=== PATIENT | male | born 1980 | race Caucasian/White ===

== ENCOUNTER → 2018-09-28 17:48 | Outpatient (CLI) | payer MEDICAID, SELFPAY ==
[2018-09-28 18:33] LABS: Basophils % 0.4 % (0.1-2.0); Eosinophils # 0.4 K/mm3 (0.0-0.4); Eosinophils % 4.9 % (0.1-12.0); Hematocrit 48.5 % (42.0-52.0); Hemoglobin 16.6 g/dL (14.1-18.0); Lymphocytes % 34.6 % (10-50); Mean Corpuscular HGB Conc 34.2 g/dL (31.8-35.4); Mean Corpuscular Hemoglobin 29.9 pg (27.0-31.2); Mean Corpuscular Volume 87.3 fl (80-94); Mean Platelet Volume 7.9 fl (7.4-10.4); Monocytes # 0.6 K/mm3 (0.1-1.0); Monocytes % 6.5 % (1.7-9.3); Neutrophils # 4.6 K/mm3 (1.8-7.8); Neutrophils % 53.7 % (37.0-80.0); Platelet Count 321 K/mm3 (142-424); Red Blood Count 5.56 M/mm3 (4.60-6.20); Red Cell Distribution Width 13.7 % (11.5-17.5); White Blood Count 8.6 K/mm3 (4.8-10.8)
[2018-09-28 19:08] LABS: Alanine Aminotransferase 56 U/L (12-78); Albumin Level 3.6 gm/dL (3.4-5.0); Albumin/Globulin Ratio 0.8 (1.1-1.8); Alkaline Phosphatase 61 U/L (46-116); Anion Gap 15.3 mEq/L (5-15); Aspartate Amino Transferase 27 U/L (15-37); Blood Urea Nitrogen 15 mg/dL (7-18); Calcium 9.1 mg/dL (8.5-10.1); Carbon Dioxide 27 mmol/L (21.0-32.0); Chloride 105 mmol/L (98-107); Chol/HDL Ratio 7.1 (1-3.5); Cholesterol 240 mg/dL (140-200); Creatinine,Serum 1.03 mg/dL (0.70-1.30); Estimated Glomerular Filt Rate 81 ml/min (>60); GFR (African American) 98 ML/MIN (>60); Globulin 4.8 gm/dl (1.3-3.2); Glucose 94 mg/dL (74-106); HDL Cholesterol 34 mg/dL (27-67); LDL Cholesterol 169 mg/dL (0-130); Potassium 4.3 mmoL/L (3.5-5.1); Sodium 143 mmol/L (136-145); T4 (Thyroxine) 7.1 ug/dl (4.7-13.3); Thyroid Stimulating Hormone 1.61 uIU/ml (0.358-3.740); Total Protein,Serum 8.4 gm/dL (6.4-8.2); Triglycerides 183 mg/dL (30-200); Uric Acid 8.8 mg/dL (2.6-7.2); VLDL Cholesterol 37 mg/dL (0-40)
[2018-09-30 18:09] LABS: Vitamin B12 498 pg/mL (232-1245); Vitamin D 25 Hydroxy 13.3 ng/mL (30.0-100.0)
[2018-09-30 18:09] LABS: Folate 3.4 ng/mL (>3.0)
== END ==
PROVIDERS: Visit Provider Physician Assistant
DX: M54.10 Radiculopathy, site unspecified (principal)
CPT/HCPCS: 80053; 80061; 82607; 82652; 82746; 84436; 84443; 84550; 85025

== ENCOUNTER → 2018-12-21 09:10 | Outpatient (CLI) | payer MEDICAID, SELFPAY ==
[2018-12-21 09:34] LABS: Basophils % 0.6 % (0.1-2.0); Eosinophils # 0.4 K/mm3 (0.0-0.4); Eosinophils % 5.2 % (0.1-12.0); Hematocrit 50.5 % (42.0-52.0); Hemoglobin 16.7 g/dL (14.1-18.0); Lymphocytes # 2.8 K/mm3 (0.7-4.5); Lymphocytes % 40.4 % (10-50); Mean Corpuscular HGB Conc 33.1 g/dL (31.8-35.4); Mean Corpuscular Hemoglobin 29.5 pg (27.0-31.2); Mean Corpuscular Volume 89.1 fl (80-94); Mean Platelet Volume 7.1 fl (7.4-10.4); Monocytes # 0.4 K/mm3 (0.1-1.0); Monocytes % 6.3 % (1.7-9.3); Neutrophils # 3.3 K/mm3 (1.8-7.8); Neutrophils % 47.6 % (37.0-80.0); Platelet Count 289 K/mm3 (142-424); Red Blood Count 5.67 M/mm3 (4.60-6.20); White Blood Count 6.8 K/mm3 (4.8-10.8)
[2018-12-21 11:01] LABS: Alanine Aminotransferase 66 U/L (12-78); Albumin Level 3.2 gm/dL (3.4-5.0); Albumin/Globulin Ratio 0.7 (1.1-1.8); Alkaline Phosphatase 58 U/L (46-116); Anion Gap 10.7 mEq/L (5-15); Aspartate Amino Transferase 29 U/L (15-37); Blood Urea Nitrogen 11 mg/dL (7-18); Calcium 8.7 mg/dL (8.5-10.1); Carbon Dioxide 31 mmol/L (21.0-32.0); Chloride 105 mmol/L (98-107); Chol/HDL Ratio 6.5 (1-3.5); Cholesterol 226 mg/dL (140-200); Creatinine,Serum 0.92 mg/dL (0.70-1.30); Estimated Glomerular Filt Rate 92 ml/min (>60); GFR (African American) 111 ML/MIN (>60); Globulin 4.4 gm/dl (1.3-3.2); Glucose 88 mg/dL (74-106); HDL Cholesterol 35 mg/dL (27-67); LDL Cholesterol 163 mg/dL (0-130); Potassium 4.7 mmoL/L (3.5-5.1); Sodium 142 mmol/L (136-145); Thyroid Stimulating Hormone 2.72 uIU/ml (0.358-3.740); Total Protein,Serum 7.6 gm/dL (6.4-8.2); Triglycerides 142 mg/dL (30-200); VLDL Cholesterol 28 mg/dL (0-40)
[2018-12-21 12:19] LABS: Hemoglobin A1C 5.7 % (0.0-7.0)
== END ==
PROVIDERS: Visit Provider Psychiatry & Neurology Psychiatry
DX: F33.9 Major depressive disorder, recurrent, unspecified (principal)
CPT/HCPCS: 36415; 80053; 80061; 83036; 84443; 85025

== ENCOUNTER → 2019-04-11 13:21 | Outpatient (CLI) | payer OTHER, SELFPAY ==
[2019-04-11 13:59] LABS: Eosinophils % 5.8 % (0.1-12.0); Hematocrit 52.6 % (42.0-52.0); Hemoglobin 16.5 g/dL (14.1-18.0); Lymphocytes % 38.9 % (10-50); Mean Corpuscular HGB Conc 31.4 g/dL (31.8-35.4); Mean Corpuscular Hemoglobin 28.8 pg (27.0-31.2); Mean Corpuscular Volume 91.8 fl (80-94); Monocytes % 7.2 % (1.7-9.3); Neutrophils % 47.3 % (37.0-80.0); Platelet Count 288 K/mm3 (142-424); Red Blood Count 5.73 M/mm3 (4.60-6.20); Red Cell Distribution Width 14.6 % (11.5-17.5); White Blood Count 6.1 K/mm3 (4.8-10.8)
[2019-04-11 14:00] LABS: Basophils # 0.1 K/mm3 (0-0.2); Basophils % 0.8 % (0.1-2.0); Eosinophils # 0.4 K/mm3 (0.0-0.4); Lymphocytes # 2.4 K/mm3 (0.7-4.5); Monocytes # 0.4 K/mm3 (0.1-1.0); Neutrophils # 2.9 K/mm3 (1.8-7.8)
[2019-04-11 17:51] LABS: Alanine Aminotransferase 63 U/L (12-78); Albumin Level 3.5 gm/dL (3.4-5.0); Albumin/Globulin Ratio 0.8 (1.1-1.8); Alkaline Phosphatase 54 U/L (46-116); Anion Gap 17.5 mEq/L (5-15); Aspartate Amino Transferase 34 U/L (15-37); Bilirubin,Total 1.1 mg/dL (0.2-1.0); Blood Urea Nitrogen 10 mg/dL (7-18); Calcium 8.7 mg/dL (8.5-10.1); Carbon Dioxide 25 mmol/L (21.0-32.0); Chloride 104 mmol/L (98-107); Chol/HDL Ratio 6.6 (1-3.5); Cholesterol 250 mg/dL (140-200); Creatinine,Serum 0.98 mg/dL (0.70-1.30); Estimated Glomerular Filt Rate 86 ml/min (>60); GFR (African American) 104 ML/MIN (>60); Globulin 4.3 gm/dl (1.3-3.2); Glucose 95 mg/dL (74-106); HDL Cholesterol 38 mg/dL (27-67); LDL Cholesterol 178 mg/dL (0-130); Potassium 4.5 mmoL/L (3.5-5.1); Sodium 142 mmol/L (136-145); T4 (Thyroxine) 7.8 ug/dl (4.7-13.3); Thyroid Stimulating Hormone 1.81 uIU/ml (0.358-3.740); Total Protein,Serum 7.8 gm/dL (6.4-8.2); Triglycerides 172 mg/dL (30-200); VLDL Cholesterol 34 mg/dL (0-40)
[2019-04-12 21:12] LABS: Testosterone,Total 268 ng/dL (264-916); Vitamin D 25 Hydroxy 21.4 ng/mL (30.0-100.0)
== END ==
PROVIDERS: Visit Provider Physician Assistant
DX: F32.9 Major depressive disorder, single episode, unspecified (principal); E55.9 Vitamin D deficiency, unspecified
CPT/HCPCS: 80053; 80061; 82652; 84403; 84436; 84443; 85025

== ENCOUNTER → 2019-06-18 08:13 | Outpatient (CLI) | payer OTHER, SELFPAY ==
[2019-06-19 14:01] LABS: Estradiol 30.7 pg/mL (7.6-42.6)
[2019-06-21 15:51] LABS: Testosterone,Free 3.5 pg/mL (8.7-25.1)
[2019-06-27 13:18] LABS: Testosterone, Total, LC/MS 235.6
== END ==
PROVIDERS: Visit Provider Urology
DX: R79.89 Other specified abnormal findings of blood chemistry (principal)
CPT/HCPCS: 36415; 82670; 84402; 84403

== ENCOUNTER → 2019-06-26 20:18 | Outpatient (CLI) | payer OTHER, SELFPAY | PROVIDERS: PCP Physician Assistant; Visit Provider Physician Assistant | DX: G47.33 Obstructive sleep apnea (adult) (pediatric) (principal); R40.0 Somnolence; R06.83 Snoring | CPT/HCPCS: 95811 ==

== ENCOUNTER → 2019-07-25 20:16 | Outpatient (CLI) | payer OTHER, SELFPAY | PROVIDERS: PCP Physician Assistant; Visit Provider Nurse Practitioner Family | DX: G47.33 Obstructive sleep apnea (adult) (pediatric) (principal); G47.30 Sleep apnea, unspecified; R40.0 Somnolence; R06.83 Snoring; R51 Headache | CPT/HCPCS: 95811 ==

== ENCOUNTER 2020-01-08 13:00 | Outpatient (RCR) | payer OTHER, SELFPAY ==
--- NOTE | 2019-11-27 15:56 | HMH.PTOPEV ---
PT Outpatient Evaluation Rehab PT Outpatient Evaluation Start: 11/27/19 14:54 Freq: Status: Active Protocol: Document 11/27/19 15:24 JANESMORIS (Rec: 11/27/19 15:56 RODOLFO [id number]) Electronically Signed By Maxx Zhang, PT 11/27/19 15:24 Outpatient Therapy Subjective History Subjective History Patient is a 39 year old male presenting to outpatient PT with reports of chronich lumbar spine pain with BLE radicular symptoms. Pt reports he has had 2 lumbar spine surgeries initially in 2004 for spondylolisthesis. Pt reports L4/5/S1 fusion with mulitple cages. He was referred to PT for aquatic therapy secondary to decreased tolerance with standing acitvities. He has previously had a spinal stimulator placed approx around T8 per patient report. Comorbidities include morbid obesity, HL, asthma, L knee meniscectomy. Chief Complaint Pain,Stiff,Paresthesia, Weakness Symptom Type Ache,Throb,Sharp,Dull,Burning, Numbness,Tingling,Shooting Symptoms Relieved By Nothing Symptoms Aggravated By Supine,Sitting,Standing, Bending/Stooping,Physical Activity,Twisting,Walking, Lifting Prior Functional Limitations Reaching,Lifting,Housework, Dressing,Sleeping,Standing, Sitting,Squatting,Recreation Activity,Walking,Stairs, Balance,Bending/Stooping Current Functional Limitations Reaching,Lifting,Housework, Dressing,Driving,Standing, Sitting,Squatting,Recreation Activity,Walking,Stairs, Balance,Bending/Stooping Symptom Description Constant but Variable Level of pain today (0-10) 7 Pain scale - at its best (0-10) 5 Pain scale - at its worst (0-10) 9 Lumbopelvic Eval Posture Thoracic Spine Posture Standing Position Increased Kyphosis Lumbar Spine Posture Standing Position Increased Lordosis Assistive device Assistive Devices None / NA Palapation tenderness bilateral thoracic spinal tenderness Yes: 3/4 for all T7-S1 lumbar spinal tenderness
== END 2020-01-08 13:57 | disposition home or self-care (01) ==
LOC: PT 13:00
PROVIDERS: PCP Physician Assistant; Visit Provider Physician Assistant
DX: M54.16 Radiculopathy, lumbar region; M54.5 Low back pain
CPT/HCPCS: 97113; 97163; 97164

== ENCOUNTER → 2020-01-10 10:07 | Outpatient (CLI) | payer OTHER, SELFPAY ==
[2020-01-10 10:25] LABS: Basophils # 0.1 K/mm3 (0-0.2); Basophils % 0.8 % (0.1-2.0); Eosinophils # 0.4 K/mm3 (0.0-0.4); Eosinophils % 4.9 % (0.1-12.0); Lymphocytes % 40.9 % (10-50); Mean Corpuscular Volume 91.1 fl (80-94); Mean Platelet Volume 7.5 fl (7.4-10.4); Monocytes # 0.5 K/mm3 (0.1-1.0); Monocytes % 7.3 % (1.7-9.3); Neutrophils # 3.3 K/mm3 (1.8-7.8); Neutrophils % 46.1 % (37.0-80.0); Platelet Count 256 K/mm3 (142-424); Red Blood Count 6.26 M/mm3 (4.60-6.20); Red Cell Distribution Width 15.1 % (11.5-17.5); White Blood Count 7.2 K/mm3 (4.8-10.8)
[2020-01-10 10:30] LABS: Hemoglobin 18.8 g/dL (14.1-18.0)
[2020-01-10 11:49] LABS: Alanine Aminotransferase 47 U/L (12-78); Albumin Level 4.2 g/dl (3.5-5.0); Alkaline Phosphatase 61 U/L (38-126); Aspartate Amino Transferase 37 U/L (17-59); Bilirubin,Direct 0.2 mg/dl (0.0-0.4); Bilirubin,Indirect 1.5 mg/dL (0.0-0.9); Bilirubin,Total 1.7 mg/dl (0.2-1.3); Bilirubin,Unconjugated 1.5 mg/dL (0.0-1.1); Total Protein,Serum 7.7 g/dl (6.3-8.2)
[2020-01-14 13:41] LABS: Testosterone, Total, LC/MS 926.2 ng/dL (264.0-916.0); Testosterone,Free 20.4 pg/mL (8.7-25.1)
== END ==
PROVIDERS: Visit Provider Urology
DX: E29.1 Testicular hypofunction (principal)
CPT/HCPCS: 36415; 80076; 82670; 84402; 84403; 85025

== ENCOUNTER → 2020-01-30 15:55 | Outpatient (CLI) | payer OTHER, SELFPAY ==
[2020-01-30 17:20] LABS: Thyroid Stimulating Hormone 2.01 uIU/mL (0.465-4.68)
== END ==
PROVIDERS: Visit Provider Physician Assistant
DX: E05.90 Thyrotoxicosis, unspecified without thyrotoxic crisis or storm (principal)
CPT/HCPCS: 84443

== ENCOUNTER → 2020-02-08 12:41 | Outpatient (CLI) | payer OTHER, SELFPAY ==
--- NOTE | 2020-02-08 12:42 | CA_ITS ---
APPROVED REPORT EXAM: Comprehensive 2D, Doppler, and color-flow Echocardiogram Sports Administrator: Meagan Lizama RT(R) Ht: 6 ft 4 in Wt: 474lbs BSA: 3.20 BP: 155/101 mmHg Indications: Edema, Family history of HD, depression, hx [place] 2D Dimensions LVOT 2.27 cm (M/F) 1.5-2.5 M-Mode Dimensions RVDd 2.16 cm (0.9-2.6) LVDd 6.85 cm (3.5-5.7) LVDs 5.73 cm (3.5-5.7) IVSd 1.22 cm (0.6-1.1) PWd 0.94 cm (0.6-1.1) EF (Teich) 33.40% FS 16.40% EDV (Teich) 243.20 mL ESV (Teich) 162.00 mL LV Diastology E/A Ratio 1.76 Mitral Valve MV A Velocity 62.00 (40-130 cm/s) Left Ventricle Technically very difficult study, endocardial surfaces are very poorly visualized, a repeat study with Definity contrast is recommended. Left atrium is mildly enlarged, left ventricle is normal size, probably preserved left ventricular systolic function, the study is suboptimal for the analysis of segmental wall motion. Diastolic parameters are inconclusive. Right Ventricle Right atrium and right ventricle appears to be relatively normal size and function. Aortic Valve Aortic valve is not well visualized, Doppler is not indicated above aortic stenosis. Mitral Valve Mitral valve is grossly normal, there is mild mitral regurgitation. Tricuspid Valve Tricuspid valve grossly normal, there is mild tricuspid regurgitation, tricuspid regurgitation jet velocity is inadequate for calculation of the right ventricular systolic pressure. Pulmonic Valve Pulmonic valve is poorly visualized. Great Vessels Aortic root is normal size. Pericardium No significant pericardial effusion noted. Conclusion 1. Technically very difficult study as described above, repeat study with Definity contrast is recommended. 2. Probably preserved left ventricular systolic function. 3. No significant pericardial effusion noted. Electronically signed by : Chuck Barrow, 02/08/2020 13:48:28
== END ==
PROVIDERS: PCP Physician Assistant; Visit Provider Physician Assistant
DX: R60.9 Edema, unspecified (principal)
CPT/HCPCS: 93306

== ENCOUNTER → 2020-02-21 10:01 | Outpatient (CLI) | payer OTHER, SELFPAY ==
--- NOTE | 2020-02-21 10:03 | CA_ITS ---
APPROVED REPORT EXAM: Limited 2D Echocardiogram with contrast Subscription Agent: Perla Anthony RDCS Ht: 6 ft 4 in Wt: 478lbs BSA: 3.21 BP: 110/76 mmHg Indications: FOLLOW UP ECHO WITH DEFINITY Conclusion 1. Limited echocardiogram with Definity contrast performed to evaluate left ventricular systolic function. 2. Despite the use of Definity contrast endocardial borders are poorly visualized, there is likely preserved left ventricular systolic function with no regional wall motion abnormality. Electronically signed by : Chuck Barrow, 02/21/2020 15:17:47
== END ==
PROVIDERS: PCP Physician Assistant; Visit Provider Physician Assistant
DX: R93.1 Abnormal findings on diagnostic imaging of heart and coronary circulation (principal)
CPT/HCPCS: 93308; Q9957

== ENCOUNTER 2020-07-11 13:30 | Outpatient (CLI) | payer OTHER, SELFPAY ==
[2020-07-11 14:22] LABS: Basophils # 0.1 K/mm3 (0-0.2); Basophils % 0.9 % (0.1-2.0); Eosinophils # 0.6 K/mm3 (0.0-0.4); Eosinophils % 5.4 % (0.1-12.0); Hematocrit 56.2 % (42.0-52.0); Lymphocytes # 3.7 K/mm3 (0.7-4.5); Lymphocytes % 36.3 % (10-50); Mean Corpuscular HGB Conc 32.9 g/dL (31.8-35.4); Mean Corpuscular Hemoglobin 29.7 pg (27.0-31.2); Mean Corpuscular Volume 90.3 fl (80-94); Mean Platelet Volume 7.4 fl (7.4-10.4); Monocytes # 0.7 K/mm3 (0.1-1.0); Monocytes % 6.7 % (1.7-9.3); Neutrophils # 5.2 K/mm3 (1.8-7.8); Neutrophils % 50.7 % (37.0-80.0); Platelet Count 230 K/mm3 (142-424); Red Blood Count 6.22 M/mm3 (4.60-6.20); Red Cell Distribution Width 14.3 % (11.5-17.5); White Blood Count 10.3 K/mm3 (4.8-10.8)
[2020-07-11 14:35] LABS: Hemoglobin 18.5 g/dL (14.1-18.0)
[2020-07-11 15:15] VITALS: BP 156/96; PULSE 81; RESP 18
--- NOTE | 2020-07-11 15:15 | PC.NURSE ---
1515-pt here for therapeutic phlebotomy for hgb > 16.6 and draw off 250ml per ; pt states he feels fine and is ready to go
[2020-07-11 15:39] LABS: Alanine Aminotransferase 45 U/L (12-78); Albumin Level 4.5 g/dl (3.5-5.0); Alkaline Phosphatase 60 U/L (38-126); Aspartate Amino Transferase 38 U/L (17-59); Bilirubin,Direct 0.1 mg/dl (0.0-0.4); Bilirubin,Indirect 1.3 mg/dL (0.0-0.9); Bilirubin,Total 1.4 mg/dl (0.2-1.3); Bilirubin,Unconjugated 1.4 mg/dL (0.0-1.1); Total Protein,Serum 8.4 g/dl (6.3-8.2)
[2020-07-11 16:11] LABS: Prostate Specific Ag, Diagnost 0.223 ng/ml (0.0-4.0)
[2020-07-18 23:22] LABS: Testosterone, Total, LC/MS 1067.1 ng/dL (264.0-916.0); Testosterone,Free 24.7 pg/mL (8.7-25.1)
== END 2020-07-11 15:15 | disposition home or self-care (01) ==
PROVIDERS: PCP Physician Assistant; Visit Provider Urology
DX: E29.1 Testicular hypofunction (principal); D75.1 Secondary polycythemia
CPT/HCPCS: 36415; 80076; 82670; 84153; 84402; 84403; 85025; 99195

== ENCOUNTER 2020-12-10 09:28 | Outpatient (CLI) | payer OTHER, SELFPAY ==
[2020-12-10 09:29] VITALS: BMI 56.6
[2020-12-10 09:43] LABS: Hematocrit 52.5 % (42.0-52.0)
== END 2020-12-10 10:55 | disposition home or self-care (01) ==
LOC: INF 09:28
PROVIDERS: Visit Provider Urology
DX: D58.2 Other hemoglobinopathies (principal)
CPT/HCPCS: 36415; 85014; 85018; 99195

== ENCOUNTER → 2021-01-08 13:55 | Outpatient (CLI) | payer OTHER, SELFPAY ==
[2021-01-08 14:41] LABS: Basophils # 0.1 K/mm3 (0-0.2); Basophils % 1.3 % (0.1-2.0); Eosinophils # 0.5 K/mm3 (0.0-0.4); Hematocrit 45.7 % (42.0-52.0); Lymphocytes # 2.8 K/mm3 (0.7-4.5); Lymphocytes % 36.8 % (10-50); Mean Corpuscular Hemoglobin 37.2 pg (27.0-31.2); Mean Platelet Volume 8.6 fl (7.4-10.4); Monocytes # 0.5 K/mm3 (0.1-1.0); Monocytes % 7.2 % (1.7-9.3); Neutrophils # 3.6 K/mm3 (1.8-7.8); Neutrophils % 47.8 % (37.0-80.0); Platelet Count 236 K/mm3 (142-424); Red Blood Count 4.91 M/mm3 (4.60-6.20); Red Cell Distribution Width 14.8 % (11.5-17.5); White Blood Count 7.6 K/mm3 (4.8-10.8)
[2021-01-08 14:58] LABS: Alanine Aminotransferase 75 U/L (12-78); Albumin Level 4.1 g/dl (3.5-5.0); Alkaline Phosphatase 48 U/L (38-126); Aspartate Amino Transferase 50 U/L (17-59); Bilirubin,Direct 0.4 mg/dl (0.0-0.4); Bilirubin,Indirect 0.9 mg/dL (0.0-0.9); Bilirubin,Total 1.3 mg/dl (0.2-1.3); Bilirubin,Unconjugated 0.9 mg/dL (0.0-1.1); Total Protein,Serum 7.8 g/dl (6.3-8.2)
[2021-01-08 15:30] LABS: Prostate Specific Ag Screen 0.3 ng/ml (0.0-4.0)
[2021-01-08 19:23] LABS: Hemoglobin 18.3 g/dL (14.1-18.0)
[2021-01-10 10:58] LABS: Estradiol 30.5 pg/mL (7.6-42.6)
[2021-01-14 13:26] LABS: Testosterone, Total, LC/MS 1136.4 ng/dL (264.0-916.0); Testosterone,Free 23.7 pg/mL (6.8-21.5)
== END ==
PROVIDERS: Visit Provider Urology
DX: D75.1 Secondary polycythemia (principal); E29.1 Testicular hypofunction; Z12.5 Encounter for screening for malignant neoplasm of prostate
CPT/HCPCS: 36415; 80076; 82670; 84402; 84403; 85025; G0103

== ENCOUNTER 2021-05-06 09:57 | Outpatient (CLI) | payer OTHER, SELFPAY ==
[2021-05-06 10:37] VITALS: BMI 54.8
[2021-05-06 10:48] LABS: Hematocrit 54.3 % (42.0-52.0)
[2021-05-06 10:58] LABS: Hemoglobin 18.7 g/dL (14.1-18.0)
--- NOTE | 2021-05-06 12:11 | PC.NURSE ---
1015 - BLOOD DRAWN FROM RIGHT HAND TO CHECK HGB/HCT PRIOR TO THERAPEUTIC PHLEBOTOMY.
== END 2021-05-06 11:55 | disposition home or self-care (01) ==
LOC: INF 09:58
PROVIDERS: PCP Physician Assistant; Visit Provider Urology
DX: D75.1 Secondary polycythemia (principal)
CPT/HCPCS: 85014; 85018; 99195

== ENCOUNTER 2021-07-13 13:58 | Outpatient (CLI) | payer OTHER, SELFPAY ==
[2021-07-13 14:04] VITALS: BMI 53.8
[2021-07-13 14:29] LABS: Hematocrit 53.7 % (42.0-52.0); Hemoglobin 17.9 g/dL (14.1-18.0)
[2021-07-13 14:55] VITALS: BP 130/77; PULSE 80; RESP 16; TEMP 36.4; O2SAT 95
[2021-07-13 15:18] VITALS: BP 120/72; PULSE 77; RESP 16; TEMP 36.4; O2SAT 95
== END 2021-07-13 15:22 | disposition home or self-care (01) ==
LOC: INF 13:59
PROVIDERS: PCP Physician Assistant; Visit Provider Urology
DX: D75.1 Secondary polycythemia (principal)
CPT/HCPCS: 36415; 85014; 85018; 99195

== ENCOUNTER 2021-10-08 14:42 | Outpatient (CLI) | payer OTHER, SELFPAY ==
[2021-10-08 14:47] VITALS: BMI 53.8
[2021-10-08 15:09] LABS: Hematocrit 53.9 % (42.0-52.0)
[2021-10-08 15:15] LABS: Hemoglobin 18.4 g/dL (14.1-18.0)
== END 2021-10-08 16:15 | disposition home or self-care (01) ==
LOC: INF 14:43
PROVIDERS: PCP Physician Assistant; Visit Provider Urology
DX: R79.1 Abnormal coagulation profile (principal)
CPT/HCPCS: 85014; 85018; 99195

== ENCOUNTER 2021-11-04 13:52 | Outpatient (CLI) | payer OTHER, SELFPAY ==
[2021-11-04 13:55] VITALS: BMI 53.8
--- NOTE | 2021-11-04 14:28 | PC.NURSE ---
lab staff at pt chairside to obtain labs for h/h.
[2021-11-04 14:36] LABS: Hematocrit 55.4 % (42.0-52.0)
[2021-11-04 15:00] VITALS: BP 108/60; PULSE 68; RESP 18; TEMP 36.7; O2SAT 99
[2021-11-04 15:15] VITALS: BP 112/68; PULSE 77; RESP 18; O2SAT 97
== END 2021-11-04 15:15 | disposition home or self-care (01) ==
LOC: INF 13:54
PROVIDERS: PCP Physician Assistant; Visit Provider Urology
DX: D75.1 Secondary polycythemia (principal)
CPT/HCPCS: 36415; 85014; 85018; 99195

== ENCOUNTER 2022-01-11 13:46 | Outpatient (CLI) | payer OTHER, SELFPAY ==
[2022-01-11 13:58] VITALS: BMI 51.1
[2022-01-11 14:35] LABS: Basophils # 0.1 K/mm3 (0-0.2); Basophils % 0.9 % (0.1-2.0); Eosinophils # 0.5 K/mm3 (0.0-0.4); Eosinophils % 7.1 % (0.1-12.0); Lymphocytes # 2.1 K/mm3 (0.7-4.5); Lymphocytes % 30.9 % (10-50); Mean Corpuscular HGB Conc 31.6 g/dL (31.8-35.4); Mean Corpuscular Hemoglobin 30.4 pg (27.0-31.2); Mean Corpuscular Volume 96.1 fl (80-94); Mean Platelet Volume 8.4 fl (7.4-10.4); Monocytes # 0.6 K/mm3 (0.1-1.0); Monocytes % 8.3 % (1.7-9.3); Neutrophils # 3.5 K/mm3 (1.8-7.8); Neutrophils % 52.9 % (37.0-80.0); Platelet Count 233 K/mm3 (142-424); Red Blood Count 5.92 M/mm3 (4.60-6.20); Red Cell Distribution Width 14.1 % (11.5-17.5); White Blood Count 6.7 K/mm3 (4.8-10.8)
[2022-01-11 14:50] VITALS: BP 130/68; PULSE 79; RESP 16; TEMP 36.3; O2SAT 97
[2022-01-11 14:52] LABS: Alanine Aminotransferase 64 U/L (12-78); Albumin Level 4.3 g/dl (3.5-5.0); Alkaline Phosphatase 51 U/L (38-126); Aspartate Amino Transferase 45 U/L (17-59); Bilirubin,Direct 0.4 mg/dl (0.0-0.4); Bilirubin,Indirect 1.5 mg/dL (0.0-0.9); Bilirubin,Total 1.9 mg/dl (0.2-1.3); Bilirubin,Unconjugated 1.5 mg/dL (0.0-1.1); Total Protein,Serum 7.9 g/dl (6.3-8.2)
[2022-01-11 15:46] VITALS: BP 120/72; PULSE 80; RESP 18; TEMP 36.3; O2SAT 97
[2022-01-17 20:02] LABS: Testosterone, Total, LC/MS 1339.5 ng/dL (264.0-916.0); Testosterone,Free 27.4 pg/mL (6.8-21.5)
== END 2022-01-11 15:45 | disposition home or self-care (01) ==
LOC: INF 13:46
PROVIDERS: PCP Physician Assistant; Visit Provider Urology
DX: E29.1 Testicular hypofunction (principal); R79.89 Other specified abnormal findings of blood chemistry
CPT/HCPCS: 36415; 80076; 84402; 84403; 85025; 99195

== ENCOUNTER 2022-04-07 13:02 | Outpatient (CLI) | payer OTHER, SELFPAY ==
[2022-04-07 13:07] VITALS: BMI 51.1
[2022-04-07 13:44] LABS: Hematocrit 51.5 % (42.0-52.0); Hemoglobin 17.2 g/dL (14.1-18.0)
[2022-04-07 14:05] VITALS: BP 112/62; PULSE 83; RESP 18; TEMP 36.7; O2SAT 97
[2022-04-07 14:25] VITALS: BP 101/65; PULSE 80; RESP 18; O2SAT 97
== END 2022-04-07 14:30 | disposition home or self-care (01) ==
LOC: INF 13:03
PROVIDERS: PCP Physician Assistant; Visit Provider Urology
DX: E29.1 Testicular hypofunction (principal)
CPT/HCPCS: 36415; 85014; 85018; 99195

== ENCOUNTER → 2022-06-17 14:25 | Outpatient (CLI) | payer OTHER, SELFPAY | PROVIDERS: PCP Physician Assistant; Visit Provider Physician Assistant | DX: R09.89 Other specified symptoms and signs involving the circulatory and respiratory systems (principal) | CPT/HCPCS: 87070 ==

== ENCOUNTER 2022-07-02 13:09 | Outpatient (CLI) | payer OTHER, SELFPAY ==
[2022-07-02 13:35] VITALS: BP 118/68; PULSE 81; RESP 16; TEMP 36.3; O2SAT 97
[2022-07-02 14:35] VITALS: BP 116/69; PULSE 75; RESP 16; TEMP 36.3; O2SAT 98
--- NOTE | 2022-07-02 14:50 | PC.NURSE ---
500ml blood obtained per therapeutic phlebotomy as ordered.
== END 2022-07-02 14:40 | disposition home or self-care (01) ==
LOC: INF 13:10
PROVIDERS: PCP Physician Assistant; Visit Provider Urology
DX: E29.1 Testicular hypofunction (principal)
CPT/HCPCS: 99195

== ENCOUNTER 2022-07-09 13:05 | Outpatient (CLI) | payer OTHER, SELFPAY ==
[2022-07-09 13:08] VITALS: BMI 51.1
[2022-07-09 13:25] LABS: Basophils # 0.1 K/mm3 (0-0.2); Basophils % 1.6 % (0.1-2.0); Eosinophils # 0.5 K/mm3 (0.0-0.4); Eosinophils % 7.9 % (0.1-12.0); Hematocrit 52.4 % (42.0-52.0); Hemoglobin 16.6 g/dL (14.1-18.0); Lymphocytes % 32.1 % (10-50); Mean Corpuscular HGB Conc 31.8 g/dL (31.8-35.4); Mean Corpuscular Hemoglobin 30.1 pg (27.0-31.2); Mean Corpuscular Volume 94.7 fl (80-94); Monocytes # 0.5 K/mm3 (0.1-1.0); Monocytes % 7.9 % (1.7-9.3); Neutrophils # 3.1 K/mm3 (1.8-7.8); Neutrophils % 50.5 % (37.0-80.0); Platelet Count 217 K/mm3 (142-424); Red Blood Count 5.53 M/mm3 (4.60-6.20); Red Cell Distribution Width 14.8 % (11.5-17.5); White Blood Count 6.2 K/mm3 (4.8-10.8)
--- NOTE | 2022-07-09 13:42 | PC.NURSE ---
1340- patient d/c home for hemoglobin 16.6; patient does not need theraputic phlebotomy; will return next week for lab recheck
== END 2022-07-09 13:40 | disposition home or self-care (01) ==
LOC: INF 13:06
PROVIDERS: PCP Physician Assistant; Visit Provider Urology
DX: D75.1 Secondary polycythemia (principal)
CPT/HCPCS: 36415; 85025

== ENCOUNTER 2022-07-16 12:02 | Outpatient (CLI) | payer OTHER, SELFPAY ==
[2022-07-16 12:08] VITALS: BMI 51.1
[2022-07-16 12:21] LABS: Basophils # 0.1 K/mm3 (0-0.2); Basophils % 0.9 % (0.1-2.0); Eosinophils # 0.6 K/mm3 (0.0-0.4); Eosinophils % 8.9 % (0.1-12.0); Hematocrit 52.5 % (42.0-52.0); Lymphocytes # 2.2 K/mm3 (0.7-4.5); Mean Corpuscular HGB Conc 32.5 g/dL (31.8-35.4); Mean Corpuscular Hemoglobin 29.9 pg (27.0-31.2); Mean Corpuscular Volume 92.2 fl (80-94); Monocytes # 0.5 K/mm3 (0.1-1.0); Monocytes % 7.3 % (1.7-9.3); Neutrophils # 3.8 K/mm3 (1.8-7.8); Neutrophils % 52.9 % (37.0-80.0); Platelet Count 185 K/mm3 (142-424); Red Blood Count 5.69 M/mm3 (4.60-6.20); White Blood Count 7.2 K/mm3 (4.8-10.8)
--- NOTE | 2022-07-16 12:31 | PC.NURSE ---
1215-BLOOD DRAWN BY LETI BREAUX FROM LAB TO CHECK CBC. 1224-HGB 17. NO PHLEBOTOMY NEEDED. DISCHARGED HOME.
== END 2022-07-16 12:25 | disposition home or self-care (01) ==
LOC: INF 12:04
PROVIDERS: PCP Physician Assistant; Visit Provider Urology
DX: E29.1 Testicular hypofunction (principal)
CPT/HCPCS: 36415; 85025

== ENCOUNTER 2022-07-23 12:03 | Outpatient (CLI) | payer OTHER, SELFPAY ==
[2022-07-23 12:05] VITALS: BMI 49.8
[2022-07-23 12:18] LABS: Basophils # 0.1 K/mm3 (0-0.2); Basophils % 1.9 % (0.1-2.0); Eosinophils # 0.5 K/mm3 (0.0-0.4); Eosinophils % 6.7 % (0.1-12.0); Hematocrit 52.3 % (42.0-52.0); Hemoglobin 17.2 g/dL (14.1-18.0); Lymphocytes # 2.2 K/mm3 (0.7-4.5); Lymphocytes % 30.8 % (10-50); Mean Corpuscular HGB Conc 32.9 g/dL (31.8-35.4); Mean Corpuscular Hemoglobin 30.6 pg (27.0-31.2); Mean Corpuscular Volume 92.9 fl (80-94); Mean Platelet Volume 7.5 fl (7.4-10.4); Monocytes # 0.5 K/mm3 (0.1-1.0); Monocytes % 6.6 % (1.7-9.3); Neutrophils # 3.9 K/mm3 (1.8-7.8); Platelet Count 230 K/mm3 (142-424); Red Blood Count 5.63 M/mm3 (4.60-6.20); Red Cell Distribution Width 14.7 % (11.5-17.5); White Blood Count 7.3 K/mm3 (4.8-10.8)
[2022-07-23 12:43] VITALS: BP 130/66; PULSE 72; RESP 18; O2SAT 98
[2022-07-23 13:40] VITALS: BP 119/74; PULSE 66; RESP 18
== END 2022-07-23 13:40 | disposition home or self-care (01) ==
PROVIDERS: PCP Physician Assistant; Visit Provider Nurse Practitioner Family
DX: D75.1 Secondary polycythemia (principal)
CPT/HCPCS: 36415; 85025; 99195

== ENCOUNTER 2022-08-13 11:27 | Outpatient (CLI) | payer OTHER, SELFPAY ==
[2022-08-13 11:55] VITALS: BMI 49.8
[2022-08-13 12:35] LABS: Basophils # 0.1 K/mm3 (0-0.2); Basophils % 1.3 % (0.1-2.0); Eosinophils # 0.6 K/mm3 (0.0-0.4); Eosinophils % 7.6 % (0.1-12.0); Hematocrit 51.8 % (42.0-52.0); Hemoglobin 16.5 g/dL (14.1-18.0); Lymphocytes # 2.4 K/mm3 (0.7-4.5); Lymphocytes % 32.7 % (10-50); Mean Corpuscular HGB Conc 31.9 g/dL (31.8-35.4); Mean Corpuscular Hemoglobin 29.7 pg (27.0-31.2); Mean Corpuscular Volume 93.3 fl (80-94); Mean Platelet Volume 8.7 fl (7.4-10.4); Monocytes # 0.5 K/mm3 (0.1-1.0); Monocytes % 6.6 % (1.7-9.3); Neutrophils # 3.9 K/mm3 (1.8-7.8); Neutrophils % 51.9 % (37.0-80.0); Platelet Count 236 K/mm3 (142-424); Red Blood Count 5.55 M/mm3 (4.60-6.20); Red Cell Distribution Width 14.7 % (11.5-17.5); White Blood Count 7.4 K/mm3 (4.8-10.8)
--- NOTE | 2022-08-13 12:45 | PC.NURSE ---
Addendum entered by Reyna Harper RN 08/13/22 12:56: TESTOSTERONE LEVEL ALSO DRAWN AT THIS TIME. Original Note: 1215-BLOOD DRAWN USING BUTTERLFLY NEEDLE TO CHECK CBC AT THIS TIME.
[2022-08-14 08:54] LABS: Testosterone,Total 458 ng/dL (264-916)
== END 2022-08-13 12:55 | disposition home or self-care (01) ==
LOC: INF 11:27
PROVIDERS: PCP Physician Assistant; Visit Provider Nurse Practitioner Family
DX: D75.1 Secondary polycythemia (principal); R79.89 Other specified abnormal findings of blood chemistry
CPT/HCPCS: 36415; 84403; 85025

== ENCOUNTER 2022-08-27 11:52 | Outpatient (CLI) | payer OTHER, SELFPAY ==
[2022-08-27 12:00] VITALS: BMI 49.8
[2022-08-27 12:15] LABS: Basophils % 0.7 % (0.1-2.0); Eosinophils # 0.4 K/mm3 (0.0-0.4); Eosinophils % 6.8 % (0.1-12.0); Hematocrit 51.7 % (42.0-52.0); Hemoglobin 16.9 g/dL (14.1-18.0); Lymphocytes # 1.9 K/mm3 (0.7-4.5); Lymphocytes % 29.9 % (10-50); Mean Corpuscular HGB Conc 32.7 g/dL (31.8-35.4); Mean Corpuscular Hemoglobin 29.6 pg (27.0-31.2); Mean Corpuscular Volume 90.6 fl (80-94); Monocytes # 0.3 K/mm3 (0.1-1.0); Neutrophils # 3.7 K/mm3 (1.8-7.8); Neutrophils % 57.7 % (37.0-80.0); Platelet Count 213 K/mm3 (142-424); Red Blood Count 5.71 M/mm3 (4.60-6.20); Red Cell Distribution Width 14.7 % (11.5-17.5); White Blood Count 6.3 K/mm3 (4.8-10.8)
--- NOTE | 2022-08-27 13:27 | PC.NURSE ---
1210 - BLOOD DRAWN BY LETI BREAUX FROM LAB TO CHECK CBC. 1218-HGB 16.9 SO NO THERAPEUTIC PHLEBOTOMY NEEDED. PT DISCHARGED.
== END 2022-08-27 12:20 | disposition home or self-care (01) ==
LOC: INF 11:53
PROVIDERS: PCP Physician Assistant; Visit Provider Urology
DX: D75.1 Secondary polycythemia (principal)
CPT/HCPCS: 36415; 85025

== ENCOUNTER 2022-09-10 11:57 | Outpatient (CLI) | payer OTHER, SELFPAY ==
[2022-09-10 12:07] VITALS: BMI 49.8
[2022-09-10 12:21] LABS: Basophils # 0.1 K/mm3 (0-0.2); Basophils % 0.8 % (0.1-2.0); Eosinophils # 0.5 K/mm3 (0.0-0.4); Eosinophils % 7.2 % (0.1-12.0); Hematocrit 52.8 % (42.0-52.0); Hemoglobin 17.2 g/dL (14.1-18.0); Lymphocytes # 2.5 K/mm3 (0.7-4.5); Lymphocytes % 37.5 % (10-50); Mean Corpuscular HGB Conc 32.6 g/dL (31.8-35.4); Mean Corpuscular Hemoglobin 29.7 pg (27.0-31.2); Mean Platelet Volume 7.9 fl (7.4-10.4); Monocytes # 0.5 K/mm3 (0.1-1.0); Monocytes % 6.9 % (1.7-9.3); Neutrophils # 3.1 K/mm3 (1.8-7.8); Neutrophils % 47.5 % (37.0-80.0); Platelet Count 218 K/mm3 (142-424); Red Cell Distribution Width 14.6 % (11.5-17.5); White Blood Count 6.5 K/mm3 (4.8-10.8)
[2022-09-10 12:35] VITALS: BP 106/72; PULSE 73; RESP 18
[2022-09-10 14:05] VITALS: BP 124/74; PULSE 71; RESP 18
== END 2022-09-10 14:05 | disposition home or self-care (01) ==
PROVIDERS: PCP Physician Assistant; Visit Provider Nurse Practitioner Family
DX: D75.1 Secondary polycythemia (principal)
CPT/HCPCS: 36415; 85025; 99195

== ENCOUNTER 2022-09-24 11:51 | Outpatient (CLI) | payer OTHER, SELFPAY ==
[2022-09-24 11:55] VITALS: BMI 49.8
[2022-09-24 12:22] LABS: Basophils # 0.1 K/mm3 (0-0.2); Eosinophils # 0.5 K/mm3 (0.0-0.4); Eosinophils % 7.8 % (0.1-12.0); Hematocrit 49.4 % (42.0-52.0); Hemoglobin 16.5 g/dL (14.1-18.0); Lymphocytes # 2.4 K/mm3 (0.7-4.5); Lymphocytes % 37.1 % (10-50); Mean Corpuscular HGB Conc 33.4 g/dL (31.8-35.4); Mean Corpuscular Hemoglobin 29.5 pg (27.0-31.2); Mean Corpuscular Volume 88.5 fl (80-94); Monocytes # 0.4 K/mm3 (0.1-1.0); Monocytes % 6.7 % (1.7-9.3); Neutrophils % 47.5 % (37.0-80.0); Platelet Count 249 K/mm3 (142-424); Red Blood Count 5.58 M/mm3 (4.60-6.20); Red Cell Distribution Width 14.6 % (11.5-17.5); White Blood Count 6.4 K/mm3 (4.8-10.8)
--- NOTE | 2022-09-24 12:58 | PC.NURSE ---
CBC drawn by Raf in lab. Pt hgb today was 16.5 and does not meet requirements for phlebotomy at this time.
== END 2022-09-24 12:20 | disposition home or self-care (01) ==
LOC: INF 11:52
PROVIDERS: PCP Physician Assistant; Visit Provider Nurse Practitioner Family
DX: D75.1 Secondary polycythemia (principal)
CPT/HCPCS: 85025

== ENCOUNTER 2022-10-08 12:02 | Outpatient (CLI) | payer OTHER, SELFPAY ==
--- NOTE | 2022-10-08 12:09 | PC.NURSE ---
1209-collected labs via venipuncture stick in left ac; will wait on results
[2022-10-08 12:10] VITALS: BMI 49.8
[2022-10-08 12:19] LABS: Basophils # 0.1 K/mm3 (0-0.2); Basophils % 1.1 % (0.1-2.0); Eosinophils # 0.6 K/mm3 (0.0-0.4); Eosinophils % 9.6 % (0.1-12.0); Hematocrit 51.7 % (42.0-52.0); Hemoglobin 16.8 g/dL (14.1-18.0); Lymphocytes # 2.2 K/mm3 (0.7-4.5); Lymphocytes % 35.8 % (10-50); Mean Corpuscular HGB Conc 32.6 g/dL (31.8-35.4); Mean Corpuscular Hemoglobin 29.5 pg (27.0-31.2); Mean Corpuscular Volume 90.7 fl (80-94); Mean Platelet Volume 8.3 fl (7.4-10.4); Monocytes # 0.5 K/mm3 (0.1-1.0); Monocytes % 7.9 % (1.7-9.3); Neutrophils # 2.9 K/mm3 (1.8-7.8); Neutrophils % 45.7 % (37.0-80.0); Platelet Count 251 K/mm3 (142-424); Red Cell Distribution Width 14.2 % (11.5-17.5); White Blood Count 6.3 K/mm3 (4.8-10.8)
--- NOTE | 2022-10-08 12:25 | PC.NURSE ---
1225-pt d/c home hgb 16.8 pt does not need phlebotomy today.
== END 2022-10-08 12:25 | disposition home or self-care (01) ==
LOC: INF 12:02
PROVIDERS: PCP Physician Assistant; Visit Provider Nurse Practitioner Family
DX: D75.1 Secondary polycythemia (principal)
CPT/HCPCS: 36415; 85025

== ENCOUNTER 2022-10-22 12:01 | Outpatient (CLI) | payer OTHER, SELFPAY ==
[2022-10-22 12:16] VITALS: BMI 48.6
[2022-10-22 12:38] LABS: Basophils % 0.5 % (0.1-2.0); Eosinophils # 0.5 K/mm3 (0.0-0.4); Hematocrit 51.4 % (42.0-52.0); Hemoglobin 16.5 g/dL (14.1-18.0); Lymphocytes # 2.1 K/mm3 (0.7-4.5); Lymphocytes % 39.7 % (10-50); Mean Corpuscular HGB Conc 32.2 g/dL (31.8-35.4); Mean Corpuscular Hemoglobin 28.8 pg (27.0-31.2); Mean Corpuscular Volume 89.6 fl (80-94); Mean Platelet Volume 8.1 fl (7.4-10.4); Monocytes # 0.3 K/mm3 (0.1-1.0); Monocytes % 5.4 % (1.7-9.3); Neutrophils # 2.4 K/mm3 (1.8-7.8); Neutrophils % 44.4 % (37.0-80.0); Platelet Count 209 K/mm3 (142-424); Red Blood Count 5.74 M/mm3 (4.60-6.20); Red Cell Distribution Width 14.4 % (11.5-17.5); White Blood Count 5.4 K/mm3 (4.8-10.8)
--- NOTE | 2022-10-22 12:42 | PC.NURSE ---
1242-pt d/c home; hgb 16.5
--- NOTE | 2022-10-22 14:59 | PC.NURSE ---
1232-zoran sosa, food safety coordinator here to collect cbc;will wait on results;if hgb >17 pt will need therapeutic phlebotomy
== END 2022-10-22 12:42 | disposition home or self-care (01) ==
LOC: INF 12:01
PROVIDERS: PCP Physician Assistant; Visit Provider Nurse Practitioner Family
DX: D75.1 Secondary polycythemia (principal)
CPT/HCPCS: 36415; 85025

== ENCOUNTER 2022-11-12 09:23 | Outpatient (CLI) | payer OTHER, SELFPAY ==
[2022-11-12 09:23] VITALS: BMI 25.4
[2022-11-12 10:10] LABS: Basophils % 0.6 % (0.1-2.0); Eosinophils # 0.6 K/mm3 (0.0-0.4); Eosinophils % 8.5 % (0.1-12.0); Hematocrit 50.1 % (42.0-52.0); Hemoglobin 16.4 g/dL (14.1-18.0); Lymphocytes # 2.5 K/mm3 (0.7-4.5); Lymphocytes % 36.2 % (10-50); Mean Corpuscular HGB Conc 32.7 g/dL (31.8-35.4); Mean Corpuscular Hemoglobin 28.8 pg (27.0-31.2); Mean Corpuscular Volume 88.3 fl (80-94); Mean Platelet Volume 8.2 fl (7.4-10.4); Monocytes # 0.5 K/mm3 (0.1-1.0); Monocytes % 7.2 % (1.7-9.3); Neutrophils # 3.3 K/mm3 (1.8-7.8); Neutrophils % 47.6 % (37.0-80.0); Platelet Count 221 K/mm3 (142-424); Red Blood Count 5.68 M/mm3 (4.60-6.20); Red Cell Distribution Width 14.1 % (11.5-17.5); White Blood Count 6.9 K/mm3 (4.8-10.8)
--- NOTE | 2022-11-12 14:08 | PC.NURSE ---
PT HERE FOR LABS AND PHLEBOTOMY. BASED ON PT LABS OF HGB 16.4 HE DOES NOT REQUIRE PHLEBOTOMY.
[2022-11-18 19:49] LABS: Testosterone, Total, LC/MS 650 ng/dL (.)
== END 2022-11-12 10:30 | disposition home or self-care (01) ==
PROVIDERS: PCP Physician Assistant; Visit Provider Nurse Practitioner Family
DX: D75.1 Secondary polycythemia (principal); R79.89 Other specified abnormal findings of blood chemistry
CPT/HCPCS: 36415; 84403; 85025

== ENCOUNTER → 2022-12-21 10:06 | Outpatient (CLI) | payer OTHER, SELFPAY ==
--- NOTE | 2022-12-21 10:38 | CT_ITS ---
FINAL REPORT TECHNIQUE: Axial images through the abdomen and pelvis were performed without contrast. This study was performed with techniques to keep radiation doses as low as reasonably achievable, (ALARA). Individualized dose reduction techniques using automated exposure control or adjustment of mA and/or kV according to the patient's size were employed. CLINICAL HISTORY: left renal colic FINDINGS: ABDOMEN: The lung bases are clear. The heart size is normal. Limited images of the liver are unremarkable. The spleen is normal. No adrenal mass is identified. The aorta is normal in caliber. There is no significant free fluid or adenopathy. There are small bilateral renal stones, largest on the left measures 3 mm. There is mild left hydronephrosis and hydroureter secondary to a 2 mm distal left ureteral stone seen 3 cm proximal to the UVJ. PELVIS: The appendix is not identified. The urinary bladder is unremarkable. There is no significant free fluid or adenopathy. There are degenerative and postoperative changes in the lower lumbar spine. IMPRESSION: Mild left hydronephrosis and hydroureter secondary to a distal left ureteral stone. Bilateral nephrolithiasis. Reviewed, Interpreted and Dictated by Rowdy Garcia III, MD Transcribed by Bella Saxena Authenticated and [facility]
[2022-12-21 10:51] LABS: Basophils # 0.1 K/mm3 (0-0.2); Basophils % 0.9 % (0.1-2.0); Eosinophils # 0.3 K/mm3 (0.0-0.4); Lymphocytes # 1.9 K/mm3 (0.7-4.5); Lymphocytes % 38.4 % (10-50); Mean Corpuscular HGB Conc 32.5 g/dL (31.8-35.4); Mean Corpuscular Hemoglobin 28.7 pg (27.0-31.2); Mean Corpuscular Volume 88.3 fl (80-94); Mean Platelet Volume 8.4 fl (7.4-10.4); Monocytes # 0.4 K/mm3 (0.1-1.0); Monocytes % 7.6 % (1.7-9.3); Neutrophils # 2.4 K/mm3 (1.8-7.8); Neutrophils % 48.1 % (37.0-80.0); Platelet Count 218 K/mm3 (142-424); Red Cell Distribution Width 14.7 % (11.5-17.5)
[2022-12-21 10:53] LABS: Alanine Aminotransferase 65 U/L (12-78); Albumin Level 4.4 g/dl (3.5-5.0); Alkaline Phosphatase 58 U/L (38-126); Anion Gap 12.2 mEq/L (5-15); Aspartate Amino Transferase 47 U/L (17-59); Bilirubin,Total 1.9 mg/dl (0.2-1.3); Blood Urea Nitrogen 12 mg/dl (9-20); Calcium 9.1 mg/dl (8.4-10.2); Carbon Dioxide 30 mmol/L (22.0-30.0); Chloride 106 mmol/L (98-107); Estimated Glomerular Filt Rate 56 ml/min (>60); GFR (African American) 67 ML/MIN (>60); Globulin 4.4 g/dL (1.3-3.2); Glucose 106 mg/dl (74-100); Potassium 4.2 mmoL/L (3.5-5.1); Sodium 144 mmol/L (136-145); Total Protein,Serum 8.8 g/dl (6.3-8.2)
[2022-12-21 11:02] LABS: Hemoglobin 18.2 g/dL (14.1-18.0)
[2022-12-21 11:03] LABS: Hematocrit 56.3 % (42.0-52.0)
== END ==
PROVIDERS: PCP Emergency Medicine; Visit Provider Emergency Medicine
DX: N50.819 Testicular pain, unspecified (principal); N23 Unspecified renal colic; E66.01 Morbid (severe) obesity due to excess calories; Z68.43 Body mass index [BMI] 50.0-59.9, adult
CPT/HCPCS: 74176; 80053; 85025; 87086

== ENCOUNTER → 2022-12-27 13:55 | Outpatient (CLI) | payer OTHER, SELFPAY ==
[2022-12-27 14:33] LABS: Basophils # 0.1 K/mm3 (0-0.2); Basophils % 0.5 % (0.1-2.0); Eosinophils # 0.5 K/mm3 (0.0-0.4); Eosinophils % 5.7 % (0.1-12.0); Lymphocytes # 1.9 K/mm3 (0.7-4.5); Lymphocytes % 20.9 % (10-50); Mean Corpuscular HGB Conc 33.2 g/dL (31.8-35.4); Mean Corpuscular Volume 90.3 fl (80-94); Monocytes # 0.6 K/mm3 (0.1-1.0); Monocytes % 6.6 % (1.7-9.3); Neutrophils % 66.3 % (37.0-80.0); Platelet Count 241 K/mm3 (142-424); Red Blood Count 5.65 M/mm3 (4.60-6.20); Red Cell Distribution Width 14.5 % (11.5-17.5)
[2022-12-27 14:57] LABS: Alanine Aminotransferase 40 U/L (12-78); Albumin Level 4.2 g/dl (3.5-5.0); Alkaline Phosphatase 51 U/L (38-126); Anion Gap 13.4 mEq/L (5-15); Aspartate Amino Transferase 36 U/L (17-59); Bilirubin,Total 1.4 mg/dl (0.2-1.3); Blood Urea Nitrogen 21 mg/dl (9-20); Calcium 8.9 mg/dl (8.4-10.2); Carbon Dioxide 29 mmol/L (22.0-30.0); Chloride 103 mmol/L (98-107); Estimated Glomerular Filt Rate 51 ml/min (>60); GFR (African American) 62 ML/MIN (>60); Globulin 4.1 g/dL (1.3-3.2); Glucose 107 mg/dl (74-100); Potassium 4.4 mmoL/L (3.5-5.1); Sodium 141 mmol/L (136-145); Total Protein,Serum 8.3 g/dl (6.3-8.2)
[2022-12-27 15:04] LABS: C-Reactive Protein 83.5 mg/L (0-4)
[2022-12-27 15:26] LABS: Erythrocyte Sedimentation Rate 11 mm/hr (0-15)
[2022-12-29 11:48] LABS: Estradiol 10.1 pg/mL (7.6-42.6)
[2022-12-29 11:48] LABS: RA Latex Turbid. <10.0 IU/mL (<14.0)
[2022-12-29 12:13] LABS: Anti-Centromere B Antibodies <0.2 AI (0.0-0.9); Anti-DNA (DS) Ab Qn <1 IU/mL (0-9); Anti-Jo-1 <0.2 AI (0.0-0.9); Anti-Smith Antibody <0.2 AI (0.0-0.9); Antichromatin Antibodies <0.2 AI (0.0-0.9); Antiscleroderma-70 Antibodies <0.2 AI (0.0-0.9); RNP Antibodies 0.2 AI (0.0-0.9); Sjogren's Anti-SS-A <0.2 AI (0.0-0.9); Sjogren's Anti-SS-B <0.2 AI (0.0-0.9)
[2022-12-29 16:05] LABS: Anti-Cyclic Citrullinated Pept 3 units (0-19)
[2022-12-30 18:19] LABS: Lupus Reflex Interpretation Comment: (.); PTT-LA 41.9 sec (0.0-43.5)
== END ==
PROVIDERS: Nurse Practitioner Family; PCP Physician Assistant; Visit Provider Physician Assistant
DX: M25.50 Pain in unspecified joint (principal); R79.89 Other specified abnormal findings of blood chemistry; Z79.899 Other long term (current) drug therapy
CPT/HCPCS: 36415; 80053; 82670; 85025; 85613; 85651; 86140; 86200; 86225; 86235; 86431

== ENCOUNTER 2022-12-28 10:22 | Emergency (ER) | payer OTHER, SELFPAY ==
[2022-12-28] VITALS (8 sets, daily range): BP systolic 126–136; BP diastolic 72–81; PULSE 66–89; RESP 16–18; TEMP 36.8; O2SAT 95–99; BMI 52.4
[2022-12-28 10:36] LABS: Microscopic, Urine URINE MICROSCOPIC (MICROSCOPIC)
[2022-12-28 10:37] LABS: Appearance,Urine CLEAR (Clear); Bilirubin,Urine Negative (Negative); Blood, Urine TRACE-I (Negative); Color,Urine YELLOW (Yellow); Glucose,Urine (UA) Negative (Negative); Ketones,Urine Negative (Negative); Leukocyte Esterase,Urine TRACE (Negative); Nitrate,Urine Negative (Negative); Protein,Urine Negative (Negative); Specific Gravity, Urine <= 1.005 (1.005-1.030); Urobilinogen,Urine 0.2 EU/dl (0.2)
--- NOTE | 2022-12-28 10:50 | CT_ITS ---
FINAL REPORT TECHNIQUE: Axial CT images of the abdomen were obtained without contrast. Coronal reformatted images were also obtained.This study was performed with techniques to keep radiation doses as low as reasonably achievable (ALARA). Individualized dose reduction techniques using automated exposure control or adjustment of mA and/or kV according to the patient''s size were employed. CLINICAL HISTORY: L flank pain COMPARISON: 12/21/2022 FINDINGS: The lung bases are clear. The liver has an unremarkable appearance, without evidence of mass. The gallbladder appears normal without evidence of gallstones. There is no evidence of biliary ductal dilatation. The pancreas appears normal. The spleen size is within normal limits. Small bilateral nonobstructing renal stones. Mild left hydronephrosis and hydroureter secondary to a 2 mm left UVJ stone. There has been distal migration of the stone since a prior CT scan. There is no evidence of adenopathy. No abnormal fluid collection is seen. No localized inflammatory processes identified. Appendix not visualized. Degenerative and postoperative changes of the lumbar spine. IMPRESSION: Mild left hydronephrosis and hydroureter secondary to a 2 mm left UVJ stone. Small bilateral nonobstructing renal stones. Reviewed, Interpreted and Dictated by Rowdy Garcia III, MD Transcribed by Sangeeta Dougherty Authenticated and [facility]
[2022-12-28 11:13] LABS: Squamous Epithelial Cell,Urine Occasional #/hpf (0-5)
[2022-12-28 11:14] LABS: Bacteria,Urine Trace /lpf
[2022-12-28 11:21] LABS: Basophils % 0.3 % (0.1-2.0); Eosinophils # 0.5 K/mm3 (0.0-0.4); Eosinophils % 5.1 % (0.1-12.0); Hematocrit 53.2 % (42.0-52.0); Hemoglobin 17.4 g/dL (14.1-18.0); Lymphocytes # 1.8 K/mm3 (0.7-4.5); Lymphocytes % 19.3 % (10-50); Mean Corpuscular HGB Conc 32.8 g/dL (31.8-35.4); Mean Corpuscular Hemoglobin 29.5 pg (27.0-31.2); Mean Corpuscular Volume 89.9 fl (80-94); Mean Platelet Volume 7.7 fl (7.4-10.4); Monocytes # 0.8 K/mm3 (0.1-1.0); Monocytes % 8.1 % (1.7-9.3); Neutrophils # 6.2 K/mm3 (1.8-7.8); Neutrophils % 67.1 % (37.0-80.0); Platelet Count 254 K/mm3 (142-424); Red Blood Count 5.91 M/mm3 (4.60-6.20); Red Cell Distribution Width 14.3 % (11.5-17.5); White Blood Count 9.2 K/mm3 (4.8-10.8)
[2022-12-28 11:28] LABS: Chloride 101 mmol/L (98-107); Sodium 141 mmol/L (136-145)
[2022-12-28 11:31] LABS: Alanine Aminotransferase 37 U/L (12-78); Albumin Level 4.1 g/dl (3.5-5.0); Albumin/Globulin Ratio 0.9 (1.1-1.8); Alkaline Phosphatase 56 U/L (38-126); Aspartate Amino Transferase 31 U/L (17-59); Bilirubin,Total 1.5 mg/dl (0.2-1.3); Blood Urea Nitrogen 19 mg/dl (9-20); Carbon Dioxide 29 mmol/L (22.0-30.0); Creatinine Clearance Estimated 58 mL/min (50-200); Estimated Glomerular Filt Rate 37 ml/min (>60); GFR (African American) 45 ML/MIN (>60); Globulin 4.6 g/dL (1.3-3.2); Glucose 102 mg/dl (74-100); Total Protein,Serum 8.7 g/dl (6.3-8.2)
--- NOTE | 2022-12-28 13:05 | PC.NURSE ---
Assumed patient care
--- NOTE | 2022-12-28 13:06 | PC.NURSE ---
called [facility] to speak with Urology for a consult per ER Doc. Information was given and advised they would call back.
--- NOTE | 2022-12-28 13:07 | HMH.EDGENADL ---
Discharge Plan Disposition Patient Disposition: Home, Self-Care Condition: Good Prescriptions Prescriptions: New ketorolac 10 mg tablet 10 mg PO Q8H PRN (Reason: pain) Qty: 20 0RF No Action ziprasidone HCl 40 mg capsule 40 mg PO BID Qty: 60 1RF Rx Instructions: give with food (meal/snack) hydrocodone-acetaminophen 5-325 mg tablet 1 tab PO TID PRN (Reason: pain) Qty: 15 0RF tamsulosin 0.4 mg capsule 0.4 mg PO DAILY Qty: 10 0RF testosterone cypionate [Depo-Testosterone] 200 mg/mL oil 400 mg IM WEEKLY red yeast rice 600 mg capsule 600 mg PO DAILY Rx Instructions: give with meal/snack B-complex with vitamin C Capsule 1 cap PO DAILY anastrozole 1 mg tablet 1 mg PO .COMPLEX Rx Instructions: 1 mg PO weekly; indomethacin 50 mg capsule 50 mg PO TID PRN (Reason: gout) Qty: 30 2RF Rx Instructions: administer with food or milk meloxicam 15 mg tablet 15 mg PO DAILY PRN (Reason: muscle pain) Qty: 60 5RF tramadol 50 mg tablet 50 mg PO BID PRN (Reason: pain) Qty: 20 0RF furosemide 20 mg tablet See Rx Instructions .ROUTE .COMPLEX Qty: 60 0RF Dose Instruction: TAKE 1 TABLET BY MOUTH TWICE DAILY FOR FLUID Rx Instructions: TAKE 1 TABLET BY MOUTH TWICE DAILY FOR FLUID cholecalciferol (vitamin D3) 1,000 UNIT capsule See Rx Instructions .Route .COMPLEX Rx Instructions: Take 1 capsule by mouth once daily ergocalciferol (vitamin D2) 1,250 mcg (50,000 unit) capsule See Rx Instructions .ROUTE .COMPLEX Rx Instructions: Take 1 capsule by mouth once a week Referrals Follow up/Referrals: Keturah Phoenix PA [Primary Care Provider] - See instructions Activity Restrictions/Add. Instructions Additional Instructions/Restrictions: You were evaluated in the emergency department today. Please orally hydrate at home is much as possible. Follow-up closely with your primary care provider over the next 48 hours for reassessment of your kidney function. green end department supervisor your prescription for Toradol and take as needed for pain. You may also take the hydrocodone provided to you. Do not take other NSAIDs while taking Toradol. Follow-up outpatient with urology. They should be contacting you with an appointment. If you do not hear from them, please call their office. Return to the emergency department for any new or worsening symptoms, such as fevers, intractable nausea and vomiting, or other concerns. Clinical Impressions Clinical Impression: Calculus of left ureter, HUMA (acute kidney injury) Instructions Patient Instructions: DI for Kidney Stones Discharge ED Provider: Nichelle Ross General Adult HPI General Chief complaint: Urogenital-Male Stated complaint: possible kidney stone Time Seen by Provider: 12/28/22 10:45 Mode of Arrival: Ambulatory Source of Information: Patient Limitations: No Limitations Description of Symptoms (Recalled from ER Triage Doc. by RN): 42 yo M presents to ED with c/o left back pain. pt reports he was seen in PCP office for back pain, diagnosed with kidney stone, last tuesday. pt reports that pain has continued through out the week. History of Present Illness HPI narrative: This patient is a 42-year-old male with a history of obesity, hypertension, hyperlipidemia, and kidney stones presenting to the emergency department for evaluation with concern for intermittent left flank pain. He reports that the pain started on Tuesday 1 week ago he was evaluated by his PCP, at which point he was diagnosed with a kidney stone on the left. He states he called his urologist at [facility], and they said that there would be nothing that they would do because it is small enough to pass. The pain has been persistent and has not let up. He describes it as intermittent spasms. He also notes that he is now having chills and nausea. He denies any other concerns or complaints at this time and
--- NOTE | 2022-12-28 13:30 | PC.NURSE ---
Rounded on patient; updated patient on plan of care. Call abarca within reach
--- NOTE | 2022-12-28 13:31 | PC.NURSE ---
called back to speak with ER Doctor. After speaking with ER Doctor advised they would call back
--- NOTE | 2022-12-28 13:38 | PC.NURSE ---
[facility] called back to speak with ER DOctor
== END 2022-12-28 15:37 | disposition home or self-care (01) ==
PROVIDERS: Emergency Provider Emergency Medicine; PCP Physician Assistant
DX: N13.30 Unspecified hydronephrosis (principal); N20.2 Calculus of kidney with calculus of ureter; N17.9 Acute kidney failure, unspecified; F41.9 Anxiety disorder, unspecified; J45.909 Unspecified asthma, uncomplicated; F32.A Depression, unspecified; F17.200 Nicotine dependence, unspecified, uncomplicated
CPT/HCPCS: 74176; 80053; 81001; 85025; 87086; 96361; 96374; 99285

== ENCOUNTER → 2023-01-04 15:07 | Outpatient (CLI) | payer OTHER, SELFPAY ==
--- NOTE | 2023-01-04 15:10 | US_ITS ---
FINAL REPORT TECHNIQUE: Ultrasound images of the kidneys were obtained. CLINICAL HISTORY: STONE COMPARISON: None FINDINGS: The right kidney measures 10 cm in length. It is normal in echogenicity. There is no hydronephrosis. The left kidney measures 11.9 cm in length. It is normal in echogenicity. There is no hydronephrosis. There is a 7 mm hyperechoic focus compatible with a nonobstructing stone noted in the mid left kidney. IMPRESSION: Nonobstructing 7 mm left renal stone. Otherwise unremarkable renal ultrasound. Reviewed, Interpreted and Dictated by Alexx Betancur MD Transcribed by Mine De Dios Authenticated and [facility]
== END ==
PROVIDERS: PCP Physician Assistant; Visit Provider Urology
DX: N20.0 Calculus of kidney (principal)
CPT/HCPCS: 76770

== ENCOUNTER 2023-02-28 08:26 | Outpatient (CLI) | payer OTHER, SELFPAY ==
[2023-02-28 08:34] VITALS: BMI 52.5
[2023-02-28 08:50] LABS: Basophils % 0.6 % (0.1-2.0); Eosinophils # 0.5 K/mm3 (0.0-0.4); Eosinophils % 8.4 % (0.1-12.0); Hematocrit 47.2 % (42.0-52.0); Hemoglobin 16.5 g/dL (14.1-18.0); Lymphocytes # 2.3 K/mm3 (0.7-4.5); Lymphocytes % 35.7 % (10-50); Mean Corpuscular HGB Conc 34.9 g/dL (31.8-35.4); Mean Corpuscular Hemoglobin 31.5 pg (27.0-31.2); Mean Corpuscular Volume 90.2 fl (80-94); Mean Platelet Volume 8.6 fl (7.4-10.4); Monocytes # 0.4 K/mm3 (0.1-1.0); Monocytes % 6.6 % (1.7-9.3); Neutrophils # 3.1 K/mm3 (1.8-7.8); Neutrophils % 48.8 % (37.0-80.0); Platelet Count 180 K/mm3 (142-424); Red Blood Count 5.23 M/mm3 (4.60-6.20); Red Cell Distribution Width 15.5 % (11.5-17.5); White Blood Count 6.5 K/mm3 (4.8-10.8)
--- NOTE | 2023-02-28 09:02 | PC.NURSE ---
0840- cbc drawn by Lawrence in lab via butterfly needle. Hgb today was 16.5 and does not meet criteria for therapeutic phlebotomy per MD order.
== END 2023-02-28 08:54 | disposition home or self-care (01) ==
LOC: INF 08:27
PROVIDERS: PCP Physician Assistant; Visit Provider Nurse Practitioner Family
DX: D75.1 Secondary polycythemia (principal)
CPT/HCPCS: 36415; 85025

== ENCOUNTER → 2023-04-15 08:31 | Outpatient (CLI) | payer OTHER, SELFPAY ==
[2023-04-15 15:31] LABS: Coronavirus 19, PCR Not Detected (NotDetected); Influenza A, PCR Not Detected (NotDetected); Influenza B, PCR Not Detected (NotDetected)
[2023-04-15 15:47] LABS: Hemoglobin A1C 5.3 % (4.0-6.0)
[2023-04-15 15:54] LABS: Alanine Aminotransferase 58 U/L (12-78); Albumin Level 4.1 g/dl (3.5-5.0); Albumin/Globulin Ratio 1.2 (1.1-1.8); Alkaline Phosphatase 54 U/L (38-126); Anion Gap 13.3 mEq/L (5-15); Aspartate Amino Transferase 42 U/L (17-59); Bilirubin,Total 1.4 mg/dl (0.2-1.3); Blood Urea Nitrogen 13 mg/dl (9-20); Calcium 8.8 mg/dl (8.4-10.2); Carbon Dioxide 27 mmol/L (22.0-30.0); Chloride 101 mmol/L (98-107); Estimated Glomerular Filt Rate 56 ml/min (>60); GFR (African American) 67 ML/MIN (>60); Globulin 3.5 g/dL (1.3-3.2); Glucose 97 mg/dl (74-100); Potassium 4.3 mmoL/L (3.5-5.1); Sodium 137 mmol/L (136-145); Total Protein,Serum 7.6 g/dl (6.3-8.2)
[2023-04-15 16:25] LABS: Prostate Specific Ag Screen 0.3 ng/ml (0.0-4.0)
== END ==
LOC: LAB.DROPOF 04-16 08:32
PROVIDERS: PCP Physician Assistant; Visit Provider Family Medicine
DX: R05.9 Cough, unspecified; R68.83 Chills (without fever); J02.9 Acute pharyngitis, unspecified; R51.9 Headache, unspecified; R09.82 Postnasal drip; Z12.5 Encounter for screening for malignant neoplasm of prostate; Z79.899 Other long term (current) drug therapy
CPT/HCPCS: 80053; 83036; 87636; G0103

== ENCOUNTER → 2023-04-18 13:42 | Outpatient (CLI) | payer MEDICARE, OTHER, SELFPAY ==
--- NOTE | 2023-04-18 13:59 | XR_ITS ---
FINAL REPORT CLINICAL HISTORY: Cough and congestion since tue COMPARISON: None FINDINGS: Two views of the chest were obtained. The heart size and pulmonary vascularity are within normal limits. The mediastinum is normal. No acute pulmonary abnormality is identified. There is no pneumothorax. The bony thorax is intact. A spinal stimulator is noted in the posterior thoracic canal. IMPRESSION: No active cardiopulmonary disease. Reviewed, Interpreted and Dictated by Rowdy Garcia III, MD Transcribed by Mine De Dios Authenticated and [facility]
== END ==
PROVIDERS: PCP Physician Assistant; Visit Provider Family Medicine
DX: R05.9 Cough, unspecified (principal)
CPT/HCPCS: 71046

== ENCOUNTER → 2023-05-12 08:58 | Outpatient (CLI) | payer MEDICARE, OTHER, SELFPAY ==
[2023-05-12 09:36] LABS: Basophils # 0.1 K/mm3 (0-0.2); Basophils % 0.7 % (0.1-2.0); Eosinophils # 0.6 K/mm3 (0.0-0.4); Eosinophils % 8.9 % (0.1-12.0); Hematocrit 51.1 % (42.0-52.0); Hemoglobin 17.3 g/dL (14.1-18.0); Lymphocytes # 2.3 K/mm3 (0.7-4.5); Mean Corpuscular HGB Conc 33.9 g/dL (31.8-35.4); Mean Corpuscular Hemoglobin 30.2 pg (27.0-31.2); Mean Corpuscular Volume 89.2 fl (80-94); Monocytes # 0.6 K/mm3 (0.1-1.0); Monocytes % 9.3 % (1.7-9.3); Neutrophils # 3.1 K/mm3 (1.8-7.8); Platelet Count 256 K/mm3 (142-424); Red Blood Count 5.73 M/mm3 (4.60-6.20); Red Cell Distribution Width 14.5 % (11.5-17.5); White Blood Count 6.7 K/mm3 (4.8-10.8)
[2023-05-12 10:13] LABS: Uric Acid 7.9 mg/dl (3.5-8.5)
[2023-05-12 10:45] LABS: Prostate Specific Ag, Diagnost 0.301 ng/ml (0.0-4.0)
[2023-05-13 09:48] LABS: Estradiol 71.8 pg/mL (7.6-42.6)
[2023-05-20 15:10] LABS: Testosterone, Total, LC/MS 700 ng/dL (.)
[2023-06-01 08:25] LABS: PTH Related Peptide < 2.0
== END ==
PROVIDERS: PCP Physician Assistant; Visit Provider Nurse Practitioner Family
DX: N20.0 Calculus of kidney (principal); R79.89 Other specified abnormal findings of blood chemistry; D75.1 Secondary polycythemia; Z79.890 Hormone replacement therapy; Z68.43 Body mass index [BMI] 50.0-59.9, adult; E66.01 Morbid (severe) obesity due to excess calories; R94.8 Abnormal results of function studies of other organs and systems
CPT/HCPCS: 36415; 82306; 82397; 82670; 84153; 84403; 84550; 85025

== ENCOUNTER 2023-08-17 08:32 | Outpatient (CLI) | payer MEDICARE, SELFPAY ==
[2023-08-17 09:14] LABS: Basophils # 0.1 K/mm3 (0-0.2); Basophils % 1.6 % (0.1-2.0); Eosinophils # 0.6 K/mm3 (0.0-0.4); Eosinophils % 9.3 % (0.1-12.0); Hematocrit 53.5 % (42.0-52.0); Hemoglobin 17.6 g/dL (14.1-18.0); Lymphocytes # 2.2 K/mm3 (0.7-4.5); Lymphocytes % 36.4 % (10-50); Mean Corpuscular HGB Conc 32.9 g/dL (31.8-35.4); Mean Corpuscular Hemoglobin 30.4 pg (27.0-31.2); Mean Corpuscular Volume 92.4 fl (80-94); Mean Platelet Volume 7.9 fl (7.4-10.4); Monocytes # 0.5 K/mm3 (0.1-1.0); Monocytes % 7.4 % (1.7-9.3); Neutrophils # 2.7 K/mm3 (1.8-7.8); Neutrophils % 45.3 % (37.0-80.0); Platelet Count 199 K/mm3 (142-424); Red Blood Count 5.79 M/mm3 (4.60-6.20); Red Cell Distribution Width 14.6 % (11.5-17.5)
[2023-08-17 10:43] LABS: 25-OH Vitamin D, Total 39.9 ng/mL (30-100)
[2023-08-17 13:00] LABS: Uric Acid 9.1 mg/dl (3.5-8.5)
[2023-08-17 15:10] LABS: Intact Parathyroid Hormone 40.6 pg/mL (7.5-53.5)
[2023-08-17 15:29] LABS: Prostate Specific Ag, Diagnost 0.252 ng/ml (0.0-4.0)
[2023-08-18 08:54] LABS: Estradiol <5.0 pg/mL (7.6-42.6); Testosterone,Total 335 ng/dL (264-916)
== END 2023-08-17 23:59 ==
LOC: LAB 08:33
PROVIDERS: PCP Physician Assistant; Visit Provider Nurse Practitioner Family
DX: R79.89 Other specified abnormal findings of blood chemistry; E55.9 Vitamin D deficiency, unspecified; D75.1 Secondary polycythemia; R86.1 Abnormal level of hormones in specimens from male genital organs; Z79.890 Hormone replacement therapy; R39.15 Urgency of urination
CPT/HCPCS: 36415; 82306; 82670; 83970; 84153; 84403; 84550; 85025

== ENCOUNTER 2023-09-01 12:47 | Outpatient (CLI) | payer MEDICARE, SELFPAY ==
[2023-09-01 12:54] VITALS: BMI 52.3
[2023-09-01 12:55] VITALS: BP 135/84; PULSE 76; O2SAT 99
[2023-09-01 13:20] LABS: Hematocrit 51.4 % (42.0-52.0); Hemoglobin 17.1 g/dL (14.1-18.0)
[2023-09-01 14:15] VITALS: BP 125/85; PULSE 73
== END 2023-09-01 14:15 | disposition home or self-care (01) ==
LOC: INF 12:48
PROVIDERS: PCP Physician Assistant; Visit Provider Nurse Practitioner Family
DX: D75.1 Secondary polycythemia (principal)
CPT/HCPCS: 36415; 85014; 85018; 99195

== ENCOUNTER 2023-11-14 15:04 | Outpatient (CLI) | payer MEDICARE, SELFPAY ==
--- NOTE | 2023-11-14 15:07 | US_ITS ---
FINAL REPORT TECHNIQUE: Ultrasound images of the kidneys and bladder were obtained. CLINICAL HISTORY: KIDNEY STONES COMPARISON: 01/04/2023 FINDINGS: The exam is overall markedly limited secondary to body habitus. The right kidney measures 11.7 cm in length. It is normal in echogenicity. There is no hydronephrosis. There is fatty infiltration of the liver. The left kidney measures 14.2 cm in length. It is normal in echogenicity. There is no hydronephrosis. IMPRESSION: Exam markedly limited by body habitus. No convincing evidence of hydronephrosis seen. Reviewed, Interpreted and Dictated by Rowdy Garcia III, MD Transcribed by Mine De Dios Authenticated and [facility]
== END 2023-11-14 23:59 | disposition home or self-care (01) ==
LOC: RAD 15:05
PROVIDERS: PCP Physician Assistant; Visit Provider Physician Assistant
DX: N20.0 Calculus of kidney (principal)
CPT/HCPCS: 76770

== ENCOUNTER 2023-11-23 08:41 | Outpatient (CLI) | payer MEDICARE, OTHER, SELFPAY ==
[2023-11-23 16:48] LABS: Basophils # 0.1 K/mm3 (0-0.2); Basophils % 1.7 % (0.1-2.0); Eosinophils # 0.4 K/mm3 (0.0-0.4); Eosinophils % 4.6 % (0.1-12.0); Hematocrit 55.6 % (42.0-52.0); Lymphocytes # 2.7 K/mm3 (0.7-4.5); Lymphocytes % 34.4 % (10-50); Mean Corpuscular HGB Conc 33.4 g/dL (31.8-35.4); Mean Corpuscular Hemoglobin 31.2 pg (27.0-31.2); Mean Corpuscular Volume 93.4 fl (80-94); Monocytes # 0.6 K/mm3 (0.1-1.0); Monocytes % 7.6 % (1.7-9.3); Neutrophils # 4.1 K/mm3 (1.8-7.8); Neutrophils % 51.6 % (37.0-80.0); Platelet Count 202 K/mm3 (142-424); Red Blood Count 5.95 M/mm3 (4.60-6.20); Red Cell Distribution Width 14.5 % (11.5-17.5); White Blood Count 7.9 K/mm3 (4.8-10.8)
[2023-11-23 16:57] LABS: Hemoglobin 18.7 g/dL (14.1-18.0)
[2023-11-24 13:12] LABS: Estradiol 15.6 pg/mL (7.6-42.6); Testosterone,Total 718 ng/dL (264-916)
== END 2023-11-23 23:59 | disposition home or self-care (01) ==
LOC: LAB 08:43
PROVIDERS: PCP Physician Assistant; Visit Provider Nurse Practitioner Family
DX: R79.89 Other specified abnormal findings of blood chemistry (principal); D75.1 Secondary polycythemia; Z79.890 Hormone replacement therapy
CPT/HCPCS: 36415; 82670; 84403; 85025

== ENCOUNTER 2023-12-28 12:40 | Outpatient (CLI) | payer MEDICARE, OTHER, SELFPAY ==
[2023-12-28 12:59] VITALS: BMI 52.3
--- NOTE | 2023-12-28 13:05 | PC.NURSE ---
1305-sony garcia, hygiene coordinator collected labs via venipuncture stick in right ac with butterfly needle; will wait on labs for possible therapeutic phlebotomy for hgb>15 draw off 500ml.
[2023-12-28 13:16] LABS: Hematocrit 54.4 % (42.0-52.0); Hemoglobin 17.7 g/dL (14.1-18.0)
[2023-12-28 13:32] VITALS: BP 139/84; PULSE 82; RESP 18; O2SAT 97
[2023-12-28 13:56] VITALS: BP 158/93; PULSE 86; RESP 18; O2SAT 97
== END 2023-12-28 13:56 | disposition home or self-care (01) ==
LOC: INF 12:41
PROVIDERS: Visit Provider Nurse Practitioner Family
DX: D75.1 Secondary polycythemia (principal)
CPT/HCPCS: 36415; 85014; 85018; 99195

== ENCOUNTER 2024-02-29 09:14 | Outpatient (CLI) | payer MEDICARE, OTHER, SELFPAY ==
[2024-02-29 09:40] LABS: Basophils # 0.1 K/mm3 (0-0.2); Basophils % 1.5 % (0.1-2.0); Eosinophils # 0.4 K/mm3 (0.0-0.4); Hematocrit 45.1 % (42.0-52.0); Hemoglobin 17.8 g/dL (14.1-18.0); Lymphocytes # 2.2 K/mm3 (0.7-4.5); Lymphocytes % 39.9 % (10-50); Mean Corpuscular HGB Conc 39.5 g/dL (31.8-35.4); Mean Corpuscular Hemoglobin 35.7 pg (27.0-31.2); Mean Corpuscular Volume 90.5 fl (80-94); Mean Platelet Volume 7.6 fl (7.4-10.4); Monocytes # 0.4 K/mm3 (0.1-1.0); Monocytes % 6.6 % (1.7-9.3); Neutrophils # 2.5 K/mm3 (1.8-7.8); Platelet Count 196 K/mm3 (142-424); Red Blood Count 4.99 M/mm3 (4.60-6.20); White Blood Count 5.5 K/mm3 (4.8-10.8)
[2024-03-01 10:14] LABS: Calcium, Ionized 4.9 mg/dL (4.5-5.6)
[2024-03-09 04:46] LABS: Testosterone, Total, LC/MS 714 ng/dL (.)
== END 2024-02-29 23:59 | disposition home or self-care (01) ==
LOC: LAB 09:17
PROVIDERS: PCP Family Medicine; Visit Provider Nurse Practitioner Family
DX: N20.0 Calculus of kidney (principal); D75.1 Secondary polycythemia; Z79.890 Hormone replacement therapy; R79.89 Other specified abnormal findings of blood chemistry
CPT/HCPCS: 36415; 82330; 84403; 85025

== ENCOUNTER 2024-03-05 11:01 | Outpatient (CLI) | payer MEDICARE, OTHER, SELFPAY ==
[2024-03-05 19:19] LABS: Alanine Aminotransferase 91 U/L (12-78); Albumin Level 4.1 g/dl (3.5-5.0); Albumin/Globulin Ratio 1.2 (1.1-1.8); Alkaline Phosphatase 48 U/L (38-126); Aspartate Amino Transferase 63 U/L (17-59); Bilirubin,Total 1.8 mg/dl (0.2-1.3); Blood Urea Nitrogen 17 mg/dl (9-20); Calcium 9.3 mg/dl (8.4-10.2); Carbon Dioxide 28 mmol/L (22.0-30.0); Chloride 107 mmol/L (98-107); Chol/HDL Ratio 9.2 (1-3.5); Cholesterol 238 mg/dl (140-200); Estimated Glomerular Filt Rate 60 ml/min (>60); GFR (African American) 73 ML/MIN (>60); Globulin 3.5 g/dL (1.3-3.2); Glucose 132 mg/dl (74-100); HDL Cholesterol 26 mg/dl (40-60); Sodium 141 mmol/L (136-145); Total Protein,Serum 7.6 g/dl (6.3-8.2); Triglycerides 273 mg/dl (30-150); Uric Acid 9.3 mg/dl (3.5-8.5); VLDL Cholesterol 55 mg/dL (0-40)
[2024-03-05 19:31] LABS: Direct LDL Cholesterol 170.92 mg/dL (100-129); Hemoglobin A1C 5.5 % (4.0-6.0)
[2024-03-05 19:50] LABS: Thyroid Stimulating Hormone 1.32 uIU/mL (0.465-4.68)
[2024-03-05 20:12] LABS: Anion Gap 10.5 mEq/L (5-15); Potassium 4.5 mmoL/L (3.5-5.1)
== END 2024-03-05 23:59 | disposition home or self-care (01) ==
LOC: LAB.DROPOF 03-06 11:02
PROVIDERS: PCP Family Medicine; Visit Provider Family Medicine
DX: R73.03 Prediabetes (principal); E78.2 Mixed hyperlipidemia; M10.9 Gout, unspecified; Z78.9 Other specified health status
CPT/HCPCS: 80053; 80061; 83036; 84443; 84550

== ENCOUNTER 2024-03-09 13:01 | Outpatient (CLI) | payer MEDICARE, OTHER, SELFPAY ==
[2024-03-09 13:07] VITALS: BMI 52.3
--- NOTE | 2024-03-09 13:08 | PC.NURSE ---
1308-collected labs via venipuncture stick in left ac with butterfly needle; pt to wait on labs for possible therapeutic phlebotomy if hgb >17
[2024-03-09 13:18] LABS: Hematocrit 50.9 % (42.0-52.0); Hemoglobin 17.4 g/dL (14.1-18.0)
[2024-03-09 13:40] VITALS: BP 108/76; PULSE 70; RESP 18; O2SAT 96
[2024-03-09 14:12] VITALS: BP 124/85; PULSE 72; RESP 18; O2SAT 96
== END 2024-03-09 14:12 | disposition home or self-care (01) ==
LOC: INF 13:03
PROVIDERS: PCP Family Medicine; Visit Provider Nurse Practitioner Family
DX: D75.1 Secondary polycythemia (principal)
CPT/HCPCS: 36415; 85014; 85018; 99195

== ENCOUNTER 2024-05-23 12:08 | Outpatient (CLI) | payer MEDICARE, OTHER, SELFPAY ==
--- NOTE | 2024-05-23 12:16 | XR_ITS ---
FINAL REPORT CLINICAL HISTORY: foot pain COMPARISON: None FINDINGS: RIGHT FOOT 3 views of the right foot were obtained. There is no acute fracture or dislocation. Sclerotic focus of the cuboid is probably an enostosis. Visualized joint spaces are normally aligned. Soft tissues are unremarkable. IMPRESSION: No acute bony abnormality. Reviewed, Interpreted and Dictated by Alexx Betancur MD Transcribed by Sangeeta Dougherty Authenticated and [facility]
--- NOTE | 2024-05-23 12:16 | XR_ITS ---
FINAL REPORT CLINICAL HISTORY: foot pain COMPARISON: None FINDINGS: LEFT FOOT Three views of the left foot demonstrate no acute fracture or dislocation. The visualized joint spaces are normally aligned. The soft tissues are unremarkable. IMPRESSION: No acute bony abnormality. Reviewed, Interpreted and Dictated by Alexx Betancur MD Transcribed by Sangeeta Dougherty Authenticated and [facility]
== END 2024-05-23 23:59 | disposition home or self-care (01) ==
PROVIDERS: PCP Family Medicine; Visit Provider Nurse Practitioner
DX: M79.671 Pain in right foot (principal); M79.672 Pain in left foot
CPT/HCPCS: 73630

== ENCOUNTER 2024-06-06 08:57 | Outpatient (CLI) | payer MEDICARE, SELFPAY ==
[2024-06-06 09:38] VITALS: BMI 52.3
[2024-06-06 10:10] LABS: Basophils % 0.7 % (0.1-2.0); Eosinophils # 0.5 K/mm3 (0.0-0.4); Eosinophils % 8.7 % (0.1-12.0); Hematocrit 53.2 % (42.0-52.0); Hemoglobin 17.5 g/dL (14.1-18.0); Lymphocytes # 1.9 K/mm3 (0.7-4.5); Lymphocytes % 33.9 % (10-50); Mean Corpuscular HGB Conc 32.9 g/dL (31.8-35.4); Mean Corpuscular Hemoglobin 29.1 pg (27.0-31.2); Mean Corpuscular Volume 88.5 fl (80-94); Mean Platelet Volume 9.6 fl (7.4-10.4); Monocytes # 0.5 K/mm3 (0.1-1.0); Monocytes % 9.1 % (1.7-9.3); Neutrophils # 2.6 K/mm3 (1.8-7.8); Neutrophils % 47.2 % (37.0-80.0); Platelet Count 230 K/mm3 (142-424); Red Blood Count 6.01 M/mm3 (4.60-6.20); Red Cell Distribution Width 13.8 % (11.5-17.5); White Blood Count 5.5 K/mm3 (4.8-10.8)
[2024-06-06 10:40] VITALS: BP 128/71; PULSE 75; RESP 20; TEMP 36.7; O2SAT 98
[2024-06-06 11:05] VITALS: BP 109/73; PULSE 73; RESP 20; O2SAT 98
[2024-06-06 11:31] LABS: Prostate Specific Ag, Diagnost 0.302 ng/ml (0.0-4.0)
[2024-06-06 11:36] LABS: Alanine Aminotransferase 112 U/L (12-78); Albumin Level 4.2 g/dl (3.5-5.0); Albumin/Globulin Ratio 1.3 (1.1-1.8); Alkaline Phosphatase 51 U/L (38-126); Anion Gap 14.5 mEq/L (5-15); Aspartate Amino Transferase 76 U/L (17-59); Bilirubin,Total 1.5 mg/dl (0.2-1.3); Blood Urea Nitrogen 20 mg/dl (9-20); Calcium 9.2 mg/dl (8.4-10.2); Carbon Dioxide 29 mmol/L (22.0-30.0); Chloride 102 mmol/L (98-107); Creatinine Clearance Estimated 106 mL/min (50-200); Estimated Glomerular Filt Rate 73 ml/min (>60); GFR (African American) 88 ML/MIN (>60); Globulin 3.2 g/dL (1.3-3.2); Glucose 102 mg/dl (74-100); Potassium 4.5 mmoL/L (3.5-5.1); Sodium 141 mmol/L (136-145); Total Protein,Serum 7.4 g/dl (6.3-8.2); Uric Acid 8.7 mg/dl (3.5-8.5)
--- NOTE | 2024-06-06 11:43 | PC.NURSE ---
06/06/24 0950 Lab staff present and venipuncture performed to obtain blood for labs as ordered per md. Will await results to determine if phlebotomy is needed.
[2024-06-07 08:32] LABS: Testosterone,Total 360 ng/dL (264-916)
== END 2024-06-06 11:05 | disposition home or self-care (01) ==
LOC: INF 08:58
PROVIDERS: Nurse Practitioner; PCP Family Medicine; Visit Provider Nurse Practitioner Family
DX: M79.673 Pain in unspecified foot (principal); M10.9 Gout, unspecified
CPT/HCPCS: 36415; 80053; 84153; 84403; 84550; 85025; 99195

== ENCOUNTER 2024-06-07 16:18 | Outpatient (CLI) | payer MEDICARE, OTHER, SELFPAY ==
[2024-06-07 17:35] LABS: Albumin Level 4.3 g/dl (3.5-5.0)
[2024-06-07 17:37] LABS: Bilirubin,Unconjugated 0.9 mg/dL (0.0-1.1)
[2024-06-07 17:38] LABS: Alanine Aminotransferase 115 U/L (12-78); Alkaline Phosphatase 57 U/L (38-126); Aspartate Amino Transferase 79 U/L (17-59); Bilirubin,Direct 0.3 mg/dl (0.0-0.4); Bilirubin,Indirect 0.9 mg/dL (0.0-0.9); Bilirubin,Total 1.2 mg/dl (0.2-1.3); Total Protein,Serum 7.5 g/dl (6.3-8.2)
[2024-06-08 05:08] LABS: HBsAg Screen Negative (Negative); HCV Ab Non Reactive (Non Reactive); Hep A Ab, IGM Negative (Negative); Hep B Core Ab, IgM Negative (Negative)
== END 2024-06-07 23:59 | disposition home or self-care (01) ==
LOC: LAB 16:19
PROVIDERS: PCP Family Medicine; Visit Provider Family Medicine
DX: R94.5 Abnormal results of liver function studies (principal); R79.89 Other specified abnormal findings of blood chemistry
CPT/HCPCS: 36415; 80074; 80076

== ENCOUNTER 2024-09-04 09:06 | Outpatient (CLI) | payer MEDICARE, OTHER, SELFPAY ==
[2024-09-04 09:46] VITALS: BMI 55.3
[2024-09-04 09:55] LABS: Basophils % 0.6 % (0.1-2.0); Eosinophils # 0.5 Kmm3 (0.0-0.4); Eosinophils % 7.8 % (0.1-12.0); Hematocrit 52.3 % (42.0-52.0); Hemoglobin 17.5 g/dL (14.1-18.0); Lymphocytes # 2.3 K/mm3 (0.7-4.5); Lymphocytes % 34.5 % (10-50); Mean Corpuscular HGB Conc 33.5 g/dL (31.8-35.4); Mean Corpuscular Hemoglobin 29.3 pg (27.0-31.2); Mean Corpuscular Volume 87.5 fl (80-94); Mean Platelet Volume 9.4 fl (7.4-10.4); Monocytes # 0.7 K/mm3 (0.1-1.0); Monocytes % 10.2 % (1.7-9.3); Neutrophils # 3.2 K/mm3 (1.8-7.8); Neutrophils % 46.6 % (37.0-80.0); Nucleated Red Blood Cells # 0 10^3/uL; Nucleated Red Blood Cells % 0 %; Platelet Count 211 K/mm3 (142-424); Red Blood Count 5.98 M/mm3 (4.60-6.20); Red Cell Distribution Width 14.4 % (11.5-17.5); Red Cell Distribution Width-SD 45.9 fL; White Blood Count 6.8 K/mm3 (4.8-10.8)
[2024-09-04 10:38] LABS: Prostate Specific Ag, Diagnost 0.276 ng/ml (0.0-4.0)
[2024-09-04 10:45] VITALS: BP 143/96; PULSE 75; RESP 14; TEMP 36.6; O2SAT 97
[2024-09-04 11:44] VITALS: BP 140/70; PULSE 75; RESP 16; TEMP 36.6; O2SAT 98
[2024-09-05 12:32] LABS: Testosterone,Total 833 ng/dL (264-916)
== END 2024-09-04 11:50 | disposition home or self-care (01) ==
LOC: INF 09:08
PROVIDERS: PCP Family Medicine; Visit Provider Nurse Practitioner Family
DX: D75.1 Secondary polycythemia (principal)
CPT/HCPCS: 36415; 82670; 84153; 84403; 85025; 99195

== ENCOUNTER 2024-12-11 08:56 | Outpatient (CLI) | payer MEDICARE, OTHER, SELFPAY ==
--- OUTSIDE RECORDS SUMMARY | 2024-12-11 08:59 | XMS_ITS | Clinical Summary ---
Author Organization [facility] Address [address] [place] [address] Care Team Providers Care Hand Painter Name Role Phone Keturah Phoenix Primary Care Provider [phone] Annette Sorenson APRN, DNP Unavailable [phone] Allergies Active Allergy Reactions Criticality Noted Date Comments Gabapentin Other - please docum ent in the comment field High 08/27/2016 Suicidal thoughts Penicillins Hives High 08/26/2016 Statins Other - please docum ent in the comment field Low 06/28/2022 Myalgias Medications B Complex Vitamins (B COMPLEX-B12 PO) Take by mouth. Active Red Yeast Rice Extract 600 MG capsule Take by mouth. Activ e ergocalciferol 1.25 MG (48070 UT) capsule Take 1 capsule (50,000 Units) by mouth 1 (one) time per week. 04/06/20 22 Active furosemide (Lasix) 20 MG tablet 06/01/19 23 Active indomethacin (Indocin) 50 MG capsule TAKE 1 CAPSULE BY MOUTH THREE TIMES DAILY WITH FOOD NEEDED FOR GOUT 10/09/19 22 Active meloxicam (Mobic) 15 MG tablet TAKE 1 TABLET BY MOUTH ONCE DAILY NEEDED FOR MUSCLE PAIN 06/16/19 23 Active ziprasidone (Geodon) 40 MG capsule 60 mg. 06/19/19 23 Active Ventolin HFA 108 (90 Base) MCG/ACT inhaler INHALE 2 PUFFS BY MOUTH EVERY 6 HOURS 04/18/20 23 Active fluticasone (Flonase) 50 MCG/ACT nasal spray USE 1 SPRAY(S) IN EACH NOSTRIL TWICE DAILY 04/18/20 23 Active [place] & Syringes misc Please dispense needles and syringes for testosterone cypionate injection. 3mL 18 g needle to draw up medication and 25 g 1 inch needle for injection. 2 each 5 08/24/19 24 Active tamsulosin (Flomax) 0.4 MG 24 hr capsule TAKE 1 CAPSULE BY MOUTH ONCE DAILY AT NIGHT 90 capsule 3 03/06/20 24 Active Barberry-Oreg Grape-Goldenseal (BERBERINE COMPLEX PO) Take by mouth. Act hua anastrozole (Arimidex) 1 MG chemo tablet Take 1 tablet by mouth once a week 12 tablet 2 06/28/19 25 Active Dextromethorphan -buPROPion ER (Auvelity) 45-105 MG tablet controlled-relea se Take 45 mg by mouth. Active Leqvio 284 MG/1.5ML solution prefilled syringe injection INJECT 1.5 ML SUBCUTANEOUSLY every 6 MONTHS 06/18/19 25 Active testosterone cypionate (Depo-Testostero ne) 200 MG/ML injectionIndicat ions:Low testosterone INJECT 0.5 ML (CC) INTRAMUSCULARLY ONCE A WEEK , DISCARD THE REMAINING AMOUNT 4 mL 09/14/19 25 Active Active Problems Problem Noted Date Diagnosed Date Hydronephrosis with urinary obstruction due to ureteral calculus 01/28/2023 HUMA (acute kidney injury) 01/28/2023 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 06/28/2022 Chronic back pain 06/28/2022 Strain of lumbar region 10/04/2017 Postlaminectomy syndrome, lumbar region 05/25/19 18 Overview (06/28/2022): Added automatically from request for surgery [id number] Physical deconditioning 09/14/2016 Obesity with sleep apnea 09/14/2016 Morbid obesity due to excess calories 09/14/2016 DDD (degenerative disc disease), lumbar 09/15/19 17 Spondylosis of lumbar region without myelopathy or radiculopathy 09/14/2016 Anxiety and depression 09/14/2016 Encounters Date Type Department Care Team Description 09/13/2024 11:30 AM EDT [facility] [address], [address] [place] [address] Annette Sorenson P, CONCRETE VAULT MAKER, DNP Low testosterone (Primary Dx); Long-term current use of testosterone cypionate; Polycythemia 09/13/2024 Travel from Last 3 Months Family History Medical History Relation Name Comments Hypertension Father Uche Arthritis Maternal Grandmother Carrie Arthritis Mother Keaton Alcohol abuse Paternal Grandfather Kiran Heart disease Paternal Grandfather Kiran Arthritis Paternal Grandmother Binta Relation Name Status Comments Father Uche Maternal Grandmother Carrie Mother Keaton Paternal Grandfather Kiran Paternal Grandmother Binta Social History Tobacco Use Types Packs/Day Years Used Date Smoking Tobacco: Never Smokeless Tobacco: Never Alcohol Use Standard Drinks/Week Comments Yes 0 (1 standard drink = 0.6 oz pure alcohol) pt states he only drinks very other month PHQ-2 Answer Date Recorded Patient Health Questionnaire-2 Score 0 09/13/2024 PHQ-9 Answer Date Recorded Patient Health Questionnaire-9 Score 20 06/12/2024 CAGE ASSESSMENT Answer Date Recorded Cage unable to access Not on file 01/28/2023 Maximum number of drinks you had on a given occasion in the last month? 5 or more drinks 01/28/2023 How many alcoholic Beverages do you typically drink in a week? 0 - 7 per week 01/28/2023 Have you ever felt you shoul d CUT down on your drinking? 0 01/28/2023 Have you been ANNOYED by peo ple criticizing your drinking? 0 01/28/2023 Have you felt GUILTY about your drinking? 0 01/28/2023 Have you had a drink first t irvin in the morning (EYE-INSULATION MECHANIC) to steady your nerves or to get rid of a hangover? 0 01/28/2023 CAGE Questionnaire Score 0 023 PHQ-2A Answer Date Recorded Patient Health Questionnaire-2 Score 2 02/18/2023 Sex and Gender Information Value Date Recorded Sex Assigned at Male 01/28/2023 3:22 PM EDT Legal Sex Male 8:31 PM EDT Gender Identity Male 01/28/2023 3:22 PM EDT Sexual Orientation Not on file Last Filed Vital Signs Vital Sign Reading Time Taken Comments Blood Pressure 139/79 05/24/2024 1:31 PM EST Pulse 89 05/24/2024 1:31 PM EST Temperature 36.7 C (98.1 F) 05/24/2024 1:31 PM EST Respiratory Rate 15 01/28/2023 8:15 PM EDT Oxygen Saturation 100% 05/24/2024 1:31 PM EST Inhaled Oxygen Concentration - - Weight 204 kg (450 lb) 09/13/2024 11:18 AM EDT Height 195.6 cm (6' 5 ) 09/13/2024 11:18 AM EDT Body Mass Index 53.36 09/13/2024 11:18 AM EDT Plan of Treatment Upcoming Encounters Date Type Department Care Team (Late st Contact Info) Description 03/11/2025 9:10 AM EDT Clinical Support [facility] [address], [address] [place] [address] 03/18/2025 2:30 PM EST Office Visit [facility] [address], [address] [place] [address] Annette Sorenson, CONCRETE VAULT MAKER, DNP [address] [place] [address] 05/23/2025 10:40 AM EST Appointment [facility] [address], [address] [place] [address] 05/23/2025 11:30 AM EST Office Visit Medical Office Building U[facility] [address] [facility], [address] [place] [address] Heaven Jones, CONCRETE VAULT MAKER [address] [place] [address] Health Maintenance Due Date Last Done Comments [facility]-HIV Screening 1980 [facility]-Hepatitis C Screening 1980 [facility]-Medicare Annual Wellness (AWV) 1980 [facility]-/Child/Adol SDOH Screenings 1980 [id number] Vaccine (#1) 1985 [facility]-Varicella Vaccines (1 of 2 - 13+ 2-dose series) 1993 HPV Vaccines (1 - Male 3-dose series) 11/23/1995 [facility]-DTaP,Tdap,and Td Vaccines (2 - Tdap) 12/28/1995 12/27/1995 [facility]- SDOH Screenings 1998 [facility]-Adult SDOH Screenings 1998 [facility]-Hepatitis B Vaccines (1 of 3 - 19+ 3-dose series) 11/23/1999 [facility]-Influenza Vaccine (#1) 2025 [facility]-Depression Screening 09/13/2025 09/13/2024, 05/17 [facility]-Zoster Vaccines (1 of 2) 2030 [facility]-Obesity Intervention Completed 025, 06/12/2024, 05/24/2024, Additional history exists [facility]-HIB Vaccines Aged Out No longer e ligible based on patient's age to complete this topic [facility]-Hepatitis A Vaccines Aged Out No longer eligible based on patient's age to complete this topic [facility]-IPV Vaccines Aged Out No longer e ligible based on patient's age to complete this topic [facility]-Pneumococcal Vaccine: Pediatrics (0 to 5 Years) and At-Risk Patients (6 to 49 Years) Aged Out No longer eligible based on patient's age to complete this topic [facility]-Rotavirus Vaccines Aged Out No lo nger eligible based on patient's age to complete this topic Medical Devices Implanted Type Area Fire Dispatcher Device Identifier Shelf Expiration Date Model / Serial / Lot Stent Ureteral Double Pigtail Pos 6fr 26cm - [id number] Implanted:Qty: 1 on 01/28/2023 by Mann Mendez MD at [facility] [id number] 08/04/2024 [id number] / / [id number] Insurance [facility]ETNA [facility] MEDICAID [employer] MEDICARE Care Teams Hand Painter Relationship Specialty Start Date End Date Keturah Phoenix PA [address] [place] [address] PCP - General 04/26/23 Annette Sorenson, CONCRETE VAULT MAKER, DNP [address] [facility] [address] [place] [address] Nurse Practitioner Urology 11/25/23
--- OUTSIDE RECORDS SUMMARY | 2024-12-11 09:00 | XMS_ITS | Clinical Summary ---
Author Organization [facility] Address [address] [place] [address] Care Team Providers Care Playroom Attendant Name Role Phone Keturah Phoenix Primary Care Provider [phone] Allergies Active Allergy Reactions Criticality Noted Date Comments Gabapentin Other (See Comments) High 08/27/2016 Suicidal thoughts Penicillins Hives High 08/26/2016 Medications amitriptyline (ELAVIL) 25 MG tablet Take 25 mg by mouth every night at bedtime. 11/11/19 21 Active anastrozole (ARIMIDEX) 1 MG tablet Take 1 mg by mouth 1 (One) Time Per Week. 12/25/19 21 Active Cholecalcifero l (Vitamin D-3) 25 MCG (1000 UT) capsule Take 1,000 Units by mouth Daily. 11/11/19 21 Active vitamin D (ERGOCALCIFERO L) 1.25 MG (11620 UT) capsule capsule 11/26/19 21 Active furosemide (LASIX) 20 MG tablet Take 20 mg by mouth 2 (Two) Times a Day. 01/03/20 21 Active meloxicam (MOBIC) 15 MG tablet 11/26/19 21 Active tamsulosin (FLOMAX) 0.4 MG capsule 24 hr capsule Take 1 capsule by mouth every night at bedtime. 01/09/20 21 Active Testosterone Cypionate (DEPOTESTOTERO NE CYPIONATE) 200 MG/ML injection INJECT 1 ML (CC) INTRAMUSCULARLY ONCE A WEEK 01/31/20 21 Active ziprasidone (GEODON) 40 MG capsule TAKE 1 CAPSULE BY MOUTH TWICE DAILY WIVE WITH FOOD (MEAL SNACK) 02/03/20 21 Active Red Yeast Rice Extract (RED YEAST RICE PO) Take by mouth. Active B Complex-C (SUPER B COMPLEX PO) Take by mouth. Act hua Active Problems Problem Noted Date Diagnosed Date Cervical spondylosis with radiculopathy 07/06/19 19 Strain of lumbar region 10/04/2017 Encounter for adjustment and management of neuropacemaker (brain) (peripheral nerve) (spinal cord) 10/02/2017 Overview (03/17/2020): Replacing diagnoses that were inactivated after the 02/13 regulatory import Postlaminectomy syndrome, lumbar region 05/25/19 18 Overview (05/25/2017): Added automatically from request for surgery [id number] History of lumbar fusion 09/14/2016 Morbid obesity due to excess calories 09/14/2016 Anxiety and depression 09/14/2016 Physical deconditioning 09/14/2016 Obesity with sleep apnea 09/14/2016 Spondylosis of lumbar region without myelopathy or radiculopathy 09/14/2016 DDD (degenerative disc disease), lumbar 09/15/19 17 Family History Medical History Relation Name Comments Hypertension Father Arthritis Mother Diabetes Mother Relation Name Status Comments Father Mother Social History Tobacco Use Types Packs/Day Years Used Date Smoking Tobacco: Never Smokeless Tobacco: Never Alcohol Use Standard Drinks/Week Comments Yes 0 (1 standard drink = 0.6 oz pur e alcohol) Abuse Screen Answer Date Recorded Unsafe at Home or Work/School Not on file Feels Threatened by Someone? Not on file 01/2023 Does Anyone Keep You from Co ntacting Others or Doint Things Outside the Home? Not on file 02/21/2023 Physical Sign of Abuse Present Not on file 1 Housing Stability Answer Date Recorded Current Living Arrangements Not on file 01/2023 Potentially Unsafe Housing Conditions Not on ignacio e 02/21/2023 Family and Community Support Answer Kory e Recorded Help with Day-to-Day Activities Not on file 02/21/2023 Lonely or Isolated Not on file 02/21/2023 Employment Answer Date Recorded Do you want help finding or keeping work or a luz b? Not on file 02/21/2023 Disabilities Answer Date Recorded Concentrating, Remembering, or Making Decisions Difficulty Not on file 02/21/2023 Doing Errands Independently Difficulty Not on fi le 02/21/2023 Education Answer Date Recorded Help with school or training? Not on file Preferred Language Not on file 02/21/2023 Sex and Gender Information Value Date Recorded Sex Assigned at Not on file Legal Sex Male 12:22 PM EDT Gender Identity Not on file Sexual Orientation Not on file Last Filed Vital Signs Vital Sign Reading Time Taken Comments Blood Pressure 148/68 08/22/2018 1:11 PM EDT Pulse 90 08/22/2018 1:11 PM EDT Temperature 36.2 C (97.1 F) 03/11/2021 9:39 AM EDT Respiratory Rate 16 03/11/2021 9:39 AM EDT Oxygen Saturation 97% 08/22/2018 1:11 PM EDT Inhaled Oxygen Concentration - - Weight 207 kg (456 lb 3.2 oz) 03/11/2021 9:39 AM EDT Height 193 cm (6' 4 ) 03/11/2021 9:39 AM EDT Body Mass Index 55.53 03/11/2021 9:39 AM EDT Plan of Treatment Health Maintenance Due Date Last Done Comments TDAP/TD VACCINES (2 - Tdap) 12/26/2005 12/27/1995 ANNUAL PHYSICAL 08/26/2016 HEPATITIS C SCREENING 08/26/2016 COVID-19 Vaccine ( - 2023-2 5 season) 2024 INFLUENZA VACCINE 02/13/2025 Pneumococcal Vaccine 0-49 Aged Out No longer eligible based on patient's age to complete this topic Medical Devices Implanted Type Area Pill Coater Device Identifier Shelf Expiration Date Model / Serial / Lot Ld Trial Stim Octrode Impusle 8ch 60cm - [id number] Implanted:Qt y: 1 on 04/18/2017 by Marcos Lopez MD at [facility] Implant N/A: Spine Thoracic ADV NEUROMODULATIONS SYS ANS 12/22/2018 3086 / / Ld Trial Stim Octrode Impusle 8ch 60cm - [id number] Implanted:Qt y: 1 on 04/18/2017 by Marcos Lopez MD at [facility] Implant N/A: Spine Thoracic ADV NEUROMODULATIONS SYS ANS 01/18/2019 3086 / / Ld Stim Lamitrode Tripole 16ch/Ld 60 - [id number] - [id number] Implanted:Qt y: 1 on 06/09/2017 by Andrew Bah MD at [facility] Implant N/A: Spine Thoracic ADV NEUROMODULATIONS SYS ANS 06/29/2018 3219 / [id number] / Gen Puls Neurostim Proclaim Scs 7 Elite Ipg - [id number] - [id number] Implanted:Qt y: 1 on 06/09/2017 by Andrew Bah MD at [facility] Implant N/A: Spine Thoracic ADV NEUROMODULATIONS SYS ANS 04/18/2019 3662 CONTRLSYS / [id number] / Procedures Procedure Name Priority Date/Time Associated Diagnosis Comments SCANNED - LABS 11/09/2024 from Last 3 Months Results * LABS SCANNED (11/09/2024) Maite Byrd APRN LAB BLOOD ORDERABLES Final Resu lt from Last 3 Months Insurance Care Teams Playroom Attendant Relationship Specialty Start Date End Date Keturah Phoenix PA PCP - General Physician Tobacco Drier Operator 09/27/18
--- OUTSIDE RECORDS SUMMARY | 2024-12-11 09:00 | XMS_ITS | Encounter Summary ---
Author Organization [facility] Address [address] [place] [address] Care Team Providers Care Boring Machine Operator Horizontal Name Role Phone Dudley Reese Lea Primary Care Provider [phone] Keturah Phoenix Primary Care Provider [phone] Annette Sorenson APRN, JAD Unavailable [phone] Encounter Details Date Type Department Care Team (Late st Contact Info) Description 12/28/2022 Orders Only External Location [address] [place] [address] Nichelle Ross, DO [address] [place] [address] Social History Tobacco Use Types Packs/Day Years Used Date Smoking Tobacco: Never Smokeless Tobacco: Never Alcohol Use Standard Drinks/Week Comments Yes 0 (1 standard drink = 0.6 oz pure alcohol) pt states he only drinks very other month Sex and Gender Information Value Date Recorded Sex Assigned at Male 01/28/2023 3:22 PM EDT Legal Sex Male 8:31 PM EDT Gender Identity Male 01/28/2023 3:22 PM EDT Sexual Orientation Not on file documented as of this encounter Plan of Treatment Upcoming Encounters Date Type Department Care Team (Late st Contact Info) Description 03/11/2025 9:10 AM EDT Clinical Support [facility] [address], [address] [place] [address] 03/18/2025 2:30 PM EST Office Visit [facility]rology [address], [address] [place] [address] Annette oSrenson APRN, JAD [address] [place] [address] 05/23/2025 10:40 AM EST Appointment [facility] [address], [address] [place] [address] 05/23/2025 11:30 AM EST Office Visit Medical Office Building Urology [address] [facility], [address] [place] [address] Heaven Jones APRN [address] [facility] [address] [place] [address] documented as of this encounter Procedures Procedure Name Priority Date/Time Associated Diagnosis Comments CT OUTSIDE IMAGES 12/28/2022 11:16 AM EDT documented in this encounter Results * CT OUTSIDE IMAGES (12/28/2022 11:16 AM EDT) Anatomical Region Laterality Modality Computed Tomogra phy 12/28/2022 11:1 6 AM EDT Nichelle Ross DO IMG CT PROCEDURES Final Result documented in this encounter Visit Diagnoses Not on filedocumented in this encounter Additional Health Concerns Assessment Noted Time A Body Mass Index follow-up plan has been documented for the patient 11/19/2022 3:43 PM EDT documented as of this encounter Care Teams Boring Machine Operator Horizontal Relationship Specialty Start Date End Date Reese Buckner [facility] [address] [place] [address] PCP - General 09/26/20 04/25/23 Keturah Phoenix PA [address] [place] [address] PCP - General 04/26/23 Annette Sorenson APRN, DNP [address] [facility] [address] [place] [address] Nurse Practitioner Urology 11/25/23 documented as of this encounter
--- OUTSIDE RECORDS SUMMARY | 2024-12-11 09:00 | XMS_ITS | Encounter Summary ---
Author Organization Healthcare Address [address] [place] [address] Care Team Providers Care Network Support Manager Name Role Phone Dudley Reese Lea Primary Care Provider Keturah Phoenix Primary Care Provider [phone] Annette Sorenson APRN, JAD Unavailable [phone] Encounter Details Date Type Department Care Team (Late st Contact Info) Description 12/21/2022 Orders Only External Location [address] [place] [address] Nicho Riddle MD [address] [place] [address] Social History Tobacco Use Types Packs/Day Years [...] Description 03/11/2025 9:10 AM EDT Clinical Support [place] [facility] [address], [address] [place] [address] 03/18/2025 2:30 PM EST Office Visit [facility] [address], [address] [place] [phone] Sorenson, Annette P, HISTORICAL SOCIETY DIRECTOR, DNP [address] [place] [address] 05/23/2025 10:40 AM EST Appointment [facility] [address], [address] [place] [address] 05/23/2025 11:30 AM EST Office Visit Medical Office Building Urology [address] [facility], [address] [place] [address] Heaven Jones APRN [address] [facility] [address] [place] [address] documented as of this encounter Procedures Procedure Name Priority Date/Time Associated Diagnosis Comments CT ABDOMEN PELVIS WO IV CONTRAST 12/21/2022 10:36 AM EDT documented in this encounter Results * CT Abdomen Pelvis wo IV Contrast (12/21/2022 10:36 AM EDT) Anatomical Region Laterality Modality Abdomen, Pelvis Computed Tomogra phy 12/21/2022 10:3 6 AM EDT Nicho Riddle MD IMG CT PROCEDURES Final Resu lt documented in this encounter Visit Diagnoses Not on filedocumented in this encounter Additional Health Concerns Assessment Noted Time A Body Mass Index follow-up plan has been documented for the patient 11/19/2022 3:43 PM EDT documented as of this encounter Care Teams Network Support Manager Relationship Specialty Start Date End Date Reese Buckner [address] [address] PCP - General 09/26/20 04/25/23 Keturah Phoenix PA [address] [place] [address] PCP - General 04/26/23 Annette Sorenson, HISTORICAL SOCIETY DIRECTOR, DNP [address] [address] [place] [address] Nurse Practitioner Urology 11/25/23 documented as of this encounter
--- OUTSIDE RECORDS SUMMARY | 2024-12-11 09:00 | XMS_ITS | Encounter Summary ---
Author Organization [facility] Address [address] [place] [address] Care Team Providers Care X Ray Consultant Name Role Phone Reese Buckner Primary Care Provider Keturah Phoenix Primary Care Provider [phone] nAnette Sorenson APRN, [facility] Unavailable [phone] Encounter Details Date Type Department Care Team (Late st Contact Info) Description 01/04/2023 Orders Only External Location [address] [place] [address] Nando Aquino MD [address] [place] [address] Social History Tobacco Use Types Packs/Day Years [...] Description 03/11/2025 9:10 AM EDT Clinical Support [facility] [address], [address] [place] [address] 03/18/2025 2:30 PM EST Office Visit [facility]rology [address], [address] [place] [address] Annette Sorenson APRN, DNP [address] [place] [address] 05/23/2025 10:40 AM EST Appointment [facility] [address], [address] [place] [address] 05/23/2025 11:30 AM EST Office Visit Medical Office Building Urology [address] [facility], [address] [place] [address] Heaven Jones APRN [address] [facility] [address] [place] [address] documented as of this encounter Procedures Procedure Name Priority Date/Time Associated Diagnosis Comments US OUTSIDE IMAGES 01/04/2023 3:17 PM EDT documented in this encounter Results * US OUTSIDE IMAGES (01/04/2023 3:17 PM EDT) Anatomical Region Laterality Modality Ultrasound 01/04/2023 3:17 PM EDT us Nando Aquino MD IMG US PROCEDURES Final Res ult documented in this encounter Visit Diagnoses Not on filedocumented in this encounter Additional Health Concerns Assessment Noted Time A Body Mass Index follow-up plan has been documented for the patient 11/19/2022 3:43 PM EDT documented as of this encounter Care Teams X Ray Consultant Relationship Specialty Start Date End Date Reese Buckner [address] [address] PCP - General 09/26/20 04/25/23 Keturah Phoenix PA [address] [place] [address] PCP - General 04/26/23 Annette Sorenson APRN, JAD [address] [facility] [address] [place] [address] Nurse Practitioner Urology 11/25/23 documented as of this encounter
--- OUTSIDE RECORDS SUMMARY | 2024-12-11 09:00 | XMS_ITS | Encounter Summary ---
Author Organization Healthcare Address [address] [place] [address] Care Team Providers Care Engine Room Operator Name Role Phone Dudley Reese Lea Primary Care Provider Keturah Phoenix Primary Care Provider [phone] Annette Sorenson APRN, JAD Unavailable [phone] Encounter Details Date Type Department Care Team (Late st Contact Info) Description 12/21/2022 Orders Only External Location [address] [place] [address] Nicho Riddle MD [address] [place] [address] Social History Tobacco Use Types Packs/Day Years [...] Description 03/11/2025 9:10 AM EDT Clinical Support [place] [facility] [address], [address] [place] [address] 03/18/2025 2:30 PM EST Office Visit [facility] Urology [address], [address] [place] [address] Annette Sorenson APRN, JAD [address] [facility] [address] [place] [address] 05/23/2025 10:40 AM EST Appointment [facility] [address], [address] [place] [address] 05/23/2025 11:30 AM EST Office Visit Medical Office Building Urology [address] [facility], [address] [place] [address] Heaven Jones, PSYCHOLOGIST [address] [facility] [place] [address] documented as of this encounter Procedures Procedure Name Priority Date/Time Associated Diagnosis Comments CT OUTSIDE IMAGES 12/21/2022 10:36 AM EDT documented in this encounter Results * CT OUTSIDE IMAGES (12/21/2022 10:36 AM EDT) Anatomical Region Laterality Modality Computed Tomogra phy 12/21/2022 10:3 6 AM EDT us Nicho Riddle MD IMG CT PROCEDURES Final Resu lt documented in this encounter Visit Diagnoses Not on filedocumented in this encounter Additional Health Concerns Assessment Noted Time A Body Mass Index follow-up plan has been documented for the patient 11/19/2022 3:43 PM EDT documented as of this encounter Care Teams Engine Room Operator Relationship Specialty Start Date End Date Reese Buckner [address] [address] PCP - General 09/26/20 04/25/23 Keturah Phoenix PA [address] [place] [address] PCP - General 04/26/23 Annette Sorenson, PSYCHOLOGIST, DNP [address] [facility] [place] [address] Nurse Practitioner Urology 11/25/23 documented as of this encounter
--- OUTSIDE RECORDS SUMMARY | 2024-12-11 09:00 | XMS_ITS | Encounter Summary ---
Author Organization Healthcare Address [address] [place] [address] Care Team Providers Care Rehabilitation Services Director Name Role Phone Dudley Reese Lea Primary Care Provider Keturah Phoenix Primary Care Provider [phone] Annette Sorenson APRN, JAD Unavailable [phone] Encounter Details Date Type Department Care Team (Late st Contact Info) Description 12/28/2022 Orders Only External Location [address] [place] [address] Nichelle Ross, DO [address] [place] [id number] Social History Tobacco Use Types Packs/Day Years [...] Description 03/11/2025 9:10 AM EDT Clinical Support [place] [facility] [address], [address] [place] [phone] 03/18/2025 2:30 PM EST Office Visit [facility] Urology [address], [address] [place] [phone] Annette Sorenson APRN, JAD [address] [place] [address] 05/23/2025 10:40 AM EST Appointment [facility] [address], [address] [place] [address] 05/23/2025 11:30 AM EST Office Visit Medical Office Building Urology [address] [facility], [address] [place] [address] Heaven Jones APRN [address] [facility] [address] [place] [address] documented as of this encounter Procedures Procedure Name Priority Date/Time Associated Diagnosis Comments CT ABDOMEN PELVIS WO IV CONTRAST 12/28/2022 11:16 AM EDT documented in this encounter Results * CT Abdomen Pelvis wo IV Contrast (12/28/2022 11:16 AM EDT) Anatomical Region Laterality Modality Abdomen, Pelvis Computed Tomogra phy 12/28/2022 11:1 6 [address]T [address] PROCEDURES Final Result documented in this encounter Visit Diagnoses Not on filedocumented in this encounter Additional Health Concerns Assessment Noted Time A Body Mass Index follow-up plan has been documented for the patient 11/19/2022 3:43 PM EDT documented as of this encounter Care Teams Rehabilitation Services Director Relationship Specialty Start Date End Date Reese Buckner [address] [address] PCP - General 09/26/20 04/25/23 Keturah Phoenix PA [address] [place] [address] PCP - General 04/26/23 Annette Sorenson APRN, JAD [address] [place] [address] Nurse Practitioner Urology 11/25/23 documented as of this encounter
--- NOTE | 2024-12-11 09:22 | PC.NURSE ---
0915-collected labs via venipuncture stick with butterfly needle;pt to wait on labs for possible therapeutic phlebotomy
[2024-12-11 10:09] LABS: Red Blood Count 5.84 M/mm3 (4.60-6.20); White Blood Count 8.5 K/mm3 (4.8-10.8)
[2024-12-11 10:10] LABS: Hematocrit 51.7 % (42.0-52.0); Hemoglobin 16.5 g/dL (14.1-18.0); Mean Corpuscular HGB Conc 31.9 g/dL (31.8-35.4); Mean Corpuscular Hemoglobin 28.3 pg (27.0-31.2); Mean Corpuscular Volume 88.5 fl (80-94); Nucleated Red Blood Cells % 0 %; Platelet Count 213 K/mm3 (142-424); Red Cell Distribution Width-SD 48.2 fL
[2024-12-11 10:11] LABS: Immature Granulocytes % 0.7 %
[2024-12-11 10:50] LABS: Prostate Specific Ag, Diagnost 0.331 ng/ml (0.0-4.0)
[2024-12-12 04:48] LABS: Testosterone,Total 836 ng/dL (264-916)
== END 2024-12-11 09:15 | disposition home or self-care (01) ==
LOC: INF 08:57
PROVIDERS: PCP Family Medicine; Visit Provider Nurse Practitioner Family
DX: R79.89 Other specified abnormal findings of blood chemistry (principal); D75.1 Secondary polycythemia; Z79.890 Hormone replacement therapy
CPT/HCPCS: 36415; 82670; 84153; 84403; 85025

== ENCOUNTER 2024-12-14 14:45 | Emergency (ER) | payer MEDICARE, OTHER, SELFPAY ==
--- OUTSIDE RECORDS SUMMARY | 2024-12-10 07:20 | XMS_ITS | Continuity of Care Document ---
Author Organization [facility] Address [address] [place] [address] Phone Care Team Providers Care Training And Development Specialist Name Role Phone Estiven Riggs MD Unavailable Unavailable Allergies, Adverse Reactions, Alerts Substance Reaction Status Criticality Penicillins HivesHives Active No Information Medications Medication Instructions Dosage Effective Dates (start - stop) Status Comments Valium 5 mg tablet take 1 tablet by oral route one hour prior to procedure second tablet right before procedure as needed for Anxiety - Active MRI Anxiolysi s prednisone 10 mg tablet take 4 tabs on days 1-3. 3 tabs on days 4-6. 2 tabs on days 7-8. 1 tab on days 9-10 - Active Procedures Procedure Date Office/outpatient visit,[facility] 2024 X-ray exam of neck spine, 4+ views X-ray exam of thoracic spine 2 view Advance Directives Directive Yes / No Effective Date File Name No Information Encounters Encounter Description Practice Location Reason(s) For Visit Diagnoses Date Provider Providers Copied on Encounter [facility] [address] [place], [address], tel:[phone] [facility] No Information Keely Jean-Baptiste. [address] [place] [address], [facility], . tel:[phone] Referring Provider: Estiven Riggs, [address] [place] [address], [facility]. tel:[phone] Office/outpat ient visit,new, mod [facility], [address], [place], [address], [place] tel:[phone] [facility] Other cervical disc degeneration at C5-C6 levelOther specified dorsopathies, cervical regionStrain of muscle, fascia and tendon at neck level, initial encounterPain in thoracic spine 5 Keely Jean-Baptiste. [address] [place], [facility], . [phone] Referring Provider: Estiven Riggs, [address] [place] [address], [facility]. tel:[phone] Family History Family Member Type Diagnosis Age At Onset Father Problem (finding) Family history of Osteo arthritis Sister Problem (finding) Depression Father Problem (finding) Family history of Hyper lipidemia Father Problem (finding) Congenital heart diseas e Father Problem (finding) Hypertension Mother Problem (finding) Depression Mother Problem (finding) Family history of Osteo arthritis Payers Payer name Insurance type Covered republican ID Brandee roper(s) [employer] [id number] [employer] Medicaid CI [id number] Social History Type Description Quantity Date Captured Comments Alcohol Use Details Unknown Caffeine Use Details Unknown Tobacco Use Status No Information Smoking Status No Information Sex Male Chief Complaint And Reason For Visit No Information Reason For Referral Reason For Referral No Information History Of Present Illness Encounter Date Complaint History Of Prese nt Illness cervical spine Functional Status Date Functional Assessmen t No Information Instructions Date Instruction Additional Infor mation No Information Assessments Type Assessment Date No Information Patient Care Teams Name Effective Dates (start - stop) Status Members No Information
[2024-12-14 14:47] VITALS: BP 142/86; PULSE 84; RESP 18; TEMP 37.2; O2SAT 98; BMI 54.8
--- NOTE | 2024-12-14 15:17 | CT_ITS ---
PROCEDURE INFORMATION: Exam: CT Abdomen And Pelvis Without Contrast Exam date and time: 12/14/2024 3:45 PM Age: 44 years old Clinical indication: Other: Right flank/rlq pain; H/o stones TECHNIQUE: Imaging protocol: Computed tomography of the abdomen and pelvis without contrast. Radiation optimization: All CT scans at this facility use at least one of these dose optimization techniques: automated exposure control; mA and/or kV adjustment per patient size (includes targeted exams where dose is matched to clinical indication); or iterative reconstruction. COMPARISON: CT ABDOMEN PELVIS WO CON 12/28/2022 11:16 AM FINDINGS: Tubes, catheters and devices: Transvenous pacemaker leads terminate in the thoracic spine Liver: Lobulated liver consistent with cirrhosis Gallbladder and biliary ducts: Normal. No calcified stones. No ductal dilation. Pancreas: Normal. No ductal dilation. Spleen: Normal. No splenomegaly. Adrenal glands: Normal. No mass. Kidneys and ureters: 3 millimeter RIGHT UVJ calculus causes moderate dilatation of the RIGHT ureter, and RIGHT collecting system. (series 3, image 115) The RIGHT kidney is edematous and there is RIGHT perirenal stranding. Stomach and bowel: Unremarkable. No obstruction. No mucosal thickening. Appendix: No evidence of appendicitis. Intraperitoneal space: Unremarkable. No free air. No significant fluid collection. Vasculature: Unremarkable. No abdominal aortic aneurysm. Lymph nodes: Unremarkable. No enlarged lymph nodes. Urinary bladder: Unremarkable as visualized. Reproductive: 3 millimeter RIGHT UVJ calculus causes moderate dilatation of the RIGHT ureter, and RIGHT collecting system. (series 3, image 115) The RIGHT kidney is edematous and there is RIGHT perirenal stranding. Bones/joints: Internal fixation device at L4, L5, and S1. Stable compression fracture of L1 Soft tissues: Unremarkable. IMPRESSION: 3 millimeter RIGHT UVJ calculus causes moderate dilatation of the RIGHT ureter, and RIGHT collecting system. (series 3, image 115) The RIGHT kidney is edematous and there is RIGHT perirenal stranding.
--- NOTE | 2024-12-14 15:18 | PC.NURSE ---
DR VERDUZCO AT BEDSIDE
--- NOTE | 2024-12-14 15:19 | ED_ITS ---
Discharge Plan Disposition Patient Disposition: Home, Self-Care Prescriptions Prescriptions: New hydrocodone-acetaminophen 5-325 mg tablet 1 tab PO Q6H PRN (Reason: pain) 3 Days Qty: 12 0RF ondansetron 4 mg tablet,disintegrating 4 mg PO Q6H PRN (Reason: nausea and vomiting) 5 Days Qty: 20 0RF No Action tamsulosin 0.4 mg capsule 0.4 mg PO DAILY Qty: 10 0RF indomethacin 50 mg capsule 50 mg PO TID PRN (Reason: gout) Qty: 30 2RF Rx Instructions: administer with food or milk testosterone cypionate [Depo-Testosterone] 200 mg/mL oil 200 mg IM WEEKLY red yeast rice 600 mg capsule 600 mg PO DAILY Rx Instructions: give with meal/snack B-complex with vitamin C Capsule 1 cap PO DAILY anastrozole 1 mg tablet 1 mg PO .COMPLEX Rx Instructions: 1 mg PO weekly; furosemide 20 mg tablet 40 mg PO DAILY meloxicam 15 mg tablet 15 mg PO DAILY albuterol sulfate 90 mcg/actuation aerosol powdr breath activated 2 inh inhalation Q6H Qty: 1 2RF fluticasone propionate [Flonase Allergy Relief] 50 mcg/actuation spray,suspension 1 spray intranasal BID Qty: 16 2RF Rx Instructions: administer into each nostril Leqvio 284 mg/1.5 mL syringe See Rx Instructions .ROUTE .COMPLEX Qty: 1.5 0RF Dose Instruction: INJECT 1.5 ML SUBCUTANEOUSLY every 3 MONTHS Rx Instructions: INJECT 1.5 ML SUBCUTANEOUSLY every 3 MONTHS ergocalciferol (vitamin D2) 1,250 mcg (50,000 unit) capsule See Rx Instructions .ROUTE .COMPLEX Qty: 14 3RF Dose Instruction: Take 1 capsule by mouth once a week Rx Instructions: Take 1 capsule by mouth once a week cyclobenzaprine 10 mg tablet 10 mg PO BID PRN (Reason: muscle spasm) Qty: 20 2RF cholecalciferol (vitamin D3) 1,000 UNIT capsule See Rx Instructions .Route .COMPLEX Rx Instructions: Take 1 capsule by mouth once daily Referrals Follow up/Referrals: Maite Byrd APRN [Primary Care Provider, Family Practice] - See instructions Dane Gauthier II, MD [Staff Physician, Gastroenterology] - See instructions Activity Restrictions/Add. Instructions Additional Instructions/Restrictions: You had a 3 mm distal distal ureteral stone almost certain to pass. Continue to take your tamsulosin and your meloxicam I also prescribed you Maxwelton and Zofran as needed for pain. However more concerning the your labs as well as the radiographic appearance of your liver are concerning for fatty liver or MASLD based cirrhosis. As discussed there is a new FDA approved medication for this called Rezdiffra additionally you may be a candidate for GLP-1's or weight loss surgery but I highly recommend that you follow-up with a GI doctor and be aggressive with the management of this as the downstream complications can be severe. Clinical Impressions Clinical Impression: Hydronephrosis due to obstruction of ureter, Right flank pain, Metabolic dysfunction-associated steatotic liver disease (MASLD), Cirrhosis of liver, Morbid obesity Print Language Print Language: Central [place] Discharge ED Provider: Nickolas Li General Adult HPI General Chief complaint: PAIN Stated complaint: kidney stones Time Seen by Provider: 12/14/24 15:13 History of Present Illness HPI narrative: Patient is a 44-year-old with a history of known kidney stones presents today with right flank/right lower quadrant abdominal pain. Started at 10 AM abruptly. Has had multiple stones in the past is followed by urology in [facility]. Denies any hematuria fevers chills or any other symptoms today. No primary testicle pain but does state the pain radiates down into the right groin into the testicle. Spoke with his urologist at who told him to come to the ER. Related Data Home Medications ?Medication ?Instructions ?Recorded ?Confirmed B-complex with vitamin C 1 cap PO DAILY Supplement 11/07/24 red yeast rice 600 mg capsule 600 mg PO DAILY Suppleme nt 02/22/20 11/07/24 anastrozole 1 mg tablet 1 mg PO .COMPLEX hormone 11/07/24 cholecalciferol (vitamin D3) 25 See Rx Instructions .R oute 07/13/21 11/07/24 mcg (1,000 unit) capsule .COMPLEX Supplement furosemide 20 mg tablet 40 mg PO DAILY 05/02/2410/15 meloxicam 15 mg tablet 15 mg PO DAILY 05/02/2410/15 testosterone cypionate 200 mg/mL 200 mg IM WEEKLY horm one 05/02/24 11/07/24 intramuscular oil replacement (Depo-Testosterone) Previous Rx's ?Medication ?Instructions ?Recorded tamsulosin 0.4 mg capsule 0.4 mg PO DAILY urinary urge ncy 12/21/22 #10 caps albuterol sulfate 90 mcg/actuation 2 inh inhalation Q6 H #1 ea 04/18/23 breath activated powder inhaler fluticasone propionate 50 1 spray intranasal BID #16 g raf 04/18/23 mcg/actuation nasal spray,suspension (Flonase Allergy Relief) indomethacin 50 mg capsule 50 mg PO TID PRN gout #30 c aps 03/05/24 inclisiran 284 mg/1.5 mL See Rx Instructions .Route 0 06/18/24 subcutaneous syringe (Leqvio) .COMPLEX #1.5 mL ergocalciferol (vitamin D2) 1,250 See Rx Instructions .Route 09/18/24 mcg (50,000 unit) capsule .COMPLEX #14 caps cyclobenzaprine 10 mg tablet 10 mg PO BID PRN muscle s pasm #20 11/09/24 tabs hydrocodone 5 mg-acetaminophen 325 1 tab PO Q6H PRN pa in 3 days #12 12/14/24 mg tablet tabs ondansetron 4 mg disintegrating 4 mg PO Q6H PRN nausea and 12/14/24 tablet vomiting 5 days #20 tabs Allergies Allergy/AdvReac Type Severity Reaction Status Date / Time penicillin G Allergy Severe Hives Verified 11/07/24 13:55 gabapentin Allergy Intermediate Verified 11/07/24 13:55 Qlosoqf-RCN-HeW Reductase AdvReac Intermediate Verified 11/07/24 13:55 Inhibitor (Rrmdmit-Tka-Kuo Reductase Inhibitor) cariprazine (From Vraylar) AdvReac Mild Verified 11/07/24 13:57 PFSH PFS Disclaimer: The information contained in this section may have been updated after the patient was seen, as this information can be updated by other users. Medical History (Updated 12/14/24 @ 17:50 by Leonora Zhou MD) History of urinary urgency Renal colic on left side HUMA (acute kidney injury) Calculus of left ureter Cough Chills URI (upper respiratory infection) Post-nasal drip Sinus infection Sinus pressure Sinus pain Spinal cord stimulator status Closed fracture of surgical neck of humerus Back pain with history of spinal surgery Testosterone deficiency in male Arthritis Anxiety Depression Insomnia Cervical nerve root impingement Spondylolisthesis Lumbar radiculopathy, chronic Asthma Low Back Pain Surgical History History of spinal surgery Family History Other Cancer Diabetes Hypertension Substance abuse Social History Smoking Status: Never smoker alcohol intake: current alcohol intake frequency: holidays/special occasions only counseling provided: other substance use type: denies use current occupational status: unemployed and disabled Travel in the last 8 weeks?: None household members: children housing: house marital status: single number of children: 1 caffeine: Yes Have you lived/traveled outside US in past 30 days?: No Contact w/someone who lives/traveled outside US past 30 days?: No Exposure to someone with infectious disease in past 14 days?: No Do you have a fever (greater than 100.4 F or 38 C)?: No Have you tested positive for COVID-19?: No Exposed to someone with COVID-19 in past 14 days?: No Do you have a sore throat?: No Do you have a cough?: No Do you have any weakness?: No Do you have any diarrhea?: No Are you experiencing any unusual bleeding?: No Do you have any muscle aches/pain?: No Do you have any abdominal pain?: No Are you experiencing loss of taste or smell?: No Other Medical History Have you received the Pneumonia Vaccine: No ROS Obtained: Yes All systems reviewed & no additional complaints except as documented Physical Exam General General appearance: alert and in no apparent distress Respiratory Respiratory exam: Present normal lung sounds bilaterally Cardiovascular Cardiovascular exam: Present regular rate Abdominal Exam Abdominal exam: Present soft; Absent distention or tenderness Neurological Exam Neurological exam: Present alert and oriented X3 Medical Decision Making Medical Records Screening: Per USPSTF and CDC recommendations, given the prevalence of disease in our region, it is our hospital?s policy to screen for HIV and viral Hepatitis for all patients aged 18 and over and those with ongoing risk factors. Vance Inquiry Pt receiving controlled substance: No Vital Signs: 12/14/24 14:47 Temperature 99.0 F Temperature Source Oral Pulse Rate [Radial] 84 Respiratory Rate 18 Blood Pressure [Left Arm] 142/86 H Blood Pressure Mean [Left Arm] 104 Blood Pressure Source [Left Arm] Automatic Cuff Blood Pressure Position [Left Arm] Sitting 02 Sat by Pulse Oximetry 98 Oxygen Delivery Method Room Air Lab Data Lab results reviewed: Yes I reviewed the patient's lab results. Lab Results 12/14/24 15:37: WBC 9.5, RBC 5.99, Hgb 16.7, Hct 53.2 H, MCV 88.8, MCH 27.9, M CHC 31.4 L, RDW 14.7, Plt Count 204, MPV 9.4, Neut % (Auto) 69.7, Lymph % (Auto) 17.1, [place] % (Auto) 8.2, Eos % (Auto) 4.1, Baso % (Auto) 0.4, Neut # (Auto) 6.6, Lymph # (Auto) 1.6, [place] # (Auto) 0.8, Eos # (Auto) 0.4, Baso # (Auto) 0.0, Sodium 137, Potassium 4.3, Chloride 101, Carbon Dioxide 32 H, Anion Gap 8.3, BUN 13, Creatinine 1.00, Estimated Creat Clear 116, Estimated GFR 81, Est GFR ( Amer) 98, Glucose 122 H, Calcium 9.3, Total Bilirubin 1.6 H, AST 78 H, ALT 126 H, Alkaline Phosphatase 75, Total Protein 8.4 H, Albumin 3.6, Globulin 4.8 H, Albumin/Globulin Ratio 0.8 L, HIV Ag/Ab Combo Qual Negative 12/14/24 15:37 12/14/24 15:37 Orders (Tests/Meds): ED MEDICATIONS Discontinued Medications Generic Name Dose Route Start Last Admin Trade Name Whit PRN Reason Stop Dose Admin Lactated Ringer's 1,000 mls @ 999 mls/hr 12/14/24 15:30 12/14/24 15:51 Lactated Ringer's 1000 Ml Bag IV 12/14/24 16:30 999 mls/hr .Q1H1M HONEY Administration Ketorolac Tromethamine 15 mg 12/14/24 15:17 12/14/24 15:50 Ketorolac 30mg/Ml Vial IV 12/14/24 15:18 15 mg ONCE ONE Administration Morphine Sulfate 4 mg 12/14/24 15:17 12/14/24 15:51 Morphine 4mg/Ml Syringe IV 12/14/24 15:18 4 mg ONCE ONE Administration Ondansetron HCl 4 mg 12/14/24 15:17 12/14/24 15:51 Ondansetron 4mg/2ml Vial IV 12/14/24 15:18 4 mg ONCE ONE Administration ORDERS Category Date Time Status CT abdomen pelvis wo con Stat Cat Scan 12/14/24 15:17 Completed CBC w/Auto Diff [Complete Blood Count Auto Diff] Stat Lab 12/14/24 15:37 Completed CMP [Comprehensive Metabolic Panel] Stat Lab 12/14/24 15:37 Completed HIV Combo Stat Lab 12/14/24 15:37 Completed UA [Urinalysis and Microscopic] Stat Lab 12/14/24 15:18 Ordered Medical Decision Narrative: Patient is a 44-year-old with above history and physical abdominal exam is benign primary thing of the differential would be a kidney stone we will get a noncontrasted CT scan for further evaluation and management including urinalysis and blood tests administer IV fluids pain medicine nausea medicine will reassess. Other things in the differential would include testicular torsion appendicitis terminal ileitis bowel obstruction etc. Reassessment 551 patient remains very stable CT scan performed I personally interpreted which shows right-sided hydronephrosis and a 3 mm distal UVJ stone almost certain to pass. However more concerning that the patient has a lobular appearance of his liver which is concerning for cirrhosis and abnormal LFTs given the fact that this patient is morbidly obese this is almost certain to be metabolic associated steatorrhic liver disease. The radiographic appearance of the patient's liver in association with the lab test is concerning for cirrhosis. I informed the patient of this and the fact that he needs to follow- up closely with a archivist economic history and to aggressively treat this whether with medication or surgery regarding weight loss. He also needs to be workup for alternative explanations for the liver disease. From a urologic standpoint patient does not need to follow-up with urology as this is likely to pass. Patient is already on meloxicam and tamsulosin prescription of Maxwelton and Zofran have been sent to his pharmacy he was discharged in a stable condition. Critical Care Critical Care Time Critical Care Time: No
--- OUTSIDE RECORDS SUMMARY | 2024-12-14 15:22 | XMS_ITS | Clinical Summary ---
Author Organization [facility] Address [address] [place] [address] Care Team Providers Care Manager Domestic Name Role Phone Keturah Phoenix Primary Care Provider [phone] Annette Sorenson APRN, DNP Unavailable [phone] Allergies Active Allergy Reactions Criticality Noted Date [...] by mouth. Activ e ergocalciferol 1.25 MG (12949 UT) capsule Take 1 capsule (50,000 Units) [...] EACH NOSTRIL TWICE DAILY 04/18/20 23 Active Chloe & Syringes misc Please dispense needles and [...] (06/28/2022): Added automatically from request for surgery [id number] Physical deconditioning 09/14/2016 Obesity with sleep apnea 09/14/2016 Morbid obesity due to excess calories 09/14/2016 DDD (degenerative disc disease), lumbar 09/15/19 17 Spondylosis of lumbar region without myelopathy or radiculopathy 09/14/2016 Anxiety and depression 09/14/2016 Encounters Date Type Department Care Team Description 12/14/2024 Telephone [facility] Urology [address] [address] Annette Sorenson, FIGURINE MAKER, DNP HCN - Patient Message (Kidney pain ) 12/12/2024 Telephone [facility] Urology [address], [address] [place], [place] [address] [address] Annette Sorenson APRN, DNP Lab Results 12/11/2024 Telephone [facility] Urology [address], [address] [place] [address] Annette Sorenson APRN, DNP 09/13/2024 11:30 AM EDT Office Visit [facility] Urology [address], [address] [place] [address] Annette Sorenson APRN, JAD Low testosterone (Primary Dx); Long-term current use [...] drink first t irvin in the morning (EYE-AGENCY DIRECTOR) to steady your nerves or to get rid of a hangover? 0 01/28/2023 CAGE Questionnaire Score 0 09/15/2 023 PHQ-2A Answer Date Recorded Patient Health [...] Description 03/11/2025 9:10 AM EDT Clinical Support [facility] Lab [address], [address] [place] [address] 03/18/2025 2:30 PM EST Office Visit [facility] Urology [address], [address] [place] [address] Annette Sorenson, FIGURINE MAKER, DNP [address] [facility] [address] [place] [address] 05/23/2025 10:40 AM EST Appointment [facility] [address] [place] [address] 05/23/2025 11:30 AM EST Office Visit Medical Office Building Urology [address] [facility], [address] [place] [address] Heaven Jones, LAURA [address] [facility] [address] [place] [address] Health Maintenance Due Date Last Done Comments [facility]-HIV Screening 1980 [facility]-Hepatitis C Screening 1980 [facility]-Medicare Annual Wellness (AWV) 1980 [facility]-/Child/Adol SDOH Screenings 1980 [id number] Vaccine (#1) 1985 [facility]-Varicella Vaccines (1 of [...] this topic Medical Devices Implanted Type Area Social Studies Department Chair Device Identifier Shelf Expiration Date Model / Serial / Lot Stent Ureteral Double Pigtail Pos 6fr 26cm - [id number] Implanted:Qty: 1 on 01/28/2023 by Mann Mendez MD at [id number] 08/04/2024 [id number] / / [id number] Insurance [facility] MEDICAID [employer] MEDICARE Care Teams Manager Domestic Relationship Specialty Start Date End Date Keturah Phoenix PA [address] [place] [address] PCP - General 04/26/23 Annette Sorenson, FIGURINE MAKER, DNP [address] [facility] [address] [place] [address] Nurse Practitioner Urology 11/25/23
--- OUTSIDE RECORDS SUMMARY | 2024-12-14 15:23 | XMS_ITS | Encounter Summary ---
Author Organization Healthcare Address [address] [place] [address] Care Team Providers Care Student Worker Name Role Phone Reese Buckner Primary Care Provider [phone] Keturah Phoenix Primary Care Provider [phone] Annette Sorenson APRN, [facility] Unavailable [phone] Encounter Details Date Type Department Care Team (Late st Contact Info) Description 01/04/2023 Orders Only External Location [address] [place] [address] Nando Aquino MD [address] [place] [address] Social History Tobacco Use Types Packs/Day Years [...] Description 03/11/2025 9:10 AM EDT Clinical Support [place] [facility] [address], 2nd [place] [address] 03/18/2025 2:30 PM EST Office Visit [facility] Urology [address], 2nd [place] [address] Annette Sorenson APRN, DNP [address] [place] [address] 05/23/2025 10:40 AM EST Appointment [facility] [address], 2nd [place] [address] 05/23/2025 11:30 AM EST Office Visit Medical Office Building Urology [address] [facility], [address] [place] [address] Heaven Jones APRN [address] [facility] [address] [place] [address] documented as of this encounter [...] documented as of this encounter Care Teams Student Worker Relationship Specialty Start Date End Date Reese Buckner [address] [address] PCP - General 09/26/20 04/25/23 Keturah Phoenix PA [address] [place] [address] PCP - General 04/26/23 Annette Sorenson APRN, JAD [address] [facility] [address] [place] [address] Nurse Practitioner Urology 11/25/23 documented as of this encounter
--- OUTSIDE RECORDS SUMMARY | 2024-12-14 15:23 | XMS_ITS | Encounter Summary ---
Author Organization Healthcare Address [address] [place] [address] Care Team Providers Care Physical Science Aide Name Role Phone Keturah Phoenix Primary Care Provider [phone] Annette Sorenson APRN, JAD Unavailable [phone] Reason for Visit * Reason Onset Date Comments Lab Results 12/12/2024 Encounter Details Date Type Department Care Team (Late st Contact Info) Description 12/12/2024 Telephone [facility] [address], [address]nd [place] [address] Annette Sorenson, LAURA, DNP [address] [place] [address] Lab Results Social History Tobacco Use Types Packs/Day Years [...] drink first t irvin in the morning (EYE-COMPUTER SYSTEM TECHNICIAN) to steady your nerves or to get [...] on file documented as of this encounter Miscellaneous Notes * Telephone Encounter - Jaylene Mchugh - 12/12/2024 8:06 AM EDT Uploaded 12/11/24 Estradiol and Testosterone into media from [facility]. documented in this encounter Plan of Treatment Upcoming Encounters Date Type Department Care Team (Late st Contact Info) Description 03/11/2025 9:10 AM EDT Clinical Support [facility] Lab [address], 2nd [place] [address] 03/18/2025 2:30 PM EST Office Visit [facility] Urology [address], 2nd [place] [address] Annette Sorenson, EDITOR & CO FOUNDER, DNP [address] [place] [address] 05/23/2025 10:40 AM EST Appointment [facility] CT [address], 2nd [place] [address] 05/23/2025 11:30 AM EST Office Visit Medical Office Building Urology [facility] [address] [facility], [address] [place] [address] Heaven Jones APRN [address] [place] [address] documented as of this encounter Visit Diagnoses Not on filedocumented in this encounter Additional Health Concerns Assessment Noted Time PHQ-9 Depression Total Score: 20 025 11:18 AM EST A fall risk assessment has been complete d for the patient 06/12/2024 11:20 AM EST A Body Mass Index follow-up plan has been documented for the patient 09/13/2024 12:34 PM EDT documented as of this encounter Care Teams Physical Science Aide Relationship Specialty Start Date End Date Keturah Phoenix PA [address] [place] [address] PCP - General 04/26/23 Annette Sorenson, LAURA, DNP [address] [facility] [address] [place] [address] Nurse Practitioner Urology 11/25/23 documented as of this encounter
--- OUTSIDE RECORDS SUMMARY | 2024-12-14 15:23 | XMS_ITS | Clinical Summary ---
Author Organization [facility] Address [address] [place] [address] Care Team Providers Care Instructor Creeler Name Role Phone Keturah Phoenix Primary Care Provider [phone] Allergies Active Allergy Reactions Criticality Noted Date [...] Active vitamin D (ERGOCALCIFERO L) 1.25 MG (21079 UT) capsule capsule 11/26/19 21 Active furosemide [...] (05/25/2017): Added automatically from request for surgery [id number] History of lumbar fusion 09/14/2016 Morbid obesity [...] this topic Medical Devices Implanted Type Area Visiting Professor Device Identifier Shelf Expiration Date Model / Serial / Lot Ld Trial Stim Octrode Impusle 8ch 60cm - [id number] Implanted:Qt y: 1 on 04/18/2017 by Marcos Lopez MD at [facility] Implant N/A: Spine Thoracic ADV NEUROMODULATIONS SYS ANS 12/22/2018 3086 / / Ld Trial Stim Octrode Impusle 8ch 60cm - [id number] Implanted:Qt y: 1 on 04/18/2017 by Marcos Lopez MD at [facility] Implant N/A: Spine Thoracic ADV NEUROMODULATIONS SYS ANS 01/18/2019 3086 / / Ld Stim Lamitrode Tripole 16ch/Ld 60 - [id number] - [id number] Implanted:Qt y: 1 on 06/09/2017 by Andrew Bah MD at [facility] Implant N/A: Spine Thoracic ADV NEUROMODULATIONS SYS ANS 06/29/2018 3219 / [id number] / Gen Puls Neurostim Proclaim Scs 7 Elite Ipg - [id number] - [id number] Implanted:Qt y: 1 on 06/09/2017 by Andrew Bah MD at [facility] Implant N/A: Spine Thoracic ADV NEUROMODULATIONS SYS ANS 04/18/2019 3662 CONTRLSYS / [id number] / Procedures Procedure Name Priority Date/Time Associated Diagnosis Comments SCANNED - LABS 11/09/2024 from Last 3 Months Results * LABS SCANNED (11/09/2024) Maite Byrd APRN LAB BLOOD ORDERABLES Final Resu lt from Last 3 Months Insurance Care Teams Instructor Creeler Relationship Specialty Start Date End Date Keturah Phoenix PA PCP - General Physician Digital Sales Assistant 09/27/18
--- OUTSIDE RECORDS SUMMARY | 2024-12-14 15:23 | XMS_ITS | Encounter Summary ---
Author Organization Healthcare Address [address] [place] [address] Care Team Providers Care Carton Wrapper Name Role Phone Dudley Reese Lea Primary Care Provider Keturah Phoenix Primary Care Provider [phone] Annette Sorenson APRN, JAD Unavailable [phone] Encounter Details Date Type Department Care Team (Late st Contact Info) Description 12/21/2022 Orders Only External Location [address] [place] [address] Nicho Riddle MD [address] [place] [address] Social History Tobacco Use Types Packs/Day Years [...] Description 03/11/2025 9:10 AM EDT Clinical Support [place] [facility] Lab [address], [address] [place] [address] 03/18/2025 2:30 PM EST Office Visit [facility] Urology [address], [address] [place] [address] Sorenson, Annette P, BEVEL MILL OPERATOR, DNP [address] [place] [address] 05/23/2025 10:40 AM EST Appointment [facility] CT [address], 2nd [place] [address] 05/23/2025 11:30 AM EST Office Visit Medical Office Building Urology [address] [facility], [address] [place] [address] Heaven Jones APRN [address] [facility] [address] [place] [address] documented as of this encounter [...] documented as of this encounter Care Teams Carton Wrapper Relationship Specialty Start Date End Date Reese Buckner [address] [address] PCP - General 09/26/20 04/25/23 Keturah Phoenix PA [address] [place] [address] PCP - General 04/26/23 Annette Sorenson, BEVEL MILL OPERATOR, DNP [address] [facility] [address] [place] [address] Nurse Practitioner Urology 11/25/23 documented as of this encounter
--- OUTSIDE RECORDS SUMMARY | 2024-12-14 15:23 | XMS_ITS | Encounter Summary ---
Author Organization Healthcare Address [address] [place] [address] Care Team Providers Care Counseling Psychologist Name Role Phone Dudley Reese Lea Primary Care Provider Keturah Phoenix Primary Care Provider [phone] Annette Sorenson APRN, JAD Unavailable [phone] Encounter Details Date Type Department Care Team (Late st Contact Info) Description 12/28/2022 Orders Only External Location [address] [place] [address] Nichelle Ross, DO [address] [place] [address] Social History Tobacco Use Types Packs/Day Years [...] Clinical Support [place] [facility] [address], [address] [place] [address] 03/18/2025 2:30 PM EST Office Visit [facility] Urology [address], [address] [place] [address] Annette Sorenson APRN, JAD [address] [place] [address] 05/23/2025 10:40 AM EST Appointment [facility] [address], 2nd [place] [address] 05/23/2025 11:30 AM EST Office Visit Medical Office Building Urology [address] [facility], [address] [place] [address] Heaven Jones APRN [address] [facility] [address] [place] [address] documented as of this encounter [...] documented as of this encounter Care Teams Counseling Psychologist Relationship Specialty Start Date End Date Reese Buckner [facility] [address] [place] [address] PCP - General 09/26/20 04/25/23 Keturah Phoenix PA [address] [place] [address] PCP - General 04/26/23 Annette Sorenson APRN, DNP [address] [facility] [address] [place] [address] Nurse Practitioner Urology 11/25/23 documented as of this encounter
--- OUTSIDE RECORDS SUMMARY | 2024-12-14 15:23 | XMS_ITS | Encounter Summary ---
Author Organization Healthcare Address [address] [place] [address] Care Team Providers Care Varnish Melter Name Role Phone Dudley Reese Lea Primary Care Provider [phone] Keturah Phoenix Primary Care Provider [phone] Annette Sorenson APRN, JAD Unavailable [phone] Encounter Details Date Type Department Care Team (Late st Contact Info) Description 12/21/2022 Orders Only External Location [address] [place] [address] Nicho Riddle MD [address] [place] [address] Social History Tobacco Use Types Packs/Day Years [...] Description 03/11/2025 9:10 AM EDT Clinical Support [place] [facility] Lab [address], [address] [place] [address] 03/18/2025 2:30 PM EST Office Visit [facility] Urology [address], [address] [place] [address] Annette Sorenson APRN, JAD [address] [facility] [address] [place] [address] 05/23/2025 10:40 AM EST Appointment [facility] [address], 2nd [place] [address] 05/23/2025 11:30 AM EST Office Visit Medical Office Building Urology [address] [facility], [address] [place] [address] Heaven Jones, NURSERY RN [address] [facility] [place] [address] documented as of this encounter [...] documented as of this encounter Care Teams Varnish Melter Relationship Specialty Start Date End Date Reese Buckner [address] [address] PCP - General 09/26/20 04/25/23 Keturah Phoenix PA [address] [place] [address] PCP - General 04/26/23 Annette Sorenson, NURSERY RN, DNP [address] [facility] [place] [address] Nurse Practitioner Urology 11/25/23 documented as of this encounter
--- OUTSIDE RECORDS SUMMARY | 2024-12-14 15:23 | XMS_ITS | Encounter Summary ---
Author Organization Healthcare Address [address] [place] [address] Care Team Providers Care Wood Grinder Operator Name Role Phone Keturah Phoenix Primary Care Provider [phone] Annette Sorenson APRN, JAD Unavailable [phone] Encounter Details Date Type Department Care Team (Late st Contact Info) Description 12/11/2024 Telephone [place] [facility]rology [address], 2nd [place] [address] Annette Sorenson APRN, DNP [address] [place] [address] Social History Tobacco Use Types Packs/Day Years [...] drink first t irvin in the morning (EYE-PSYCHIATRIC CLINICAL NURSE SPECIALIST) to steady your nerves or to get [...] encounter Miscellaneous Notes * Telephone Encounter - Rebekah Eubanks - 12/11/2024 11:10 AM EDT 12/11/24 Labs (PSA, CBC) received and uploaded to media. Thank you. documented in this encounter Plan of Treatment Upcoming Encounters Date Type Department Care Team ([facility] st Contact Info) Description 03/11/2025 9:10 AM EDT Clinical Support [facility] Lab [address], [address]nd [place] [address] 03/18/2025 2:30 PM EST Office Visit [facility] Urology [address], 2nd [place] [address] Annette Sorenson, PUBLIC HEALTH SPECIALIST, DNP [address] [facility] [place] [address] 05/23/2025 10:40 AM EST Appointment [facility] [address], 2nd [place] [address] 05/23/2025 11:30 AM EST Office Visit Medical Office Building Urology [address] [facility], [address] [place] [address] Heaven Jones APRN [address] [facility] [address] [place] [address] documented as of this encounter Visit Diagnoses [...] documented as of this encounter Care Teams Wood Grinder Operator Relationship Specialty Start Date End Date Kteurah Phoenix PA [address] [facility], [place] [address] PCP - General 04/26/23 Annette Sorenson, PUBLIC HEALTH SPECIALIST, DNP [address] [facility] [address] [place] [address] Nurse Practitioner Urology 11/25/23 documented as of this encounter
--- OUTSIDE RECORDS SUMMARY | 2024-12-14 15:23 | XMS_ITS | Encounter Summary ---
Author Organization Healthcare Address [address] [place] [address] Care Team Providers Care Sales Project Engineer Name Role Phone Keturah Phoenix Primary Care Provider Annette Sorenson APRN, JAD Unavailable [phone] Reason for Visit * Reason Onset Date Comments HCN - Patient Message 12/14/2024 Kidney viktor n Encounter Details Date Type Department Care Team (Late st Contact Info) Description 12/14/2024 Telephone [place] [facility] Urology [address], [address]nd [place] [address] Annette Sorenson, LAURA, DNP [address] [place] [address] HCN - Patient Message (Kidney pain ) Social History Tobacco Use Types Packs/Day Years [...] drink first t irvin in the morning (EYE-AUTOMOTIVE SERVICE PROFESSIONAL) to steady your nerves or to get [...] encounter Miscellaneous Notes * Telephone Encounter - Bess Richardson - 12/14/2024 12:22 PM EDT Patient Phone Message Reason for Call: Pt states he is having a lot of kidney pain on the right side. Pt states he thinks it is a stone. Pt is asking if he could come to or if medication could be called in until he passes it. Best contact number and optimal time of day to reach caller: [phone] Note: Please do not reply to this message. Follow-up communication and further actions as a result of this message need to be communicated with the patient directly, if the patient is not active onMyChart. If the patient is active on MyChart, they will receive notification of the communication/outcome via MyChart. documented in this encounter Plan of Treatment Upcoming Encounters Date Type Department Care Team (Late st Contact Info) Description 03/11/2025 9:10 AM EDT Clinical Support [facility] Lab [address], 2nd [place] [address] 03/18/2025 2:30 PM EST Office Visit [facility] Urology [address], 2nd [place] [address] Annette Sorenson P, EDGER MACHINE HELPER, DNP [address] [place] [address] 05/23/2025 10:40 AM EST Appointment [facility] [address], 2nd [place] [address] 05/23/2025 11:30 AM EST Office Visit Medical Office Building Urology [address] [facility], [address] [place] [address] Heaven Jones APRN [address] [facility] [address] [place] [address] documented as of this encounter Visit Diagnoses [...] documented as of this encounter Care Teams Sales Project Engineer Relationship Specialty Start Date End Date Keturah Phoenix PA [address] [place] [address] PCP - General 04/26/23 Annette Sorenson APRN, DNP [address] [facility] [place] [address] Nurse Practitioner Urology 11/25/23 documented as of this encounter
--- OUTSIDE RECORDS SUMMARY | 2024-12-14 15:23 | XMS_ITS | Encounter Summary ---
Author Organization Healthcare Address [address] [place] [address] Care Team Providers Care Sand Technician Name Role Phone Dudley Reese Lea Primary Care Provider [phone] Keturah Phoenix Primary Care Provider [phone] Annette Sorenson APRN, JAD Unavailable [phone] Encounter Details Date Type Department Care Team (Late st Contact Info) Description 12/28/2022 Orders Only External Location [address] [place] [address] Nichelle Ross, DO [address] [place] [address] Social History Tobacco Use Types Packs/Day Years [...] Description 03/11/2025 9:10 AM EDT Clinical Support [place] [facility] Lab [address], [address] [place] [address] 03/18/2025 2:30 PM EST Office Visit [facility] Urology [address], [address] [place] [address] Annette Sorenson APRN, JAD [address] [place] [address] 05/23/2025 10:40 AM EST Appointment [facility] [address], 2nd [place] [address] 05/23/2025 11:30 AM EST Office Visit Medical Office Building Urology [address] [facility], [address] [place] [address] Heaven Jones APRN [address] [facility] [address] [place] [address] documented as of this encounter [...] documented as of this encounter Care Teams Sand Technician Relationship Specialty Start Date End Date Reese Buckner [address] [address] PCP - General 09/26/20 04/25/23 Keturah Phoenix PA [address] [place] [address] PCP - General 04/26/23 Annette Sorenson APRN, JAD [address] [place] [address] Nurse Practitioner Urology 11/25/23 documented as of this encounter
[2024-12-14 15:48] LABS: Hematocrit 53.2 % (42.0-52.0); Hemoglobin 16.7 g/dL (14.1-18.0); Immature Granulocytes % 0.5 %; Mean Corpuscular HGB Conc 31.4 g/dL (31.8-35.4); Mean Corpuscular Hemoglobin 27.9 pg (27.0-31.2); Mean Corpuscular Volume 88.8 fl (80-94); Nucleated Red Blood Cells % 0 %; Platelet Count 204 K/mm3 (142-424); Red Blood Count 5.99 M/mm3 (4.60-6.20); Red Cell Distribution Width-SD 47.8 fL; White Blood Count 9.5 K/mm3 (4.8-10.8)
[2024-12-14] MEDS: KETOROLAC 30MG/ML VIAL 15 MG IV (15:50)
[2024-12-14] MEDS: MORPHINE 4MG/ML SYRINGE 4 MG IV (15:51)
[2024-12-14] MEDS: ONDANSETRON 4MG/2ML VIAL 4 MG IV (15:51)
[2024-12-14] MEDS: LACTATED RINGERS 1000ML 1,000 ML 999 ML IV (15:51)
[2024-12-14 16:04] LABS: Albumin Level 3.6 g/dl (3.5-5.0); Chloride 101 mmol/L (98-107); Potassium 4.3 mmoL/L (3.5-5.1); Sodium 137 mmol/L (136-145)
[2024-12-14 16:06] LABS: Blood Urea Nitrogen 13 mg/dl (9-20); Creatinine Clearance Estimated 116 mL/min (50-200); Creatinine,Serum 1.00 mg/dl (0.66-1.25); Estimated Glomerular Filt Rate 81 ml/min (>60); GFR (African American) 98 ML/MIN (>60)
[2024-12-14 16:07] LABS: Alanine Aminotransferase 126 U/L (12-78); Albumin/Globulin Ratio 0.8 (1.1-1.8); Alkaline Phosphatase 75 U/L (38-126); Anion Gap 8.3 mEq/L (5-15); Aspartate Amino Transferase 78 U/L (17-59); Bilirubin,Total 1.6 mg/dl (0.2-1.3); Calcium 9.3 mg/dl (8.4-10.2); Carbon Dioxide 32 mmol/L (22.0-30.0); Globulin 4.8 g/dL (1.3-3.2); Glucose 122 mg/dl (74-100); Total Protein,Serum 8.4 g/dl (6.3-8.2)
--- NOTE | 2024-12-14 16:44 | PC.NURSE ---
ROUNDED ON PT, UNABLE TO VOID. CALL LIGHT WITHIN REACH
[2024-12-14 17:50] VITALS: BP 136/80; PULSE 88; RESP 18; TEMP 37.2; O2SAT 99
== END 2024-12-14 18:00 | disposition home or self-care (01) ==
PROVIDERS: Student in an Organized Health Care Education/Training Program; Emergency Provider Student in an Organized Health Care Education/Training Program; PCP Family Medicine
DX: R10.31 Right lower quadrant pain (principal); N13.0 Hydronephrosis with ureteropelvic junction obstruction; K74.60 Unspecified cirrhosis of liver; R74.01 Elevation of levels of liver transaminase levels; K76.0 Fatty (change of) liver, not elsewhere classified; E66.01 Morbid (severe) obesity due to excess calories
CPT/HCPCS: 74176; 80053; 85025; 87389; 96361; 96374; 96375; 99285; J1885; J2270; J2405; J7120

== ENCOUNTER 2024-12-18 12:06 | Outpatient (CLI) | payer MEDICARE, OTHER, SELFPAY ==
--- OUTSIDE RECORDS SUMMARY | 2024-12-18 12:08 | XMS_ITS | Clinical Summary ---
Author Organization [facility] Address [address] [place] [address] Care Team Providers Care College Basketball Coach Name Role Phone Keturah Phoenix Primary Care Provider [phone] Annette Sorenson APRN, DNP Unavailable [phone] Allergies Active Allergy Reactions Criticality Noted Date [...] by mouth. 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 Urology [address] [address] Annette Sorenson, HAND BLOCKER, DNP HCN - Patient Message (Kidney pain ) 12/12/[address] [facility] Urology [address], [address] [place] [address], [place] [address] Annette Sorenson APRN, DNP Lab Results 12/11/2024 Telephone [facility] [address], [address]nd [place] [address] Annette Sorenson, HAND BLOCKER, DNP from Last 3 Months Family History Medical History Relation Name Comments Hypertension Father Uche Arthritis Maternal Grandmother aCrrie Arthritis Mother Keaton Alcohol abuse Paternal Grandfather [...] drink first t irvin in the morning (EYE-SITE ENGINEER) to steady your nerves or to get [...] Description 03/11/2025 9:10 AM EDT Clinical Support [facility] Lab [address], 2nd [place] [address] 03/18/2025 2:30 PM EST Office Visit [facility] Urology [address], [address]nd [place] [address] Annette Sorenson, HAND BLOCKER, DNP [address] [place] [address] 05/23/2025 10:40 AM EST Appointment [facility] [address], [address]nd [place] [address] 05/23/2025 11:30 AM EST Office Visit Medical Office Building Urology [address] [facility], [address] [place] [address] Heaven Jones, HAND BLOCKER [address] [place] [address] Health Maintenance Due Date Last Done Comments [facility]-HIV Screening 1980 [facility]-Hepatitis C Screening 1980 [facility]-Medicare Annual Wellness (AWV) 1980 [facility]-Infant/Child/Adol SDOH Screenings 1980 [facility]-ESPMY-84 Vaccine (#1) 1985 [facility]-Varicella Vaccines (1 of [...] this topic Medical Devices Implanted Type Area Irrigator Sprinkling System Device Identifier Shelf Expiration Date Model / Serial / Lot Stent Ureteral Double Pigtail Pos 6fr 26cm - [id number] Implanted:Qty: 1 on 01/28/2023 by Mann Mendez MD at [facility] [id number] 08/04/2024 [id number] / / [id number] Insurance [employer] MEDICAID WELLCARE MEDICARE Care Teams College Basketball Coach Relationship Specialty Start Date End Date Keturah Phoenix PA [address] [place] [address] PCP - General 04/26/23 Annette Sorenson, HAND BLOCKER, DNP [id number] [place] [address] Nurse Practitioner Urology 11/25/23
--- OUTSIDE RECORDS SUMMARY | 2024-12-18 12:08 | XMS_ITS | Encounter Summary ---
Author Organization Healthcare Address [address] [place] [address] Care Team Providers Care Pigment Making Supervisor Name Role Phone Dudley Reese Lea Primary Care Provider [phone] Keturah Phoenix Primary Care Provider [phone] Annette Sorenson APRN, JAD Unavailable [phone] Encounter Details Date Type Department Care Team (Late st Contact Info) Description 12/28/2022 Orders Only External Location [address] [place] [address] Nichelle Ross, DO [address] [place] [address] Social History Tobacco Use Types Packs/Day Years [...] Clinical Support [place] [facility] Lab [address], [address] [place] [address] 03/18/2025 2:30 PM EST Office Visit [facility] [address], [address] [place] [address] Annette Sorenson APRN, JAD [address] [place] [address] 05/23/2025 10:40 AM EST Appointment [facility] [address], [address] [place] [address] 05/23/2025 11:30 AM EST Office Visit Medical Office Building Urology [address] [facility], [address] [place] [address] Heaven Jones APRN [address] [facility] [address] [place] [address] documented as of this encounter [...] documented as of this encounter Care Teams Pigment Making Supervisor Relationship Specialty Start Date End Date Reese Buckner [address] [address] PCP - General 09/26/20 04/25/23 Keturah Phoenix PA [address] [place] [address] PCP - General 04/26/23 Annette Sorenson APRN, JAD [address] [place] [address] Nurse Practitioner Urology 11/25/23 documented as of this encounter
--- OUTSIDE RECORDS SUMMARY | 2024-12-18 12:09 | XMS_ITS | Encounter Summary ---
Author Organization Healthcare Address [address] [place] [place] [address] Care Team Providers Care Truck Loader Overhead Crane Name Role Phone Keturah Phoenix Primary Care Provider [phone] Annette Sorenson APRN, JAD Unavailable [phone] Reason for Visit * Reason Onset Date Comments Lab Results 12/12/2024 Encounter Details Date Type Department Care Team (Late st Contact Info) Description 12/12/2024 Telephone [facility] [address], [address]nd [place] [address] Annette Sorenson, LAURA, DNP [address] [place] [address] Lab Results Social History Tobacco [...] drink first t irvin in the morning (EYE-CABINET MOUNTER) to steady your nerves or to get [...] 12/11/24 Estradiol and Testosterone into media from [facility]. documented in this encounter Plan of Treatment Upcoming Encounters Date Type Department Care Team (Late st Contact Info) Description 03/11/2025 9:10 AM EDT Clinical Support [facility] Lab [address], [address]nd [place] [address] 03/18/2025 2:30 PM EST Office Visit [facility] Urology [address], [address]nd [place] [address] Annette Sorenson, FALSEWORK BUILDER, DNP [address] [place] [address] 05/23/2025 10:40 AM EST Appointment [facility] [address], 2nd [place] [address] 05/23/2025 11:30 AM EST Office Visit Medical Office Building Urology [facility] [address] [facility], [address] [place] [address] Heaven Jones APRN [address] [place] [address] documented as of this encounter Visit Diagnoses [...] documented as of this encounter Care Teams Truck Loader Overhead Crane Relationship Specialty Start Date End Date Keturah Phoenix PA [address] [place] [address] PCP - General 04/26/23 Annette Sorenson, LAURA, DNP [address] [facility] [address] [place] [address] Nurse Practitioner Urology 11/25/23 documented as of this encounter
--- OUTSIDE RECORDS SUMMARY | 2024-12-18 12:09 | XMS_ITS | Encounter Summary ---
Author Organization Healthcare Address [address] [place] [address] Care Team Providers Care Purler Name Role Phone Dudley Reese Lea Primary Care Provider Keturah Phoenix Primary Care Provider [phone] Annette Sorenson APRN, JAD Unavailable [phone] Encounter Details Date Type Department Care Team (Late st Contact Info) Description 12/28/2022 Orders Only External Location [address] [place] [address] Nichelle Ross, DO [address] [place] [phone] Social History Tobacco Use Types Packs/Day Years [...] Clinical Support [facility] [address], [address] [place] [address] 03/18/2025 2:30 PM EST Office Visit [facility]rology [address], [address] [place] [address] Annette Sorenson APRN, JAD [address] [place] [address] 05/23/2025 10:40 AM EST Appointment [facility] [address], 2nd [place] [address] 05/23/2025 11:30 AM EST Office Visit Medical Office Building Urology [address] [facility], [address] [place] [address] Heaven Jones APRN [address] [facility] [address] [place] [address] documented as of this encounter [...] documented as of this encounter Care Teams Purler Relationship Specialty Start Date End Date Reese Buckner [facility] [address] [place] [address] PCP - General 09/26/20 04/25/23 Keturah Phoenix PA [address] [place] [address] PCP - General 04/26/23 Annette Sorenson APRN, DNP [address] [facility] [address] [place] [address] Nurse Practitioner Urology 11/25/23 documented as of this encounter
--- OUTSIDE RECORDS SUMMARY | 2024-12-18 12:09 | XMS_ITS | Encounter Summary ---
Author Organization Healthcare Address [address] [place] [address] Care Team Providers Care Mechanic General Operational Test Name Role Phone Keturah Phoenix Primary Care Provider [phone] Annette Sorenson APRN, JAD Unavailable Reason for Visit * Reason Onset Date Comments HCN - Patient Message 12/14/2024 Kidney viktor n Encounter Details Date Type Department Care Team (Late st Contact Info) Description 12/14/2024 Telephone [facility] [address], 2nd [place] [address] Annette Sorenson, LAURA, DNP [address] [place] [address] HCN - Patient Message (Kidney [...] drink first t irvin in the morning (EYE-MAMMOGRAPHY TECH) to steady your nerves or to get [...] optimal time of day to reach caller: [phone] Note: Please do not reply to this [...] Description 03/11/2025 9:10 AM EDT Clinical Support [facility] Lab [address], 2nd [place] [address] 03/18/2025 2:30 PM EST Office Visit [facility] Urology [address], 2nd [place] [address] Annette Sorenson P, DIRECTOR TELEVISION, DNP [address] [place] [address] 05/23/2025 10:40 AM EST Appointment [place] [address], 2nd [place] [address] 05/23/2025 11:30 AM EST Office Visit Medical Office Building Urology [address] [facility], [address] [place] [address] Heaven Jones APRN [address] [facility] [address] [place] [address] documented as of this encounter [...] documented as of this encounter Care Teams Mechanic General Operational Test Relationship Specialty Start Date End Date Keturah Phoenix PA [address] [place] [address] PCP - General 04/26/23 Annette Sorenson APRN, DNP [address] [facility]00 [place] [address] Nurse Practitioner Urology 11/25/23 documented as of this encounter
--- OUTSIDE RECORDS SUMMARY | 2024-12-18 12:09 | XMS_ITS | Encounter Summary ---
Author Organization Healthcare Address [address] [place] [address] Care Team Providers Care Business Management Analyst Name Role Phone Dudley Reese Lea Primary Care Provider Keturah Phoenix Primary Care Provider [phone] Annette Sorenson APRN, JAD Unavailable [phone] Encounter Details Date Type Department Care Team (Late st Contact Info) Description 12/21/2022 Orders Only External Location [address] [place] [address] Nicho Riddle MD [address] [place] [address] Social History Tobacco Use Types Packs/Day Years [...] Description 03/11/2025 9:10 AM EDT Clinical Support [facility] [address], [address] [place] [address] 03/18/2025 2:30 PM EST Office Visit [facility] Urology [address], [address] [place] [address] Sorenson, Annette P, WETLAND SCIENTIST, DNP [address] [place] [address] 05/23/2025 10:40 AM EST Appointment [facility] [address], [address]nd [place] [address] 05/23/2025 11:30 AM EST Office Visit Medical Office Building Urology [address] [facility], [address] [place] [address] Heaven Jones APRN [address] [facility] [address] [place] [address] documented as of this encounter [...] documented as of this encounter Care Teams Business Management Analyst Relationship Specialty Start Date End Date Reese Buckner [address] [address] PCP - General 09/26/20 04/25/23 Keturah Phoenix PA [address] [place] [address] PCP - General 04/26/23 Annette Sorenson, WETLAND SCIENTIST, DNP [address] [facility] [address] [place] [address] Nurse Practitioner Urology 11/25/23 documented as of this encounter
--- OUTSIDE RECORDS SUMMARY | 2024-12-18 12:09 | XMS_ITS | Encounter Summary ---
Author Organization Healthcare Address [address] [place] [address] Care Team Providers Care Flat Folding Machine Operator Name Role Phone Keturah Phoenix Primary Care Provider [phone] Annette Sorenson APRN, JAD Unavailable [phone] Encounter Details Date Type Department Care Team (Late st Contact Info) Description 12/11/2024 Telephone [facility] [address], [address]nd [place] [address] Annette Sorenson APRN, DNP [address] [place] [address] Social History Tobacco Use Types [...] drink first t irvin in the morning (EYE-FAMILY AND MARRIAGE COUNSELLOR) to steady your nerves or to get [...] Upcoming Encounters Date Type Department Care Team ([facility] st Contact Info) Description 03/11/2025 9:10 AM EDT Clinical Support [facility] Lab [address], [address]nd [place] [address] 03/18/2025 2:30 PM EST Office Visit [facility] Urology [address], [address]nd [place] [address] Annette Sorenson, LIFE SKILLS INSTRUCTOR, DNP [address] [facility] [place] [address] 05/23/2025 10:40 AM EST Appointment [facility] [address], [address]nd [place] [address] 05/23/2025 11:30 AM EST Office Visit Medical Office Building Urology [address] [facility], [address] [place] [address] Heaven Jones APRN [address] [facility] [address] [place] [address] documented as of this encounter Visit Diagnoses [...] documented as of this encounter Care Teams Flat Folding Machine Operator Relationship Specialty Start Date End Date Keturah Phoenix PA [address] [facility] [place] [address] PCP - General 04/26/23 Annette Sorenson, LIFE SKILLS INSTRUCTOR, DNP [address] [facility] [address] [place] [address] Nurse Practitioner Urology 11/25/23 documented as of this encounter
--- OUTSIDE RECORDS SUMMARY | 2024-12-18 12:09 | XMS_ITS | Encounter Summary ---
Author Organization Healthcare Address [address] [place] [address] Care Team Providers Care General Road Supervisor Name Role Phone Reese Buckner Primary Care Provider Keturah Phoenix Primary Care Provider [phone] Annette Sorenson APRN, [facility] Unavailable [phone] Encounter Details Date Type Department Care Team (Late st Contact Info) Description 01/04/2023 Orders Only External Location [address] [place] [address] Nando Aquino MD [address] [place] [address] Social History Tobacco Use Types Packs/Day Years [...] Clinic Lab [address], 2nd [place] [address] 03/18/2025 2:30 PM EST Office Visit [facility]rology [address], 2nd [place] [address] Annette Sorenson APRN, DNP [address] [place] [address] 05/23/2025 10:40 AM EST Appointment [facility] [address], 2nd [place] [address] 05/23/2025 11:30 AM EST Office Visit Medical Office Building Urology [address] [facility], [address] [place] [address] Heaven Jones APRN [address] [facility] [address] [place] [address] documented as of this encounter [...] documented as of this encounter Care Teams General Road Supervisor Relationship Specialty Start Date End Date Reese Buckner [address] [address] PCP - General 09/26/20 04/25/23 Keturah Phoenix PA [address] [place] [address] PCP - General 04/26/23 Annette Sorenson APRN, JAD [address] [facility] [address] [place] [address] Nurse Practitioner Urology 11/25/23 documented as of this encounter
--- OUTSIDE RECORDS SUMMARY | 2024-12-18 12:09 | XMS_ITS | Encounter Summary ---
Author Organization Healthcare Address [address] [place] [address] Care Team Providers Care Director Zone Name Role Phone Dudley Reese Lea Primary Care Provider Keturah Phoenix Primary Care Provider [phone] Annette Sorenson APRN, JAD Unavailable [phone] Encounter Details Date Type Department Care Team (Late st Contact Info) Description 12/21/2022 Orders Only External Location [address] [place] [address] Nicho Riddle MD [address] [place] [address] Social History Tobacco Use Types Packs/Day Years [...] Description 03/11/2025 9:10 AM EDT Clinical Support [place] [facility] [address], [address] [place] [address] 03/18/2025 2:30 PM EST Office Visit [facility] Urology [address], [address] [place] [address] Annette Sorenson APRN, JAD [address] [facility] [address] [place] [address] 05/23/2025 10:40 AM EST Appointment [facility] [address], 2nd [place] [address] 05/23/2025 11:30 AM EST Office Visit Medical Office Building Urology [address] [facility], [address] [place] [address] Heaven Jones, OUTSIDE DELIVERER [address] [facility] [place] [address] documented as of this encounter [...] documented as of this encounter Care Teams Director Zone Relationship Specialty Start Date End Date Reese Buckner [address] [address] PCP - General 09/26/20 04/25/23 Keturah Phoenix PA [address] [place] [address] PCP - General 04/26/23 Annette Sorenson, OUTSIDE DELIVERER, DNP [address] [facility] [place] [address] Nurse Practitioner Urology 11/25/23 documented as of this encounter
--- OUTSIDE RECORDS SUMMARY | 2024-12-18 12:09 | XMS_ITS | Clinical Summary ---
Author Organization [facility] Address [address] [place] [address] Care Team Providers Care Manager Risk Management Name Role Phone Keturah Phoenix Primary Care Provider [phone] Allergies Active Allergy Reactions Criticality Noted Date [...] Active vitamin D (ERGOCALCIFERO L) 1.25 MG (41013 UT) capsule capsule 11/26/19 21 Active furosemide [...] (05/25/2017): Added automatically from request for surgery [id number] History of lumbar fusion 09/14/2016 Morbid obesity [...] this topic Medical Devices Implanted Type Area Medical Assistant Float Device Identifier Shelf Expiration Date Model / Serial / Lot Ld Trial Stim Octrode Impusle 8ch 60cm - [id number] Implanted:Qt y: 1 on 04/18/2017 by Marcos Lopez MD at [facility] Implant N/A: Spine Thoracic ADV NEUROMODULATIONS SYS ANS 12/22/2018 3086 / / Ld Trial Stim Octrode Impusle 8ch 60cm - [id number] Implanted:Qt y: 1 on 04/18/2017 by Marcos Lopez MD at [facility] Implant N/A: Spine Thoracic ADV NEUROMODULATIONS SYS ANS 01/18/2019 3086 / / Ld Stim Lamitrode Tripole 16ch/Ld 60 - [id number] - [id number] Implanted:Qt y: 1 on 06/09/2017 by Andrew Bah MD at [facility] Implant N/A: Spine Thoracic ADV NEUROMODULATIONS SYS ANS 06/29/2018 3219 / [id number] / Gen Puls Neurostim Proclaim Scs 7 Elite Ipg - [id number] - [id number] Implanted:Qt y: 1 on 06/09/2017 by Andrew Bah MD at [facility] Implant N/A: Spine Thoracic ADV NEUROMODULATIONS SYS ANS 04/18/2019 3662 CONTRLSYS / [id number] / Procedures Procedure Name Priority Date/Time Associated Diagnosis Comments SCANNED - LABS 11/09/2024 from Last 3 Months Results * LABS SCANNED (11/09/2024) Maite Byrd APRN LAB BLOOD ORDERABLES Final Resu lt from Last 3 Months Insurance Care Teams Manager Risk Management Relationship Specialty Start Date End Date Keturah Phoenix PA PCP - General Physician Dual Rate Dealer 09/27/18
[2024-12-18 13:11] LABS: Iron 167 ug/dL (49-181)
[2024-12-18 13:20] LABS: Total Iron Binding Capacity 361 ug/dL (261-462)
[2024-12-18 13:48] LABS: Ferritin 43.2 ng/ml (17.9-464)
[2024-12-19 12:39] LABS: Immunoglobulin A, Qn 425 mg/dL (90-386); Immunoglobulin G, Qn 1706 mg/dL (603-1613); Immunoglobulin M, Qn 75 mg/dL (20-172)
[2024-12-22 02:53] LABS: ALT (SGPT) P5P 109 IU/L (0-55); AST (SGOT) P5P 63 IU/L (0-40); Alpha 2-Macroglobulins, Qn 265 mg/dL (110-276); Bilirubin, Total 0.8 mg/dL (0.0-1.2); Cholesterol, Total 167 mg/dL (100-199); GGT 63 IU/L (0-65); Glucose 109 mg/dL (70-99); Triglycerides 190 mg/dL (0-149)
== END 2024-12-18 23:59 | disposition home or self-care (01) ==
PROVIDERS: PCP Family Medicine; Visit Provider Internal Medicine Gastroenterology
DX: R74.01 Elevation of levels of liver transaminase levels (principal); K74.60 Unspecified cirrhosis of liver
CPT/HCPCS: 36415; 81596; 82103; 82104; 82164; 82247; 82465; 82728; 82784; 82947; 82977; 83521; 83540; 83550; 84450; 84460; 84478; 86015; 86225; 86235; 86376; 86381

== ENCOUNTER 2025-01-01 09:40 | Outpatient (CLI) | payer MEDICARE, OTHER, SELFPAY ==
--- OUTSIDE RECORDS SUMMARY | 2024-12-24 10:12 | XMS_ITS | Encounter Summary ---
Author Organization [place] [address] Care Team Providers Care Drying Tumbler Operator Name Role Phone Unavailable Primary Care Provider Unavailabl e Reason for Referral * MRI/CAT Scan (Routine) - Closed Specialty Diagnoses / Procedures Referred By Contac t Referred To Contact Radiology Diagnoses Radiculopathy of cervical region Procedures CT CERVICAL SPINE W CONTRAST Estiven Riggs MD [facility] [place] [address] Phone: tel: fax: [facility] [place] [address] Phone: tel: fax: Referral ID Status Reason Start Date Expiration Date Visits Re quested Visits Authorized [id number] Closed 12/10/2024 12/10/2025 1 1 Reason for Visit * MRI/CAT Scan (Routine) - Closed Specialty Diagnoses / Procedures Referred By Contac t Referred To Contact Radiology Diagnoses Radiculopathy of cervical region Procedures CT CERVICAL SPINE W CONTRAST Estiven Riggs MD [facility] [place] [address] Phone: tel: fax: [facility] [place] [address] Phone: tel: fax: Referral ID Status Reason Start Date Expiration Date Visits Re quested Visits Authorized [id number] Closed 12/10/2024 12/10/2025 1 1 Encounter Details Date Type Department Care Team (Latest Contact Info) Description 12/24/2024 10:12 AM EDT - 12/24/2024 11:59 PM EDT Hospital Encounter [place] [address] [facility] [place] [address] Estiven Riggs MD [address] [place] [address] Radiculopathy of cervical region Discharge Disposition: Home or Self Care Social History Tobacco Use Types Packs/Day Years Used Date Smoking Tobacco: Never Smokeless Tobacco: Never Alcohol Use Standard Drinks/Week Comments Yes 0 (1 standard drink = 0.6 oz pur e alcohol) rarely Sex and Gender Information Value Date Recorded Sex Assigned at Not on file Legal Sex Male 12:06 PM EDT Gender Identity Not on file Sexual Orientation Not on file documented as of this encounter Medications at Time of Discharge acetylcysteine (NAC ORAL) Take by mouth daily. anastrozole (ARIMIDEX) 1 mg Oral Tablet Take 1 mg by mouth once a week. B cmplx 4/vit D3/C/folic/zinc (VITAL-D RX ORAL) Take by mouth daily. b xwbdkkn-K-pwsil acid (NEPHROCAP) 1 mg Oral Capsule Take 1 Capsule by mouth daily. dihydroberberine (BERBERINE ES-5 ORAL) Take by mouth daily. fUROsemide (LASIX) 20 mg Oral Tablet Take by mouth every 12 hours. inclisiran sodium (LEQVIO SUBQ) Inject under the skin Every 6 Months. meloxicam (MOBIC) 7.5 mg Oral Tablet Take 15 mg by mouth daily. omega-3s/dha/epa/ fish oil/D3 (VITAMIN-D + OMEGA-3 ORAL) Take by mouth daily. RED YEAST RICE EXTRACT, BULK, MISC by Misc.(Non-Drug ; Combo Route) route daily. s-adenosylmethion ine sul tosyl (ZULAY-E ORAL) Take by mouth daily. tamsulosin (FLOMAX) 0.4 mg Oral Capsule Take by mouth daily. TESTOSTERONE CYPIONATE IM Inject into the muscle once a week. documented as of this encounter Discharge Disposition Disposition Code Departure Means Destination Home or Self Care documented in this encounter Plan of Treatment Not on file documented as of this encounter Procedures Procedure Name Priority Date/Time Associated Diagnosis Comments CT CERVICAL SPINE W CONTRAST Routine 12/24/2024 12:45 PM EDT Radiculopathy of cervical region documented in this encounter Results * CT CERVICAL SPINE W CONTRAST (12/24/2024 12:45 PM EDT) Anatomical Region Laterality Modality C-spine Computed Tomogra phy 12/24/2024 12:4 5 PM EDT Impressions 12/24/2024 3:46 PM EDT Multilevel discogenic degeneration mild disc displacement as described, without central canal stenosis though there is multilevel foraminal narrowing and there is also high-grade right lateral recess stenosis at C5-6 as detailed above. Dominant nodule lower pole left thyroid lobe measuring approximately 4 cm. Further evaluation with thyroid ultrasound suggested. Code business hours Narrative 12/24/2024 3:[address] CERVICAL SPINE W CONTRAST, 12/24/2024 12:45 PM CLINICAL HISTORY: M54.12-Radiculopathy, cervical [id number]. COMPARISON: None available. PROCEDURE COMMENTS: Multidetector CT of the cervical spine immediately following cervical myelography performed via lumbar puncture. Sagittal and coronal reconstructions obtained. Dose 1 : CT DLP Total : 1867 mGycm DLP Spiral Max : 1853.65 mGycm Maximum CTDI Vol : 70.01 mGy FINDINGS: Straightening of the normal cervical lordosis, either positional or due to muscle spasm. Vertebral body heights and alignments are preserved. No fracture or bony destructive lesion. Mild disc space narrowing at C4-5, moderate disc space narrowing at C5-6, and and mild to moderate disc space narrowing at C7-T1. Minimal to mild multilevel spondylosis, predominantly posteriorly, greatest on the right posteriorly at C5-6. No significant facet arthropathy. Individual interspaces are discussed with additional details below. There is very mild mucosal thickening in the sphenoid sinuses. The tympanomastoid cavities are clear. Minimal calcific plaque regional to both common carotid artery bifurcations. Suspected dominant nodule lower pole left thyroid lobe measuring up to about 4 cm. C2-3: No disc displacement. Central canal patent. Very mild left foraminal narrowing due to uncovertebral hypertrophy. Right foramen patent. C3-4: No disc displacement. Central canal patent. Moderate right and mild left foraminal narrowing due to uncovertebral hypertrophy. C4-5: Minimal disc bulge. No cord compression. Central canal patent. Moderate to severe right foraminal narrowing due to uncovertebral hypertrophy. Left foramen patent. C5-6: Mild disc spur complex with rightward preference results in mild flattening of the right ventral surface of the cord. Central canal patent. High-grade right lateral recess stenosis and moderate right foraminal inlet stenosis due to disc spur complex/uncovertebral hypertrophy. Left foramen patent. C6-7: Very mild disc spur complex with rightward preference.. No cord compression. Central canal patent. Mild right foraminal narrowing due to uncovertebral hypertrophy. Left foramen patent. C7-T1: Minimal disc spur complex. No cord compression. Central canal patent. Mild right and minimal left foraminal narrowing due to uncovertebral hypertrophy. Procedure Note Hiram Ndiaye MD - 12/24/2024 CT CERVICAL SPINE W CONTRAST, 12/24/2024 12:45 PM CLINICAL HISTORY: M54.12-Radiculopathy, cervical [id number]. COMPARISON: None available. PROCEDURE COMMENTS: Multidetector CT of the cervical spine immediatelyfollowing cervical myelography performed via lumbar puncture. Sagittal and coronal reconstructions obtained. Dose 1 : CT DLP Total : 1867 mGycm DLP Spiral Max : 1853.65 mGycm Maximum CTDI Vol : 70.01 mGy FINDINGS: Straightening of the normal cervical lordosis, either positionalor due to muscle spasm. Vertebral body heights and alignments are preserved.No fracture or bony destructive lesion. Mild disc space narrowing at C4-5,moderate disc space narrowing at C5-6, and and mild to moderate disc spacenarrowing at C7-T1. Minimal to mild multilevel spondylosis, predominantlyposteriorly, greatest on the right posteriorly at C5-6. No significant facetarthropathy. Individual interspaces are discussed with additional details below. Thereis very mild mucosal thickening in the sphenoid sinuses. The tympanomastoid cavities are clear. Minimal calcific plaque regional to both commoncarotid artery bifurcations. Suspected dominant nodule lower pole left thyroidlobe measuring up to about 4 cm. C2-3: No disc displacement. Central canal patent. Very mild leftforaminal narrowing due to uncovertebral hypertrophy. Right foramen patent. C3-4: No disc displacement. Central canal patent. Moderate right and mildleft foraminal narrowing due to uncovertebral hypertrophy. C4-5: Minimal disc bulge. No cord compression. Central canal patent.Moderate to severe right foraminal narrowing due to uncovertebral hypertrophy. Leftforamen patent. C5-6: Mild disc spur complex with rightward preference results in mild flattening of the right ventral surface of the cord. Central canalpatent. High-grade right lateral recess stenosis and moderate right foraminalinlet stenosis due to disc spur complex/uncovertebral hypertrophy. Leftforamen patent. C6-7: Very mild disc spur complex with rightward preference.. No cord compression. Central canal patent. Mild right foraminal narrowing due to uncovertebral hypertrophy. Left foramen patent. C7-T1: Minimal disc spur complex. No cord compression. Central canalpatent. Mild right and minimal left foraminal narrowing due to uncovertebral hypertrophy. IMPRESSION: Multilevel discogenic degeneration mild disc displacement as described, without central canal stenosis though there is multilevelforaminal narrowing and there is also high-grade right lateral recess stenosis atC5-6 as detailed above. Dominant nodule lower pole left thyroid lobe measuring approximately 4 cm. Further evaluation with thyroid ultrasoundsuggested. Code business hours us Estiven Riggs MD IMG CT ORDERABLES Final Result documented in this encounter Visit Diagnoses Diagnosis Radiculopathy of cervical region Brachial neuritis or radiculitis nos documented in this encounter
--- OUTSIDE RECORDS SUMMARY | 2024-12-24 10:12 | XMS_ITS | Encounter Summary ---
Author [place] [address] Care Team Providers Care Pay Per Click Strategist Name Role Phone Unavailable Primary Care Provider Unavailabl e Reason for Referral * Interventional Radiology (Routine) - Closed Specialty Diagnoses / Procedures Referred By Contac t Referred To Contact Radiology Diagnoses Radiculopathy of cervical region Procedures IR MYELOGRAM CERVICAL Estiven Riggs MD [address] [place] [address] Phone: tel: fax: EDG [facility] [place] [address] Phone: tel: fax: Referral ID Status Reason Start Date Expiration Date Visits Re quested Visits Authorized [id number] Closed 12/10/2024 12/10/2025 1 1 Reason for Visit * Interventional Radiology (Routine) - Closed Specialty Diagnoses / Procedures Referred By Contac t Referred To Contact Radiology Diagnoses Radiculopathy of cervical region Procedures IR MYELOGRAM CERVICAL Estiven Riggs MD [address] [place] [address] Phone: tel: fax: EDG [facility] [place] [address] Phone: tel: fax: Referral ID Status Reason Start Date Expiration Date Visits Re quested Visits Authorized [id number] Closed 12/10/2024 12/10/2025 1 1 Encounter Details Date Type Department Care Team (Latest Contact Info) Description 12/24/2024 10:12 AM EDT - 12/24/2024 11:59 PM EDT Hospital Encounter EDG IR [facility] [place] [address] Estiven Riggs MD [address] [place] [address] Radiculopathy of cervical region; Radiculopathy, unspecified spinal region Discharge Disposition: Home or Self Care Social History Tobacco Use Types Packs/Day Years Used Date Smoking Tobacco: Never Smokeless Tobacco: Never Tobacco Cessation:Counseling Given: Not Answered Alcohol Use Standard Drinks/Week Comments Yes 0 (1 standard drink = 0.6 oz pur e alcohol) rarely Sex and Gender Information Value Date Recorded Sex Assigned at Not on file Legal Sex Male 12:06 PM EDT Gender Identity Not on file Sexual Orientation Not on file documented as of this encounter Last Filed Vital Signs Vital Sign Reading Time Taken Comments Blood Pressure 126/78 12/24/2024 12:45 PM EDT Pulse 89 12/24/2024 12:45 PM EDT Temperature 36.8 C (98.3 F) 12/24/2024 10:45 AM EDT Respiratory Rate 18 12/24/2024 12:45 PM EDT Oxygen Saturation 94% 12/24/2024 12:45 PM EDT Inhaled Oxygen Concentration - - Weight 206.4 kg (455 lb) 12/24/2024 10:45 AM EDT Height 193 cm (6' 4 ) 12/24/2024 10:45 AM EDT Body Mass Index 55.38 12/24/2024 10:45 AM EDT documented in this encounter Discharge Instructions * Discharge Instructions* Fadumo Marin RN - 12/24/2024 10:26 AM EDT DISCHARGE INSTRUCTIONS MYELOGRAM It is strongly recommended you rest for 24 hours Avoid heavy lifting (over 10 pounds) for 72 hours after the procedure. No strenuous activity for 72 hours after the procedure. Drink enough fluids to keep your urine clear or pale yellow. Caffeinated beverages are recommended. Resume regular diet as tolerated. Keep incision dry. Remove dressing after 1 day. If you develop a headache after your spinal procedure, we initially recommend the following: Lie in a comfortable position, preferably in a flat or near flat position. Drink enough fluids to keep your urine clear or pale yellow. 12-24 ounces every 4 hours is usually sufficient. Over the counter pain medications like Tylenol (acetaminophen) taken as directed on the label may help with symptoms. Generally, 85% of headaches after spinal procedures will resolve without any specific treatment. Please return to the emergency department of the nearest hospital facility if you have the following symptoms: Fever over 101 orally Chills, nausea, vomiting New weakness in arms or legs New, bilateral headache that worsens within 15 minutes of resuming the upright position and disappears or significantly improves within 30 minutes of lying flat and does not respond in a 12 hour period to the recommendations above The medication you received today may not totally be eliminated from your body for at least 24 hours. You should not drive a car, operate machinery, make any important decisions or drink alcoholic beverages for the next 24 hours. If you are taking Metformin, you may start taking this medication in 48 hours. You may take Tylenol if needed for discomfort; however do not take aspirin, ibuprofen (Motrin), Aleve (naproxen) or any other blood thinning products for 24 hours. A responsible adult should remain with the patient for the remainder of the day and night for patient's safety and protection. If the pain cannot be controlled with oral analgesics, you should go to the emergency room for further medical care. Additional issues or questions about your procedures can be handled during the day by the [facility] Nurse Navigator between 8a-4p Tuesday-Tuesday at [phone]. documented in this encounter Medications at Time of Discharge acetylcysteine (NAC ORAL) Take by mouth daily. anastrozole (ARIMIDEX) 1 mg Oral Tablet Take 1 mg by mouth once a week. B cmplx 4/vit D3/C/folic/zinc (VITAL-D RX ORAL) Take by mouth daily. b hutwjnh-E-ckjro acid (NEPHROCAP) 1 mg Oral Capsule Take [...] Procedure Name Priority Date/Time Associated Diagnosis Comments IR MYELOGRAM CERVICAL Routine 12/24/2024 12:35 PM EDT Radiculopathy of cervical region PT / INR STAT 12/24/2024 10:26 AM EDT Radiculopathy, unspecified spinal region CBC WITH DIFF STAT 12/24/2024 10:26 AM EDT Radiculopathy, unspecified spinal region documented in this encounter Results * IR MYELOGRAM CERVICAL (12/24/2024 12:35 PM EDT) Anatomical Region Laterality Modality Interventional R adiology 12/24/2024 12:3 5 PM EDT Impressions 12/24/2024 2:36 PM EDT Successful cervical myelogram. Please refer to the separately reported post-myelogram cervical spine CT report for diagnostic information. Suspected moderate spinal stenosis at lumbar level L3-4. Narrative 12/24/2024 2:36 PM EDT MYELOGRAM CERVICAL VIA LUMBAR PUNCTURE UNDER FLUOROSCOPY, 12/24/2024 HISTORY: M54.12-Radiculopathy, cervical [id number] PROCEDURE: After explaining the risks, benefits, and alternatives of the procedure to the patient and family, both written and verbal informed consent were obtained. Myelogram procedure was performed by Dr. Ndiaye. Patient was placed prone on the interventional radiology table and the low back was prepped and draped in the usual sterile fashion. Approximately 5 mL of 1% lidocaine was injected superficially at the puncture site for local anesthesia. Then via a left posterior paramidline approach under fluoroscopic guidance a 22-gauge, 5 inch spinal needle was advance into the thecal sac just to the left of midline at L3-4. 10 mL of Isovue-300 M was instilled into the subarachnoid space without difficulty. The needle was removed and a bandage placed. The contrast bolus was moved into the cervical region via gravity under intermittent AP and lateral fluoroscopy while the table was slowly moved into a shallow Trendelenburg position. When the contrast bolus was unable to reach the cervical level with the patient in this position he was then placed in the uqmjz-qpax-djrg decubitus position on the IR table and the table was again lowered into a shallow Trendelenburg position with contrast seen to reach the cervical region. Several fluoroscopic images were saved for documentation purposes. One fluoroscopic exposure. Total fluoroscopy time 1.7 minutes. Patient tolerated the procedure well and was then sent to CT for additional imaging followed by a period of observation. No immediate complication. FINDINGS: A diagnostic myelogram of the cervical region was not able to be performed given relatively faint contrast bolus opacification by the time it reached the cervical region. Contrast opacification of the cervical subarachnoid space is adequate for the post-myelogram cervical spine CT to follow and which will be reported separately. Postsurgical changes lower lumbar region are noted. There was evidence of what is likely a moderate central canal stenosis at lumbar level L3-4 observed during the procedure. A spinal stimulator was also noted though not specifically evaluated. Procedure Note Hiram Ndiaye MD - 12/24/2024 MYELOGRAM CERVICAL VIA LUMBAR PUNCTURE UNDER FLUOROSCOPY, 12/24/2024 HISTORY: M54.12-Radiculopathy, cervical [id number] PROCEDURE: After explaining the risks, benefits, and alternatives of the procedure to the patient and family, both written and verbal informedconsent were obtained. Myelogram procedure was performed by Dr. Ndiaye. Patientwas placed prone on the interventional radiology table and the low back wasprepped and draped in the usual sterile fashion. Approximately 5 mL of 1%lidocaine was injected superficially at the puncture site for local anesthesia. Then viaa left posterior paramidline approach under fluoroscopic guidance [id number], 5 inch spinal needle was advance into the thecal sac just to the left ofmidline at L3-4. 10 mL of Isovue-300 M was instilled into the subarachnoid spacewithout difficulty. The needle was removed and a bandage placed. The contrastbolus was moved into the cervical region via gravity under intermittent AP andlateral fluoroscopy while the table was slowly moved into a shallowTrendelenburg position. When the contrast bolus was unable to reach the cervical levelwith the patient in this position he was then placed in the wcroc-vxjp-epckocwrykpte position on the IR table and the table was again lowered into a shallow Trendelenburg position with contrast seen to reach the cervical region.Several fluoroscopic images were saved for documentation purposes. Onefluoroscopic exposure. Total fluoroscopy time 1.7 minutes. Patient tolerated theprocedure well and was then sent to CT for additional imaging followed by a periodof observation. No immediate complication. FINDINGS: A diagnostic myelogram of the cervical region was not able sonny performed given relatively faint contrast bolus opacification by the timeit reached the cervical region. Contrast opacification of the cervicalsubarachnoid space is adequate for the post-myelogram cervical spine CT to follow andwhich will be reported separately. Postsurgical changes lower lumbar region arenoted. There was evidence of what is likely a moderate central canal stenosis atlumbar level L3-4 observed during the procedure. A spinal stimulator was alsonoted though not specifically evaluated. IMPRESSION: Successful cervical myelogram. Please refer to the separately reported post-myelogram cervical spine CT report for diagnosticinformation. Suspected moderate spinal stenosis at lumbar level L3-4. us Estiven Riggs MD IM IR ORDERABLES Final Result * (ABNORMAL) CBC WITH DIFF (12/24/2024 10:26 AM EDT) WBC 5.4 3.7 - 10.3 x10(3)/mcL 12/24/2024 10:42 AM EDT [facility] RBC 6.02 4.60 - 6.10 x10(6)/mcL 12/24/2024 10:42 AM EDT [facility] Hgb 17.2 13.7 - 17.5 g/dL 12/24/2024 10:42 AM EDT [facility] Hct 53.1(H) 40.0 - 51.0 % 12/24/2024 10:42 AM EDT [facility] MCV 88.2 80.0 - 100.0 fL 12/24/2024 10:42 AM EDT [facility] MCH 28.6 26.0 - 34.0 pg 12/24/2024 10:42 AM EDT [facility] MCHC 32.4 30.7 - 35.5 g/dL 12/24/2024 10:42 AM EDT [facility] RDW 14.8 <=14.9 % 12/24/2024 10:42 AM EDT [facility] Platelet 218 155 - 369 x10(3)/mcL 12/24/2024 10:42 AM EDT [facility] MPV 9.2 8.8 - 12.5 fL 12/24/2024 10:42 AM EDT [facility] Neut Percent 47.8 % 12/24/2024 10:42 AM EDT [facility] Comment:Neutrophils equals s egs plus bands Imm Gran% 0.6 % 12/24/2024 10:42 AM EDT [facility] Comment:Automated count of m etamyelocytes, myelocytes and promyelocytes. Lymph Percent 31.4 % 12/24/2024 10:42 AM EDT [facility] Villalba Percent 13.4 % 12/24/2024 10:42 AM EDT [facility] Eos Percent 6.1 % 12/24/2024 10:42 AM EDT [facility] Baso Percent 0.7 % 12/24/2024 10:42 AM EDT [facility] Neut # 2.6 1.6 - 6.1 x10(3)/mcL 12/24/2024 10:42 AM EDT [facility] Comment:Neutrophils equals s egs plus bands IMMGRAN# 0.0 0.0 - 0.1 x10(3)/mcL 12/24/2024 10:42 AM EDT [facility] Comment:Automated count of m etamyelocytes, myelocytes and promyelocytes. An absolute IG <0.1 is reported as 0.0. Lymph # 1.7 1.2 - 3.9 x10(3)/mcL 12/24/2024 10:42 AM EDT [facility] Villalba # 0.7 0.3 - 0.9 x10(3)/mcL 12/24/2024 10:42 AM EDT [facility] Eos# 0.3 0.0 - 0.5 x10(3)/mcL 12/24/2024 10:42 AM EDT [facility] Baso # 0.0 0.0 - 0.1 x10(3)/mcL 12/24/2024 10:42 AM EDT [facility] Blood VENOUS BLOOD / Unknown Venipuncture / Unknown 12/24/2024 10:26 AM EDT 12/24/2024 10:39 AM EDT Emma Thomas PA-C HEMATOLOGY ORDERABLES Fin al Result [facility] [address] [facility] , [place] [address] * PT / INR (12/24/2024 10:26 AM EDT) [facility] Signature PT 12.6 10.5 - 13.6 second(s) 12/24/2024 10:53 AM EDT [facility] INR 1.09 0.91 - 1.18 (ratio) 12/24/2024 10:53 AM EDT [facility] Comment: Level of Therapy Indications Target INR Range Standard Dose Treatment and prophylaxis of venous 2.0 - 3.0 thrombosis, pulmonary embolism High Dose High risk patients with mechanical 2.5 - 3.5 heart valves Blood VENOUS BLOOD / Unknown Venipuncture / Unknown 12/24/2024 10:26 AM EDT 12/24/2024 10:39 AM EDT Emma Thomas PA-C HEMATOLOGY ORDERABLES Fin al Result [facility] [address] [facility] , [place] [address] documented in this encounter Visit Diagnoses Diagnosis Radiculopathy of cervical region Brachial neuritis or radiculitis nos Radiculopathy, unspecified spinal region documented in this encounter Administered Medications Inactive Administered Medications - up to 1 most recent administrations Medication Order MAR Action Action Date Dose Rate Site iopamidoL (ISOVUE-M 300) 300 mg iodine /mL (61 %) injection 10 mL 10 mL, Intrathecal, ONCE PRN, 1 dose, Starting on Tue12/24/24 at 1235, Until Tue12/24/24 at 1235, Radiology Procedure, IR (Contrasts) Given 12/24/2024 12:35 PM EDT 10 mL documented in this encounter Historical Medications * This list may reflect changes made after this encounter. meloxicam (MOBIC) 7.5 mg Oral Tablet Take 15 mg by mouth daily. tamsulosin (FLOMAX) 0.4 mg Oral Capsule Take by mouth daily. anastrozole (ARIMIDEX) 1 mg Oral Tablet Take 1 mg by mouth once a week. TESTOSTERONE CYPIONATE IM Inject into the muscle once a week. dihydroberberine (BERBERINE ES-5 ORAL) Take by mouth daily. omega-3s/dha/epa/ fish oil/D3 (VITAMIN-D + OMEGA-3 ORAL) Take by mouth daily. B cmplx 4/vit D3/C/folic/zinc (VITAL-D RX ORAL) Take by mouth daily. s-adenosylmethion ine sul tosyl (ZULAY-E ORAL) Take by mouth daily. acetylcysteine (NAC ORAL) Take by mouth daily. RED YEAST RICE EXTRACT, BULK, MISC by Misc.(Non-Drug ; Combo Route) route daily. b qwpbtrg-A-ickrn acid (NEPHROCAP) 1 mg Oral Capsule Take 1 Capsule by mouth daily. fUROsemide (LASIX) 20 mg Oral Tablet Take by mouth every 12 hours. inclisiran sodium (LEQVIO SUBQ) Inject under the skin Every 6 Months. added in this encounter Orders Discharge Count Last Ordered Date First Orde red Date DISCHARGE PATIENT 1 12/24/2024 documented in this encounter
--- OUTSIDE RECORDS SUMMARY | 2025-01-01 09:42 | XMS_ITS | Encounter Summary ---
Author Organization Healthcare Address [address] [place] [address] Care Team Providers Care Expeller Worker Name Role Phone Keturah Phoenix Primary Care Provider [phone] Annette Sorenson APRN, JAD Unavailable [phone] Reason for Visit * Reason Comments Med Refill Encounter Details Date Type Department Care Team (Late st Contact Info) Description 12/21/2024 Refill [facility] [address] [place] [address] Annette Sorenson, LAURA, DNP [address] [place] [address] Low testosterone Social History Tobacco Use Types Packs/Day Years [...] drink first t irvin in the morning (EYE-PROMOTIONS MANAGER) to steady your nerves or to get [...] Care Team (Late st Contact Info) Description 03/18/2025 2:30 PM EST Office Visit [facility] [address] [place] [address] Annette Sorenson P, VINYL INSTALLER, DNP [address] [place] [address] 05/23/2025 10:40 AM EST Appointment [facility] [address] [place] [phone] 05/23/2025 11:30 AM EST Office Visit Medical Office Building Urology [address] [facility], [address] [place] [address] Heaven Jones, VINYL INSTALLER [address] [place] [address] documented as of this encounter Visit Diagnoses Diagnosis Low testosterone documented in this encounter Additional Health Concerns Assessment Noted Time PHQ-9 Depression Total Score: 20 025 11:18 AM EST A fall risk assessment has been complete d for the patient 06/12/2024 11:20 AM EST A Body Mass Index follow-up plan has been documented for the patient 09/13/2024 12:34 PM EDT documented as of this encounter Care Teams Expeller Worker Relationship Specialty Start Date End Date Keturah Phoenix PA [address] [place] [address] PCP - General 04/26/23 Annette Sorenson, LAURA, DNP [address] [facility] [address] [place] [address] Nurse Practitioner Urology 11/25/23 documented as of this encounter
--- OUTSIDE RECORDS SUMMARY | 2025-01-01 09:42 | XMS_ITS | Clinical Summary ---
Author Organization [facility] Address [address] [place] [address] Care Team Providers Care Coach Operator Name Role Phone Keturah Phoenix Primary Care Provider [phone] Annette Sorenson APRN, DNP Unavailable [phone] Allergies Active Allergy Reactions Criticality Noted Date [...] by mouth. Activ e ergocalciferol 1.25 MG (53798 UT) capsule Take 1 capsule (50,000 Units) by mouth 1 (one) time per week. 022 Active furosemide (Lasix) 20 MG tablet 023 Active indomethacin (Indocin) 50 MG capsule TAKE 1 CAPSULE BY MOUTH THREE TIMES DAILY WITH FOOD NEEDED FOR GOUT 022 Active meloxicam (Mobic) 15 MG tablet TAKE 1 TABLET BY MOUTH ONCE DAILY NEEDED FOR MUSCLE PAIN 023 Active ziprasidone (Geodon) 40 MG capsule 60 mg. 023 Active Ventolin HFA 108 (90 Base) MCG/ACT inhaler INHALE 2 PUFFS BY MOUTH EVERY 6 HOURS 023 Active fluticasone (Flonase) 50 MCG/ACT nasal spray USE 1 SPRAY(S) IN EACH NOSTRIL TWICE DAILY 023 Active [place] & Syringes misc Please dispense needles and syringes for testosterone cypionate injection. 3mL 18 g needle to draw up medication and 25 g 1 inch needle for injection. 2 each 5 024 Active tamsulosin (Flomax) 0.4 MG 24 hr capsule TAKE 1 CAPSULE BY MOUTH ONCE DAILY AT NIGHT 90 capsule 3 024 Active Barberry-Oreg Grape-Goldensea l (BERBERINE COMPLEX PO) Take by mouth. Act hua anastrozole (Arimidex) 1 MG chemo tablet Take 1 tablet by mouth once a week 12 tablet 2 025 Active Dextromethorpha n-buPROPion ER (Auvelity) 45-105 MG tablet controlled-rele ase Take 45 mg by mouth. Active Leqvio 284 MG/1.5ML solution prefilled syringe injection INJECT 1.5 ML SUBCUTANEOUSLY every 6 MONTHS 025 Active testosterone cypionate (Depo-Testoster one) 200 MG/ML injectionIndica tions:Low testosterone INJECT 0.5 ML (CC) INTRAMUSCULARLY ONCE A WEEK , DISCARD THE REMAINING AMOUNT 4 mL 025 Active testosterone cypionate (Depo-Testoster one) 200 MG/ML injectionIndica tions:Low testosterone INJECT 0.5 ML (CC) INTRAMUSCULARLY ONCE A WEEK , DISCARD THE REMAINING AMOUNT 4 mL 025 2024 Discontinued Active Problems Problem Noted Date Diagnosed Date Hydronephrosis with urinary obstruction due to ureteral calculus 01/28/2023 HUMA (acute kidney injury) 01/28/2023 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 06/28/2022 Chronic back pain 06/28/2022 Strain of lumbar region 10/04/2017 Postlaminectomy syndrome, lumbar region 05/25/19 18 Overview (06/28/2022): Added automatically from request for surgery [id number] Physical deconditioning 09/14/2016 Obesity with sleep apnea 09/14/2016 Morbid obesity due to excess calories 09/14/2016 DDD (degenerative disc disease), lumbar 09/15/19 17 Spondylosis of lumbar region without myelopathy or radiculopathy 09/14/2016 Anxiety and depression 09/14/2016 Encounters Date Type Department Care Team Description 12/21/2024 Refill [facility] [address], [address] [place] [address] Annette Sorenson, FIREWALL ADMINISTRATOR, DNP Low testosterone 12/14/2024 Telephone [facility] [address], [address] [place] [address] Annette Sorenson, FIREWALL ADMINISTRATOR, DNP HCN - Patient Message (Kidney pain ) 12/12/2024 Telephone [facility] [address], [address] [place] [address] Annette Sorenson, FIREWALL ADMINISTRATOR, DNP Lab Results 12/11/2024 Telephone [facility] [address], [address] [place] [address] Annette Sorenson, FIREWALL ADMINISTRATOR, DNP from Last 3 Months Family History [...] drink first t irvin in the morning (EYE-HEAD HOUSEKEEPER) to steady your nerves or to get [...] Description 03/18/2025 2:30 PM EST Office Visit [facility] [address], [address] [place] [address] Annette Sorenson, FIREWALL ADMINISTRATOR, DNP [address] [facility] [address] [place] [phone] 05/23/2025 10:40 AM EST Appointment [facility] [address], [address] [place] [address] 05/23/2025 11:30 AM EST Office Visit Medical Office Building Urology [address] [facility], [address] [place] [address] Heaven Jones, FIREWALL ADMINISTRATOR [address] [place] [phone] Health Maintenance Due Date Last Done Comments [facility]-HIV Screening 1980 [facility]-Hepatitis C Screening 1980 [facility]-Medicare Annual Wellness (AWV) 1980 [facility]-/Child/Adol SDOH Screenings 1980 [facility]-QPRHB-49 Vaccine (#1) 1985 [facility]-Varicella Vaccines (1 of 2 - 13+ 2-dose series) 1993 [facility]-DTaP,Tdap,and Td Vaccines (2 - Tdap) 12/28/1995 12/27/1995 [facility]- SDOH Screenings 1998 [facility]-Adult SDOH Screenings 1998 [facility]-Hepatitis B Vaccines (1 of 3 - 19+ 3-dose series) 11/23/1999 HPV Vaccines (1 - 3-dose SCDM series) 11/23/2007 [facility]-Influenza Vaccine (#1) 2025 [facility]-Depression Screening 09/13/2025 [...] this topic Medical Devices Implanted Type Area Talent Acquisition Consultant Device Identifier Shelf Expiration Date Model / Serial / Lot Stent Ureteral Double Pigtail Pos 6fr 26cm - [id number] Implanted:Qty: 1 on 01/28/2023 by Mann Mendez MD at [facility] [id number] 08/04/2024 [id number] / / [id number] Insurance [employer] MEDICA[employer] MEDICARE Care Teams Coach Operator Relationship Specialty Start Date End Date Keturah Phoenix PA [address] [place] [address] PCP - General 04/26/23 Annette Sorenson, FIREWALL ADMINISTRATOR, DNP [address] [facility] [address] [place] [address] Nurse Practitioner Urology 11/25/23
--- OUTSIDE RECORDS SUMMARY | 2025-01-01 09:43 | XMS_ITS | Encounter Summary ---
Author Organization Healthcare Address [address] [place] [address] Care Team Providers Care Equipment Operat0R Name Role Phone Dudley Reese Lea Primary Care Provider Keturah Phoenix Primary Care Provider [phone] Annette Sorenson APRN, JAD Unavailable [phone] Encounter Details Date Type Department Care Team (Late st Contact Info) Description 12/28/2022 Orders Only External Location [address] [place] [address] Nichelle Ross, DO [address] [place] [address] Social History Tobacco Use Types Packs/Day Years [...] Description 03/18/2025 2:30 PM EST Office Visit [facility] [address], [address] [place] [address] Annette Sorenson, LAURA, DNP [address] [place] [address] 05/23/2025 10:40 AM EST Appointment [facility] [address], [address]nd [place] [address] 05/23/2025 11:30 AM EST Office Visit Medical Office Building Urology [address] [facility], [address] [place] [address] Heaven Jones APRN [address] [facility] [address] [place] [address] documented as of this encounter [...] documented as of this encounter Care Teams Equipment Operat0R Relationship Specialty Start Date End Date Reese Buckner [facility] [address] [place] [address] PCP - General 09/26/20 04/25/23 Keturah Phoenix PA [address] [place] [address] PCP - General 04/26/23 Annette Sorenson APRN, DNP [address] [facility] [address] [place] [address] Nurse Practitioner Urology 11/25/23 documented as of this encounter
--- OUTSIDE RECORDS SUMMARY | 2025-01-01 09:43 | XMS_ITS | Encounter Summary ---
Author Organization Healthcare Address [address] [place] [address] Care Team Providers Care Security Incident Response Engineer Name Role Phone Dudley Reese Lea Primary Care Provider [phone] Keturah Phoenix Primary Care Provider [phone] Annette Sorenson APRN, JAD Unavailable [phone] Encounter Details Date Type Department Care Team (Late st Contact Info) Description 12/21/2022 Orders Only External Location [address] [place] [address] Nicho Riddle MD [address] [id number] Social History Tobacco Use Types Packs/Day Years [...] Description 03/18/2025 2:30 PM EST Office Visit [place] [facility] [address], [address] [place] [address] Annette Sorenson APRN, JAD [address] [place] [address] 05/23/2025 10:40 AM EST Appointment [facility] [address]nd [place] [address] 05/23/2025 11:30 AM EST Office Visit Medical Office Building Urology [address] [facility], [address] [place] [address] Heaven Jones APRN [address] [facility] [address] [place] [address] documented as of this encounter [...] documented as of this encounter Care Teams Security Incident Response Engineer Relationship Specialty Start Date End Date Reese Buckner [facility] [address] [place] [address] PCP - General 09/26/20 04/25/23 Keturah Phoenix, PA [address] [place] [address] PCP - General 04/26/23 Annette Sorenson APRN, DNP [address] [place] [address] Nurse Practitioner Urology 11/25/23 documented as of this encounter
--- OUTSIDE RECORDS SUMMARY | 2025-01-01 09:45 | XMS_ITS | Encounter Summary ---
Author Organization [facility] Area Address [address] [place] [address] Care Team Providers Care Long Term Care Administrator Name Role Phone Unavailable Primary Care Provider Unavailabl e Encounter Details Date Type Department Care Team (Late st Contact Info) Description 12/10/2024 Orders Only [facility] [place] [address] [place] [address] Bernie Ignacio RT Radiculopathy, unspecified spinal region (Primary Dx) Social History Tobacco Use Types Packs/Day Years Used Date Smoking Tobacco: Never Assessed Sex and Gender Information Value Date Recorded Sex Assigned at Not on file Legal Sex Male 12:06 PM EDT Gender Identity Not on file Sexual Orientation Not on file documented as of this encounter Plan of Treatment Not on file documented as of this encounter Results * (ABNORMAL) CBC WITH DIFF (12/24/2024 10:26 AM EDT) WBC 5.4 3.7 - 10.3 x10(3)/mcL 12/24/2024 10:42 AM EDT [facility] RBC 6.02 4.60 - 6.10 x10(6)/mcL [...] 12/24/2024 10:42 AM EDT [facility] MCHC 32.4 30.7 - 35.5 g/dL 12/24/2024 10:42 AM EDT [facility] RDW 14.8 <=14.9 % 12/24/2024 10:42 AM EDT [facility] Platelet 218 155 - 369 x10(3)/mcL 12/24/2024 10:42 AM EDT [facility] MPV 9.2 8.8 - 12.5 fL 12/24/2024 10:42 AM EDT [facility] Neut Percent 47.8 % 12/24/2024 10:42 AM EDT [facility] Comment:Neutrophils equals s egs plus bands Imm Gran% 0.6 % 12/24/2024 10:42 AM EDT [facility] Comment:Automated count of m etamyelocytes, myelocytes and promyelocytes. Lymph Percent 31.4 % 12/24/2024 10:42 AM EDT [facility] Ogle Percent 13.4 % 12/24/2024 10:42 AM EDT [facility] Eos Percent 6.1 % 12/24/2024 10:42 AM EDT [facility] Baso Percent 0.7 % 12/24/2024 10:42 AM EDT [facility] Neut # 2.6 1.6 - 6.1 x10(3)/mcL 12/24/2024 10:42 AM EDT [facility] Comment:Neutrophils equals s egs plus bands IMMGRAN# 0.0 0.0 - 0.1 x10(3)/mcL 12/24/2024 10:42 AM EDT [facility] Comment:Automated count of m etamyelocytes, myelocytes and promyelocytes. An absolute IG <0.1 is reported as 0.0. Lymph # 1.7 1.2 - 3.9 x10(3)/mcL 12/24/2024 10:42 AM EDT [facility] Ogle # 0.7 0.3 - 0.9 x10(3)/mcL 12/24/2024 10:42 AM EDT [facility] Eos# 0.3 0.0 - 0.5 x10(3)/mcL 12/24/2024 10:42 AM EDT [facility] Baso # 0.0 0.0 - 0.1 x10(3)/mcL 12/24/2024 10:42 AM EDT [facility] Blood VENOUS BLOOD / Unknown Venipuncture / Unknown 12/24/2024 10:26 AM EDT 12/24/2024 10:39 AM EDT Emma Thomas PA-C HEMATOLOGY ORDERABLES Fin al Result [facility] [address] [facility] [address], [address] [place] [address] * PT / INR (12/24/2024 10:26 AM EDT) PT 12.6 10.5 - 13.6 second(s) 12/24/2024 10:53 AM EDT [facility] INR 1.09 0.91 - 1.18 (ratio) 12/24/2024 10:53 AM EDT [facility] Comment: Level of Therapy Indications Target INR Range Standard Dose Treatment and prophylaxis of venous 2.0 - 3.0 thrombosis, pulmonary embolism High Dose High risk patients with mechanical 2.5 - 3.5 heart valves Blood VENOUS BLOOD / Unknown Venipuncture / Unknown 12/24/2024 10:26 AM EDT 12/24/2024 10:39 AM EDT Emma Thomas PA-C HEMATOLOGY ORDERABLES Fin al Result [facility] [address] [facility] [address], [place] [address] [place] [address] documented in this encounter Visit Diagnoses Diagnosis Radiculopathy, unspecified spinal region- Primary documented in this encounter
--- OUTSIDE RECORDS SUMMARY | 2025-01-01 09:45 | XMS_ITS | Encounter Summary ---
Author Organization Healthcare Address [address] [place] [address] Care Team Providers Care Orbitread Operator Name Role Phone Dudley Reese Lea Primary Care Provider [phone] Keturah Phoenix Primary Care Provider [phone] Annette Sorenson APRN, JAD Unavailable [phone] Encounter Details Date Type Department Care Team (Late st Contact Info) Description 12/21/2022 Orders Only External Location [address] [place] [address] Nicho Riddle MD [address] [id number] Social History Tobacco Use Types Packs/Day Years [...] Office Visit [place] [facility] [address], [address]nd [place] [address] Annette Sorenson APRN, JAD [address] [place] [address] 05/23/2025 10:40 AM EST Appointment [facility] [address], 2nd [place] [address] 05/23/2025 11:30 AM EST Office Visit Medical Office Building Urology [address] [facility], [address] [place] [address] Heaven Jones APRN [address] [facility] [address] [place] [address] documented as of this encounter [...] documented as of this encounter Care Teams Orbitread Operator Relationship Specialty Start Date End Date Reese Buckner [address] [address] PCP - General 09/26/20 04/25/23 Keturah Phoenix PA [address] [place] [address] PCP - General 04/26/23 Annette Sorenson APRN, DNP [address] [facility] [address] [place] [address] Nurse Practitioner Urology 11/25/23 documented as of this encounter
--- OUTSIDE RECORDS SUMMARY | 2025-01-01 09:45 | XMS_ITS | Encounter Summary ---
Author Organization Healthcare Address [address] [place] [address] Care Team Providers Care Service Learning Coordinator Name Role Phone Reees Buckner Primary Care Provider Keturah Phoenix Primary Care Provider [phone] Annette Sorenson APRN, JAD Unavailable [phone] Encounter Details Date Type Department Care Team (Late st Contact Info) Description 01/04/2023 Orders Only External Location [address] [place] [address] Nando Aquino MD [address] [facility] [address] [place] [address] Social History Tobacco Use Types [...] Description 03/18/2025 2:30 PM EST Office Visit [facility] [address], [address]nd [place] [address] Annette Sorenson APRN, DNP [address] [facility] [address] [place] [address] 05/23/2025 10:40 AM EST Appointment [facility] [address], [address]nd [place] [address] 05/23/2025 11:30 AM EST Office Visit Medical Office Building Urology [address] [facility], [address] [place] [address] Heaven Jones APRN [address] [facility] [address] [place] [address] documented as of this encounter [...] documented as of this encounter Care Teams Service Learning Coordinator Relationship Specialty Start Date End Date Reese Buckner [facility] [address] [place] [address] PCP - General 09/26/20 04/25/23 Keturah Phoenix PA [address] [place] [address] PCP - General 04/26/23 Annette Sorenson APRN, DNP [address] [facility] [address] [place] [address] Nurse Practitioner Urology 11/25/23 documented as of this encounter
--- OUTSIDE RECORDS SUMMARY | 2025-01-01 09:45 | XMS_ITS | Encounter Summary ---
Author Organization Healthcare Address [address] [place] [address] Care Team Providers Care Answering Service Operator Name Role Phone Dudley Reese Lea Primary Care Provider [phone] Keturah Phoenix Primary Care Provider [phone] Annette Sorenson APRN, JAD Unavailable [phone] Encounter Details Date Type Department Care Team (Late st Contact Info) Description 12/28/2022 Orders Only External Location [address] [place] [address] Nichelle Ross, DO [address] [place] [address] Social History Tobacco Use Types [...] Description 03/18/2025 2:30 PM EST Office Visit [place] [facility] [address], [address]nd [place] [address] Annette Sorenson, LAURA, DNP [address] [place] [address] 05/23/2025 10:40 AM EST Appointment [facility] [address], [address] [place] [address] 05/23/2025 11:30 AM EST Office Visit Medical Office Building Urology [address] [facility], [address] [place] [address] Heaven Jones APRN [address] [facility] [address] [place] [address] documented as of this encounter [...] documented as of this encounter Care Teams Answering Service Operator Relationship Specialty Start Date End Date Reese Buckner [facility] [address] [place] [address] PCP - General 09/26/20 04/25/23 Keturah Phoenix PA [address] [place] [address] PCP - General 04/26/23 Annette Sorenson APRN, DNP [address] [facility] [address] [place] [address] Nurse Practitioner Urology 11/25/23 documented as of this encounter
--- OUTSIDE RECORDS SUMMARY | 2025-01-01 09:45 | XMS_ITS | Encounter Summary ---
Author Organization [facility] Address [address] [place] [address] Care Team Providers Care Careers Counsellor Name Role Phone Unavailable Primary Care Provider Unavailabl e Reason for Visit * Reason Onset Date Comments Procedure 12/10/2024 CT Cervical Myel ogram Encounter Details Date Type Department Care Team (Late st Contact Info) Description 12/10/2024 Telephone [facility] [place] [address] [place] [address] Carole Myrick, Clerical Staff Procedure (CT Cervical Myelogram ) Social History Tobacco Use Types Packs/Day Years Used Date Smoking Tobacco: Never Assessed Sex and Gender Information Value Date Recorded Sex Assigned at Not on file Legal Sex Male 12:06 PM EDT Gender Identity Not on file Sexual Orientation Not on file documented as of this encounter Miscellaneous Notes * Telephone Encounter - Carole Myrick, Clerical Staff - 12/10/2024 4:10 PM EDT Patient called to schedule CT Cervical Myelogram. Procedure approved by Veronique Koehler PA-C. Patient's weight is 450 pounds and he is 6'4 . Patient will need to be scheduled in IR room 2 per Jami in IR, they will move him to Room 3 on theday of the procedure. Patient is scheduled for 12/24/24 at [place], patient to arrive at the outpatient registration department at 10:30am for 11:30am procedure. Patient instructed that they must have a shag truck driver. Patient instructed that they may eat a light breakfast. Patient is able to lay on stomach for procedure. Confirmed with patient that she does not take any blood thinners , including ASA. Advised patient to use caution when taking OTC products to be sure they do not contain ASA. Patient verbalized understanding of instructions. Contact information provided to patient. documented in this encounter Plan of Treatment Not on file documented as of this encounter Visit Diagnoses Not on filedocumented in this encounter
--- OUTSIDE RECORDS SUMMARY | 2025-01-01 09:45 | XMS_ITS | Clinical Summary ---
Author Organization [facility] Address [address] [place] [address] Care Team Providers Care Live In Housekeeper Name Role Phone Keturah Phoenix Primary Care Provider [phone] Allergies Active Allergy Reactions Criticality Noted Date [...] Active vitamin D (ERGOCALCIFERO L) 1.25 MG (53483 UT) capsule capsule 11/26/19 21 Active furosemide [...] (05/25/2017): Added automatically from request for surgery [id number] History of lumbar fusion 09/14/2016 Morbid obesity [...] this topic Medical Devices Implanted Type Area Mri Supervisor Device Identifier Shelf Expiration Date Model / Serial / Lot Ld Trial Stim Octrode Impusle 8ch 60cm - [id number] Implanted:Qt y: 1 on 04/18/2017 by Marcos Lopez MD at [facility] Implant N/A: Spine Thoracic ADV NEUROMODULATIONS SYS ANS 12/22/2018 3086 / / Ld Trial Stim Octrode Impusle 8ch 60cm - [id number] Implanted:Qt y: 1 on 04/18/2017 by Marcos Lopez MD at [facility] Implant N/A: Spine Thoracic ADV NEUROMODULATIONS SYS ANS 01/18/2019 3086 / / Ld Stim Lamitrode Tripole 16ch/Ld 60 - [id number] - [id number] Implanted:Qt y: 1 on 06/09/2017 by Andrew Bah MD at [facility] Implant N/A: Spine Thoracic ADV NEUROMODULATIONS SYS ANS 06/29/2018 3219 / [id number] / Gen Puls Neurostim Proclaim Scs 7 Elite Ipg - [id number] - [id number] Implanted:Qt y: 1 on 06/09/2017 by Andrew Bah MD at [facility] Implant N/A: Spine Thoracic ADV NEUROMODULATIONS SYS ANS 04/18/2019 3662 CONTRLSYS / [id number] / Procedures Procedure Name Priority Date/Time Associated Diagnosis Comments SCANNED - LABS 11/09/2024 from Last 3 Months Results * LABS SCANNED (11/09/2024) Maite Byrd APRN LAB BLOOD ORDERABLES Final Resu lt from Last 3 Months Insurance Care Teams Live In Housekeeper Relationship Specialty Start Date End Date Keturah Phoenix PA PCP - General Physician Visual C Developer 09/27/18
--- OUTSIDE RECORDS SUMMARY | 2025-01-01 09:45 | XMS_ITS | Encounter Summary ---
Author Organization Healthcare Address [address] [place] [address] Care Team Providers Care Instrument Specialist Name Role Phone Keturah Phoenix Primary Care Provider [phone] Annette Sorenson APRN, JAD Unavailable [phone] Reason for Visit * Reason Onset Date Comments HCN - Patient Message 12/14/2024 Kidney viktor n Encounter Details Date Type Department Care Team (Late st Contact Info) Description 12/14/2024 Telephone [facility] [address], [address] [place] [address] Annette Sorenson, LAURA, DNP [address] [place] [address] HCN - Patient Message (Kidney [...] drink first t irvin in the morning (EYE-ARCHITECTURAL ENGINEERING TEACHER) to steady your nerves or to get [...] optimal time of day to reach caller: [phone] Note: Please do not reply to this [...] Office Visit [place] [facility] [address], [address] [place] [address] Annette Sorenson, BIOMEDICAL ANALYTICAL SCIENTIST, DNP [address] [place] [address] 05/23/2025 10:40 AM EST Appointment [facility] [address], [address]nd [place] [address] 05/23/2025 11:30 AM EST Office Visit Medical Office Building Urology [address] [facility], [address] [place] [address] Heaven Jones APRN [address] [address] documented as of this encounter Visit [...] documented as of this encounter Care Teams Instrument Specialist Relationship Specialty Start Date End Date Keturah Phoenix PA [address] [place] [address] PCP - General 04/26/23 Annette Sorenson APRN, DNP [address] [address] Nurse Practitioner Urology 11/25/23 documented as of this encounter
--- OUTSIDE RECORDS SUMMARY | 2025-01-01 09:45 | XMS_ITS | Encounter Summary ---
Author Organization Healthcare Address [address] [place] [address] Care Team Providers Care Criminal Justice Professor Name Role Phone Keturah Phoenix Primary Care Provider [phone] Annette Sorenson APRN, JAD Unavailable [phone] Reason for Visit * Reason Onset Date Comments Lab Results 12/12/2024 Encounter Details Date Type Department Care Team (Late st Contact Info) Description 12/12/2024 Telephone [facility] [address], [address] [place] [address] Annette Sorenson, LAURA, DNP [address] [place] [address] Lab Results Social History Tobacco [...] drink first t irvin in the morning (EYE-EGG TRAYER) to steady your nerves or to get [...] 12/11/24 Estradiol and Testosterone into media from [facility]. documented in this encounter Plan of Treatment Upcoming Encounters Date Type Department Care Team (Late st Contact Info) Description 03/18/2025 2:30 PM EST Office Visit [facility] Urology [address], [address] [place] [address] Annette Sorenson, LAURA, DNP [address] [facility] [address] [place] [address] 05/23/2025 10:40 AM EST Appointment [facility] [address]nd [place] [address] 05/23/2025 11:30 AM EST Office Visit Medical Office Building Urology [address] [facility], [address] [place] [address] Heaven Jones APRN [address] [facility] [address] [place] [address] documented as of this encounter Visit Diagnoses [...] documented as of this encounter Care Teams Criminal Justice Professor Relationship Specialty Start Date End Date Keturah Phoenix PA [address] [place] [address] PCP - General 04/26/23 Annette Sorenson, LAURA, DNP [address] [place] [address] Nurse Practitioner Urology 11/25/23 documented as of this encounter
--- OUTSIDE RECORDS SUMMARY | 2025-01-01 09:45 | XMS_ITS | Encounter Summary ---
Author Organization Healthcare Address [address] [place] [address] Care Team Providers Care Fitness Attendant Name Role Phone Keturah Phoenix Primary Care Provider [phone] Annette Sorenson APRN, JAD Unavailable [phone] Encounter Details Date Type Department Care Team (Late st Contact Info) Description 12/11/2024 Telephone [place] [facility] [address], [address] [place] [address] Annette Sorenson APRN, DNP [address] [place] [address] Social History Tobacco Use Types [...] Have you had a drink first t irvni in the morning (EYE-GRIPS) to steady your nerves or to get [...] Upcoming Encounters Date Type Department Care Team ([facility] st Contact Info) Description 03/18/2025 2:30 PM EST Office Visit [facility]rology [address], [address] [place] [address] Annette Sorenson, LAURA, DNP [address] [facility] [place] [address] 05/23/2025 10:40 AM EST Appointment [facility] [address], [address]nd [place] [address] 05/23/2025 11:30 AM EST Office Visit Medical Office Building Urology [address] [facility], [address] [place] [address] Heaven Jones APRN [address] [facility] [place] [address] documented as of this encounter Visit Diagnoses [...] documented as of this encounter Care Teams Fitness Attendant Relationship Specialty Start Date End Date Keturah Phoenix PA [address] [place] [address] PCP - General 04/26/23 Annette Sorenson, LAURA, DNP [address] [facility] [address] [place] [address] Nurse Practitioner Urology 11/25/23 documented as of this encounter
--- OUTSIDE RECORDS SUMMARY | 2025-01-01 09:45 | XMS_ITS | Clinical Summary ---
Author Organization [facility] Address 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 Active fUROsemide (LASIX) 20 mg Oral Tablet Take by mouth every 12 hours. Active b qqffwuw-G-gycss acid (NEPHROCAP) 1 mg Oral Capsule Take 1 Capsule by mouth daily. Active RED YEAST RICE EXTRACT, BULK, MISC by Misc.(Non-Dr ug; Combo Route) route daily. Active acetylcysteine (NAC ORAL) Take by mouth daily. Active s-adenosylmethi onine sul tosyl (ZULAY-E ORAL) Take by mouth daily. Active B cmplx 4/vit D3/C/folic/zinc (VITAL-D RX ORAL) Take by mouth daily. Active omega-3s/dha/ep a/fish oil/D3 (VITAMIN-D + OMEGA-3 ORAL) Take by mouth daily. Active dihydroberberin e (BERBERINE ES-5 ORAL) Take by mouth daily. Active TESTOSTERONE CYPIONATE IM Inject into the muscle once a week. Active anastrozole (ARIMIDEX) 1 mg Oral Tablet Take 1 mg by mouth once a week. Active tamsulosin (FLOMAX) 0.4 mg Oral Capsule Take by mouth daily. Active meloxicam (MOBIC) 7.5 mg Oral Tablet Take 15 mg by mouth daily. Active Encounters Date Type Department Care Team Description 12/24/2024 10:12 AM EDT - 12/24/2024 11:59 PM EDT Hospital Encounter [facility] [place] [address] [address] Estiven Riggs MD Radiculopathy of cervical region Discharge Disposition: Home or Self Care 12/24/2024 10:12 AM EDT - 12/24/2024 11:59 PM EDT Hospital Encounter [facility]G IR [facility] [place] [address] Estiven Riggs MD Radiculopathy of cervical region; Radiculopathy, unspecified spinal region Discharge Disposition: Home or Self Care 12/10/2024 Orders Only [facility] [place] [address] [place] [address] Bernie Ignacio RT Radiculopathy, unspecified spinal region (Primary Dx) 12/10/2024 Telephone [facility] [place] [address] [place] [address] Carole Myrick, Clerical Staff Procedure (CT Cervical Myelogram ) from Last 3 Months Surgical History Surgery Date Site/Laterality Comments APPENDECTOMY ARM SURGERY BACK SURGERY KNEE SURGERY Medical History Medical History Date Comments Asthma Hyperlipidemia Liver disease Cirrhosis (HCC) Arthritis Depression Social History Tobacco Use Types Packs/Day Years [...] on file Sexual Orientation Not on file Obstetrics History Last Filed Vital Signs Vital Sign Reading [...] Mass Index 55.38 12/24/2024 10:45 AM EDT Plan of Treatment Health Maintenance Due Date Last Done Comments Wellness Exam Medicare 11/23/1983 DTaP/TDaP/Td (2 - Tdap) 12/28/1995 12/27/1995 Hepatitis B Vaccine (1 of 3 - 19+ 3-dose series) 11/23/1999 COVID-19 Vaccine (2023-2 5 season) 2024 Influenza Vaccine (#1) 2025 Meningococcal B Vaccine Aged Out No l onger eligible based on patient's age to complete this topic Pneumococcal Vaccine 0-49 Aged Out No longer eligible based on patient's age to complete this topic Medical Devices Implanted Type Area Financial Intern Device Identifier Shelf Expiration Date Model / Serial / Lot Spinal Cord Stimulator Spinal cord stimulator Procedures Procedure Name Priority Date/Time Associated Diagnosis Comments CT CERVICAL SPINE W CONTRAST Routine 12/24/2024 12:45 PM EDT Radiculopathy of cervical region IR MYELOGRAM CERVICAL Routine 12/24/2024 12:35 PM EDT Radiculopathy of cervical region CBC WITH DIFF STAT 12/24/2024 10:26 AM EDT Radiculopathy, unspecified spinal region PT / INR STAT 12/24/2024 10:26 AM EDT Radiculopathy, unspecified spinal region from Last 3 Months Results * CT CERVICAL SPINE W CONTRAST [...] 12/24/2024 12:45 PM CLINICAL HISTORY: M54.12-Radiculopathy, cervical [id number]. COMPARISON: None available. PROCEDURE COMMENTS: Multidetector CT [...] 12/24/2024 12:45 PM CLINICAL HISTORY: M54.12-Radiculopathy, cervical [id number]. COMPARISON: None available. PROCEDURE COMMENTS: Multidetector CT [...] Riggs MD IMG CT ORDERABLES Final Result * IR MYELOGRAM CERVICAL (12/24/2024 12:35 PM [...] PUNCTURE UNDER FLUOROSCOPY, 12/24/2024 HISTORY: M54.12-Radiculopathy, cervical [id number] PROCEDURE: After explaining the risks, benefits, and [...] position he was then placed in the mujfd-csvc-rrfw decubitus position on the IR table and [...] PUNCTURE UNDER FLUOROSCOPY, 12/24/2024 HISTORY: M54.12-Radiculopathy, cervical [id number] PROCEDURE: After explaining the risks, benefits, and [...] left posterior paramidline approach under fluoroscopic guidance [id number], 5 inch spinal needle was advance into [...] position he was then placed in the ysisn-cvao-msnegpvfiuxqf position on the IR table and the [...] lumbar level L3-4. us Estiven Riggs MD IMG IR ORDERABLES Final Result * PT / INR (12/24/2024 10:26 AM EDT) PT 12.6 10.5 - 13.6 second(s) 12/24/2024 10:53 AM EDT [facility] INR 1.09 0.91 - 1.18 (ratio) 12/24/2024 10:53 AM EDT [facility] Comment: Level of Therapy Indications Target INR Range Standard Dose Treatment and prophylaxis of venous 2.0 - 3.0 thrombosis, pulmonary embolism High Dose High risk patients with mechanical 2.5 - 3.5 heart valves Blood VENOUS BLOOD / Unknown Venipuncture / Unknown 12/24/2024 10:26 AM EDT 12/24/2024 10:39 AM EDT us Emma Thomas PA-C HEMATOLOGY ORDERABLES Fin al Result [facility] [address] [facility] , [place] [address] * (ABNORMAL) CBC WITH DIFF (12/24/2024 10:26 [...] 10:42 AM EDT [facility] Robertson Percent 13.4 % 12/24/2024 10:42 AM EDT [facility] Eos Percent 6.1 % 12/24/2024 10:42 AM EDT [facility] Baso Percent 0.7 % 12/24/2024 10:42 AM EDT [facility] Neut # 2.6 1.6 - 6.1 x10(3)/mcL 12/24/2024 10:42 AM EDT [facility] Comment:Neutrophils equals s egs plus bands IMMGRAN# 0.0 0.0 - 0.1 x10(3)/[facility] 12/24/2024 10:42 AM EDT [facility] Comment:Automated count of m etamyelocytes, myelocytes and promyelocytes. An absolute IG <0.1 is reported as 0.0. Lymph # 1.7 1.2 - 3.9 x10(3)/[facility] 12/24/2024 10:42 AM EDT [facility] Robertson # 0.7 0.3 - 0.9 x10(3)/[facility] 12/24/2024 10:42 AM EDT [facility] Eos# 0.3 0.0 - 0.5 x10(3)/[facility] 12/24/2024 10:42 AM EDT [facility] Baso # 0.0 0.0 - 0.1 x10(3)/[facility] 12/24/2024 10:42 AM EDT [facility] [employer], [facility] Blood VENOUS BLOOD / Unknown Venipuncture / Unknown 12/24/2024 10:26 AM EDT 12/24/2024 10:39 AM EDT Emma Thomas PA-C HEMATOLOGY ORDERABLES Fin al Result [facility] [address] [facility] , [place] [address] from Last 3 Months Insurance [facility] DUAL ACCESS O D-SNP
[2025-01-01 10:03] LABS: Hematocrit 54.0 % (42.0-52.0); Hemoglobin 17.8 g/dL (14.1-18.0); Immature Granulocytes % 1.4 %; Mean Corpuscular HGB Conc 33.0 g/dL (31.8-35.4); Mean Corpuscular Hemoglobin 28.9 pg (27.0-31.2); Mean Corpuscular Volume 87.7 fl (80-94); Nucleated Red Blood Cells % 0 %; Platelet Count 294 K/mm3 (142-424); Red Blood Count 6.16 M/mm3 (4.60-6.20); Red Cell Distribution Width-SD 46.9 fL; White Blood Count 7.6 K/mm3 (4.8-10.8)
[2025-01-01 10:23] LABS: Albumin Level 4.4 g/dl (3.5-5.0); Chloride 107 mmol/L (98-107); Potassium 5.1 mmoL/L (3.5-5.1); Sodium 142 mmol/L (136-145)
[2025-01-01 10:26] LABS: Alanine Aminotransferase 124 U/L (12-78); Albumin/Globulin Ratio 1.2 (1.1-1.8); Alkaline Phosphatase 55 U/L (38-126); Anion Gap 14.1 mEq/L (5-15); Aspartate Amino Transferase 75 U/L (17-59); Bilirubin,Total 1.6 mg/dl (0.2-1.3); Blood Urea Nitrogen 17 mg/dl (9-20); Calcium 9.2 mg/dl (8.4-10.2); Carbon Dioxide 26 mmol/L (22.0-30.0); Creatinine,Serum 1.00 mg/dl (0.66-1.25); Estimated Glomerular Filt Rate 81 ml/min (>60); GFR (African American) 98 ML/MIN (>60); Globulin 3.7 g/dL (1.3-3.2); Glucose 121 mg/dl (74-100); Total Protein,Serum 8.1 g/dl (6.3-8.2)
--- NOTE | 2025-01-01 11:00 | US_ITS ---
FINAL REPORT TECHNIQUE: Real-time grayscale and color ultrasound of the thyroid was performed. CLINICAL HISTORY: Thyroid nodule COMPARISON: None FINDINGS: The thyroid gland measures 53 x 18 x 26 mm on the right and 62 x 31 x 40 mm on the left. The isthmus measures 10 mm. The right thyroid lobe is unremarkable. The left thyroid lobe is asymmetrically enlarged and appears heterogeneous.. Nodules: No discrete nodule identified. IMPRESSION: Heterogeneous enlargement of the left thyroid lobe may be due to goiter. Reviewed, Interpreted and Dictated by Alexx Betancur MD Transcribed by Sangeeta Dougherty Authenticated and . [facility]
== END 2025-01-01 23:59 ==
LOC: RAD 09:41
PROVIDERS: Internal Medicine Gastroenterology; PCP Family Medicine; Visit Provider Family Medicine
DX: E04.1 Nontoxic single thyroid nodule (principal); K75.4 Autoimmune hepatitis; K74.69 Other cirrhosis of liver; B19.20 Unspecified viral hepatitis C without hepatic coma
CPT/HCPCS: 36415; 76536; 80053; 85025

== ENCOUNTER 2025-03-12 08:54 | Outpatient (CLI) | payer MEDICARE, OTHER, SELFPAY ==
--- OUTSIDE RECORDS SUMMARY | 2025-01-15 08:05 | XMS_ITS | Encounter Summary ---
Author Organization [place] [address] Care Team Providers Care Home Paraprofessional Name Role Phone Unavailable Primary Care Provider Unavailabl e Encounter Details Date Type Department Care Team (Latest Contact Info) Description 01/15/2025 8:05 AM EDT - 01/15/2025 11:59 PM EDT Hospital Encounter [facility] [address] [place] [address] Elevated LFTs; Fatty liver; Thyroid nodule Discharge Disposition: Home or Self Care Social [...] this encounter Medications at Time of Discharge albuterol (VENTOLIN HFA) 90 mcg/actuation Inhl HFA Aerosol Inhaler Inhale 2 Puffs into the lungs every 6 hours. 04/18/2023 anastrozole (ARIMIDEX) 1 mg Oral Tablet Take 1 mg by mouth once a week. B-Complex with Vitamin C Oral Capsule 1 Capsule. 02/22/2020 Cholecalciferol, Vitamin D3, 25 mcg (1,000 unit) Oral Capsule Take 1,000 Units by mouth daily. 11/10/2020 fluticasone propionate (FLONASE) 50 mcg/actuation Nasl [place], Suspension USE 1 SPRAY(S) IN EACH NOSTRIL TWICE DAILY 04/18/2023 fUROsemide (LASIX) 20 mg Oral Tablet Take by mouth every 12 hours. LEQVIO 284 mg/1.5 mL SubQ Syringe Inject 284 mg under the skin Every 6 Months. 01/07/2025 meloxicam (MOBIC) 15 mg Oral Tablet 15 mg. 05/02/2024 RED YEAST RICE EXTRACT, BULK, MISC by [facility].(Non-Afbio g; Combo Route) route daily. tamsulosin (FLOMAX) 0.4 mg Oral Capsule Take by mouth daily. acetylcysteine (NAC ORAL) Take by mouth daily. 03/04/2025 B cmplx 4/vit D3/C/folic/zinc (VITAL-D RX ORAL) Take by mouth daily. 03/04/2025 b ljxufnu-A-qjeec acid (NEPHROCAP) 1 mg Oral Capsule Take 1 Capsule by mouth daily. 03/04/2025 cyclobenzaprine (FLEXERIL) 10 mg Oral Tablet take 1 tablet by mouth twice daily as needed for muscle spasm 11/09/2024 02/06/2025 dihydroberberine (BERBERINE ES-5 ORAL) Take by mouth daily. 03/04/2025 ergocalciferol (DRISDOL) 1,250 mcg (50,000 unit) Oral Capsule Take 50,000 Units by mouth once a week. 03/04/2025 inclisiran sodium (LEQVIO SUBQ) Inject under the skin Every 6 Months. 03/04/2025 indomethacin (INDOCIN) 50 mg Oral Capsule as needed. 10/08/2021 02/07/2025 meloxicam (MOBIC) 7.5 mg Oral Tablet Take 15 mg by mouth daily. 03/04/2025 mycophenolate (CELLCEPT) 500 mg Oral Tablet Take 500 mg by mouth 2 times daily. 12/25/2024 02/06/2025 omega-3s/dha/epa/ fish oil/D3 (VITAMIN-D + OMEGA-3 ORAL) Take by mouth daily. 02/06/2025 predniSONE (DELTASONE) 10 mg Oral Tablet 10 mg. 12/25/2024 02/06/2025 s-adenosylmethion ine sul tosyl (ZULAY-E ORAL) Take by mouth daily. 03/04/2025 TESTOSTERONE CYPIONATE IM Inject into the muscle once a week. 03/04/2025 documented as of this encounter Discharge Disposition Disposition Code Departure Means Destination Home or Self Care documented in this encounter Plan of Treatment Upcoming Encounters Date Type Department Care Team (Late st Contact Info) Description 03/13/2025 11:00 AM EDT Office Visit [facility] [address] [place] [address] Bita Miner MD [address] [place] [address] 03/22/2025 3:30 PM EST Telemedicine [facility] [address] [facility] [address] [place] [address] Savage Wood MD [address] [place] [address] 06/04/2025 2:00 PM EST Office Visit [facility] [address] [place] [address] Vivian Frausto, CHIEF PORT DIRECTOR [address] [place] [address] documented as of this encounter Procedures Procedure Name Priority Date/Time Associated Diagnosis Comments CBC Routine 01/15/2025 8:16 AM EDT Elevated LFTs Fatty liver PT / INR Routine 01/15/2025 8:16 AM EDT Elevated LFTs Fatty liver THYROID STIMULATING HORMONE Routine 01/15/2025 8:16 AM EDT Thyroid nodule documented in this encounter Results * THYROID STIMULATING HORMONE (01/15/2025 8:16 AM EDT) TSH 1.730 0.270 - 4.200 mcIU/mL 01/15/2025 4:53 PM EDT [facility] Blood VENOUS BLOOD / Unknown Venipuncture / Unknown 01/15/2025 8:16 AM EDT 01/15/2025 8:16 AM EDT Narrative [facility] - 01/15/2025 4:53 PM EDT Ingestion of pily doses of biotin (>5 mg/day) taken within 8 hours of drawing blood sample can interfere with this immunoassay test. us Nicho Toscano MD CHEMISTRY ORDERABLES Final Re sult Performing Organization Address City/[facility]/ZIP Co de Phone Number [facility] [address] [facility], [place] [address] * PT / INR (01/15/2025 8:16 AM EDT) PT 11.2 10.5 - 13.6 second(s) 01/15/2025 8:36 AM EDT [facility] INR 0.97 0.91 - 1.18 (ratio) 01/15/2025 8:36 AM EDT [facility] Comment: Level of Therapy Indications Target INR Range Standard Dose Treatment and prophylaxis of venous 2.0 - 3.0 thrombosis, pulmonary embolism High Dose High risk patients with mechanical 2.5 - 3.5 heart valves Blood VENOUS BLOOD / Unknown Venipuncture / Unknown 01/15/2025 8:16 AM EDT 01/15/2025 8:16 AM EDT us Murali Collazo MD HEMATOLOGY ORDERABLES Final R esult Performing Organization Address City/[facility]/ZIP Co de Phone Number [facility] [address] [place] [address] * (ABNORMAL) CBC (01/15/2025 8:16 AM EDT) WBC 11.4(H) 3.7 - 10.3 x10(3)/mcL 01/15/2025 4:05 PM EDT [facility] RBC 6.08 4.60 - 6.10 x10(6)/mcL 01/15/2025 4:05 PM EDT [facility] Hgb 17.4 13.7 - 17.5 g/dL 01/15/2025 4:05 PM EDT [facility] Hct 56.7(H) 40.0 - 51.0 % 01/15/2025 4:05 PM EDT [facility] MCV 93.3 80.0 - 100.0 fL 01/15/2025 4:05 PM EDT [facility] MCH 28.6 26.0 - 34.0 pg 01/15/2025 4:05 PM EDT [facility] MCHC 30.7 30.7 - 35.5 g/dL 01/15/2025 4:05 PM EDT [facility] RDW 16.6(H) <=14.9 % 01/15/2025 4:05 PM EDT [facility] Platelet 203 155 - 369 x10(3)/mcL 01/15/2025 4:05 PM EDT [facility] MPV 9.9 8.8 - 12.5 fL 01/15/2025 4:05 PM EDT [facility] Blood VENOUS BLOOD / Unknown Venipuncture / Unknown 01/15/2025 8:16 AM EDT 01/15/2025 8:16 AM EDT us Murali Collazo MD HEMATOLOGY ORDERABLES Final R esult [facility] [address] [facility] , [place] [address] documented in this encounter Visit Diagnoses Diagnosis Elevated LFTs Other abnormal blood chemistry Fatty liver Other chronic nonalcoholic liver disease Thyroid nodule Nontoxic uninodular goiter documented in this encounter
--- OUTSIDE RECORDS SUMMARY | 2025-01-18 08:07 | XMS_ITS | Encounter Summary ---
Author Organization [place] [address] Care Team Providers Care Counseling Psychologist Name Role Phone No Pcp, Per Patient Primary Care Provider Humberto langston Reason for Referral * MRI/CAT Scan (Routine) - Closed Specialty Diagnoses / Procedures Referred By Senthil nayak Referred To Contact Radiology Diagnoses Elevated LFTs Fatty liver Procedures CT NEEDLE BIOPSY LIVER Bita Miner MD [address] [place] [address] Phone: tel: fax: Referral ID Status Reason Start Date Expiration Date Visits Re quested Visits Authorized [id number] Closed 01/03/2025 01/03/2026 1 1 Reason for Visit * MRI/CAT Scan (Routine) - Closed Specialty Diagnoses / Procedures Referred By Senthil nayak Referred To Contact Radiology Diagnoses Elevated LFTs Fatty liver Procedures CT NEEDLE BIOPSY LIVER Bita Miner MD [address] [place] [address] Phone: tel: fax: Referral ID Status Reason Start Date Expiration Date Visits Re quested Visits Authorized [id number] Closed 01/03/2025 01/03/2026 1 1 Encounter Details Date Type Department Care Team (Latest Contact Info) Description 01/18/2025 8:07 AM EDT - 01/18/2025 8:28 PM EDT Hospital Encounter [facility] [place] [address] Bita Miner MD [address] [place] [address] Murali Collazo MD [address] [place] [address] Elevated LFTs; Fatty liver Discharge Disposition: Home or Self Care Social [...] Sign Reading Time Taken Comments Blood Pressure 152/93 01/18/2025 11:30 AM EDT Pulse 80 01/18/2025 11:30 AM EDT Temperature 36.7 C (98.1 F) 01/18/2025 8:23 AM EDT Respiratory Rate 18 01/18/2025 11:30 AM EDT Oxygen Saturation 98% 01/18/2025 11:30 AM EDT Inhaled Oxygen Concentration - - Weight 206.4 kg (455 lb) 01/18/2025 8:23 AM EDT Height 193 cm (6' 4 ) 01/18/2025 8:23 AM EDT Body Mass Index 55.38 01/18/2025 8:23 AM EDT documented in this encounter Functional Status * Suicide Severity Rating Answer Date of Assessment Author No Risk 01/18/2025 8:45 AM EDT Anu Joseph RN * [place] Suicide Severity Rating Scale (Q shift for moderate and high) Question Answer Date of Assessment Author 1. In the past month, have y ou wished you were or wished you could go to sleep and not wake up? 0 01/18/2025 8:45 AM EDT Nydia Martinez RN 2. In the past month, have y ou actually had any thoughts of killing yourself? (If no, skip to question 6) 0 01/18/2025 8:45 AM EDT Lovins, Nydia, RN 6. Have you ever done anythi ng, started to do anything, or prepared to do anything to end your life? 0 01/18/2025 8:45 AM EDT Nydia Sharma RN documented as of this encounter Discharge Instructions * Discharge Instructions* Nydia Joseph RN - 01/18/2025 8:20 AM EDT Liver BIOPSY DISCHARGE INSTRUCTIONS Rest today and limit your activity for 7 days. No heavy lifting over 10 pounds for 7 days. You may shower tomorrow. You may remove your procedural dressing tomorrow. You may resume your regular diet today. You may take Tylenol if needed for discomfort; however, do not take aspirin, ibuprofen (Motrin), naproxen(Aleve) or any other blood thinning products for 24 hours. Contact the [facility] Nurse Navigator at [phone] if any of the following symptoms occur within 24 hours after your procedure: Fever over 101 degrees orally Redness Swelling Foul smelling drainage or discharge from puncture site. Severe pain or fullness Weakness or dizziness Shortness of breath We strongly suggest that a responsible adult remain with the patient for the remainder of the day and night for the patient's safety and protection. The medication you received today may not totally be eliminated from your body for at least 24 hours. You should not drive a car, operate heavy machinery,make any important decisions or drink any alcoholic beverages for the next 24 hours. Consult the ordering physician of the test in 24-48 hours for the biopsy results. If any symptoms should occur that are severe call 911 or go to the nearest Emergency Room and bringthis sheet. documented in this encounter Medications at Time [...] 11/10/2020 fluticasone propionate (FLONASE) 50 mcg/actuation Nasl [place], Suspension USE 1 SPRAY(S) IN EACH NOSTRIL TWICE DAILY 04/18/2023 fUROsemide (LASIX) 20 mg Oral Tablet Take by mouth every 12 hours. LEQVIO 284 mg/1.5 mL SubQ Syringe Inject 284 mg under the skin Every 6 Months. 01/07/2025 meloxicam (MOBIC) 15 mg Oral Tablet 15 mg. 05/02/2024 RED YEAST RICE EXTRACT, BULK, MISC by [facility].(Non-Fabio g; Combo Route) route daily. tamsulosin (FLOMAX) 0.4 mg Oral Capsule Take by mouth daily. acetylcysteine (NAC ORAL) Take by mouth daily. 03/04/2025 B cmplx 4/vit D3/C/folic/zinc (VITAL-D RX ORAL) Take by mouth daily. 03/04/2025 b sdlwtuu-F-qnypp acid (NEPHROCAP) 1 mg Oral Capsule Take [...] or Self Care documented in this encounter Progress Notes * Nydia Joseph RN - 01/18/2025 11:39 AM EDT Patient ambulated in hallway to restroom without difficulty. Incision site clean, dry, and intact. documented in this encounter H&P Notes * Emma Mcghee PA - 01/18/2025 9:45 AM EDT Images from the original note were not included. INTERVENTIONAL RADIOLOGY HISTORY & PHYSICAL Date: 01/18/2025 Time: 8:25 AM Name:Bang Cortes :1980 Age:44 y.o. M/F: male Attending Provider: Bita Miner MD Primary Care Physician: No primary care provider on file. HPI: 44 y.o. year old male with history of elevated LFTs, here for image guided procedure - CT-guided liver biopsy. He has recently stopped taking prednisone and cellcept at the advice of GI specialist. He had a C5 FABY last week. Denies any other medical changes. FMH: Family History Problem Relation Age of Onset Colon Cancer Paternal Uncle Social HX: TOB: Social History Tobacco Use Smoking Status Never Smokeless Tobacco Never ETOH: Social History Substance and Sexual Activity Alcohol Use Yes Comment: rarely PMH: Past Medical History: Diagnosis Date Arthritis Asthma Cirrhosis (HCC) Complication of anesthesia Depression Hyperlipidemia Liver disease PSxHx: Past Surgical History: Procedure Laterality Date APPENDECTOMY ARM SURGERY BACK SURGERY KNEE SURGERY Allergies: Allergies as of 01/18/2025 - Verified 01/18/2025 Allergen Reaction Noted Penicillins Hives 08/26/2016 Gabapentin Other (See Comments) 12/10/2024 Cxcbkkq-dks-tco reductase inhibitors Myalgia 12/06/2024 Meds: Current Outpatient Medications: acetylcysteine (NAC ORAL), Take by mouth daily., Disp: , Rfl: albuterol (VENTOLIN HFA) 90 mcg/actuation Inhl HFA Aerosol Inhaler, Inhale 2 Puffs into the lungs every 6 hours., Disp: , Rfl: anastrozole (ARIMIDEX) 1 mg Oral Tablet, Take 1 mg by mouth once a week., Disp: , Rfl: B cmplx 4/vit D3/C/folic/zinc (VITAL-D RX ORAL), Take by mouth daily., Disp: , Rfl: b ttzhgkz-W-xnlja acid (NEPHROCAP) 1 mg Oral Capsule, Take 1 Capsule by mouth daily., Disp: , Rfl: Cholecalciferol, Vitamin D3, 25 mcg (1,000 unit) Oral Capsule, Take 1,000 Units by mouth daily., Disp: , Rfl: cyclobenzaprine (FLEXERIL) 10 mg Oral Tablet, take 1 tablet by mouth twice daily as needed for muscle spasm, Disp: , Rfl: dihydroberberine (BERBERINE ES-5 ORAL), Take by mouth daily., Disp: , Rfl: ergocalciferol (DRISDOL) 1,250 mcg (50,000 unit) Oral Capsule, Take 50,000 Units by mouth once a week., Disp: , Rfl: fluticasone propionate (FLONASE) 50 mcg/actuation Nasl [place], Suspension, USE 1 SPRAY(S) IN EACH NOSTRIL TWICE DAILY, Disp: , Rfl: fUROsemide (LASIX) 20 mg Oral Tablet, Take by mouth every 12 hours., Disp: , Rfl: inclisiran sodium (LEQVIO SUBQ), Inject under the skin Every 6 Months., Disp: , Rfl: indomethacin (INDOCIN) 50 mg Oral Capsule, as needed., Disp: , Rfl: meloxicam (MOBIC) 7.5 mg Oral Tablet, Take 15 mg by mouth daily., Disp: , Rfl: mycophenolate (CELLCEPT) 500 mg Oral Tablet, Take 500 mg by mouth 2 times daily. (Patient not taking: Reported on 01/07/2025), Disp: , Rfl: omega-3s/dha/epa/fish oil/D3 (VITAMIN-D + OMEGA-3 ORAL), Take by mouth daily. (Patient not taking: Reported on 01/07/2025), Disp: , Rfl: predniSONE (DELTASONE) 10 mg Oral Tablet, 10 mg. (Patient not taking: Reported on 01/07/2025), Disp:, Rfl: RED YEAST RICE EXTRACT, BULK, MISC, by Misc.(Non-Drug; Combo Route) route daily., Disp: , Rfl: s-adenosylmethionine sul tosyl (ZULAY-E ORAL), Take by mouth daily., Disp: , Rfl: tamsulosin (FLOMAX) 0.4 mg Oral Capsule, Take by mouth daily., Disp: , Rfl: TESTOSTERONE CYPIONATE IM, Inject into the muscle once a week., Disp: , Rfl: ROS: Review of Systems Constitutional: Negative for chills and fever. HENT: Negative for sore throat. Respiratory: Negative for cough. Cardiovascular: Negative for chest pain and palpitations. Gastrointestinal: Negative for abdominal pain, nausea and vomiting. Skin: Negative for rash. Neurological: Negative for dizziness and headaches. Psychiatric/Behavioral: The patient is nervous/anxious (baseline). Vitals: 01/18/25 0823 BP: (!) 168/86 Pulse: 79 Resp: 19 Temp: 98.1 ??F (36.7 ??C) SpO2: 97% Physical Exam: General Appearance: Alert, cooperative, no distress, appears stated age, obese Head: Normocephalic, without obvious abnormality, atraumatic Eyes: conjunctiva clear, EOM???s intact, both eyes Nose: Nares normal Throat: Lips, mucosa, and tongue normal; teeth and gums normal Back: Symmetric, no curvature, ROM normal, no CVA tenderness Lungs: Clear to auscultation bilaterally, respirations unlabored Heart: Regular rate and rhythm, S1 and S2 normal, no murmur, rub or gallop Abdomen: Soft, non-tender, bowel sounds active all four quadrants, no masses or organomegaly Extremities: Extremities normal, atraumatic, no cyanosis or edema Pulses: 2+ and symmetric Skin: Skin color, texture, turgor normal, no rashes or lesions Neurologic: Normal Labs: No results found for: CREATININE , BUN , NA , K , CL , CO2 Lab Results Component Value Date WBC 11.4 (H) 01/15/2025 HGB 17.4 01/15/2025 HCT 56.7 (H) 01/15/2025 MCV 93.3 01/15/2025 PLT 203 01/15/2025 Imaging: Pertinent imaging reviewed by interventional Radiologist prior to procedure. Mallampati Score: II (soft palate, uvula, fauces visible) NPO Status: Reviewed Assessment: 44 y.o. year old male here for IR procedure with conscious sedation. No contraindications for procedure. Plan: 1. OK to proceed with procedure (CT-guided liver biopsy) and sedation. Signature: Emma Mcghee PA-C 01/18/25 * Murali Collazo MD - 01/18/2025 9:45 AM EDT Images from the original note were not included. Allergies Allergen Reactions Penicillins Hives Gabapentin Other (See Comments) Suicidal thoughts Nlyslha-Qlt-Wfr Reductase Inhibitors Myalgia Flu symptoms Physician: Murali Collazo MD Proposed Procedure: Nontargeted liver biopsy, image guided Pre-Procedure Assessment: Risks, benefits, potential complications and alternatives discussed with the patient and/or the patient's legally authorized claims representative. The patient's pre-procedure physical assessment indicates that the patient is suitable candidate for and agrees to the planned moderate sedation and procedure. The patient has no previous adverse experience to sedation The patient's airway has been assessed, and consideration has been given as to how it might alter the patient's response to sedation. The patient's pain has been assessed, and, based on the patient's report of pain level, consideration has been given as to how it might alter the patient's sedation plan. Cardiovascular and Vital signs Stable yes Comment: Temp: 98.1 ??F (36.7 ??C) Pulse: 79 Resp: 19 BP: (!) 168/86 SpO2: 97 % Adequate/Patent Oral Airway yes Comment: Mallampati Score: II (soft palate, uvula, fauces visible) Patient has been NPO for a sufficient period of time to allow for gastric emptying yes Comment: Height: 6' 4 (193 cm) Weight: (!) 455 lb (206.4 kg) Body mass index is 55.38 kg/m??. H&P Update The patient was examined and NO change has occurred in the patient's condition since the H&P was completed. History and Physical within 30 days and on chart? yes History and Physical reviewed? yes Changes? no List: Physician Signature: Murali Collazo MD Date: 01/18/2025 Time: 8:50 AM documented in this encounter Procedure Notes * Murali Collazo MD - 01/18/2025 9:45 AM EDT Images from the original note were not included. Procedure Note Procedure: Image guided biopsy of liver (nontargeted) Pre-procedure Diagnosis: Medical liver disease Post-procedure Diagnosis: Same EBL: 0-10 ml Procedure Summary: Successful image guided biopsy of liver yielding 2 18G core samples. Gelfoam slurry deployed in tract. Findings: No acute findings on limited axial CT of the abdomen Complications/Other Info: No immediate complications. Disposition/Post Procedure Course: Per orders Full dictation to follow Signature: Murali Collazo MD documented in this encounter Plan of Treatment Upcoming Encounters Date Type Department Care Team (Late st Contact Info) Description 03/13/2025 11:00 AM EDT Office Visit [facility] [address] [place] [address] Bita Miner MD [address] [place] [address] 03/22/2025 3:30 PM EST Telemedicine [facility] [address] [facility] [address] [place] [address] Savage Wood MD [address] [place] [address] 06/04/2025 2:00 PM EST Office Visit [facility] [address] [place] [address] Yadira Fraustosal Yoder, [employer] [address] [place] [address] documented as of this encounter Procedures Procedure Name Priority Date/Time Associated Diagnosis Comments CT NEEDLE BIOPSY LIVER Routine 01/18/2025 9:43 AM EDT Elevated LFTs Fatty liver PATHOLOGY TISSUE REQUEST Routine 01/18/2025 9:07 AM EDT Elevated LFTs Fatty liver documented in this encounter Results * CT NEEDLE BIOPSY LIVER (01/18/2025 9:43 AM EDT) Anatomical Region Laterality Modality Abdomen Computed Tomogra phy 01/18/2025 9:43 AM EDT Impressions 01/18/2025 1:05 PM EDT Impression: 1. Technically successful CT-guided, percutaneous, 18-G core biopsy of liver (nontargeted). Narrative 01/18/2025 1:05 PM EDT Procedure: Percutaneous core biopsy of liver (nontargeted), CT-guided Performed on 01/18/2025 Indications: Medical liver disease Comparisons: None Operators: Murali Collazo MD Procedure and Findings: The procedure was performed in the CT room following informed consent. A time out was performed and the correct biopsy site was initialed by the radiologist. The patient received 27 minutes of IV moderate sedation under the supervision of the radiologist. 1% lidocaine local anesthesia was used. With the patient in the supine position, limited axial CT images were obtained to localize the liver and a safe percutaneous entry site. The precise skin entry site was identified. The right upper quadrant was prepped and draped in the usual sterile fashion. A 11.8 cm, 17-G coaxial needle was inserted towards and then into the right hepatic lobe in incremental steps, as guided by limited axial CT images. Through the 17-G needle, a 15 cm, 18-G BioPince biopsy needle was inserted and a core biopsy was performed. A total of 2 biopsies were obtained, which were sent for pathology. The 17-G coaxial needle was removed. Following the biopsies, CT imaging revealed no hematoma. There were no immediate complications. Procedure Note Murali Collazo MD - 01/18/2025 Procedure: Percutaneous core biopsy of liver (nontargeted), CT-guided Performed on 01/18/2025 Indications: Medical liver disease Comparisons: None Operators: Murali Collazo MD Procedure and Findings: The procedure was performed in the CT room following informed consent. Atime out was performed and the correct biopsy site was initialed by theradiologist. The patient received 27 minutes of IV moderate sedation under thesupervision of the radiologist. 1% lidocaine local anesthesia was used. With the patient in the supine position, limited axial CT images wereobtained to localize the liver and a safe percutaneous entry site. The preciseskin entry site was identified. The right upper quadrant was prepped anddraped in the usual sterile fashion. A 11.8 cm, 17-G coaxial needle was inserted towards and then into theright hepatic lobe in incremental steps, as guided by limited axial CT images. Through the 17-G needle, a 15 cm, 18-G BioPince biopsy needle was insertedand a core biopsy was performed. A total of 2 biopsies were obtained, whichwere sent for pathology. The 17-G coaxial needle was removed. Following the biopsies, CT imaging revealed no hematoma. There were no immediate complications. IMPRESSION: Impression: 1. Technically successful CT-guided, percutaneous, 18-G core biopsy ofliver (nontargeted). us Bita Miner MD [facility] [place] CT ORDERABLES Final Res ult * PATHOLOGY TISSUE REQUEST (01/18/2025 9:07 AM EDT) CASE REPORT Surgical Pathology Case: [id number] Authorizing Provider: Murali Collazo MD Collected: 01/18/2025 0907 Ordering Location: [facility] Received: 01/18/2025 0947 Pathologist: Jena Giles MD Specimen: Liver 01/22/2025 11:38 AM EDT [facility] FINAL DIAGNOSIS Liver, needle biopsy: - Moderate steatosis involving 40% to 50% of liver parenchyma. - Mild portal chronic inflammation. - Portal and periportal fibrosis (Fibrosis stage 1 to 2). - No evidence of bridging fibrosis or cirrhosis. - Iron stain shows minimal iron deposition. - See note. Note: Sections of the liver biopsy show moderate macrovesicular steatosis involving 40% to 50% of liver parenchyma. Mild portal chronic inflammation is present. Trichrome and reticulin stains show portal and periportal fibrosis. No bridging fibrosis or cirrhosis are noted. Iron stain shows minimal iron deposition. PAS with diastase stain is negative. 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 Clinical correlation is recommended. 01/22/2025 11:38 AM EDT [facility] at 1138 EDT GROSS DESCRIPTION A. Received in formalin in a container labeled with the patient's name, hospital number, and liver , are 2 crews needle core biopsies, 1.5-1.8 cm in length by 0.1 cm in diameter. Entirely submitted in A1. MARILOU Greco, PA (ASCP) 01/18/2025 01/22/2025 11:38 AM EDT [facility] MICROSCOPIC DESCRIPTION The microscopic examination may have been rendered in whole, or in part, by analyzing high-resolution digital images (whole slide images) on the [employer] Digital Pathology platform validated at [facility]. 01/22/2025 11:38 AM EDT [facility] EMBEDDED IMAGES 01/22/2025 11:38 AM EDT [facility] Tissue LIVER STRUCTURE / Unknown 01/18/2025 9:07 AM EDT 01/18/2025 9:47 AM EDT us Murali Collazo MD PATHOLOGY ORDERABLES Final Re sult [facility] [address] [place] [address] [address] documented in this encounter Visit Diagnoses Diagnosis Elevated LFTs Other abnormal blood chemistry Fatty liver Other chronic nonalcoholic liver disease documented in this encounter Administered Medications Inactive Administered Medications - up to 1 most recent administrations Medication Order MAR Action Action Date Dose Rate Site 0.9 % NaCl infusion Intravenous, at 50 mL/hr, CONTINUOUS, Starting on Tue01/18/25 at 0915, Until Tue01/19/25 at 0012, Start 2 hours prior to procedure, Pre-op (Floor Meds) New Bag 01/18/2025 8:48 AM EDT 50 mL/hr fentaNYL (SUBLIMAZE) injection 25-100 mcg 25-100 mcg, Intravenous, EVERY 5 MIN PRN, Starting on Tue01/18/25 at 0907, Until Tue01/18/25 at 1506, Pain, Max cumulative intra-procedure dose of 200 mcg. Begin with lowest dose unless otherwise directed., Intra-procedure(IR) Given 01/18/2025 9:19 AM EDT 50 mcg gelatin adsorbable (GELFOAM) sponge INTRAPROCEDURE, Starting on Tue01/18/25 at 0932, Until Tue01/18/25 at 0932, Intra-op Given 01/18/2025 9:32 AM EDT 1 Each Other lidocaine 10 mg/mL (1 %) injection (PF) Subcutaneous, INTRAPROCEDURE, Starting on Tue01/18/25 at 0925, Until Tue01/18/25 at 0927, Intra-op Given 01/18/2025 9:27 AM EDT 5 mL Right Upper Quadrant- Abdomen midazolam (VERSED) injection 0.5-2 mg 0.5-2 mg, Intravenous, EVERY 2 MIN PRN, Starting on Tue01/18/25 at 0907, Until Tue01/18/25 at 1506, Sedation, Max cumulative intra-procedure dose of 10 mg. Begin with lowest dose unless otherwise directed. VESICANT , Intra-procedure(IR) Given 01/18/2025 9:24 AM EDT 1 mg documented in this encounter Orders Medications Ordered That Faizan ht Not Have Been Administered Count Last Ordered Date First Ordered Date flumazeniL (ROMAZICON) injec tion 0.2-0.5 mg 1 01/18/2025 naloxone (NARCAN) injection 0.4-4 mg 1 09/2024 documented in this encounter Care Teams Counseling Psychologist Relationship Specialty Start Date End Date No Pcp, Per Patient PCP - General 01/18/25 documented as of this encounter
--- OUTSIDE RECORDS SUMMARY | 2025-01-18 20:29 | XMS_ITS | Encounter Summary ---
Author Organization 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 Pt states he cannot fully inhale or exhale without causing this pain. Has gotten worse as day goes on. Encounter Details Date Type Department Care Team (Late st Contact Info) Description 01/18/2025 8:29 PM EDT - 01/19/2025 12:11 AM EDT Emergency [place] [facility] [place] [address] Brittany Álvarez MD [address] [place] [address] Postoperative pain (Primary Dx) Discharge Disposition: Home or Self Care Social [...] Sign Reading Time Taken Comments Blood Pressure 160/80 01/18/2025 11:30 PM EDT Pulse 74 01/18/2025 10:00 PM EDT Temperature 36.9 C (98.5 F) 01/18/2025 7:28 PM EDT Respiratory Rate 13 01/18/2025 10:0 0 PM EDT Oxygen Saturation 98% 01/19/2025 12: 00 AM EDT Inhaled Oxygen Concentration - - Weight 212.6 kg (468 lb 11.2 oz) 01/18/2025 7:28 PM EDT Height 193 cm (6' 4 ) 01/18/2025 7:28 PM EDT Body Mass Index 57.05 01/18/2025 7:28 PM EDT documented in this encounter Functional Status * Suicide Severity Rating Answer Date of Assessment Author No Risk 01/18/2025 8:55 PM EDT Elli Mccurdy RN * [place] Suicide Severity Rating Scale (Q shift for moderate and high) Question Answer Date of Assessment Author 1. In the past month, have y ou wished you were or wished you could go to sleep and not wake up? 0 01/18/2025 8:55 PM EDT Tawnya Mccurdy RN 2. In the past month, have y ou actually had any thoughts of killing yourself? (If no, skip to question 6) 0 01/18/2025 8:55 PM EDT Tawnya Mccurdy RN 6. Have you ever done anythi ng, started to do anything, or prepared to do anything to end your life? 0 01/18/2025 8:55 PM EDT Tawnya Mccurdy RN documented as of this encounter Discharge Instructions * Discharge Instructions* Brittany Álvarez MD - 01/18/2025 11:58 PM EDT You are seen today for care. You had a chest x-ray, blood work and a CAT scan. I spoke with IR. I recommend closely monitoring your symptoms and returning with fever, lightheadedness, severe pain or any trouble breathing. I recommend closely following up with your primary care and using the discharge instructions given to you by IR. documented in this encounter Medications at Time [...] 11/10/2020 fluticasone propionate (FLONASE) 50 mcg/actuation Nasl Snowflake, Suspension USE 1 SPRAY(S) IN EACH NOSTRIL TWICE DAILY 04/18/2023 fUROsemide (LASIX) 20 mg Oral Tablet Take by mouth every 12 hours. LEQVIO 284 mg/1.5 mL SubQ Syringe Inject 284 mg under the skin Every 6 Months. 01/07/2025 meloxicam (MOBIC) 15 mg Oral Tablet 15 mg. 05/02/2024 RED YEAST RICE EXTRACT, BULK, MISC by [facility]Non-Fabio g; Combo Route) route daily. tamsulosin (FLOMAX) 0.4 mg Oral Capsule Take by mouth daily. acetylcysteine (NAC ORAL) Take by mouth daily. 03/04/2025 B cmplx 4/vit D3/C/folic/zinc (VITAL-D RX ORAL) Take by mouth daily. 03/04/2025 b ajqbjog-P-srwrq acid (NEPHROCAP) 1 mg Oral Capsule Take [...] Discharge Disposition Disposition Code Departure Means Destination Comment s Home or Self Detention documented in this encounter ED Notes * Brittany Álvarez MD - 01/18/2025 7:09 PM EDT Chief Complaint Patient presents with Post-op Problem pt had a liver biopsy here this morning and is having a lot of pain now and was told by MD to come to ED. Pt states he cannot fully inhale or exhale without causing this pain. Has gotten worse as daygoes on. Patient coming in for evaluation of pain in his right upper quadrant, right chest after having a liver biopsy earlier in the day. He said he had some pain postoperatively but after going home it continued get worse and worse and worse. He said it is painful to breathe. Patient has no fevers, vomiting, diarrhea, no bruising, does not take any blood thinners. Spoke with on-call IR who recommended to come to the ER. Post-op Problem Patient History Allergies Allergen Reactions Penicillins Hives Gabapentin Other (See Comments) Suicidal thoughts Gbvjguu-Smh-Rnz Reductase Inhibitors Myalgia Flu symptoms Home Medications: Prior to Admission medications Medication Sig Start Date End Date Last Dose Authorizing Provider acetylcysteine (NAC ORAL) Take by mouth daily. Provider, Historical albuterol (VENTOLIN HFA) 90 mcg/actuation Inhl HFA Aerosol Inhaler Inhale 2 Puffs into the lungs every 6 hours. 04/18/23 Provider, Historical anastrozole (ARIMIDEX) 1 mg Oral Tablet Take 1 mg by mouth once a week. Provider, Historical B cmplx 4/vit D3/C/folic/zinc (VITAL-D RX ORAL) Take by mouth daily. Provider, Historical b lvrtlzr-Q-jfmqf acid (NEPHROCAP) 1 mg Oral Capsule Take 1 Capsule by mouth daily. Provider, Historical Cholecalciferol, Vitamin D3, 25 mcg (1,000 unit) Oral Capsule Take 1,000 Units by mouth daily. 11/10/20 Provider, Historical cyclobenzaprine (FLEXERIL) 10 mg Oral Tablet take 1 tablet by mouth twice daily as needed for muscle spasm 11/09/24 Provider, Historical dihydroberberine (BERBERINE ES-5 ORAL) Take by mouth daily. Provider, Historical ergocalciferol (DRISDOL) 1,250 mcg (50,000 unit) Oral Capsule Take 50,000 Units by mouth once a week. Provider, Historical fluticasone propionate (FLONASE) 50 mcg/actuation Nasl Snowflake, Suspension USE 1 SPRAY(S) IN EACH NOSTRIL TWICE DAILY 04/18/23 Provider, Historical fUROsemide (LASIX) 20 mg Oral Tablet Take by mouth every 12 hours. Provider, Historical inclisiran sodium (LEQVIO SUBQ) Inject under the skin Every 6 Months. Provider, Historical indomethacin (INDOCIN) 50 mg Oral Capsule as needed. Patient not taking: Reported on 01/18/2025 10/08/21 Provider, Historical meloxicam (MOBIC) 7.5 mg Oral Tablet Take 15 mg by mouth daily. Provider, Historical mycophenolate (CELLCEPT) 500 mg Oral Tablet Take 500 mg by mouth 2 times daily. Patient not taking: No sig reported 12/25/24 Provider, Historical omega-3s/dha/epa/fish oil/D3 (VITAMIN-D + OMEGA-3 ORAL) Take by mouth daily. Patient not taking: No sig reported Provider, Historical predniSONE (DELTASONE) 10 mg Oral Tablet 10 mg. Patient not taking: No sig reported 12/25/24 Provider, Historical RED YEAST RICE EXTRACT, BULK, MISC by [facility].(Non-Drug; Combo Route) route daily. Provider, Historical s-adenosylmethionine sul tosyl (ZULAY-E ORAL) Take by mouth daily. Provider, Historical tamsulosin (FLOMAX) 0.4 mg Oral Capsule Take by mouth daily. Provider, Historical TESTOSTERONE CYPIONATE IM Inject into the muscle once a week. Provider, Historical Past Medical History: Past Medical History: Diagnosis Date Arthritis Asthma Cirrhosis (HCC) Complication of anesthesia Depression Hyperlipidemia Liver disease Social History: reports that he has never smoked. He has never used smokeless tobacco. He reports current alcohol use. He reports that he does not use drugs. E-Cigarettes (such as Vapes or Juul) Family History: Family History Problem Relation Age of Onset Colon Cancer Paternal Uncle Surgical History: Past Surgical History: Procedure Laterality Date APPENDECTOMY ARM SURGERY BACK SURGERY CT NEEDLE BIOPSY LIVER 01/18/2025 CT NEEDLE BIOPSY LIVER 01/18/2025 Murali Collazo MD EDG CT KNEE SURGERY Review of Systems Review of Systems All other systems reviewed and are negative. Physical Exam Blood pressure (!) 180/117, pulse 74, temperature 98.5 ??F (36.9 ??C), temperature source Oral, resp. rate 13, height 6' 4 (1.93 m), weight (!) 468 lb 11.2 oz (212.6 kg), SpO2 98%. Physical Exam Vitals reviewed. Constitutional: General: He is not in acute distress. Appearance: Normal appearance. HENT: Head: Normocephalic. Cardiovascular: Rate and Rhythm: Normal rate. Heart sounds: Normal heart sounds. Pulmonary: Comments: Intact bilateral breath sounds Abdominal: Comments: Soft, biopsy site covered with a Band-Aid, no bruising, no bleeding Musculoskeletal: General: Normal range of motion. Skin: General: Skin is warm. Neurological: General: No focal deficit present. Mental Status: He is alert. Psychiatric: Mood and Affect: Mood normal. Behavior: Behavior normal. Procedures Radiology/EKG/Labs: As below ED Course: Appropriate laboratory and radiology studies reviewed ED Course as of 01/19/25 0004 Brittany Álvarez's Documentation TueJan 18, [id number] EKG with sinus rhythm, rate of 76, no ST elevations or depressions, some motion artifact noted [id number] Arnold of IR about patient's CT, CXR and Hb. Okay with discharge home with anticipatory guidance. Patient coming in for evaluation of pain after receiving a liver biopsy earlier in the day. Differential includes bleeding, pneumothorax, hemothorax. He was given morphine for pain, his chest x-ray was done and clear, and his EKG as noted above. His hemoglobin 16, his liver numbers are 68 and 28 respectively, and his INR is normal. His CT shows no acute findings, and shows no bleeding, abscess, pleural fluid or pneumothorax. I did update on-call IR as above about the patient's findings and they agree with close follow-up, discharge home. Patient has a PCP appointment [place]. Patient was updated, discharged home with his mom and grandma. ED Clinical Impression: Post-biopsy pain Critical Care time MDM Medical Decision Making Problems Addressed: Postoperative pain: complicated acute illness or injury Amount and/or Complexity of Data Reviewed Labs: ordered. Radiology: ordered. Risk OTC drugs. Prescription drug management. Condition at Discharge/Transfer from Department: Stable This chart was completed using voice recognition technology and may contain unintended errors Brittany Álvarez MD 01/19/25 0006 documented in this encounter Plan of Treatment Upcoming Encounters Date Type Department Care Team (Late st Contact Info) Description 03/13/2025 11:00 AM EDT Office Visit [facility] [address] [place] [address] Bita Miner MD [address] [place] [address] 03/22/2025 3:30 PM EST Telemedicine [facility] [address] [facility] [address] [place] [address] Savage Wood MD [address] [place] [address] 06/04/2025 2:00 PM EST Office Visit [facility] [address] [facility] [place] [address] Vivian Frausto, TOOL CLERK [address] [place] [address] documented as of this encounter Procedures Procedure Name Priority Date/Time Associated Diagnosis Comments CT ABD PEL ED FAST W CONTRAST STAT 01/18/2025 10:23 PM EDT COMPREHENSIVE METABOLIC PANEL STAT 01/18/2025 9:44 PM EDT XR CHEST AP PORTABLE STAT 01/18/2025 9:34 PM EDT HIV AG/AB Routine 01/18/2025 9:01 PM EDT GILEAD TESTING PANEL Routine 01/18/2025 9:01 PM EDT HCV ANTIBODY SCREEN W/ REFLEX Routine 01/18/2025 9:01 PM EDT HEPATITIS B SURFACE ANTIGEN Routine 01/18/2025 9:01 PM EDT PT / INR STAT 01/18/2025 9:01 PM EDT CBC WITH DIFF STAT 01/18/2025 9:01 PM EDT LIPASE LEVEL STAT 01/18/2025 9:01 PM EDT EK EKG 12 LEAD STAT 01/18/2025 8:32 PM EDT documented in this encounter Results * CT ABD PEL ED FAST W CONTRAST (01/18/2025 10:23 PM EDT) Anatomical Region Laterality Modality Abdomen, Pelvis Computed Tomogra phy 01/18/2025 10:2 3 PM EDT Impressions 01/18/2025 10:40 PM EDT 1. No acute findings or abnormalities to explain the patient's symptoms. 2. Incidental findings as described Note: Radiology results need to be interpreted within a comprehensive clinical context. If you have questions about the radiology report, please contact the office of the ordering clinician. Narrative 01/18/2025 10:40 PM EDT CLINICAL HISTORY: -Liver biopsy today, now with significant pain in his right upper quadrant that radiates up to the chest, worse with breathing. COMPARISON: None. TECHNIQUE: CT ABD PEL ED FAST W CONTRAST on 01/18/2025 10:23 PM. Isovue 370 IV contrast as recorded in EPIC. Dose 1 : CT DLP Total : 2692.48 mGycm DLP Spiral Max : 2691.52 mGycm Maximum CTDI Vol : 49.9 mGy FINDINGS: Abdomen: The lung bases are clear. The visualized portions of the heart are normal. There is fatty infiltration of the liver without evidence of perihepatic fluid. Nonobstructing calculi are in the kidneys. The gallbladder, spleen, pancreas, and adrenal glands are normal. The stomach and caliber of the small bowel are normal. There are no enlarged abdominal lymph nodes or free fluid. The caliber of the aorta is normal. Surgical and degenerative changes are in the spine. Pelvis: The caliber of the colon is normal. The appendix has been removed. There are no enlarged pelvic lymph nodes or free fluid. The urinary bladder and prostate gland are normal. The bony pelvis is unremarkable. Procedure Note Juancarlos Sepulveda MD - 01/18/2025 CLINICAL HISTORY: -Liver biopsy today, now with significant pain in hisright upper quadrant that radiates up to the chest, worse with breathing. COMPARISON: None. TECHNIQUE: CT ABD PEL ED FAST W CONTRAST on 01/18/2025 10:23 PM. Isovue 370IV contrast as recorded in EPIC. Dose 1 : CT DLP Total : 2692.48 mGycm DLP Spiral Max : 2691.52 mGycm Maximum CTDI Vol : 49.9 mGy FINDINGS: Abdomen: The lung bases are clear. The visualized portions of the heartare normal. There is fatty infiltration of the liver without evidence of perihepaticfluid. Nonobstructing calculi are in the kidneys. The gallbladder, spleen,pancreas, and adrenal glands are normal. The stomach and caliber of the small bowelare normal. There are no enlarged abdominal lymph nodes or free fluid. Thecaliber of the aorta is normal. Surgical and degenerative changes are in thespine. Pelvis: The caliber of the colon is normal. The appendix has been removed.There are no enlarged pelvic lymph nodes or free fluid. The urinary bladderand prostate gland are normal. The bony pelvis is unremarkable. IMPRESSION: 1. No acute findings or abnormalities to explain the patient's symptoms. 2. Incidental findings as described Note: Radiology results need to be interpreted within a comprehensiveclinical context. If you have questions about the radiology report, please contactthe office of the ordering clinician. us Brittany Álvarez MD [facility] CT ORDERABLES Final Resul t * (ABNORMAL) COMPREHENSIVE METABOLIC PANEL (01/18/2025 9:44 PM EDT) Sodium 142 136 - 145 mmol/L 01/18/2025 10:04 PM [facility] Potassium 4.3 3.5 - 5.0 mmol/L 01/18/2025 10:04 PM [facility] Chloride 107 98 - 107 mmol/L 01/18/2025 10:04 PM [facility] Total CO2 24 22 - 29 mmol/L 01/18/2025 10:04 PM [facility] Anion Gap 11 7 - 16 mmol/L 01/18/2025 10:04 PM [facility] Calcium 8.8 8.6 - 10.4 mg/dL 01/18/2025 10:04 PM [facility] Glucose Lvl 126(H) 70 - 99 mg/dL 01/18/2025 10:04 PM [facility] BUN 16 6 - 20 mg/dL 01/18/2025 10:04 PM [facility] Creatinine 1.04 0.67 - 1.30 mg/dL 01/18/2025 10:04 PM [facility] Albumin 3.9 3.5 - 5.2 gm/dL 01/18/2025 10:04 PM [facility] Total Protein 7.3 6.4 - 8.3 gm/dL 01/18/2025 10:04 PM [facility] Bili Total 1.4 0.2 - 1.4 mg/dL 01/18/2025 10:04 PM [facility] ALT 68(H) <=41 U/L 01/18/2025 10:04 PM [facility] AST 28 <=40 U/L 01/18/2025 10:04 PM [facility] Alk Phos 62 40 - 129 U/L 01/18/2025 10:04 PM [facility] eGFR (CKD-EPIcr 2020) 91 >=60 mL/min/1.7 3 m2 01/18/2025 10:04 PM [facility] Comment:Estimated GFR was ca lculated using the CKD-EPIcr (2020) equation refit without race. The equation is recommended by the National Kid[employer] - [place] [employer] Neph[employer] Task Force. Blood VENOUS BLOOD / Unknown Venipuncture / Unknown 01/18/2025 9:44 PM EDT 01/18/2025 9:45 PM EDT Brittany Álvarez MD CHEMISTRY ORDERABLES Final Re sult [facility] [address] [place] [address] * XR CHEST AP PORTABLE (01/18/2025 9:34 PM EDT) Anatomical Region Laterality Modality Chest Radiographic Cher ging 01/18/2025 9:34 PM EDT Impressions 01/18/2025 9:37 PM EDT No acute finding. - Note: Radiology results need to be interpreted within a comprehensive clinical context. If you have questions about the radiology report, please contact the office of the ordering clinician. Narrative 01/18/2025 9:37 PM EDT XR CHEST AP PORTABLE, 01/18/2025 9:34 PM CLINICAL HISTORY: -Shortness of breath COMPARISON: None. PROCEDURE COMMENTS: AP portable technique. FINDINGS: Support devices: No visible support devices. Heart and mediastinal contours within normal limits for technique. No active failure, pneumonia, or visible effusion. No visible pneumothorax. Procedure Note Daniel Sandhu MD - 01/18/2025 XR CHEST AP PORTABLE, 01/18/2025 9:34 PM CLINICAL HISTORY: -Shortness of breath COMPARISON: None. PROCEDURE COMMENTS: AP portable technique. FINDINGS: Support devices: No visible support devices. Heart and mediastinal contours within normal limits for technique. Noactive failure, pneumonia, or visible effusion. No visible pneumothorax. IMPRESSION: No acute finding. - Note: Radiology results need to be interpreted within a comprehensiveclinical context. If you have questions about the radiology report, please contactthe office of the ordering clinician. us Brittany Álvarez MD IMG DIAGNOSTIC IMAGING ORDERA BLES Final Result * HEPATITIS B SURFACE ANTIGEN (01/18/2025 9:01 PM EDT) Hep Bs Ag Non-Reacti ve Non-React hua 01/18/2025 10:00 PM EDT [facility] [employer] Comment:HBsAg not detected. Does not exclude possibility of exposure to HBV. Blood VENOUS BLOOD / Unknown Venipuncture / Unknown 01/18/2025 9:01 PM EDT 01/18/2025 9:09 PM EDT Narrative [facility] [employer], [facility] - 01/18/2025 10:00 PM EDT Test performed using [employer] electrochemiluminescence immunassay (ECLIA). Brittany Álvarez MD CHEMISTRY ORDERABLES Final Re sult Performing Organization Address [facility] Co de Phone Number [facility] [employer] [address] , [place] [address] * HCV ANTIBODY SCREEN W/ REFLEX (01/18/2025 9:01 PM EDT) Pathologist [facility] Hep C Ab Non-Reacti ve Non-React hua 01/18/2025 10:00 PM EDT [facility] [employer] Comment:No antibodies to HCV detected. Does not exclude possibility of exposure to HCV. Blood VENOUS BLOOD / Unknown Venipuncture / Unknown 01/18/2025 9:01 PM EDT 01/18/2025 9:09 PM EDT Narrative [facility] [employer], [facility] - 01/18/2025 10:00 PM EDT Test performed using [employer] electrochemiluminescence immunassay (ECLIA). Brittany Álvarez MD HEMATOLOGY ORDERABLES Final R esult Performing Organization Address [facility]/ZIP Co de Phone Number [facility] [employer] , [place] [address] * HIV AG/AB (01/18/2025 9:01 PM EDT) [facility] HIV Ag/AB Non-Reacti ve Non-Reacti ve 01/18/2025 10:00 PM EDT [facility] [employer] Comment:Negative for HIV-1 a ntigen and anti-HIV-1/anti-HIV-2 antibodies. Blood VENOUS BLOOD / Unknown Venipuncture / Unknown 01/18/2025 9:01 PM EDT 01/18/2025 9:09 PM EDT Narrative [facility] [employer] [facility] - 01/18/2025 10:00 PM EDT Test performed using [employer] electrochemiluminescence immunassay (ECLIA). Brittany Álvarez MD IMMUNOLOGY ORDERABLES Final R esult [facility] [employer] [address] , [place] [address] * PT / INR (01/18/2025 9:01 PM EDT) PT 11.3 10.5 - 13.6 second(s) 01/18/2025 9:20 PM EDT [facility] [employer] [facility] INR 0.98 0.91 - 1.18 (ratio) 01/18/2025 9:20 PM EDT [facility] [employer] Comment: Level of Therapy Indications Target INR Range Standard Dose Treatment and prophylaxis of venous 2.0 - 3.0 thrombosis, pulmonary embolism High Dose High risk patients with mechanical 2.5 - 3.5 heart valves Blood VENOUS BLOOD / Unknown Venipuncture / Unknown 01/18/2025 9:01 PM EDT 01/18/2025 9:09 PM EDT Brittany Álvarez MD HEMATOLOGY ORDERABLES Final R esult [facility] [employer] [address] , [place] [address] * LIPASE LEVEL (01/18/2025 9:01 PM EDT) Lipase Lvl 36 13 - 60 U/L 01/18/2025 9:26 PM EDT [facility] Blood VENOUS BLOOD / Unknown Venipuncture / Unknown 01/18/2025 9:01 PM EDT 01/18/2025 9:06 PM EDT us Brittany Álvarez MD CHEMISTRY ORDERABLES Final Re sult [facility] [address] [place] [address] * (ABNORMAL) CBC WITH DIFF (01/18/2025 9:01 PM EDT) WBC 10.5(H) 3.7 - 10.3 x10(3)/mcL 01/18/2025 9:09 PM EDT [facility] RBC 5.84 4.60 - 6.10 x10(6)/mcL 01/18/2025 9:09 PM EDT [facility] Hgb 16.9 13.7 - 17.5 g/dL 01/18/2025 9:09 PM EDT [facility] Hct 52.3(H) 40.0 - 51.0 % 01/18/2025 9:09 PM EDT [facility] MCV 89.6 80.0 - 100.0 fL 01/18/2025 9:09 PM EDT [facility] MCH 28.9 26.0 - 34.0 pg 01/18/2025 9:09 PM EDT [facility] MCHC 32.3 30.7 - 35.5 g/dL 01/18/2025 9:09 PM EDT [facility] RDW 15.8(H) <=14.9 % 01/18/2025 9:09 PM EDT [facility] Platelet 178 155 - 369 x10(3)/mcL 01/18/2025 9:09 PM EDT [facility] MPV 9.4 8.8 - 12.5 fL 01/18/2025 9:09 PM EDT [facility] Neut Percent 64.6 % 01/18/2025 9:09 PM EDT [facility] Comment:Neutrophils equals s egs plus bands Imm Gran% 0.8 % 01/18/2025 9:09 PM EDT [facility] Comment:Automated count of m etamyelocytes, myelocytes and promyelocytes. Lymph Percent 24.5 % 01/18/2025 9:09 PM EDT [facility] Boyd Percent 8.3 % 01/18/2025 9:09 PM EDT [facility] Eos Percent 1.5 % 01/18/2025 9:09 PM EDT [facility] Baso Percent 0.3 % 01/18/2025 9:09 PM EDT [facility] Neut # 6.8(H) 1.6 - 6.1 x10(3)/[facility] 01/18/2025 9:09 PM EDT [facility] Comment:Neutrophils equals s egs plus bands IMMGRAN# 0.1 0.0 - 0.1 x10(3)/[facility] 01/18/2025 9:09 PM EDT [facility] Comment:Automated count of m etamyelocytes, myelocytes and promyelocytes. An absolute IG <0.1 is reported as 0.0. Lymph # 2.6 1.2 - 3.9 x10(3)/[facility] 01/18/2025 9:09 PM EDT [facility] Boyd # 0.9 0.3 - 0.9 x10(3)/[facility] 01/18/2025 9:09 PM EDT [facility] Eos# 0.2 0.0 - 0.5 x10(3)/[facility] 01/18/2025 9:09 PM EDT [facility] Baso # 0.0 0.0 - 0.1 x10(3)/[facility] 01/18/2025 9:09 PM EDT [facility] Blood VENOUS BLOOD / Unknown Venipuncture / Unknown 01/18/2025 9:01 PM EDT 01/18/2025 9:06 PM EDT us Brittany Álvarez MD HEMATOLOGY ORDERABLES Final R esult [facility] [address] [place] [address] * EK EKG 12 LEAD (01/18/2025 8:32 PM EDT) Anatomical Region Laterality Modality Electrocardiogra phy 01/18/2025 8:39 PM EDT Impressions 01/19/2025 4:[address] [facility] Test Date: 2025-01-18 Pat Name: BANG CORTES Department: DEPID Room: 26 Gender: Male Coupon Clerk: SANGITA : 1980 Requested By: BRITTANY ÁLVAREZ Order Number: [id number] Reading MD: Dev Chavira MD Measurements Intervals [place] Rate: 76 P: 48 OK: 162 QRS: 18 QRSD: 82 T: 59 QT: 346 QTc: 391 Interpretive Statements SINUS RHYTHM NORMAL EKG Electronically Signed On 01-19-2025 16:11:21 EDT by Dev Chavira MD Narrative Procedure Note Dev Chavira MD - 01/19/[address] [facility] Test Date: 2025-01-18 Pat Name: BANG CORTES Department: DEPID Room: 26 Gender: Male Coupon Clerk: SANGITA : 1980 Requested By: BRITTANY ÁLVAREZ Order Number: [id number] Reading MD: Dev Chavira MD Measurements Intervals [place] Rate: 76 P: 48 OK: 162 QRS: 18 QRSD: 82 T: 59 QT: 346 QTc: 391 Interpretive Statements SINUS RHYTHM NORMAL EKG Electronically Signed On 01-19-2025 16:11:21 EDT by Dev Chavira MD Brittany Álvarez MD IMG ECG ORDERABLES Final Resu lt documented in this encounter Visit Diagnoses Diagnosis Postoperative pain- Primary Other acute postoperative pain documented in this encounter Administered Medications Inactive Administered Medications - up to 1 most recent administrations Medication Order MAR Action Action Date Dose Rate Site iopamidoL (ISOVUE-370) 370 mg iodine /mL (76 %) injection (LOW) 100 mL 100 mL, Intravenous, ONCE PRN, 1 dose, Starting on Tue01/18/25 at 2222, Until Tue01/18/25 at 2223, Radiography/Imaging, Radiology Procedure, [facility] , CT (Contrasts) Given 01/18/2025 10:23 PM EDT 100 mL lidocaine (ASPERCREME) 4 % patch 1 Patch 1 Patch, Transdermal, ONCE, 1 dose, On Tue01/18/25 at 2345, Remove patch after 12 hours, Administer over 12 Hours, Application site: RUQ Patch Applied 01/18/2025 11:53 PM EDT 1 Patch Right Upper Quadrant- Abdomen methocarbamoL (ROBAXIN) tablet 500 mg 500 mg, Oral, ONCE, 1 dose, On Tue01/18/25 at 2345 Given 01/18/2025 11:53 PM EDT 500 mg morphine injection 4 mg 4 mg, Intravenous, ONCE, 1 dose, On Tue01/18/25 at 2130 Given 01/18/2025 9:32 PM EDT 4 mg sodium chloride 0.9% syringe 10 mL 10 mL, Intravenous, ONCE PRN, 1 dose, Starting on Tue01/18/25 at 2222, Until Tue01/18/25 at 2223, Line Care, Flush peripheral lines every 12 hours, central lines every 8 hours, and after IV medication, CT (Contrasts) Given 01/18/2025 10:23 PM EDT 10 mL documented in this encounter Active and Recently Administered Medications Times are shown in EDT. Scheduled Medication Order 01/17/2025 01/18/2025 01/19/2025 lidocaine (ASPERCREME) 4 % patch 1 Patch 1 Patch, Transdermal, ONCE, 1 dose, On Tue01/18/25 at 2345, Remove patch after 12 hours, Administer over 12 Hours, [facility] (Patch Applied - Provider: Everett Woodward RN) 0011 (Due: Patch Removed - Provider: Automatic Discharge Provider - Comment: Time automatically adjusted from order being discontinued) methocarbamoL (ROBAXIN) tablet 500 mg (COMPLETED) 500 mg, Oral, ONCE, 1 dose, On Tue01/18/25 at 2345 2353 (Given - Provider: Everett Woodward RN) morphine injection 4 mg (COMPLETED) 4 mg, Intravenous, ONCE, 1 dose, On Tue01/18/25 at 2130 2132 (Given - Provider: Elli Mccurdy RN) PRN Medication Order 01/17/2025 01/18/2025 01/19/2025 iopamidoL (ISOVUE-370) 370 mg iodine /mL (76 %) injection (LOW) 100 mL (COMPLETED) 100 mL, Intravenous, ONCE PRN, 1 dose, Starting on Tue01/18/25 at 2222, Until Tue01/18/25 at 2223, Radiography/Imaging, Radiology Procedure, [facility] , CT (Contrasts) 2222 (Given - Provider: RT Reina) sodium chloride 0.9% syringe 10 mL (COMPLETED) 10 mL, Intravenous, ONCE PRN, 1 dose, Starting on Tue01/18/25 at 2222, Until Tue01/18/25 at 2223, Line Care, Flush peripheral lines every 12 hours, central lines every 8 hours, and after IV medication, CT (Contrasts) 2222 (Given - Provider: Jasmin Serrano RT) documented in this encounter Care Teams Electric Clock Mechanic Relationship Specialty Start Date End Date No Pcp, Per Patient PCP - General 01/18/25 documented as of this encounter
--- OUTSIDE RECORDS SUMMARY | 2025-02-07 13:00 | XMS_ITS | Encounter Summary ---
Author [place] [address] Care Team Providers Care Postage Machine Operator Name Role Phone No Pcp, Per Patient Primary Care Provider Humberto langston Reason for Referral * Consultation (Routine) - Closed Specialty Diagnoses / Procedures Referred By Senthil nayak Referred To Contact Behavioral Health Diagnoses Depressive disorder due to separate medical condition Anxiety disorder, unspecified type Savage Wood MD [address] [id number] Phone: tel: fax: [address] [place] [address] Phone: tel: fax: Referral ID Status Reason Start Date Expiration Date V isits Requested Visits Authorized [id number] Closed Specialty Services Required 02/07/2025 02/07/2026 99 99 Scheduling Instructions Please refer to Dr. Mixon for CBT for chronic pain. Question Answer Provider Options This Provider Only - Apurva Reason for Visit * Reason Comments Mood Disorder * Consultation (Routine) - Authorization Not Needed Specialty Diagnoses / Procedures Referred By Senthil nayak Referred To Contact Psychiatry & Neurology-Child & Adolescent Psychiatry / Behavioral Health Diagnoses Medication management New Patient- Depression- In office Procedures NEW PATIENT Savage Wood MD [address] [place] [address] Phone: tel: fax: Savage Wood MD [address] [place] [address] Phone: tel: fax: Referral ID Status Reason Start Date Expiration Date Visits Requested Visits Authorized [id number] Authorization Not Needed 02/07/2025 02/07/2026 99 99 Encounter Details Date Type Department Care Team (Late st Contact Info) Description 02/07/2025 1:00 PM EDT Office Visit [facility] [address] [facility] [address] [place] [address] Savage Wood MD [address] [place] [address] Depressive disorder due to separate medical condition (Primary Dx); Anxiety disorder, unspecified type; Cannabis use disorder Social History Tobacco Use Types Packs/Day Years [...] on file documented as of this encounter Progress Notes * Savage Wood MD - 02/07/2025 1:00 PM EDT [facility] OUTPATIENT PSYCHIATRY INITIAL ASSESSMENT Patient's Name: Bang Cortes Date of : 1980 Address: [address] [place] [address] [place] [address] Age: 44 y.o. Sex: male Clinician: Savage Wood MD Allergies: Allergies Allergen Reactions Penicillins Hives Gabapentin Other (See Comments) Suicidal thoughts Zjcvplt-Ass-Kow Reductase Inhibitors Myalgia Flu symptoms CC: Establish care for mood disorder Consent Reviewed: Discussed risks and benefits of psychiatric treatment including psychopharmacology and psychotherapy with family. Diagnoses and course of treatment may acid changer time due to changes in clinical presentation, new information/collateral, and/or response to treatment. Reviewed limits of confidentiality, including mandatory reporting as required by law. Patient and family were given the opportunityto ask questions and all questions were answered. History of Present Illness The patient presents for evaluation of anxiety, depression, chronic pain, and migraines. He has been diagnosed with PTSD and has been dealing with depressive issues since before his first back surgery in 1999. He saw a counselor in [facility] where he lived at the time probably . He was on Geodon for several years without benefit and weaned off it earlier this year. He has tried various antidepressants, including Viibryd, Abilify, Trintellix, and Vraylar, but none have been effective. He is interested in trying acute medication for anxiety. He has never made plans or acting on suicidality. He has had thoughts when it gets bad like it just would be better if he was . He has been on disability for mental issues caused by constant pain and spinal nerve issues since last year. His neck condition worsened in November, causing more problems down his arms. He saw his old neurologist and pain specialist in [place], but they no longer take his insurance. He has a stimulator and afusion, which prevents him from having MRIs.. He is scheduled to see a cervical spine surgeon on 03/08/2025. He has been unable to find a suitable pain clinic, as most require spinal injections or stimulators, which he already has. Previous injections have exacerbated his condition. In May 2024, his liver enzyme levels were elevated, leading to a diagnosis of cirrhosis following a CT scan fora kidney stone on 12/14/2024. A subsequent liver biopsy revealed stage 1 or 2 disease. He is unableto take Tylenol or alcohol due to his liver condition. He is on Zepbound for weight loss due to hisliver condition. Love shares past medical hsitory and concerns with medication interactions. He shares recent diagnosis of liver steatosis and complications with neck pain. Patient shares he is on a fixed inocme $900 and supports his 17 year old son. He has full custody of his son. He is on SSI since 2023 for mental issues from spine and nerve pain. He is not currently receiving SSI payments until next Jan 2026 due to payment discrepency with [employer]. He shares prior diagnosis of PTSD stemming from prior relationship trauma. He shares son has diagnoses of ASD, ADHD, ODD, OCD. He was recently placed on homebound education due to disruption in school. He shares signficant anxiety regarding finances,parenting his son, medical problems. He shares he enjoys playing tabletop role playing games online and in person. He notes difficulty with focusing that is primarily worse when his pain is escalated. He shares he was tested for ADD as a child but wase too smart to have ADD and was never diagnosed officially. He states his pain limits the majority of activities that he wants to do. He reports depression since 2000. He started seeing a counselor in [address] [facility]. He notes medications do not work because they do not fix the problem. He shares his depression went away when he was employed and when his pain was well controlled. He reports passive wish in the past and denies active suicidal ideaiton or previous suicide attempt. He was recently in a long-distance relationship that ended last week. He shares he had only seen her three times in the last 1 year. He identifies his mother as his support system. He desires a PRN medication for depression. Current Medications: Current Outpatient Medications - WARNING: List may be incomplete due to filtering Medication Sig acetylcysteine (NAC ORAL) Take by mouth daily. albuterol Inhale 2 Puffs into the lungs every 6 hours. anastrozole Take 1 mg by mouth once a week. B cmplx 4/vit D3/C/folic/zinc (VITAL-D RX ORAL) Take by mouth daily. Cholecalciferol (Vitamin D3) Take 1,000 Units by mouth daily. dihydroberberine (BERBERINE ES-5 ORAL) Take by mouth daily. ergocalciferol Take 50,000 Units by mouth once a week. fluticasone propionate USE 1 SPRAY(S) IN EACH NOSTRIL TWICE DAILY fUROsemide Take by mouth every 12 hours. inclisiran sodium (LEQVIO SUBQ) Inject under the skin Every 6 Months. meloxicam Take 15 mg by mouth daily. RED YEAST RICE EXTRACT, BULK, MISC by Misc.(Non-Drug; Combo Route) route daily. tamsulosin Take by mouth daily. TESTOSTERONE CYPIONATE IM Inject into the muscle once a week. b tkkndex-C-dtbhg acid Take 1 Capsule by mouth daily. (Patient not taking: Reported on 02/07/2025) s-adenosylmethionine sul tosyl (ZULAY-E ORAL) Take by mouth daily. (Patient not taking: Reported on 02/07/2025) Psych ROS: -Hypomania/Yulia: No history or current reports of elevated, expansive or irritable mood or increased goal-directed behavior or energy lasting >4 days or >1 week and impacting function. -Mood: As above -Psychosis: Denies paranoia, auditory or visual hallucinations. No apparent delusions, ideas of reference, thought blocking or disorganized thinking. -Attention and Focus: As above. -Anxiety: As above -Aggression/Violence: As above. -Risk Taking: No history of risk taking behavior. -Antisocial Behaviors: No history of stealing, firestarting, hurting animals or sexually deviant behavior. HISTORIES Past Psychiatric History: Previous diagnoses: Depression Hospitalizations: Denied. Residential: Denied Outpatient treatment: Prev in therapy for 4-5 years. He is unsure of the specific kind of therapy that he was involved in. Previous testing: Testing for ADHD as a child, never diagnosed. Reports prior BDNA testing (not available at this time). Current psychiatric medications: NAC Previous psychiatric medications: Flexeril, Testosterone, Fluoxetine, Pregabalin, Elavil, Viibryd, Hydroxyzine, Abilify, Geodon, Auvelity, Trintellix, Vyvanse Self-harm Behaviors: Denied. Suicide Attempts: Denied. Social History: Family Lives with 17 yo son, his mother also lives on the property. Family Relationships: Mother is primary social support. Hobbies/Activities/Interests: [email or web address] el[employer] Dating/Sexual Activity: Recently broke up with long distance girlfriend last week. Educational History: [employer] background Trauma History: Trauma from previous marriage, reports fear, paranoia and vindictiveness from ex-. Substance Abuse History: Nicotine: Denied. EtOH: Rarely Cannabis: Uses cannabis 10-50 mg gummies 3-4 days/week, will also use a vape pen most nights/week. Illicit Drugs: Denied. Past Medical History: Past Medical History: Diagnosis Date Arthritis Asthma Cirrhosis (HCC) Complication of anesthesia Depression Hyperlipidemia Liver disease Past Surgical History: Past Surgical History: Procedure Laterality Date APPENDECTOMY ARM SURGERY BACK SURGERY CT NEEDLE BIOPSY LIVER 01/18/2025 CT NEEDLE BIOPSY LIVER 01/18/[address] KNEE SURGERY Medications: Current Outpatient Medications Medication acetylcysteine (NAC ORAL) albuterol (VENTOLIN HFA) 90 mcg/actuation Inhl HFA Aerosol Inhaler anastrozole (ARIMIDEX) 1 mg Oral Tablet B cmplx 4/vit D3/C/folic/zinc (VITAL-D RX ORAL) Cholecalciferol, Vitamin D3, 25 mcg (1,000 unit) Oral Capsule dihydroberberine (BERBERINE ES-5 ORAL) ergocalciferol (DRISDOL) 1,250 mcg (50,000 unit) Oral Capsule fluticasone propionate (FLONASE) 50 mcg/actuation Nasl [place], Suspension fUROsemide (LASIX) 20 mg Oral Tablet inclisiran sodium (LEQVIO SUBQ) meloxicam (MOBIC) 7.5 mg Oral Tablet RED YEAST RICE EXTRACT, BULK, MISC tamsulosin (FLOMAX) 0.4 mg Oral Capsule TESTOSTERONE CYPIONATE IM b oucjsyt-O-jtatl acid (NEPHROCAP) 1 mg Oral Capsule s-adenosylmethionine sul tosyl (ZULAY-E ORAL) No current facility-administered medications for this visit. Patient denies any additional medications or supplements. Family History: Family History Problem Relation Age of Onset Colon Cancer Paternal Uncle Son w/ suspected ASD and ADHD. . REVIEW OF SYSTEMS Constitutional: No dizziness. No weakness. CV: No chest pain Resp: No SOB GI: Normal appetite, no NVD Neuro: No headaches, no tics, +chronic pain Endo: No fatigue PHYSICAL EXAM: There were no vitals filed for this visit. Physical Exam Vitals and nursing note reviewed. Constitutional: Appearance: Normal appearance. He is normal weight. HENT: Head: Normocephalic and atraumatic. Right Ear: External ear normal. Left Ear: External ear normal. Eyes: Extraocular Movements: Extraocular movements intact. Cardiovascular: Comments: Appears well perfused. Pulmonary: Effort: Pulmonary effort is normal. Skin: General: Skin is warm and dry. Neurological: General: No focal deficit present. Mental Status: He is alert and oriented to person, place, and time. Mental status is at baseline. Gait: Gait normal. Mental Status Examination: Appearance: Appropriately dressed Psychomotor Activity:Normal Abnormal Involuntary Movement:Absent Attitude:Cooperative Responsiveness:Alert Speech:Coherent and Spontaneous Mood:Euthymic Affect:Full and congruent with mood Thought Process:Goal Directed and Organized Thought Content:No Disturbances, Denies HI/SI or intent or plan. Perception: No disturbances - no hallucinations or delusions. Orientation:Person, Place, and Time Memory:Intact recent/remote per conversation Insight:Understands nature of condition Judgement:Good Estimated Reliability:Reliable Fund of Knowledge: appropriate for age/education level Laboratory Values: No visits with results within 1 Day(s) from this visit. Latest known visit with results is: Admission on 01/18/2025, Discharged on 01/19/2025 Component Date Value WBC 01/18/2025 10.5 (H) RBC 01/18/2025 5.84 Hgb 01/18/2025 16.9 Hct 01/18/2025 52.3 (H) MCV 01/18/2025 89.6 MCH 01/18/2025 28.9 MCHC 01/18/2025 32.3 RDW 01/18/2025 15.8 (H) Platelet 01/18/2025 178 MPV 01/18/2025 9.4 Neut Percent 01/18/2025 64.6 Imm Gran% 01/18/2025 0.8 Lymph Percent 01/18/2025 24.5 [place] Percent 01/18/2025 8.3 Eos Percent 01/18/2025 1.5 Baso Percent 01/18/2025 0.3 Neut # 01/18/2025 6.8 (H) IMMGRAN# 01/18/2025 0.1 Lymph # 01/18/2025 2.6 [place] # 01/18/2025 0.9 Eos# 01/18/2025 0.2 Baso # 01/18/2025 0.0 Sodium 01/18/2025 142 Potassium 01/18/2025 4.3 Chloride 01/18/2025 107 Total CO2 01/18/2025 24 Anion Gap 01/18/2025 11 Calcium 01/18/2025 8.8 Glucose Lvl 01/18/2025 126 (H) BUN 01/18/2025 16 Creatinine 01/18/2025 1.04 Albumin 01/18/2025 3.9 Total Protein 01/18/2025 7.3 Bili Total 01/18/2025 1.4 ALT 01/18/2025 68 (H) AST 01/18/2025 28 Alk Phos 01/18/2025 62 eGFR (CKD-EPIcr 2020) 01/18/2025 91 Lipase Lvl 01/18/2025 36 PT 01/18/2025 11.3 INR 01/18/2025 0.98 HIV Ag/AB 01/18/2025 Non-Reactive Hep C Ab 01/18/2025 Non-Reactive Hep Bs Ag 01/18/2025 Non-Reactive Results Laboratory Studies Liver enzyme levels were high in May 2024. Assessment: Bang Cortes is a(n) 44 y.o. male with a psychiatric history is significant for anxiety and depression. Medical history is significant for back pain w/ spinal cord stimulator in place, moderate liver steatosis and portal fibrosis, gout, low testosterone, HLD, polycythemia, obesity, KEVIN, arthritis,chronic pain and asthma, . Depressive symptoms significantly worsen with pain and include anhedonia. He denies difficulty with persistent depressed mood, amotivation, insomnia, decreased appetite or suicidality. Anxiety symptoms are significant for worries about finances and child rearing. No history of manic/hypomanic or psychotic symptoms. Trauma history is significant for traumatic prior relati onship with ex-. Family history is significant for child with suspected ASD and ADHD. Psychosocial stressors include chronic pain, child rearing and financial burdens. Multiple previous trials ofpsychotropic medications include Flexeril, Testosterone, Fluoxetine, Pregabalin, Elavil, Viibryd, Hydroxyzine, Abilify, Geodon, Auvelity, Trintellix. I discussed that given the supplements the patient is taking including Berberine, Red Yeast Rice Extract and ZULAY-E and almost daily cannabis use, it is difficult to understand the complex pharmacokinetic and pharmacodynamic interactions with prescription psychotropic medications and their effects could be altered due to interactions with aforementioned supplements. Most likely diagnosis is Depressive Disorder due to Another Medical Condition (chronic pain), Cannabis Use Disorder and Anxiety Disorder Unspecified. Assessment & Plan Depressive Disorder due to Another Medical Condition (chronic pain) Cannabis Use Disorder Anxiety Disorder Unspecified His anxiety appears to be exacerbated by chronic pain, which limits his ability to engage in activities he enjoys. This, in turn, contributes to feelings of depression and anxiety. The potential benefits of cognitive behavioral therapy for chronic pain were discussed. A list of providers offering this service will be sent via [employer]ide[employer]. He is not interested in a daily medication for depression or anxiety at this time and does not want to trial medications for acute anxiety that are hepatically metabolized (Buspar, benzodiazepines). Due to his asthma, Hydroxyzine and B-Blockers may increase riskof bronchospasms. Provisional Diagnosis: Encounter Diagnoses Name Primary? Depressive disorder due to separate medical condition Yes Anxiety disorder, unspecified type Cannabis use disorder Treatment Plan: MEDICATIONS -- Deferred at this time. 2. TREATMENT MONITORING -- Regular monitoring of vitals, growth -- DANIEL: Not indicated. -- Labs: Not indicated for current psychiatric medications. -- EKG: Not indicated for current psychiatric medications. 3. THERAPY/SERVICES -- Supportive therapy with behavioral interventions provided for symptoms as necessary --Will send resources for CBT-chronic pain. 4. SAFETY A suicide risk assessment was performed and patient was found to be at low acute risk & moderate chronic risk of suicide due to the following factors: -- Modifiable risk factors include: depression symptoms,, anxiety symptoms,, irritability,, currentsubstance use, current medical illness, feelings of hopelessness,, low self-esteem, lack of family support/acceptance, unemployment, and acute pain -- Non- modifiable risk factors include: family psychiatric history, male gender, and separation/divorce -- Protective factors for the patient include: family support, help-seeking behavior, social connectedness, responsibility to family/friends, good problem solving skills, sense of purpose in life, desire to live, no reported history of self-harm, no reported history of suicide or suicidal behavior,and access to healthcare system While future risk for suicide and/or violence cannot be accurately predicted, at the time of this assessment the patient does not appear to warrant higher level of care or involuntary hospitalizationas the do not present as an imminent risk to self or others or demonstrate grave disability in functioning. Total Time: 109 minutes Time was spent preparing to see the patient, reviewing records from outside sources, performing an exam, counseling and educating, ordering medications, documenting clinical information, independently interpreting results and communicating results, performing screening assessments, contacting collateral sources as indicated and noted, and answering questions related to visit. Return in about 6 weeks (around 03/21/2025). The provider educated the patient (or legal jewelry sales representative) on the use of the ambient listening artificial intelligence tool, [employer]. They were informed that this AI tool processes the conversation to generate a clinical note with the expected benefit of improved accuracy while achieving an improved encounter experience for the patient and provider.?The provider explained that the medical information captured by the AI tool including, but not limited to, diagnoses and treatment plan would be protected in accordance with applicable privacy laws and that all diagnoses and treatment decisions would be made by the provider. The provider explained that the note generated will be reviewed bythe provider for accuracy to minimize potential errors.? The patient was given an opportunity to ask questions and opt out of proceeding with the use of the AI tool. After being informed of such information, the patient (or legal jewelry sales representative), and each individual in attendance with the patient, verbally consented to the use of the AI tool. Savage Wood MD Child, Adolescent, & Adult Psychiatrist Drilling Inspector [facility] documented in this encounter Plan of Treatment Upcoming Encounters Date Type Department Care Team (Late st Contact Info) Description 03/13/2025 11:00 AM EDT Office Visit [facility] [address] [place] [address] Bita Miner MD [address] [place] [id number] 03/22/2025 3:30 PM EST Telemedicine [facility] [address] [facility] [address] [place] [address] Savage Wood MD [address] [place] [address] 06/04/2025 2:00 PM EST Office Visit [facility] [address] [facility] [place] [address] Vivian Frausto Paresh, BROADCAST MAINTENANCE ENGINEER [address] [place] [address] Scheduled Referrals Name Type Priority Associated Diagnoses Orde r Schedule AMB REFERRAL TO BEHAVIORAL HEALTH Outpatient Referral Routine Depressive disorder due to separate medical condition Anxiety disorder, unspecified type Ordered: 02/07/2025 documented as of this encounter Visit Diagnoses Diagnosis Depressive disorder due to separate medical condition- Primary Anxiety disorder, unspecified type Cannabis use disorder documented in this encounter Discontinued Medications Medication Sig Discontinue Reason Start Date End Da te mycophenolate (CELLCEPT) 500 mg Oral Tablet Take 500 mg by mouth 2 times daily. Patient Reported not taking medication 12/25/2024 02/06/2025 indomethacin (INDOCIN) 50 mg Oral Capsule as needed. Patient Reported not taking medication 10/08/2021 02/07/2025 omega-3s/dha/epa/fish oil/D3 (VITAMIN-D + OMEGA-3 ORAL) Take by mouth daily. Patient Reported not taking medication 02/06/2025 predniSONE (DELTASONE) 10 mg Oral Tablet 10 mg. Patient Reported not taking medication 12/25/2024 02/06/2025 cyclobenzaprine (FLEXERIL) 10 mg Oral Tablet take 1 tablet by mouth twice daily as needed for muscle spasm Patient Reported not taking medication 11/09/2024 02/06/2025 indomethacin (INDOCIN) 50 mg Oral Capsule as needed. Patient Reported not taking medication 10/08/2021 02/07/2025 documented as of this encounter Care Teams Postage Machine Operator Relationship Specialty Start Date End Date No Pcp, Per Patient PCP - General 01/18/25 documented as of this encounter
--- OUTSIDE RECORDS SUMMARY | 2025-02-15 17:54 | XMS_ITS | Encounter Summary ---
Author [place] [address] Care Team Providers Care Trash Man Name Role Phone No Pcp, Per Patient Primary Care Provider Humberto langston Reason for Visit * Reason Comments Back Pain Pt arrives with c/o back pain without injury. Pt has had multiple surgeries on back including rods and fusions. Cpta: none Encounter Details Date Type Department Care Team (Late st Contact Info) Description 02/15/2025 5:54 PM EDT - 02/15/2025 7:17 [place] [address] Vladimir Pérez MD [address] [place] [phone] Ceferino Vargas MD [address] [place] [phone] Acute exacerbation of chronic low back pain (Primary Dx); Cervical radiculopathy; Lumbosacral radiculopathy; Neck pain Discharge Disposition: Home or Self Care Social [...] Sign Reading Time Taken Comments Blood Pressure 142/87 02/15/2025 3:26 PM EDT Pulse 89 02/15/2025 3:26 PM EDT Temperature 37.1 C (98.7 F) 02/15/2025 3:26 PM EDT Respiratory Rate 20 02/15/2025 3:26 PM EDT Oxygen Saturation 97% 02/15/2025 3:26 PM EDT Inhaled Oxygen Concentration - - Weight 209.4 kg (461 lb 9.6 oz) 02/15/2025 3:26 PM EDT Height 193 cm (6' 4 ) 02/15/2025 3:26 PM EDT Body Mass Index 56.19 02/15/2025 3:26 PM EDT documented in this encounter Functional Status * Suicide Severity Rating Answer Date of Assessment Author No Risk 02/15/2025 7:00 PM EDT Ashvin Cr RN * [place] Suicide Severity Rating Scale (Q shift for moderate and high) Question Answer Date of Assessment Author 1. In the past month, have y ou wished you were or wished you could go to sleep and not wake up? 0 02/15/2025 7:00 PM EDT Ashvin Young RN 2. In the past month, have y ou actually had any thoughts of killing yourself? (If no, skip to question 6) 0 02/15/2025 7:00 PM EDT Ashvin Cr RN 6. Have you ever done anythi ng, started to do anything, or prepared to do anything to end your life? 0 02/15/2025 7:00 PM EDT Ashvin Rodriguez RN documented as of this encounter Discharge Instructions * Discharge Instructions* Lloyd Garnica APRN - 02/15/2025 7:06 PM EDT Discharge Instructions: Take all your medications as instructed. Continue the medication you are prescribed for your chronic pain. Use oxycodone only if need for breakthrough pain. Do not drink alcohol, drive or operate heavy machinery while taking oxycodone as it will cause sedation. Narcotic pain medication such as oxycodone should be used only if absolutely needed. All narcotic pain medication is potentially addicting and habit-forming even if taking as prescribed. Use extreme caution while taking. Narcotic pain medication can also cause constipation. Take either prescribed or bisd-daa-bujdllq stool softeners while taking to avoid associated constipation. Do not combine oxycodone with other medication that causes sedation. The Emergency Department will not be able to provide prescription refills for controlled substances and you will need to follow-up with pain management, spine doctor or primary care provider forongoing management of pain Follow up as instructed. Return to the Emergency Department should your symptoms worsen or should you develop a fever, change in bowel or bladder control, any unusual numbness or unusual weakness or any other new or worsening concerns * Attachments The following attachments cannot be sent through Care Everywhere. * Neck pain ??? ED discharge instructions ([place]) * Radiculopathy of the neck and back (including sciatica) ??? Discharge instructions ([place]) documented in this encounter Medications at Time of Discharge albuterol (VENTOLIN HFA) 90 mcg/actuation Inhl HFA Aerosol Inhaler Inhale 2 Puffs into the lungs every 6 hours. 04/18/2023 anastrozole (ARIMIDEX) 1 mg Oral Tablet Take 1 mg by mouth once a week. B-Complex with Vitamin C Oral Capsule 1 Capsule. 02/22/2020 busPIRone (BUSPAR) 10 mg Oral TabletIndications :Anxiety disorder, unspecified type Please take 1/2-1 tab (5-10 mg) as needed up to three times daily for anxiety. 30 Tablet 2 02/08/2025 Cholecalciferol, Vitamin D3, 25 mcg (1,000 unit) Oral Capsule Take 1,000 Units by mouth daily. 11/10/2020 fluticasone propionate (FLONASE) 50 mcg/actuation Nasl [place], Suspension USE 1 SPRAY(S) IN EACH NOSTRIL TWICE DAILY 04/18/2023 fUROsemide (LASIX) 20 mg Oral Tablet Take by mouth every 12 hours. LEQVIO 284 mg/1.5 mL SubQ Syringe Inject 284 mg under the skin Every 6 Months. 01/07/2025 meloxicam (MOBIC) 15 mg Oral Tablet 15 mg. 05/02/2024 RED YEAST RICE EXTRACT, BULK, MISC by Misc.(Non-Drug; Combo Route) route daily. SUMAtriptan (IMITREX) 50 mg Oral Tablet Take 50 mg by mouth once as needed for Pain. 02/06/2025 tamsulosin (FLOMAX) 0.4 mg Oral Capsule Take by mouth daily. acetylcysteine (NAC ORAL) Take by mouth daily. 5 B cmplx 4/vit D3/C/folic/zinc (VITAL-D RX ORAL) Take by mouth daily. b szompdq-V-itytl acid (NEPHROCAP) 1 mg Oral Capsule Take 1 Capsule by mouth daily. dihydroberberine (BERBERINE ES-5 ORAL) Take by mouth daily. ergocalciferol (DRISDOL) 1,250 mcg (50,000 unit) Oral Capsule Take 50,000 Units by mouth once a week. inclisiran sodium (LEQVIO SUBQ) Inject under the skin Every 6 Months. meloxicam (MOBIC) 7.5 mg Oral Tablet Take 15 mg by mouth daily. oxyCODONE (ROXICODONE) 5 mg Oral Tablet Take 1 Tablet by mouth every 6 hours as needed for Acute Pain (R52) for up to 3 days. 10 Tablet 02/16/2025 5 oxyCODONE 5 mg Oral Capsule Take 1 Capsule by mouth every 6 hours as needed for Acute Pain (R52) (Severe breakthrough pain not controlled by regular pain medication) for up to 3 days. 10 Capsule 02/15/2025 5 s-adenosylmethion ine sul tosyl (ZULAY-E ORAL) Take by mouth daily. TESTOSTERONE CYPIONATE IM Inject into the muscle once a week. documented as of this encounter Ordered Prescriptions Prescription Sig Dispense Quantity Refills Last Filled Start Date End Date oxyCODONE (ROXICODONE) 5 mg Oral Tablet Take 1 Tablet by mouth every 6 hours as needed for Acute Pain (R52) for up to 3 days. 10 Tablet 02/16/2025 5 oxyCODONE 5 mg Oral Capsule Take 1 Capsule by mouth every 6 hours as needed for Acute Pain (R52) (Severe breakthrough pain not controlled by regular pain medication) for up to 3 days. 10 Capsule 02/15/2025 documented in this encounter Discharge Disposition Disposition Code Departure Means Destination Comment s Home or Self Half-Way documented in this encounter ED Notes * Lloyd Garnica APRN - 02/15/2025 2:54 PM EDT [facility] ENCOUNTER: 02/15/2025 Reason for Visit: Back Pain (Pt arrives with c/o back pain without injury. Pt has had multiple surgeries on back including rods and fusions. Cpta: none) Attending physician Ceferino Vaughn MD Patient History HPI: Bang Cortes is a 44 y.o. male with a history of chronic neck pain and back pain, spinal stenosis, multiple prior surgical procedures to the spine as well as a history of hyperlipidemia and liver disease who presents to the Emergency Department with complaint of neck pain at site of recent steroid injection (C[facility]) as well as worsening chronic low back pain radiating down the right leg and somewhat to the left hip. Patient contacted nursing staff today reporting severe back pain rating down the right leg and somewhat to the left side at spite of recent spinal injection . Patient instructed to go to the emergency department Patient was seen on 01/18/2025 with complaint of pain to the right upper quadrant after having liver biopsy performed earlier that day. He was treated with morphine. CT was reassuring and chest x-ray showed no evidence of pneumothorax or hemothorax. Interventional radiology was consulted and felt comfortable with patient being discharged home. Although I do not have access to these records he has reportedly been seen by [facility] and 5 weeks ago had a spinal injection . I did review recent controlled substance prescriptions that patient has had filled. Patient had a prescription for 12 hydrocodone tablets filled on 12/14/2024.. The patient reports that he has chronic pain radiating from his neck primarily down the right arm but also at times on the left arm. He states that ever since he had a steroid injection done at [facility] 5 weeks ago he has had increasing pain at the injection site. He has had no change in the radicular pain down his upper extremities. He reports he also has a history of L4/L5 and S1 fusion and has a spinal stimulator and has chronic pain rating down the right leg. He reports pain also radiates into the left hip. He reports some chronic paresthesias to the right lower extremity as well as some tingling to the right upper extremity that is also unchanged from baseline. Patient denies any saddle anesthesia. Denies any history of IV drug use. Denies any new injury or trauma. Denies fevers. Denies any loss of bowel or bladder control. Patient states that he takes meloxicam for pain. He reports thatthe pain is just not tolerable at this time. He states that he did not take the hydrocodone prescription that was provided on 12/14/2024 because he was told that he should not take Tylenol. He states that has been trying to get in with a pain management doctor and has an appointment on Tuesday. He also has a follow-up appointment scheduled with [facility] on the to discuss potential surgical intervention for his neck pain. He is not concern for any type of infectious process or any new injury or trauma but states that he is hoping he can get some short-term pain relief until he has a first-time appointment on Tuesday with his pain doctor. Past Medical History: Diagnosis Date Arthritis Asthma Cirrhosis (HCC) Complication of anesthesia Depression Hyperlipidemia Liver disease Past Surgical History: Procedure Laterality Date APPENDECTOMY ARM SURGERY BACK SURGERY CT NEEDLE BIOPSY LIVER 01/18/2025 CT NEEDLE BIOPSY LIVER 01/18/[address] Murali Collazo MD EDG CT KNEE SURGERY Social History Tobacco Use Smoking status: Never Smokeless tobacco: Never Substance Use Topics Alcohol use: Yes Comment: rarely Previous Medications ACETYLCYSTEINE (NAC ORAL) Take by mouth daily. ALBUTEROL (VENTOLIN HFA) 90 MCG/ACTUATION INHL HFA AEROSOL INHALER Inhale 2 Puffs into the lungs every 6 hours. ANASTROZOLE (ARIMIDEX) 1 MG ORAL TABLET Take 1 mg by mouth once a week. B CMPLX 4/VIT D3/C/FOLIC/ZINC (VITAL-D RX ORAL) Take by mouth daily. B BAZSYRU-D-HLLXT ACID (NEPHROCAP) 1 MG ORAL CAPSULE Take 1 Capsule by mouth daily. BUSPIRONE (BUSPAR) 10 MG ORAL TABLET Please take 1/2-1 tab (5-10 mg) as needed up to three times daily for anxiety. CHOLECALCIFEROL, VITAMIN D3, 25 MCG (1,000 UNIT) ORAL CAPSULE Take 1,000 Units by mouth daily. DIHYDROBERBERINE (BERBERINE ES-5 ORAL) Take by mouth daily. ERGOCALCIFEROL (DRISDOL) 1,250 MCG (50,000 UNIT) ORAL CAPSULE Take 50,000 Units by mouth once a week. FLUTICASONE PROPIONATE (FLONASE) 50 MCG/ACTUATION NASL SPRAY, SUSPENSION USE 1 SPRAY(S) IN EACH NOSTRIL TWICE DAILY FUROSEMIDE (LASIX) 20 MG ORAL TABLET Take by mouth every 12 hours. INCLISIRAN SODIUM (LEQVIO SUBQ) Inject under the skin Every 6 Months. MELOXICAM (MOBIC) 7.5 MG ORAL TABLET Take 15 mg by mouth daily. RED YEAST RICE EXTRACT, BULK, MISC by [facility].(Non-Drug; Combo Route) route daily. S-ADENOSYLMETHIONINE SUL TOSYL (ZULAY-E ORAL) Take by mouth daily. TAMSULOSIN (FLOMAX) 0.4 MG ORAL CAPSULE Take by mouth daily. TESTOSTERONE CYPIONATE IM Inject into the muscle once a week. Allergies as of 02/15/2025 - Verified 02/15/2025 Allergen Reaction Noted Penicillins Hives 08/26/2016 Gabapentin Other (See Comments) 12/10/2024 Nsaids (non-steroidal anti-inflammatory drug) Other (See Comments) 02/15/2025 Ahjzcoy-eij-cwe reductase inhibitors Myalgia 12/06/2024 Tylenol [acetaminophen] Other (See Comments) 02/15/2025 No LMP for male patient. Review of Systems ROS: Please reference history of present illness. Physical Exam BP 142/87 Pulse 89 Temp 98.7 ??F (37.1 ??C) (Oral) Resp 20 Ht 6' 4 (1.93 m) Wt (!) 461 lb 9.6 oz (209.4 kg) SpO2 97% BMI 56.19 kg/m?? General: Bang Cortes pleasant obese male. Appears in discomfort but is in no acute distress HEENT: Normocephalic and atraumatic. Neck: No meningismus. Full range of motion. Respiratory: Non labored breathing. Equal chest rise and fall. Clear to auscultation with good air movement Cardiac: There is a regular rate and rhythm. Musculoskeletal: Patient is able to ambulate to the treatment area without assistance. Patient is seated on the stretcher in no obvious distress. No contusions, ecchymosis or abrasions. There is no cervical or thoracic or midline lumbar sacral spinal tenderness, step-off, or deformity to palpation.Patient complains of pain rating down the right posterior thigh into the right calf and foot. Pain is made worse with straight leg raise. No contralateral radiculopathy with left straight leg raise. He has intact symmetric strength with dorsi and plantarflexion of the feet and great toes. Intact strength with extension at the knees bilaterally. Band Saw Filer strength is 5 out of 5 and symmetric. Patient can push and pull with 4-5 strength and has 3-5 strength with shoulder shrug bilaterally. He reports that he has some chronic weakness to the upper extremities that feels similar to the weakness he hasat present. Patient able to make okay sign and keep me from breaking it. He has no wrist drop. He has no upper extremity or lower extremity swelling or asymmetry. No venous distention or palpable cord. Patient reports decree sensation to the right distal lower extremity comparison to the left that is reportedly baseline. He reports sensation to the upper extremities appears symmetric and is intact distally. Difficult to elicit patellar reflexes. He states that this is baseline and that he normally does not have reflexes. Abdomen: Abdomen is soft, obese, nondistended nontender. No pulsatile abdominal mass noted. No costovertebral angle tenderness. Skin: Well-healed surgical incisions noted over the midline spine. Skin is warm and dry. There is no rash. There is no edema. Vascular: No cyanosis noted. No upper or lower extremity asymmetry, venous distention or palpable cord noted. Palpable and symmetric distal pulses to arms and legs. Neuro: Awake, alert and oriented. Sensation is intact in the lower extremities proximally and distally. There is no foot drop. Gait is without ataxia or obvious weakness. Diagnostic Studies Labs: Labs Reviewed UA W/REFLEX TO CULTURE Narrative: The following orders were created for panel order UA W/REFLEX TO CULTURE. Procedure Abnormality Status --------- ------ URINALYSIS REFLEX[[id number]] Final result EXTRA MARCH URINE CX[[id number]] Final result Please view results for these tests on the individual orders. URINALYSIS REFLEX Radiology: No orders to display Emergency Department Procedures Procedures: NA ED Course and Uaozlkh-Gsyekxzq-Czphhh CRITICAL CARE: Please see attending note for critical care time if applicable CONSULTATIONS: N/A Vital signs, medical history, social history, allergies and nursing notes reviewed. Medications oxyCODONE (ROXICODONE) immediate release tablet 5 mg (5 mg Oral Given 02/15/25 1905) Vitals: Patient Vitals for the past 24 hrs: BP Temp Temp src Pulse Resp SpO2 Height Weight 02/15/25 1526 142/87 98.7 ??F (37.1 ??C) Oral 89 20 97 % 6' 4 (1.93 m) (!) 461 lb 9.6 oz (209.4 kg) 02/15/25 1457 -- -- -- 95 16 98 % -- -- Briefly, Bang Cortes is a 44 y.o. male with a history of chronic neck pain and back pain, spinal stenosis, multiple prior surgical procedures to the spine as well as a history of hyperlipidemia andliver disease who presents to the Emergency Department with complaint of neck pain at site of recent steroid injection (C5) as well as worsening chronic low back pain radiating down the right leg andsomewhat to the left hip as detailed above. Upon arrival patient is hemodynamically stable and afebrile At this time do not see evidence to suggest acute cauda equina syndrome. I have a low suspicion kimberly acute spinal emergency such as epidural abscess/hematoma, diskitis, or osteomyelitis. Additionally at this time at a low suspicion for referred vascular, genitourinary, intra-abdominal nor gastrointestinal etiology. Low suspicion for traumatic or pathologic fracture at this time. I do not suspect meningitis or any spinal infection. Patient has reportedly followed up with his spine doctor at [facility] since his spinal injection and his spine doctor also did not have any concern for post injection infectious process. I do not suspect likely epidural hematoma to the spine either of the cervical region or to the lower back Patient does not think that imaging is necessary. He states that he is simply trying to find some short-term symptom improvement until he is able to follow-up with pain management. Patient has an appointment with pain management on Tuesday. He is unable to take additional NSAIDs he is already on meloxicam. He has had multiple muscle relaxer without any symptomatic improvement. He states that he is unable to take Tylenol secondary to liver disease. I do feel it reasonable to offer the patient a short course of pain medicine for acute exacerbation what appears to be his chronic pain. He is aware that the Emergency Department would not be able to provide additional prescription refills for controlled substances for his pain. He has an appointment with pain management on Tuesday. I recommended patient keep appointment on Tuesday to discuss ongoing pain management and to continue to follow-up with [facility] with next appointment scheduled for the . Given 5 mg of oxycodone in the ED. Discharged with prescription for a total of ten 5 mg oxycodone tablets with instructions to use sparingly and only needed for severe breakthrough pain not controlled by his regular chronic pain meds. Return precautions were discussed and reviewed. The patient/patient's responsible democrat verbalized understanding and agreement with plan. Clinical Impression: 1. Acute exacerbation of chronic low back pain 2. Cervical radiculopathy 3. Lumbosacral radiculopathy 4. Neck pain Discharge Instructions: Take all your medications as instructed. Continue the medication you are prescribed for your chronic pain. Use oxycodone only if need for breakthrough pain. Do not drink alcohol, drive or operate heavy machinery while taking oxycodone as it will cause sedation. Narcotic pain medication such as oxycodone should be used only if absolutely needed. All narcotic pain medication is potentially addicting and habit-forming even if taking as prescribed. Use extreme caution while taking. Narcotic pain medication can also cause constipation. Take either prescribed or xyox-rnu-dmbkllt stool softeners while taking to avoid associated constipation. Do not combine oxycodone with other medication that causes sedation. The Emergency Department will not be able to provide prescription refills for controlled substances and you will need to follow-up with pain management, spine doctor or primary care provider forongoing management of pain Follow up as instructed. Return to the Emergency Department should your symptoms worsen or should you develop a fever, change in bowel or bladder control, any unusual numbness or unusual weakness or any other new or worsening concerns Discharge medications: New Prescriptions OXYCODONE 5 MG ORAL CAPSULE Take 1 Capsule by mouth every 6 hours as needed for Acute Pain (R52) (Severe breakthrough pain not controlled by regular pain medication) for up to 3 days. Prior to providing any Rx for controled substance DANIEL report was reviewed. I discussed the risks and benefits of the use of controlled substances with the patient, including the risk of tolerance and drug dependence. Also discussed not to work, drive, or make any legal decisions while taking a controlled substance. Pt verbalizes understanding. Condition at Discharge/Transfer from Department: Improved This chart was completed using voice recognition technology and may contain unintended errors Lloyd Garnica APRN 02/15/25 9924 Cosigned by Ceferino Vargas MD at 02/15/2025 11:38 PM EDT Associated attestation - Ceferino Vargas MD - 02/15/2025 11:38 PM EDT Governor Assembler Hydraulic Note Ceferino Vargas MD Agree and Attest with NITISH note I have provided medical decision making guidance while the patient was in the emergency department.I have reviewed morales diagnostic studies including lab data and imaging obtained while patient in theemergency department. I have discussed the treatment almanza with the NITISH. I have been an active participant in the medical decision making of this patient. I accept responsibility for the medical decision making associated with this patient . This chart was completed using voice recognition technology and may contain unintended errors documented in this encounter Plan of Treatment Upcoming Encounters Date Type Department Care Team (Late st Contact Info) Description 03/13/2025 11:00 AM EDT Office Visit [facility] [address], [address] [place] [address] Bita Miner MD [address] [place] [id number] 03/22/2025 3:30 PM EST Telemedicine [facility] [address] [facility] [address] [place] [address] Savage Wood MD [address] [place], [place] [id number] 06/04/2025 2:00 PM EST Office Visit [facility] [address] [place] [address] Jett Vivian Yoder, WELDING EQUIPMENT REPAIRER SUPERVISOR [address] [place] [address] documented as of this encounter Procedures Procedure Name Priority Date/Time Associated Diagnosis Comments URINALYSIS REFLEX STAT 02/15/2025 3:0 2 PM EDT UA W/REFLEX TO CULTURE STAT 02/15/2025 3:02 PM EDT EXTRA MARCH URINE CX STAT 02/15/2025 3 :02 PM EDT documented in this encounter Results * EXTRA MARCH URINE CX (02/15/2025 3:02 PM EDT) Urine STRUCTURE OF URINARY TRACT PROPER / Unknown 02/15/2025 3:02 PM EDT 02/15/2025 3:11 PM EDT Vladimir Pérez MD MICROBIOLOGY - GENERAL INDIRA [place] [address] * URINALYSIS REFLEX (02/15/2025 3:02 PM EDT) UA Color Light Yellow 02/15/2025 3:21 PM EDT [facility] UA Appear Clear Clear 02/15/2025 3:21 PM EDT [facility] UA Glucose Negative Negative mg/dL 02/15/2025 3:21 PM EDT [facility] UA Ketones Negative Negative mg/dL 02/15/2025 3:21 PM EDT [facility] UA Blood Negative Negative 02/15/2025 3:21 PM EDT [facility] UA pH 6.5 5.0 - 8.0 pH 02/15/2025 3:21 PM EDT [facility] UA Protein Negative Negative mg/dL 02/15/2025 3:21 PM EDT [facility] UA Urobilinogen Normal <=1 mg/dL 3:21 PM EDT [facility] UA Bili Negative Negative 02/15/2025 3:21 PM EDT [facility] UA Nitrite Negative Negative 02/15/2025 3:21 PM EDT [facility] UA Leuk Est Negative Negative 02/15/2025 3:21 PM EDT [facility] UA Spec Grav 1.008 1.001 - 1.035 no units 02/15/2025 3:21 PM EDT [facility] Comment:Reference range chantel d for random specimens only. UA WBC <1 0 - 4 /HPF 02/15/2025 3:21 PM EDT [facility] UA RBC 1 0 - 3 /HPF 02/15/2025 3:21 PM EDT [facility] Urine STRUCTURE OF URINARY TRACT PROPER / Unknown 02/15/2025 3:02 PM EDT 02/15/2025 3:11 PM EDT Vladimir Pérez MD URINE ORDERABLES Final Resu lt [facility], [facility] [address] [facility] , [place] [place] [address] documented in this encounter Visit Diagnoses Diagnosis Acute exacerbation of chronic low back pain- Primary Cervical radiculopathy Brachial neuritis or radiculitis nos Lumbosacral radiculopathy Thoracic or lumbosacral neuritis or radiculitis, unspecified Neck pain Cervicalgia documented in this encounter Administered Medications Inactive Administered Medications - up to 1 most recent administrations Medication Order MAR Action Action Date Dose Rate Site oxyCODONE (ROXICODONE) immediate release tablet 5 mg 5 mg, Oral, ONCE, 1 dose, On Tue02/15/25 at 1900 Given 02/15/2025 7:05 PM EDT 5 mg documented in this encounter Discontinued Medications Medication Sig Discontinue Reason Start Date End Da te oxyCODONE 5 mg Oral Capsule Take 1 Capsule by mouth every 6 hours as needed for Acute Pain (R52) (Severe breakthrough pain not controlled by regular pain medication) for up to 3 days. Side effects 02/15/2025 02/16/2025 documented as of this encounter Active and Recently Administered Medications Times are shown in EDT. Scheduled Medication Order 02/13/2025 02/14/2025 02/15/2025 oxyCODONE (ROXICODONE) immediate release tablet 5 mg (COMPLETED) 5 mg, Oral, ONCE, 1 dose, On Tue02/15/25 at 1900 1905 (Given - Provid er: Ashvin Cr RN) documented in this encounter Orders Medications Ordered That Faizan ht Not Have Been Administered Count Last Ordered Date First Ordered Date oxyCODONE (ROXICODONE) immed iate release tablet 5 mg 1 02/15/2025 documented in this encounter Care Teams Trash Man Relationship Specialty Start Date End Date No Pcp, Per Patient PCP - General 01/18/25 documented as of this encounter
--- OUTSIDE RECORDS SUMMARY | 2025-03-04 14:30 | XMS_ITS | Encounter Summary ---
Author Organization [place] [address] Care Team Providers Care Die Sinker Name Role Phone No Pcp, Per Patient Primary Care Provider Humberto langston Reason for Visit * Reason Comments Establish Care Encounter Details Date Type Department Care Team (Late st Contact Info) Description 03/04/2025 2:30 PM EDT Office Visit [facility] [address] [place] [address] Vivian Frausto APRN [address] [place] [address] Medicare annual wellness visit, subsequent (Primary Dx); Vitamin D deficiency; Tired; Elevation of levels of liver transaminase levels; Family history of autoimmune disorder Social History Tobacco Use Types Packs/Day Years Used Date Smoking Tobacco: Never Passive Smoke Exposure: Never Smokeless Tobacco: Never Tobacco Cessation:Counseling Given: Not Answered Alcohol Use Standard Drinks/Week Comments Not Currently 0 (1 standard drink = 0.6 oz pure alcohol) I drink extremely infrequently Sexually Active Control Partners Comments Not Currently Female Sex and Gender Information Value Date Recorded Sex Assigned at Not on file Legal Sex Male 12:06 PM EDT Gender Identity Not on file Sexual Orientation Not on file documented as of this encounter Last Filed Vital Signs Vital Sign Reading Time Taken Comments Blood Pressure 134/82 03/04/2025 2:34 PM EDT Pulse 103 03/04/2025 2:34 PM EDT Temperature 36.7 C (98.1 F) 03/04/2025 2:34 PM EDT Respiratory Rate - - Oxygen Saturation 97% 03/04/2025 2:34 PM EDT Inhaled Oxygen Concentration - - Weight 202.3 kg (446 lb) 03/04/2025 2:34 PM EDT Height 193 cm (6' 4 ) 03/04/2025 2:34 PM EDT Body Mass Index 54.29 03/04/2025 2:34 PM EDT documented in this encounter Functional Status * Cognitive and Functional Status Question Answer Date of Assessment Author Is the person deaf or does he/she have serious difficulty hearing? No 03/04/2025 2:49 PM EDT Geeta Jean Ma, SHARLENE Is the person blind or does he/she have serious difficulty seeing even when wearing glasses? No 03/04/2025 2:49 PM EDT Geeta Jean Ma, RMA Does this person have seriou s difficulty walking or climbing stairs? Yes 03/04/2025 2:49 PM EDT Geeta Jean Ma, SHARLENE Does this person have difficulty dressing or bathing? Yes 03/04/2025 2:49 PM EDT Geeta Romero RMA * Is the person deaf or does he/she have serious difficulty hearing? Answer Date of Assessment Author No 03/04/2025 2:49 PM EDT Mariam Jean RMA * Is the person blind or does he/she have serious difficulty seeing even when wearing glasses? Answer Date of Assessment Author No 03/04/2025 2:49 PM EDT Mariam Jean RMA * Does this person have serious difficulty walking or climbing stairs? Answer Date of Assessment Author Yes 03/04/2025 2:49 PM EDT Mariam Jean RMA * Does this person have difficulty dressing or bathing? Answer Date of Assessment Author Yes 03/04/2025 2:49 PM EDT Mariam Jean RMA * Because of a physical, mental or emotional condition, does this person have difficulty doing errands alone such as visiting a doctor's office or shopping? Answer Date of Assessment Author No 03/04/2025 2:49 PM EDT Mariam Jean RMA documented as of this encounter Mental Status * Cognitive and Functional Status Question Answer Entry Date Author Because of a physical, menta l or emotional condition, does this person have difficulty doing errands alone such as visiting a doctor's office or shopping? No 03/04/2025 2:49 PM EDT Chano Jeanley Juma guzmán, SHARLENE Because of a physical, menta l or emotional condition, does this person have serious difficulty concentrating, remembering or making decisions? No 03/04/2025 2:49 PM EDT Geeta Jean Ma, SHARLENE * Because of a physical, mental or emotional condition, does this person have serious difficulty concentrating, remembering or making decisions? Answer Entry Date Author No 03/04/2025 2:49 PM EDT Miranda Mariam rodriguez Palak, SHARLENE documented in this encounter Progress Notes * Vivian Frausto APRN - 03/04/2025 2:30 PM EDTAssociated Problem(s): Vitamin D deficiency Orders: ??? VITAMIN D 25 HYDROXY; Future * Vivian Frausto APRN - 03/04/2025 2:30 PM EDT Assessment & Plan Medicare annual wellness visit, subsequent Orders: ??? CBC WITH DIFF; Future ??? COMPREHENSIVE METABOLIC PANEL; Future ??? LIPID SCREEN; Future Vitamin D deficiency Orders: ??? VITAMIN D 25 HYDROXY; Future Tired Orders: ??? VITAMIN B12/ FOLIC ACID; Future ??? IRON+TIBC; Future ??? FERRITIN; Future ??? ANTINUCLEAR ANTIBODIES (TOMÁS) SCREEN BY JEAN CLAUDE W/ REFLEX TO IFA; Future ??? RHEUMATOID FACTOR QUANTITATIVE; Future Elevation of levels of liver transaminase levels Orders: ??? FERRITIN; Future Family history of autoimmune disorder Orders: ??? ANTINUCLEAR ANTIBODIES (TOMÁS) SCREEN BY JEAN CLAUDE W/ REFLEX TO IFA; Future ??? RHEUMATOID FACTOR QUANTITATIVE; Future Progress Note: Vitals: 03/04/25 1434 BP: 134/82 Pulse: 103 Temp: 98.1 ??F (36.7 ??C) TempSrc: Forehead SpO2: 97% Weight: (!) 446 lb (202.3 kg) Height: 6' 4 (1.93 m) Body mass index is 54.29 kg/m??. SUBJECTIVE: Chief Complaint Patient presents with ??? Establish Care HPI: Medicare Wellness Assessment: Subsequent Annual Medicare Wellness Assessment. Risk Assessments: Fall Risk Assessment Has the patient had any fall with injury in the past year?: No Has the patient had 2 or more falls in the past year?: No Is the patient able to sit without assistance?: Yes Is the patient able to get up without assistance?: Yes Does the patient have a difficult time ambulating when first getting up?: (!) Yes Does the patient have rugs or runners in the home?: (!) Yes Does the patient have grab bars in the bathroom?: (!) No Does the patient have stairs inside or outside of the home?: No (In Office Assessment Only): Is the patient able to ambulate without assistance/device and with a gait steady?: Yes Functional Status Assessment Functional Level: self care Functional Mobility Assessment: independent w/o assist device Assessment of transportation needs: still drives most of the time Functional Activities of Daily Living Limitations: (!) bathing/hygiene; ambulation Bladder: Do you have issues with your bladder, such as urgency or leaking urine?: No issues Does the patient report issues or concerns regarding hearing?: No Activities of Daily Living Assistive Device Assessment Assistive Devices: Eyeglasses Rx Home O2 Device: Bipap/Cpap Osteoporosis Screening Assessment Has the patient had a DEXA (Bone Density) scan in the past 2 years?: Not applicable (male) No results found for this or any previous visit. Abnormal Pains Assessment Excluding what you would consider normal aches and pains for your age and medical condition, do youhave any unusual or worrisome pains?: (!) Yes (seeing surgeon on Tuesday) Opiate Screening Are you currently on opiate or narcotic medications?: No PHQ Depression Screening Results Advanced Directive Evaluation Advance Care Planning Guide Given?: Yes (For Dementia Screening below can use either AD-8 or Mini Cog. Doesn't require both.) AD-8 Dementia Screening tool results Problems with judgement: 0 Less interest in hobbies/activities: 0 Repeats the same things over and over: 0 Trouble learning how to use a tool, appliance or gadget: 0 Forgets correct month or year: 0 Trouble handling complicated financial affairs: 0 Trouble remembering appointments: 0 Daily problems with thinking and/or memory: 0 Total AD8 score:: 0 Mini Cog Dementia Screening tool results Patient Instructions AWV findings and Plan of Care: Recommendations as part of the Personal Plan of Care based on risk screening assessments are: Fall Risk Assessment: Fall Risk Assessment: negative - re-assess in 1 year Functional Status/Social Determinates of Health: stable, no issues, re-assess in 1 year Depression Screening: negative - re-assess in 1 year Dementia Screening: negative - recommend re-assess in 1 year Vaccinations: up to date Exercise/Activity: recommended continuing current Recommended follow up annually for Medicare Annual Wellness Visit. Good preventative health care is important in reducing morbidity and mortality. I recommend exercise regularly as tolerated focusing on strength and balance. I recommend a balanced diet focusing on fruits, veggies, and lean meats. I recommend avoiding having rugs, runners, or other loose trip hazards in the home as these increase fall risk. I recommend installing grab bars in the bathrooms close to toilets, in tubs, and in showers as these are common areas for falls when transitioning from wet surfaces to dry surfaces, or visa versa. This is also an area of the home that is high risk for falls at night. I encourage having an Advanced Directives. This is something we recommend you have on file at home,as well as something that we should have on file in our records. If we don't have a copy of your current Advanced Directive, please bring a copy to your next visit. If you have a power of deputy county attorney orsurrogate, we should also have a copy on file. I encourage candid discussion with your family on your wishes in the event that you are incapacitated and unable to participate in direct medical decision making. It is important to stay up to date on recommended vaccinations, please see the health maintenance topics due below and if we have not completed one of those topics today, please consider completing as part of your wellness plan this year. Below are other health maintenance topics that are recommended to be closed at your earliest opportunity. You may notice that some of these were addressed in the office today and will show as resolved in your MyChart account soon. Health Maintenance Due Topic Date Due ??? Wellness Exam Medicare Never done ??? DTaP/TDaP/Td (2 - Tdap) 12/28/1995 ??? Hepatitis B Vaccine (1 of 3 - 19+ 3-dose series) Never done ??? COVID-19 Vaccine ( season) Never done As part of today's visit the components of the Medicare wellness assessment were completed. These components included reviewing the information available in the risk screening questionnaire that wasadministered by ancillary staff either today or prior to today's visit (pre-visit planning) and recorded in the Medicare Wellness Assessment Flowsheet in the EMR. I have reviewed the data in regards to fall risk, activities of daily living/functional status, depression screening, dementia screening, and outstanding Health Maintenance topics and edited where necessary. The staff has reviewed and updated the past medical history, social history, family history, allergies, medications, and care team information during the standard rooming process. I have also reviewed this data as part of today's visit. Below are the findings, recommendations, and Personal Plan of Care. The patient received a copy of their Personal Plan of Care including health maintenance topics thatare recommended to be completed and this can be noted in the after visit summary. The AVS is provided to the patient digitally through their MyChart account or with a paper copy if the patient doesn't have an active MyChart Account. A copy of today's progress note with recommendations below is alsoavailable electronically for patients with an active MyChart account per the Federal Cures Act. TheAVS also contains additional patient education if appropriate on topics common to wellness and their plan of care. History Reviewed: No results found. No results found for this visit on 03/04/25. Problem List[1] Past Medical History[1] Surgical History[1] Allergies[1] Medications ordered prior to the current encounter[1] Social History[1] Family History[1] Immunization History Administered Date(s) Administered ??? Td (Adult), Absorbed 12/27/1995 Health Maintenance Topic Date Due ??? Wellness Exam Medicare Never done ??? DTaP/TDaP/Td (2 - Tdap) 12/28/1995 ??? Hepatitis B Vaccine (1 of 3 - 19+ 3-dose series) Never done ??? COVID-19 Vaccine ( - 2024- season) Never done ??? Influenza Vaccine (1) 03/05/2025 (Originally 01/14/2025) ??? Meningococcal B Vaccine Aged Out ??? Pneumococcal Vaccine 0-49 Aged Out Patient Care Team: No Pcp, Per Patient as PCP - General Additional issues addressed today: Gets therapeutic phlebotomy every three months. Disc issues in neck c5-c6. Has neurosurgeon and pain management in [place]. Also disc issue in lumbar spine. Review of Systems Constitutional: Positive for fatigue. HENT: Negative. Respiratory: Negative. Cardiovascular: Negative. Musculoskeletal: Positive for arthralgias, back pain and neck pain. OBJECTIVE: Physical Exam Vitals and nursing note reviewed. Constitutional: Appearance: Normal appearance. HENT: Right Ear: Tympanic membrane normal. Left Ear: Tympanic membrane normal. Mouth/Throat: Mouth: Mucous membranes are moist. Neck: Thyroid: Thyromegaly present. Cardiovascular: Rate and Rhythm: Normal rate and regular rhythm. Pulmonary: Effort: Pulmonary effort is normal. Breath sounds: Normal breath sounds. Skin: General: Skin is warm and dry. Neurological: Mental Status: He is alert. Psychiatric: Mood and Affect: Mood normal. [1] Patient Active Problem List Diagnosis ??? Anxiety and depression ??? Arthritis of foot, degenerative ??? Autoimmune hepatitis (HCC) ??? Calcaneal spur of both feet ??? Gout ??? History of lumbar fusion ??? Hyperlipidemia ??? Insomnia ??? Keratosis ??? Metabolic dysfunction-associated steatotic liver disease (MASLD) ??? Metatarsalgia of both feet ??? Morbid obesity (HCC) ??? Obesity with sleep apnea ??? Postlaminectomy syndrome, lumbar region ??? Spondylolisthesis ??? Statin intolerance ??? Abnormal ECG ??? Testosterone deficiency ??? Enlarged thyroid gland ??? Thyroid nodule ??? Vitamin D deficiency ??? Elevated LFTs ??? Dyspnea ??? Cirrhosis of liver (HCC) ??? Circadian rhythm sleep disorder ??? 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 ??? Spondylosis of lumbar region without myelopathy or radiculopathy ??? Lumbar radiculopathy, chronic ??? DDD (degenerative disc disease), lumbar ??? Cervical spondylosis with radiculopathy ??? Cervical nerve root impingement ??? Acquired hammer toe [1] Past Medical History: Diagnosis Date ??? Anxiety ??? Arthritis ??? Asthma ??? Cirrhosis (HCC) ??? Complication of anesthesia ??? Depression ??? Hyperlipidemia ??? Liver disease [1] Past Surgical History: Procedure Laterality Date ??? APPENDECTOMY ??? ARM SURGERY ??? BACK SURGERY ??? CT NEEDLE BIOPSY LIVER 01/18/2025 CT NEEDLE BIOPSY LIVER 01/18/[address] [facility] ??? FRACTURE SURGERY 1986? Left arm ??? KNEE SURGERY ??? SPINE SURGERY 2000 - 2018 L4-S1 fusion - Abbot spinal stimulator [1] Allergies Allergen Reactions ??? Penicillins Hives ??? Frhnjcp-Yee-Lab Reductase Inhibitors Myalgia and Other (See Comments) Flu symptoms ??? Gabapentin Other (See Comments) Suicidal thoughts ??? Nsaids (Non-Steroidal Anti-Inflammatory Drug) Other (See Comments) Pt on meloxicam daily. Cannot take nsaids with ??? Tylenol [Acetaminophen] Other (See Comments) Liver issues ??? Cariprazine Anxiety nervous feeling [1] Current Outpatient Medications on File Prior to Visit Medication Sig Dispense Refill ??? albuterol (VENTOLIN HFA) 90 mcg/actuation Inhl HFA Aerosol Inhaler Inhale 2 Puffs into the lungs every 6 hours. ??? anastrozole (ARIMIDEX) 1 mg Oral Tablet Take 1 mg by mouth once a week. ??? B-Complex with Vitamin C Oral Capsule 1 Capsule. ??? busPIRone (BUSPAR) 10 mg Oral Tablet Please take 1/2-1 tab (5-10 mg) as needed up to three times daily for anxiety. 30 Tablet 2 ??? Cholecalciferol, Vitamin D3, 25 mcg (1,000 unit) Oral Capsule Take 1,000 Units by mouth daily. ??? fluticasone propionate (FLONASE) 50 mcg/actuation Nasl [place], Suspension USE 1 SPRAY(S) IN EACHNOSTRIL TWICE DAILY ??? fUROsemide (LASIX) 20 mg Oral Tablet Take by mouth every 12 hours. ??? indomethacin (INDOCIN) 50 mg Oral Capsule Take 50 mg by mouth. ??? LEQVIO 284 mg/1.5 mL SubQ Syringe Inject 284 mg under the skin Every 6 Months. ??? meloxicam (MOBIC) 15 mg Oral Tablet 15 mg. ??? RED YEAST RICE EXTRACT, BULK, MISC by Misc.(Non-Drug; Combo Route) route daily. ??? SUMAtriptan (IMITREX) 50 mg Oral Tablet Take 50 mg by mouth once as needed for Pain. ??? tamsulosin (FLOMAX) 0.4 mg Oral Capsule Take by mouth daily. ??? testosterone cypionate (DEPOTESTOTERONE CYPIONATE) 200 mg/mL IM Oil Inject 200 mg into the muscle once a week. ??? ZEPBOUND 5 mg/0.5 mL SubQ Pen Injector Inject 5 mg under the skin once a week. No current facility-administered medications on file prior to visit. [1] Social History Socioeconomic History ??? Marital status: Spouse name: None ??? Number of children: None ??? Years of education: None ??? Highest education level: None Tobacco Use ??? Smoking status: Never Passive exposure: Never ??? Smokeless tobacco: Never Substance and Sexual Activity ??? Alcohol use: Not Currently Comment: I drink extremely infrequently ??? Drug use: Never ??? Sexual activity: Not Currently Partners: Female Social Drivers of Health Social Connections: Unknown (02/21/2023) Received from [facility] Family and Community Support ??? Help with Day-to-Day Activities: Not on file ??? Lonely or Isolated: Not on file Intimate Partner Violence: Unknown (02/21/2023) Received from [facility] Abuse Screen ??? Unsafe at Home or Work/School: Not on file ??? Feels Threatened by Someone?: Not on file ??? Does Anyone Keep You from Contacting Others or Doint Things Outside the Home?: Not on file ??? Physical Sign of Abuse Present: Not on file Housing Stability: Unknown (02/21/2023) Received from [facility] Housing Stability ??? Current Living Arrangements: Not on file ??? Potentially Unsafe Housing Conditions: Not on file [1] Family History Problem Relation Age of Onset ??? Colon Cancer Paternal Uncle ??? Cancer Paternal Uncle 50 - 59 ??? Substance Abuse Paternal Uncle ??? Diabetes Mother 40 - 49 ??? Arthritis Mother 40 - 49 ??? Arthritis Father 40 - 49 ??? High Blood Pressure Father ??? Heart Disease Maternal Grandfather ??? Diabetes Maternal Grandmother 50 - 59 ??? Arthritis Maternal Grandmother 40 - 49 ??? Heart Disease Paternal Grandfather ??? Mental Illness Paternal Grandmother ??? Depression Sister 10 - 19 ??? Diabetes Sister 10 - 19 ??? Diabetes Maternal Aunt 30 - 39 documented in this encounter Plan of Treatment Upcoming Encounters Date Type Department Care Team (Late st Contact Info) Description 03/13/2025 11:00 AM EDT Office Visit [facility] [address] [place] [address] Bita Miner MD [address] [place] [address] 03/22/2025 3:30 PM EST Telemedicine [facility] [address] [facility] [address] [place] [address] Savage Wood MD [address] [place] [address] 06/04/2025 2:00 PM EST Office Visit [facility] [address] [place] [address] Vivian Frausto APRN [address] [place] [address] Scheduled Orders Name Type Priority Associated Diagnoses Orde r Schedule VITAMIN D 25 HYDROXY Lab Routine Vitamin D deficiency 1 Occurrences starting 03/04/2025 until 03/04/2026 CBC WITH DIFF Lab Routine Medicare annual wellness visit, subsequent 1 Occurrences starting 03/04/2025 until 03/04/2026 COMPREHENSIVE METABOLIC PANEL Lab Routine Medicare annual wellness visit, subsequent 1 Occurrences starting 03/04/2025 until 03/04/2026 LIPID SCREEN Lab Routine Medicare annual wellness visit, subsequent 1 Occurrences starting 03/04/2025 until 03/04/2026 VITAMIN B12/ FOLIC ACID Lab Routine Tired 1 Occurrences starting 03/04/2025 until 03/04/2026 IRON+TIBC Lab Routine Tired 1 Occurrences starting 03/04/2025 until 03/04/2026 FERRITIN Lab Routine Tired Elevation of levels of liver transaminase levels 1 Occurrences starting 03/04/2025 until 03/04/2026 ANTINUCLEAR ANTIBODIES (TOMÁS) SCREEN BY JEAN CLAUDE W/ REFLEX TO IFA Lab Routine Tired Family history of autoimmune disorder 1 Occurrences starting 03/04/2025 until 03/04/2026 RHEUMATOID FACTOR QUANTITATIVE Lab Routine Tired Family history of autoimmune disorder 1 Occurrences starting 03/04/2025 until 03/04/2026 documented as of this encounter Goals Goal Patient Goal Type Associated Problems Recent Progress Patient-Stated? Author Blood Pressure < 140/90 Blood Pressure 134/82(2024 2:34 PM EDT) No Geeta Jean, RMMariam Maintain a healthy diet, exercise regularly and maintain an ideal body weight General No Frausto, Vivian S, OVERLOCK OPERATOR BMI (Calculated) < 30 General 54.4(03/04/20 2:34 PM EDT) No Geeta Jean RMA HEMOGLOBIN A1C < 7.0 Result Component No Geeta Jean RMA documented as of this encounter Visit Diagnoses Diagnosis Medicare annual wellness visit, subsequent- Primary Routine general medical examination at a health care facility Vitamin D deficiency Unspecified vitamin D deficiency Tired Other malaise and fatigue Elevation of levels of liver transaminase levels Family history of autoimmune disorder Family history of other condition documented in this encounter Discontinued Medications Medication Sig Discontinue Reason Start Date End Da te s-adenosylmethionine sul tosyl (ZULAY-E ORAL) Take by mouth daily. DELETE-Therapy completed 03/04/2025 ergocalciferol (DRISDOL) 1,250 mcg (50,000 unit) Oral Capsule Take 50,000 Units by mouth once a week. DELETE-Therapy completed 03/04/2025 inclisiran sodium (LEQVIO SUBQ) Inject under the skin Every 6 Months. DELETE-Therapy completed 03/04/2025 b fvlbmex-U-zvqph acid (NEPHROCAP) 1 mg Oral Capsule Take 1 Capsule by mouth daily. DELETE-Therapy completed 03/04/2025 acetylcysteine (NAC ORAL) Take by mouth daily. DELETE-Therapy completed 03/04/2025 B cmplx 4/vit D3/C/folic/zinc (VITAL-D RX ORAL) Take by mouth daily. DELETE-Therapy completed 03/04/2025 dihydroberberine (BERBERINE ES-5 ORAL) Take by mouth daily. DELETE-Therapy completed 03/04/2025 TESTOSTERONE CYPIONATE IM Inject into the muscle once a week. DELETE-Therapy completed 03/04/2025 meloxicam (MOBIC) 7.5 mg Oral Tablet Take 15 mg by mouth daily. DELETE-Therapy completed 03/04/2025 documented as of this encounter Historical Medications * This list may reflect changes made after this encounter. testosterone cypionate (DEPOTESTOTERONE CYPIONATE) 200 mg/mL IM Oil Inject 200 mg into the muscle once a week. 02/25/2025 LEQVIO 284 mg/1.5 mL SubQ Syringe Inject 284 mg under the skin Every 6 Months. 01/07/2025 SUMAtriptan (IMITREX) 50 mg Oral Tablet Take 50 mg by mouth once as needed for Pain. 02/06/2025 indomethacin (INDOCIN) 50 mg Oral Capsule Take 50 mg by mouth. 02/25/2025 meloxicam (MOBIC) 15 mg Oral Tablet 15 mg. 05/02/2024 B-Complex with Vitamin C Oral Capsule 1 Capsule. 02/22/2020 ZEPBOUND 5 mg/0.5 mL SubQ Pen Injector Inject 5 mg under the skin once a week. 02/25/2025 added in this encounter Care Teams Die Sinker Relationship Specialty Start Date End Date No Pcp, Per Patient PCP - General 01/18/25 documented as of this encounter
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
--- OUTSIDE RECORDS SUMMARY | 2025-03-11 05:03 | XMS_ITS | Continuity of Care Document ---
Author Organization [facility] Address [address] [place] [address] Phone Care Team Providers Care Consumer Advocate Name Role Phone Planalp Nicho HAMILTON Unavailable Unavailable Allergies, Adverse Reactions, Alerts Substance [...] 9-10 - Active Procedures Procedure Date Office/outpatient visit,est, mod 2024 Office/outpatient visit,est, mod 2024 Njx interlaminar crv/thrc Inj Methylpred Acetate 1 MG Office/outpatient visit,est, mod 2024 Office/outpatient visit,new, mod 2024 X-ray exam of neck spine, 4+ views X-ray exam of thoracic spine 2 view Advance Directives Directive Yes / No Effective Date File Name No Information Encounters Encounter Description Practice Location Reason(s) For Visit Diagnoses Date Provider Providers Copied on Encounter [facility], [facility] [address] [facility], [place], [address], [place] tel:[phone] [address] [place] [address] No Information 5 Mona Torre. [address] [facility] , [place], [place], [id number]. tel:[phone] Referring Provider: Estiven Riggs, [address], [place], [address]. tel:[phone] Office/outpa tient visit,est, mod [facility], [facility] [place], [address], [place] tel:[phone] [address] [place] [address] Other cervical disc degeneration at C5-C6 levelStrain of muscle, fascia and tendon at neck level, subsequent encounterOther specified dorsopathies, cervical region 5 Keely Jean-Baptiste. [address], [place], [place], [id number], [place]. tel:[phone] Referring Provider: Estiven Riggs, [address], [place], [address]. tel:[phone] Office/outpa tient visit,est, mod [facility], [address] [place], [address], [place] tel:[phone] [facility] CervicalgiaRad iculopathy, cervical region 5 Brian Garsia. [address] [place], [place], [id number], [place]. tel:[phone] Referring Provider: Ady Torres, [address] [place], [address]. tel:[phone] Office/outpa tient visit,est, mod [facility], [facility] [place], [address], [place] tel:[phone] [address] [place] [address] Other cervical disc degeneration at C5-C6 levelOther specified dorsopathies, cervical regionConnecti ve tissue and disc stenosis of intervertebral foramina of cervical regionStrain of muscle, fascia and tendon at neck level, initial encounter 5 Keely Jean-Baptiste. [address], [place], [place], [address], [place]. tel:[phone] Referring Provider: Estiven Riggs, [address], [place], [address]. tel:[phone] [facility], [address] [place], [address], [place] tel:[phone] [phone] [facility] No Information 5 Keely Jean-Baptiste. [address], [place], [place], [id number], [place]. tel:[phone] Referring Provider: [address], [place], [address]. tel:[phone] Office/outpa tient visit,[facility], [address] [place], [address], [place] tel:[phone] 4548 [facility] Other cervical disc degeneration at C5-C6 levelOther specified dorsopathies, cervical regionStrain of muscle, fascia and tendon at neck level, initial encounterPain in thoracic spine 5 Keely Jean-Baptiste. [address], [place], [place], [address], [place]. tel:[phone] Referring Provider: [address], [place], [address]. tel:[phone] Family History Family Member Type Diagnosis Age At Onset Father Problem (finding) Family history of Osteo arthritis Sister Problem (finding) Depression Father Problem (finding) Family history of Hyper lipidemia Father Problem (finding) Congenital heart diseas e Father Problem (finding) Hypertension Mother Problem (finding) Depression Mother Problem (finding) Family history of Osteo arthritis Payers Payer name Insurance type Covered libertarian ID Authorthanha tiaaliyah(s) [employer] Medicare 16 [id number] Aetna [place] - [id number] 1 Social History Type Description Quantity Date Captured [...]
[2025-03-12 08:56] VITALS: BMI 54.8
--- OUTSIDE RECORDS SUMMARY | 2025-03-12 09:06 | XMS_ITS | Encounter Summary ---
Author Organization Healthcare Address [address] [place] [address] Care Team Providers Care Fine Hairer Name Role Phone Reese Buckner Primary Care Provider [phone] Keturah Phoenix Primary Care Provider [phone] Annette Sorenson APRN, JAD Unavailable [phone] Encounter Details Date Type Department Care Team (Late st Contact Info) Description 01/04/2023 Orders Only External Location [address] [place] [address] Nando Aquino MD [address] [facility] [address] [place] [address] Social History Tobacco Use Types [...] Description 03/18/2025 2:30 PM EST Office Visit [facility] [address], [address]nd [place] [address] Annette Sorenson APRN, DNP [address] [facility] [address] [place] [address] 05/23/2025 10:40 AM EST Appointment [facility] [address] 2nd [place] [address] 05/23/2025 11:30 AM EST Office Visit Medical Office Building Urology [address] [facility], [address] [place] [address] Heaven Jones APRN [address] [facility] [address] [place] [address] documented as of this encounter [...] documented as of this encounter Care Teams Fine Hairer Relationship Specialty Start Date End Date Reese Buckner [facility] [address] [place] [address] PCP - General 09/26/20 04/25/23 Keturah Phoenix PA [address] [place] [address] PCP - General 04/26/23 Annette Sorenson APRN, DNP [address] [facility] [address] [place] [address] Nurse Practitioner Urology 11/25/23 documented as of this encounter
--- OUTSIDE RECORDS SUMMARY | 2025-03-12 09:06 | XMS_ITS | Encounter Summary ---
Author Organization [facility] Address [address] [place] [address] Care Team Providers Care Bicycle Service Technician Name Role Phone No Pcp, Per Patient Primary Care Provider Humberto langston Encounter Details Date Type Department Care Team (Late st Contact Info) Description 01/15/2025 Results Follow-Up [facility] [address] [address] Nicho Toscano MD [address] [place] [address] [address] [place] [address] THYROID STIMULATING HORMONE Social History Tobacco Use Types Packs/Day Years [...] as of this encounter Functional Status * Suicide Severity Rating Answer Date of Assessment Author No Risk 01/18/2025 8:55 PM EDT Elli Mccurdy RN * [place] Suicide Severity Rating Scale (Q shift for [...] 6) 0 01/18/2025 8:55 PM EDT Tawnya Mccurdy, RN 6. Have you ever done anythi ng, started to do anything, or prepared to do anything to end your life? 0 01/18/2025 8:55 PM EDT Tawnya Mccurdy, RN documented as of this encounter Plan of Treatment Upcoming Encounters Date Type Department Care Team (Late st Contact Info) Description 03/13/2025 11:00 AM EDT Office Visit [facility] [address], 3RD [place] [address] Bita Miner MD [address] [place] [address] 03/22/2025 3:30 PM EST Telemedicine [facility] [address] [facility] [address] [place] [address] Savage Wood MD [address] [place] [address] 06/04/2025 2:00 PM EST Office Visit [facility] [place] [facility] [address] [facility] [place] [address] Vivian Frausto APRN [address] [place] [address] documented as of this encounter Visit Diagnoses Not on filedocumented in this encounter Care Teams Bicycle Service Technician Relationship Specialty Start Date End Date No Pcp, Per Patient PCP - General 01/18/25 documented as of this encounter
--- OUTSIDE RECORDS SUMMARY | 2025-03-12 09:06 | XMS_ITS | Encounter Summary ---
Author Organization [facility] [address] Care Team Providers Care Tooling Engineer Name Role Phone No Pcp, Per Patient Primary Care Provider Humberto langston Encounter Details Date Type Department Care Team (Latest Contact Info) Description 01/18/2025 Travel Social History Tobacco Use Types Packs/Day Years [...] 8:55 PM EDT Elli Mccurdy RN * [place] Suicide Severity Rating Scale (Q shift for [...] Mccurdy RN documented as of this encounter Plan of Treatment Upcoming Encounters Date Type Department Care Team (Late st Contact Info) Description 03/13/2025 11:00 AM EDT Office Visit [facility] [address], 3RD [place] [address] Bita Miner MD [address] [place], [place] [id number] 03/22/2025 3:30 PM EST Telemedicine [facility] [place] [address] [facility] [address] [place] [address] Savage Wood MD [address] [place] [address] 06/04/2025 2:00 PM EST Office Visit [facility] [address] [facility] [place] [address] Vivian Frausto APRN [address] [place] [address] documented as of this encounter Visit Diagnoses Not on filedocumented in this encounter Care Teams Tooling Engineer Relationship Specialty Start Date End Date No Pcp, Per Patient PCP - General 01/18/25 documented as of this encounter
--- OUTSIDE RECORDS SUMMARY | 2025-03-12 09:06 | XMS_ITS | Encounter Summary ---
Author Organization Healthcare Address [address] [place] [address] Care Team Providers Care Power Tong Operator Name Role Phone Dudley Reese Lea Primary Care Provider [phone] Keturah Phoenix Primary Care Provider [phone] Annette Sorenson APRN, JAD Unavailable [phone] Encounter Details Date Type Department Care Team (Late st Contact Info) Description 12/28/2022 Orders Only External Location [address] [place] [address] Nichelle Ross, DO [address] [place] [address] Social History Tobacco Use Types [...] Description 03/18/2025 2:30 PM EST Office Visit [place] [facility] [address], [address]nd [place] [address] Annette Sorenson, LAURA, DNP [address] [place] [address] 05/23/2025 10:40 AM EST Appointment [facility] [address], [address]nd [place] [address] 05/23/2025 11:30 AM EST Office Visit Medical Office Building Urology [address] [facility], [address] [place] [address] Heaven Jones APRN [address] [facility] [address] [place] [address] documented as of this encounter [...] documented as of this encounter Care Teams Power Tong Operator Relationship Specialty Start Date End Date Reese Buckner [facility] [address] [place] [address] PCP - General 09/26/20 04/25/23 Keturah Phoenix PA [address] [place] [address] PCP - General 04/26/23 Annette Sorenson APRN, DNP [address] [facility] [address] [place] [address] Nurse Practitioner Urology 11/25/23 documented as of this encounter
--- OUTSIDE RECORDS SUMMARY | 2025-03-12 09:06 | XMS_ITS | Encounter Summary ---
Author Organization [place] [address] Care Team Providers Care Bakeshop Cleaner Name Role Phone No Pcp, Per Patient Primary Care Provider Humberto langston Reason for Visit * Reason Onset Date Comments Pain 01/18/2025 Encounter Details Date Type Department Care Team (Late st Contact Info) Description 01/18/2025 Nurse Triage [facility] [address] [place] [address] Suzanne Jean RN Social History Tobacco Use Types Packs/Day Years [...] 8:45 AM EDT Anu Joseph RN * [place] Suicide Severity Rating Scale (Q shift for [...] question 6) 0 01/18/2025 8:45 AM EDT Nydia Joseph RN 6. Have you ever done anythi ng, started to do anything, or prepared to do anything to end your life? 0 01/18/2025 8:45 AM EDT Nydia Sharma RN documented as of this encounter Miscellaneous Notes * Telephone Encounter - Suzanne Jean RN - 01/18/2025 5:32 PM EDT Nurse Triage Call -Chief Complaint: liver biopsy today. 8/10 RUQ to [facility]. Afebrile, denies redness, swelling, weakness or drainage. Not SOB but hurts too much to take a deep breath, any movement or laugh causes severe pain. -Reported by: Patient -Vitals: No vitals obtained on this call -Disposition per protocol: Call HCP now -Follow up/Concerns: Called Dr. Mathew Arnold cell provided by diagnostic radiologist in hospital. Recommended ER for possible CT. Pt aware and will go now. Reason for Disposition [1] SEVERE post-op pain (e.g., excruciating, pain scale 8-10) AND [2] not controlled with pain medications Protocols used: Post-Op Symptoms and Cstlsknbw-E-TD documented in this encounter Plan of Treatment Upcoming Encounters Date Type Department Care Team (Late st Contact Info) Description 03/13/2025 11:00 AM EDT Office Visit [facility] [address], 3RD [place] [address] Bita Miner MD [address] [place], [place] [id number] 03/22/2025 3:30 PM EST Telemedicine [facility] [address] [facility] [address] [place] [address] Savage Wood MD [address] [place] [address] 06/04/2025 2:00 PM EST Office Visit [facility] [address] [place] [address] Vivian Frausto, ARCHIVES DIRECTOR [address] [facility] [place] [address] documented as of this encounter Visit Diagnoses Not on filedocumented in this encounter Care Teams Bakeshop Cleaner Relationship Specialty Start Date End Date No Pcp, Per Patient PCP - General 01/18/25 documented as of this encounter
--- OUTSIDE RECORDS SUMMARY | 2025-03-12 09:06 | XMS_ITS | Encounter Summary ---
Author Organization Healthcare Address [address] [place] [address] Care Team Providers Care Knife Setter Assembler Name Role Phone Dudley Reese Lea Primary Care Provider Keturah Phoenix Primary Care Provider [phone] Annette Sorenson APRN, JAD Unavailable [phone] Encounter Details Date Type Department Care Team (Late st Contact Info) Description 12/28/2022 Orders Only External Location [address] [place] [address] Nichelle Ross, DO [address] [place] [address] Social History Tobacco Use Types [...] Description 03/18/2025 2:30 PM EST Office Visit [place] [facility] [address], [address]nd [place] [address] Annette Sorenson, LAURA, DNP [address] [place] [address] 05/23/2025 10:40 AM EST Appointment [facility] [address], 2nd [place] [address] 05/23/2025 11:30 AM EST Office Visit Medical Office Building Urology [address] [facility], [address] [place] [address] Heaven Jones APRN [address] [facility] [address] [place] [address] documented as of this encounter [...] documented as of this encounter Care Teams Knife Setter Assembler Relationship Specialty Start Date End Date Reese uBckner [facility] [address] [place] [address] PCP - General 09/26/20 04/25/23 Keturah Phoenix PA [address] [place] [address] PCP - General 04/26/23 Annette Sorenson APRN, DNP [address] [facility] [address] [place] [address] Nurse Practitioner Urology 11/25/23 documented as of this encounter
--- OUTSIDE RECORDS SUMMARY | 2025-03-12 09:06 | XMS_ITS | Encounter Summary ---
Author Organization Healthcare Address [address] [place] [address] Care Team Providers Care Pie Chef Name Role Phone Dudley Reese Lea Primary Care Provider Keturah Phoenix Primary Care Provider [phone] Annette Sorenson APRN, JAD Unavailable [phone] Encounter Details Date Type Department Care Team (Late st Contact Info) Description 12/21/2022 Orders Only External Location [address] [place] [address] Nicho Riddle MD [address] [id number] Social History Tobacco Use Types Packs/Day Years [...] Office Visit [place] [facility] [address], [address]nd [place] [address] Annette Sorenson APRN, JAD [address] [place] [address] 05/23/2025 10:40 AM EST Appointment [facility] [address], [address]nd [place] [address] 05/23/2025 11:30 AM EST Office Visit Medical Office Building Urology [address] [facility], [address] [place] [address] Heaven Jones APRN [address] [facility] [address] [place] [address] documented as of this encounter [...] documented as of this encounter Care Teams Pie Chef Relationship Specialty Start Date End Date Reese Buckner [facility] [address] [place] [address] PCP - General 09/26/20 04/25/23 Keturah Phoenix, PA [address] [place] [address] PCP - General 04/26/23 Annette Sorenson APRN, DNP [address] [place] [address] Nurse Practitioner Urology 11/25/23 documented as of this encounter
--- OUTSIDE RECORDS SUMMARY | 2025-03-12 09:06 | XMS_ITS | Clinical Summary ---
Author Organization [facility] Address [address] [place] [address] Care Team Providers Care Tipple Operator Name Role Phone Keturah Phoenix Primary Care Provider [phone] Annette Sorenson APRN, DNP Unavailable [phone] Allergies Active Allergy Reactions Criticality Noted Date [...] by mouth. Activ e ergocalciferol 1.25 MG (87529 UT) capsule Take 1 capsule (50,000 Units) [...] IN EACH NOSTRIL TWICE DAILY 023 Active [employer] & Syringes misc Please dispense needles and [...] COMPLEX PO) Take by mouth. Act hua Dextromethorpha n-buPROPion ER (Auvelity) 45-105 MG tablet controlled-rele ase Take 45 mg by mouth. Active Leqvio 284 MG/1.5ML solution prefilled syringe injection INJECT 1.5 ML SUBCUTANEOUSLY every 6 MONTHS Active testosterone cypionate (Depo-Testoster one) 200 MG/ML injectionIndica tions:Low testosterone INJECT 0.5ML INTRAMUSCULARLY ONCE A WEEK DISCARD THE REMAINING AMOUNT 4 mL Active anastrozole (Arimidex) 1 MG chemo tablet Take 1 tablet by mouth once a week 12 tablet 025 Active anastrozole (Arimidex) 1 MG chemo tablet Take 1 tablet by mouth once a week 12 tablet 2 025 2024 Discontinued testosterone cypionate (Depo-Testoster one) 200 MG/ML injectionIndica tions:Low testosterone INJECT 0.5 ML (CC) INTRAMUSCULARLY ONCE A WEEK , DISCARD THE REMAINING AMOUNT 4 mL 025 2024 Discontinued Active Problems Problem Noted Date Diagnosed Date Hydronephrosis with urinary obstruction due to ureteral calculus 01/28/2023 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 06/28/2022 Chronic back pain 06/28/2022 Strain of lumbar region 10/04/2017 Postlaminectomy syndrome, lumbar region 05/25/19 18 Overview (06/28/2022): Added automatically from request for surgery [id number] Obesity with sleep apnea 09/14/2016 Morbid obesity due to excess calories 09/14/2016 DDD (degenerative disc disease), lumbar 09/15/19 17 Spondylosis of lumbar region without myelopathy or radiculopathy 09/14/2016 Anxiety and depression 09/14/2016 Resolved Problems Problem Noted Date Diagnosed Date Resolved Date HUMA (acute kidney injury) 01/28/2023 Physical deconditioning 09/14/201601/15 Encounters Date Type Department Care Team Description 03/11/2025 Travel 02/25/2025 Refill [facility] [address] [place] [address] Annette Sorenson APRN, DNP 02/22/2025 Refill [facility] [address], [address] [place] [address] Annette Sorenson, FINE UNHAIRER, DNP Low testosterone 12/21/2024 Refill [facility] [address], [address] [place] [address] Annette Sorenson, FINE UNHAIRER, DNP Low testosterone 12/14/2024 Telephone [facility] [address], [address]nd [place] [address] Annette Sorenson, FINE UNHAIRER, DNP HCN - Patient Message (Kidney pain ) 12/12/2024 Telephone [facility] [address], [address]nd [place] [address] Annette Sorenson, FINE UNHAIRER, DNP Lab Results 12/11/2024 Telephone [facility] [address], [address] [place] [address] Annette Sorenson, FINE UNHAIRER, DNP from Last 3 Months Family History Medical History Relation Name Comments Hypertension Father Uche Arthritis Maternal Grandmother Carrie Arthritis Mother Keaton Alcohol abuse Paternal Grandfather Bill Heart disease Paternal Grandfather Bill Arthritis Paternal Grandmother Binta Relation Name Status Comments Father Uche Maternal Grandmother Carrie Mother Keaton Paternal Grandfather Bill Paternal Grandmother Binta Social History Tobacco Use [...] drink first t irvin in the morning (EYE-HONEY PRODUCER) to steady your nerves or to get [...] Description 03/18/2025 2:30 PM EST Office Visit [place] [facility] [address], [address] [place] [address] Annette Sorenson P, FINE UNHAIRER, DNP [address] [place] [address] 05/23/2025 10:40 AM EST Appointment [facility] [address], 2nd [place] [address] 05/23/2025 11:30 AM EST Office Visit Medical Office Building Urology [address] [facility], [address] [place] [address] Heaven Jones M, FINE UNHAIRER [address] [place] [address] Health Maintenance Due Date Last Done Comments [facility]-HIV Screening 1980 [facility]-Hepatitis C Screening 1980 [facility]-Medicare Annual Wellness (AWV) 1980 [facility]-/Child/Adol SDOH Screenings 1980 [id number] Vaccine (#1) 1985 [facility]-Varicella Vaccines (1 of [...] topic Medical Devices Implanted Type Area Fire Control Officer Device Identifier Shelf Expiration Date Model / Serial / Lot Stent Ureteral Double Pigtail Pos 6fr 26cm - [id number] Implanted:Qty: 1 on 01/28/2023 by Mann Mendez MD at [facility] [id number] 08/04/2024 [id number] / / [id number] Insurance [employer] MEDICAID WELL[employer] MEDICARE Care Teams Tipple Operator Relationship Specialty Start Date End Date Keturah Phoenix PA [address] [place] [address] PCP - General 04/26/23 Annette Sorenson, LAURA, DNP [address] [place] [address] Nurse Practitioner Urology 11/25/23
--- OUTSIDE RECORDS SUMMARY | 2025-03-12 09:06 | XMS_ITS | Encounter Summary ---
Author Organization Healthcare Address [address] [place] [address] Care Team Providers Care Emergency Medical Technician Name Role Phone Dudley Reese Lea Primary Care Provider [phone] Keturah Phoenix Primary Care Provider [phone] Annette Sorenson APRN, JAD Unavailable [phone] Encounter Details Date Type Department Care Team (Late st Contact Info) Description 12/21/2022 Orders Only External Location [address] [place] [address] Nicho Riddle MD [address] [id number] Social History Tobacco Use Types Packs/Day Years [...] Office Visit [place] [facility] [address], [address]nd [place] [address] Annette Sorenson APRN, JAD [address] [place] [address] 05/23/2025 10:40 AM EST Appointment [facility] [address], 2nd [place] [address] 05/23/2025 11:30 AM EST Office Visit Medical Office Building Urology [address] [facility], [address] [place] [address] Heaven Jones APRN [address] [facility] [address] [place] [address] documented as of this encounter [...] documented as of this encounter Care Teams Emergency Medical Technician Relationship Specialty Start Date End Date Reese Buckner [address] [address] PCP - General 09/26/20 04/25/23 Keturah Phoenix PA [address] [place] [address] PCP - General 04/26/23 Annette Sorenson APRN, DNP [address] [facility] [address] [place] [address] Nurse Practitioner Urology 11/25/23 documented as of this encounter
--- OUTSIDE RECORDS SUMMARY | 2025-03-12 09:06 | XMS_ITS | Encounter Summary ---
Author Organization Healthcare Address [address] [place] [address] Care Team Providers Care B2B Outside Sales Representative Name Role Phone Keturah Phoenix Primary Care Provider [phone] Annette Sorenson APRN, DNP Unavailable [phone] Encounter Details Date Type Department Care Team (Latest Contact Info) Description 03/11/2025 Travel Social History Tobacco Use Types Packs/Day [...] drink first t irvin in the morning (EYE-FINANCIAL SERVICES AGENT) to steady your nerves or to get [...] Encounters Date Type Department Care Team ([facility] st Contact Info) Description 03/18/2025 2:30 PM EST Office Visit [facility] [address], [address] [place] [address] Annette Sorenson APRN, DNP [address] [facility] [place] [address] 05/23/2025 10:40 AM EST Appointment [facility] [address], 2nd [place] [address] 05/23/2025 11:30 AM EST Office Visit Medical Office Building Urology [address] [facility], [address] [place] [address] Heaven Jones APRN [address] [address] documented as of this encounter [...] documented as of this encounter Care Teams B2B Outside Sales Representative Relationship Specialty Start Date End Date Keturah Phoenix PA [address] [facility] [place] [address] PCP - General 04/26/23 Annette Sorenson APRN, JAD [address] [facility] [place] [address] Nurse Practitioner Urology 11/25/23 documented as of this encounter
--- OUTSIDE RECORDS SUMMARY | 2025-03-12 09:07 | XMS_ITS | Encounter Summary ---
Author Organization [place] [address] Care Team Providers Care Top Stitcher Name Role Phone No Pcp, Per Patient Primary Care Provider Humberto langston Reason for Visit * Reason Onset Date Comments Other 02/11/2025 Encounter Details Date Type Department Care Team (Late st Contact Info) Description 02/11/2025 Telephone [facility] [address] [facility] 1D ENTRANCE, 3RD [place] [address] Bita Miner MD [address] [place] [address] Other Social History Tobacco Use Types Packs/Day Years [...] encounter Miscellaneous Notes * Telephone Encounter - Sandra Turcios LPN - 02/11/2025 4:57 PM EDT called pt and moved to 03/13 @ 11 * Telephone Encounter - Adenike Posada, Clerical Staff - 02/11/2025 4:20 PM EDT PT CALLING STATING THAT HIS INSURANCE FOR [employer] SO HE CAN NO LONGER NO MORE TELE VISITS - PLEASE GIVE PT A CALL documented in this encounter Plan of Treatment Upcoming Encounters Date Type Department Care Team (Late st Contact Info) Description 03/13/2025 11:00 AM EDT Office Visit [facility] [address]TR[address], 3RD [place] [address] Bita Miner MD [address] [place], [place] [id number] 03/22/2025 3:30 PM EST Telemedicine [facility] [place] [address] [facility] [address] [place] [address] Savage Wood MD [address] [place] [address] 06/04/2025 2:00 PM EST Office Visit [facility] 300 [facility] [place] [address] Vivian Frausto, TELECOMMUNICATION TOWER TECHNICIAN 300 [place] [address] documented as of this encounter Visit Diagnoses Not on filedocumented in this encounter Care Teams Top Stitcher Relationship Specialty Start Date End Date No Pcp, Per Patient PCP - General 01/18/25 documented as of this encounter
--- OUTSIDE RECORDS SUMMARY | 2025-03-12 09:07 | XMS_ITS | Encounter Summary ---
Author Organization [place] [address] Care Team Providers Care Ruby On Rails Engineer Name Role Phone No Pcp, Per Patient Primary Care Provider Humberto langston Reason for Visit * Reason Onset Date Comments Other 02/04/2025 Encounter Details Date Type Department Care Team (Late st Contact Info) Description 02/04/2025 Telephone [facility] [address] [facility] 1D ENTRANCE, 3RD [place] [address] Bita Miner MD [address] [place] [address] Other Social History Tobacco Use Types Packs/Day [...] encounter Miscellaneous Notes * Telephone Encounter - Bita Miner MD - 02/04/2025 4:41 PM EDT No I would stop them * Telephone Encounter - Sandra Turcios LPN - 02/04/2025 4:10 PM EDT Please see msg from pt regarding medications. documented in this encounter Plan of Treatment Upcoming Encounters Date Type Department Care Team (Late st Contact Info) Description 03/13/2025 11:00 AM EDT Office Visit [facility] [address]TR[address], 3RD [place] [address] Bita Miner MD 340 [place] [address] 03/22/2025 3:30 PM EST Telemedicine [facility] [place] [address] [facility] [address] [place] [address] Savage Wood MD [address] [place] [address] 06/04/2025 2:00 PM EST Office Visit [facility] [address] [place] [address] Vivian Frausto APRN 300 [place] [address] documented as of this encounter Visit Diagnoses Not on filedocumented in this encounter Care Teams Ruby On Rails Engineer Relationship Specialty Start Date End Date No Pcp, Per Patient PCP - General 01/18/25 documented as of this encounter
--- OUTSIDE RECORDS SUMMARY | 2025-03-12 09:07 | XMS_ITS | Encounter Summary ---
Author Organization [facility] [place] [address] Care Team Providers Care Circus Roustabout Name Role Phone No Pcp, Per Patient Primary Care Provider Humberto langston Encounter Details Date Type Department Care Team (Latest Contact Info) Description 02/04/2025 Travel Social History Tobacco Use Types Packs/Day [...] EDT Office Visit [facility] [address]TR[address], 3RD [place] [address] Bita Miner MD [address] [place] [address] 03/22/2025 3:30 PM EST Telemedicine [facility] [place] [address] [facility] [address] [place] [address] Savage Wood MD 7300 [place] [address] 06/04/2025 2:00 PM EST Office Visit [facility] [place] [address] [place] [address] Vivian Frausto, GENERAL PRODUCTION WORKER [address] [facility] [place] [address] documented as of this encounter Visit Diagnoses Not on filedocumented in this encounter Care Teams Circus Roustabout Relationship Specialty Start Date End Date No Pcp, Per Patient PCP - General 01/18/25 documented as of this encounter
--- OUTSIDE RECORDS SUMMARY | 2025-03-12 09:07 | XMS_ITS | Encounter Summary ---
Author Organization [place] [address] Care Team Providers Care Cut File Clerk Name Role Phone No Pcp, Per Patient Primary Care Provider Humberto langston Encounter Details Date Type Department Care Team (Late st Contact Info) Description 02/08/2025 Orders Only [facility] [place] [address] [facility] [address] [place] [address] Savage Wood MD [address] [facility] [address] [place], [place] [id number] Anxiety disorder, unspecified type (Primary Dx); Depressive disorder due to separate medical condition Social History Tobacco Use Types Packs/Day Years [...] on file documented as of this encounter Ordered Prescriptions Prescription Sig Dispense Quantity Refills Last Filled Start Date End Date busPIRone (BUSPAR) 10 mg Oral TabletIndications:A nxiety disorder, unspecified type Please take 1/2-1 tab (5-10 mg) as needed up to three times daily for anxiety. 30 Tablet 2 02/08/2025 documented in this encounter Plan of Treatment Upcoming Encounters Date Type Department Care Team (Late st Contact Info) Description 03/13/2025 11:00 AM EDT Office Visit [facility] [address]TR[address], 3RD [place] [address] Bita Miner MD [address] [place] [address] 03/22/2025 3:30 PM EST Telemedicine [facility] [place] [address] [facility] [address] [place] [address] Savage Wood MD [address] [facility] [place] [address] 06/04/2025 2:00 PM EST Office Visit [facility] 300 [facility] [place] [address] Vviian Frausto, DISPATCHER RADIOACTIVE WASTE DISPOSAL 300 [place] [address] documented as of this encounter Visit Diagnoses Diagnosis Anxiety disorder, unspecified type- Primary Depressive disorder due to separate medical condition documented in this encounter Care Teams Cut File Clerk Relationship Specialty Start Date End Date No Pcp, Per Patient PCP - General 01/18/25 documented as of this encounter
--- OUTSIDE RECORDS SUMMARY | 2025-03-12 09:07 | XMS_ITS | Encounter Summary ---
Author Organization [facility] [address] Care Team Providers Care Operating Room Registered Nurse Name Role Phone No Pcp, Per Patient Primary Care Provider Humberto langston Encounter Details Date Type Department Care Team (Latest Contact Info) Description 03/09/2025 Travel Social History Tobacco Use Types Packs/Day [...] 2:49 PM EDT Mariam Jean RMA documented in this encounter Plan of Treatment Upcoming Encounters Date Type Department Care Team (Late st Contact Info) Description 03/13/2025 11:00 AM EDT Office Visit [facility] [address]TR[address], 3RD [place] [address] Bita Miner MD [address] [place], [place] [address] 03/22/2025 3:30 PM EST Telemedicine [facility] [place] [address] [facility] [address] [place] [address] Savage Wood MD [address] [facility] [address] 06/04/2025 2:00 PM EST Office Visit [facility] [address] [place] [address] Vivian Frausto APRN [address] [place] [address] documented as of this encounter Goals Goal Patient Goal Type Associated Problems Recent Progress Patient-Stated? Author Blood Pressure < 140/90 Blood Pressure 134/82(2024 2:34 PM EDT) Geeta Cavazos RMA Maintain a healthy diet, exercise regularly and maintain an ideal body weight General No Vivian Frausto APRN BMI (Calculated) < 30 General 54.4(03/04/20 2:34 PM EDT) Geeta Cavazos RMA HEMOGLOBIN A1C < 7.0 Result Component No Geeta Jean RMA documented as of this encounter Visit Diagnoses Not on filedocumented in this encounter Additional Health Concerns Assessment Noted Time PHQ-9 Depression Total Score: 27 025 3:00 PM EDT PHQ-2 Depression Total Score: 6 03/08/20 25 3:00 PM EDT documented as of this encounter Care Teams Operating Room Registered Nurse Relationship Specialty Start Date End Date No Pcp, Per Patient PCP - General 01/18/25 documented as of this encounter
--- OUTSIDE RECORDS SUMMARY | 2025-03-12 09:07 | XMS_ITS | Encounter Summary ---
Author Organization [place] [address] Care Team Providers Care Mri Ct Tech Name Role Phone No Pcp, Per Patient Primary Care Provider Humberto langston Reason for Referral * Consultation (Routine) - Authorization Not Needed Specialty Diagnoses / Procedures Referred By Senthil nayak Referred To Contact Diagnoses Cervical spondylosis with radiculopathy Procedures [place] OFFICE/OUTPATIENT NEW MODERATE MDM 45 MINUTES Vivian Frausto APRN [address] [place] [address] Phone: tel: fax: [facility] [address] [facility] 300 [place] [address] Referral ID Status Reason Start Date Expiration Date Visits Requested Visits Authorized [id number] Authorization Not Needed 03/08/2026 99 99 Reason for Visit * Reason Onset Date Comments Referral 03/08/2025 [facility] [place] office Encounter Details Date Type Department Care Team (Late st Contact Info) Description 03/08/2025 Telephone [facility] [address] [place] [address] Vivian Frausto APRN [address] [place] [address] Referral ([facility] [place] office ) Social History Tobacco Use Types Packs/Day [...] 2:49 PM EDT Mariam Jean RMA * PHQ-2 Total Score Answer Date of Assessment Author 6 03/08/2025 3:00 PM EDT Juma Wood MD * PHQ-9 Total Score Answer Date of Assessment Author 27 03/08/2025 3:00 PM EDT Juma Wood MD * Question Answer Date of Assessment Author Little interest or pleasure in doing things 3 03/08/2025 3:00 PM Savage Talbot MD Feeling down, depressed, or hopeless 3 03/08/2025 3:00 PM TIAT Savage Wood MD Trouble falling or staying [...] your family down 3 03/08/2025 3:00 PM EDT Savage Monk MD Trouble concentrating on thi [...] some way 3 03/08/2025 3:00 PM EDT Svaage Wood MD * PHQ-2 Total Score Answer Date of Assessment Author 6 03/08/2025 3:00 PM EDT Juma Wood MD * Question Answer Date of Assessment Author Feeling Nervous, Anxious, or on Edge 3 03/08/2025 3:00 PM TIAT Savage Wood MD Not Being Able to Stop or Control Worrying 3 03/08/2025 3:00 PM TIAT Savage Wood MD Worrying too Much About Different Things 3 03/08/2025 3:00 PM TIAT Savage Wood MD Trouble Relaxing 3 03/08/2025 3:00 PM EDT Savage Bobo MD Being so Restless That it is Hard to Sit Still 3 03/08/2025 3:00 PM TIAT Savage Wood MD Becoming Easily Annoyed or Irritable 3 03/08/2025 3:00 PM TIAT Savage Wood MD Feeling Afraid as if [...] Mariam Jean RMA documented in this encounter Miscellaneous Notes * Telephone Encounter - Geeta Jean RMA - 03/08/2025 4:12 PM EDT Referral sent, message sent to patient * Telephone Encounter - Idalia Marrufo - 03/08/2025 2:30 PM EDT Select the most appropriate reason for this telephone message: Referral Request Who is requesting the referral: Patient Return Method of Communication: Vedicist Message What speciality or medical service is the referral for: Other [facility] What is the reason / diagnosis for this referral:C1 C6 spinal fusion, multiple impinged nerves, calcified disc at C5 Have you been seen by your PCP for this issue: Yes Does patient have a preference on a group/provider: Yes (if yes, complete preferred provider info below) Preferred Provider/Group Name: [facility] [address] [place] [address] Preferred Provider/Group Phone Number: did not supply Preferred Provider/Group Fax Number: Additional Information: [facility] could not help him documented in this encounter Plan of Treatment Upcoming Encounters Date Type Department Care Team (Late st Contact Info) Description 03/13/2025 11:00 AM EDT Office Visit [facility] [address] 1D ENTRANCE, 3RD [place] [address] Bita Miner MD [address] [place] [address] 03/22/2025 3:30 PM EST Telemedicine [facility] [place] [address] [facility] [address] [place] [address] Savage Wood MD [address] [facility] [place] [address] 06/04/2025 2:00 PM EST Office Visit [facility] [place] [address] [place] [address] Vivian Frausto APRN [address] [place] [address] Scheduled Referrals Name Type Priority Associated Diagnoses Orde r Schedule AMB REFERRAL TO NEUROSURGERY Outpatient Referral Routine Cervical spondylosis with radiculopathy Ordered: 03/08/2025 documented as of this encounter [...] as of this encounter Visit Diagnoses Diagnosis Cervical spondylosis with radiculopathy- Primary Cervical spondylosis with myelopathy documented in this encounter Additional Health Concerns Assessment Noted Time PHQ-9 Depression Total Score: 27 025 3:00 PM EDT PHQ-2 Depression Total Score: 6 03/08/20 3:00 PM EDT documented as of this encounter Care Teams Mri Ct Tech Relationship Specialty Start Date End Date No Pcp, Per Patient PCP - General 01/18/25 documented as of this encounter
--- OUTSIDE RECORDS SUMMARY | 2025-03-12 09:07 | XMS_ITS | Encounter Summary ---
Author Organization [place] [address] Care Team Providers Care Roof Mechanic Name Role Phone No Pcp, Per Patient Primary Care Provider Humberto langston Reason for Visit * Reason Onset Date Comments Referral 02/05/2025 Encounter Details Date Type Department Care Team (Late st Contact Info) Description 02/05/2025 Telephone [facility] 49[address] [place] [address] Rosa Luque MA Referral Social History Tobacco Use Types Packs/Day Years [...] encounter Miscellaneous Notes * Telephone Encounter - Rosa Luque MA - 02/05/2025 9:42 AM EDT Spoke with patient regarding referral. He declined services at this time He stated he can not afford the program documented in this encounter Plan of Treatment Upcoming Encounters Date Type Department Care Team (Late st Contact Info) Description 03/13/2025 11:00 AM EDT Office Visit [facility] [address]TR[address], 3RD [place] [address] Bita Miner MD [address] [place], [place] [id number] 03/22/2025 3:30 PM EST Telemedicine [facility] [place] [address] [facility] [address] [place] [address] Savage Wood MD [address] [place] [address] 06/04/2025 2:00 PM EST Office Visit [facility] 300 [facility] [place] [address] Vivian Frausto APRN 300 [place] [address] documented as of this encounter Visit Diagnoses Not on filedocumented in this encounter Care Teams Roof Mechanic Relationship Specialty Start Date End Date No Pcp, Per Patient PCP - General 01/18/25 documented as of this encounter
--- OUTSIDE RECORDS SUMMARY | 2025-03-12 09:07 | XMS_ITS | Encounter Summary ---
Author Organization [facility] [place] [address] Care Team Providers Care Manager Games Name Role Phone No Pcp, Per Patient Primary Care Provider Humberto langston Encounter Details Date Type Department Care Team (Latest Contact Info) Description 03/01/2025 Travel Social History Tobacco Use Types Packs/Day [...] EDT Office Visit [facility] [address]TR[address], 3RD [place] [address] Bita Miner MD [address] [place] [address] 03/22/2025 3:30 PM EST Telemedicine [facility] [place] [address] [facility] [address] [place] [address] Savage Wood MD [address] [place] [address] 06/04/2025 2:00 PM EST Office Visit [facility] [place] [address] [place] [address] Vivian Frausto, PARTICIPANT ADMINISTRATOR 300 [facility] [place] [address] documented as of this encounter Visit Diagnoses Not on filedocumented in this encounter Care Teams Manager Games Relationship Specialty Start Date End Date No Pcp, Per Patient PCP - General 01/18/25 documented as of this encounter
--- OUTSIDE RECORDS SUMMARY | 2025-03-12 09:07 | XMS_ITS | Encounter Summary ---
Author Organization [place] [address] Care Team Providers Care Notching Machine Operator Name Role Phone No Pcp, Per Patient Primary Care Provider Humberto langston Reason for Visit * Reason Onset Date Comments Back Pain 02/01/2025 Encounter Details Date Type Department Care Team (Late st Contact Info) Description 02/01/2025 Nurse Triage [facility] Nurse Now [address] [place] [address] Beni Azevedo RN Social History Tobacco Use Types Packs/Day [...] encounter Miscellaneous Notes * Telephone Encounter - Beni Azevedo RN - 02/01/2025 2:30 PM EDT Nurse Triage Call -Chief Complaint: Pt reports severe back pain, stating PCP will only prescribe tramadol, he has stimulator in place, but his pain is in C5-C6. Pain specialist that PCP referred to can't do anything . Pt was seen in office today by PCP. Patient yelling, frustrated that he can't take motrin and tylenol due to other health issues and PCP can't help him. Pt has appt with [facility] next month. -Reported by: Patient -Vitals: No vitals obtained on this call -Disposition per protocol: see today in office. -Provided number to [facility] and advised to speak with PCP for further plan to treat back pain. Reason for Disposition SEVERE back pain (e.g., excruciating, unable to do any normal activities) and not improved after pain medicine and CARE ADVICE Protocols used: Back Pain-A-[place] documented in this encounter Plan of Treatment Upcoming Encounters Date Type Department Care Team (Late st Contact Info) Description 03/13/2025 11:00 AM EDT Office Visit [facility] [address]TR[address], 3RD [place] [address] Bita Miner MD [address] [place] [address] 03/22/2025 3:30 PM EST Telemedicine [facility] [place] [address] [facility] [address] [place] [address] Savage Wood MD [address] [place] [address] 06/04/2025 2:00 PM EST Office Visit [facility] [address] [place] [address] Vivian Frausto APRN [address] [place] [address] documented as of this encounter Visit Diagnoses Not on filedocumented in this encounter Care Teams Notching Machine Operator Relationship Specialty Start Date End Date No Pcp, Per Patient PCP - General 01/18/25 documented as of this encounter
--- OUTSIDE RECORDS SUMMARY | 2025-03-12 09:08 | XMS_ITS | Encounter Summary ---
Author Organization Healthcare Address [address] [place] [address] Care Team Providers Care E Commerce Project Manager Name Role Phone Keturah [place] Primary Care Provider [phone] Annette Sorenson APRN, JAD Unavailable [phone] Reason for Visit * Reason Comments Med Refill Encounter Details Date Type Department Care Team (Late st Contact Info) Description 02/25/2025 [facility]ill [facility] [address], [address] [place] [address] Annette Sorenson, LAURA, DNP [address] [place] [address] Social History Tobacco Use Types [...] drink first t irvin in the morning (EYE-VICE PRESIDENT OF BRAND MANAGEMENT) to steady your nerves or to get [...] Office Visit [facility] [address] [place] [address] Annette Sorenson, SETTER COLD ROLLING MACHINE, DNP [address] [place] [address] 05/23/2025 10:40 AM EST Appointment [facility] [address]nd [place] [address] 05/23/2025 11:30 AM EST Office Visit Medical Office Building Urology [address] [facility], [address] [place] [address] Heaven Jones, SETTER COLD ROLLING MACHINE [address] [place] [address] documented as of this encounter [...] documented as of this encounter Care Teams E Commerce Project Manager Relationship Specialty Start Date End Date Keturah Phoenix PA [address] [place] [address] PCP - General 04/26/23 Annette Sorenson, LAURA, DNP [address] [facility] [address] [place] [address] Nurse Practitioner Urology 11/25/23 documented as of this encounter
--- OUTSIDE RECORDS SUMMARY | 2025-03-12 09:08 | XMS_ITS | Clinical Summary ---
Author Organization [facility] Address [address] [place] [address] Care Team Providers Care Workforce Planning Analyst Name Role Phone Keturah Phoenix Primary Care Provider [phone] Allergies Active Allergy Reactions Criticality Noted Date [...] Active vitamin D (ERGOCALCIFERO L) 1.25 MG (24957 UT) capsule capsule 11/26/19 21 Active furosemide [...] (05/25/2017): Added automatically from request for surgery [id number] History of lumbar fusion 09/14/2016 Morbid obesity [...] ANNUAL PHYSICAL 08/26/2016 HEPATITIS C SCREENING 08/26/2016 INFLUENZA VACCINE 12/14/2024 Pneumococcal Vaccine 0-49 Aged Out No longer eligible based on patient's age to complete this topic Medical Devices Implanted Type Area Fellmongery Worker Device Identifier Shelf Expiration Date Model / Serial / Lot Ld Trial Stim Octrode Impusle 8ch 60cm - [id number] Implanted:Qt y: 1 on 04/18/2017 by Marcos Lopez MD at [facility] Implant N/A: Spine Thoracic ADV NEUROMODULATIONS SYS ANS 12/22/2018 3086 / / Ld Trial Stim Octrode Impusle 8ch 60cm - [id number] Implanted:Qt y: 1 on 04/18/2017 by Marcos Lopez MD at [facility] Implant N/A: Spine Thoracic ADV NEUROMODULATIONS SYS ANS 01/18/2019 3086 / / Ld Stim Lamitrode Tripole 16ch/Ld 60 - [id number] - [id number] Implanted:Qt y: 1 on 06/09/2017 by Andrew Bah MD at [facility] Implant N/A: Spine Thoracic ADV NEUROMODULATIONS SYS ANS 06/29/2018 3219 / [id number] / Gen Puls Neurostim [employer] Scs 7 [facility] - [id number] - [id number] Implanted:Qt y: 1 on 06/09/2017 by Andrew Bah MD at [facility] Implant N/A: Spine Thoracic ADV NEUROMODULATIONS SYS ANS 04/18/2019 3662 CONTRLSYS / [id number] / Insurance Care Teams Workforce Planning Analyst Relationship Specialty Start Date End Date Keturah Phoenix PA PCP - General Physician Expeller Worker 09/27/18
--- OUTSIDE RECORDS SUMMARY | 2025-03-12 09:08 | XMS_ITS | Encounter Summary ---
Author Organization [place] [address] Care Team Providers Care Check Viewer Name Role Phone No Pcp, Per Patient Primary Care Provider Humberto langston Reason for Visit * Reason Onset Date Comments Medical Release 01/21/2025 Encounter Details Date Type Department Care Team (Late st Contact Info) Description 01/21/2025 Telephone [facility] [address] [place] [address] Bita Miner MD [address] [place] [address] Medical Release Social History Tobacco Use Types Packs/Day Years Used Date Smoking Tobacco: Never Smokeless Tobacco: Never Alcohol Use Standard Drinks/Week Comments Yes 0 (1 standard drink = 0.6 oz pur e alcohol) rarely PHQ-2 Answer Date Recorded PHQ-2 Total Score 6 03/08/2025 Sex and Gender Information Value Date Recorded Sex Assigned at Not on file Legal Sex Male 12:06 PM EDT Gender Identity Not on file Sexual Orientation Not on file documented as of this encounter Functional Status * Cognitive and Functional Status Question Answer Date of Assessment Author Is the person deaf or does he/she have serious difficulty hearing? No 03/04/2025 2:49 PM EDT Geeta Jean Ma, RMA Is the person blind or does he/she have serious difficulty seeing even when wearing glasses? No 03/04/2025 2:49 PM EDT Geeta Jean Ma, RMA Does this person have seriou s difficulty walking or climbing stairs? Yes 03/04/2025 2:49 PM EDT Geeta Jean Ma, RMA Does this person have difficulty dressing or bathing? Yes 03/04/2025 2:49 PM EDT Geeta Romero RMA * Suicide Severity Rating Answer Date of Assessment Author No Risk 02/15/2025 7:00 PM EDT Ashvin Cr RN * [place] Suicide Severity Rating Scale (Q shift for [...] Rodriguez RN documented as of this encounter Mental Status * Cognitive and Functional Status Question Answer Entry Date Author Because of a physical, menta l or emotional condition, does this person have difficulty doing errands alone such as visiting a doctor's office or shopping? No 03/04/2025 2:49 PM EDT Geeta Jean Ma, RMA Because of a physical, menta l or emotional condition, does this person have serious difficulty concentrating, remembering or making decisions? No 03/04/2025 2:49 PM EDT Geeta Jean Ma, RMA documented in this encounter Miscellaneous Notes * Telephone Encounter - Diane Espinoza MA - 01/23/2025 8:32 AM EDT Faxed * Telephone Encounter - Nicole Wolfe RMA - 01/22/2025 8:49 AM EDT Path still in process * Telephone Encounter - Nicole Wolfe RMA - 01/21/2025 4:36 PM EDT Will fax tomorrow * Telephone Encounter - Silvia Rhiannaestefany Chilel - 01/21/2025 2:43 PM EDT Pt's PCP office, Dr. Maite Byrd, calling for most recent ov and biopsy results. PH - [phone] FAX - [phone] documented in this encounter Plan of Treatment Upcoming Encounters Date Type Department Care Team (Late st Contact Info) Description 03/13/2025 11:00 AM EDT Office Visit [facility] [address] [place] [address] Bita Miner MD [address] [place], [place] [id number] 03/22/2025 3:30 PM EST Telemedicine [facility] [address] [facility] [facility] [address] [place] [address] Savage Wood MD [address] [place], [place] [id number] 06/04/2025 2:00 PM EST Office Visit [facility] [address] [place] [address] Vivian Frausto, [employer] EDUC[employer] SPECIALIST [address] [place] [address] documented as of this encounter [...] on filedocumented in this encounter Care Teams Check Viewer Relationship Specialty Start Date End Date No Pcp, Per Patient PCP - General 01/18/25 documented as of this encounter
--- OUTSIDE RECORDS SUMMARY | 2025-03-12 09:08 | XMS_ITS | Clinical Summary ---
Author Organization [facility] Address [address] [place] [address] Phone Care Team Providers Care Head Of Cytogenetics Name Role Phone No Pcp, Per Patient Primary Care Provider Unavai lable Allergies Active Allergy Reactions Criticality Noted Date Comments Cariprazine Anxiety Low 11/07/2024 nervous feeling Gabapentin Other (See Comments) 12/10/2024 Suicidal thoughts Nsaids (Non-Steroidal Anti-Inflammatory Drug) Other (See Comments) 02/15/2025 Pt on meloxicam daily. Cannot take nsaids with Penicillins Hives High 08/26/2016 Biuxour-Yid-Vdk Reductase Inhibitors Myalgia,Other (See Comments) High 11/07/2024 Flu symptoms Acetaminophen Other (See Comments) 02/15/2025 Liver issues Medications * This document contains information received from the source organization and may not represent a complete record from that organization. fUROsemide (LASIX) 20 mg Oral Tablet Take by mouth every 12 hours. Active RED YEAST RICE EXTRACT, BULK, MISC by Misc.(Non-Drug; Combo Route) route daily. Active anastrozole (ARIMIDEX) 1 mg Oral Tablet Take 1 mg by mouth once a week. Active tamsulosin (FLOMAX) 0.4 mg Oral Capsule Take by mouth daily. Active albuterol (VENTOLIN HFA) 90 mcg/actuation Inhl HFA Aerosol Inhaler Inhale 2 Puffs into the lungs every 6 hours. 04/18/20 23 Active Cholecalciferol , Vitamin D3, 25 mcg (1,000 unit) Oral Capsule Take 1,000 Units by mouth daily. 11/11/19 21 Active fluticasone propionate (FLONASE) 50 mcg/actuation Nasl Grady, Suspension USE 1 SPRAY(S) IN EACH NOSTRIL TWICE DAILY 04/18/20 23 Active busPIRone (BUSPAR) 10 mg Oral TabletIndicatio ns:Anxiety disorder, unspecified type Please take 1/2-1 tab (5-10 mg) as needed up to three times daily for anxiety. 30 Tablet 2 02/09/20 Active ZEPBOUND 5 mg/0.5 mL SubQ Pen Injector Inject 5 mg under the skin once a week. 02/26/20 Active B-Complex with Vitamin C Oral Capsule 1 Capsule. 02/22/20 Active meloxicam (MOBIC) 15 mg Oral Tablet 15 mg. 05/02/20 Active indomethacin (INDOCIN) 50 mg Oral Capsule Take 50 mg by mouth. 02/26/20 Active SUMAtriptan (IMITREX) 50 mg Oral Tablet Take 50 mg by mouth once as needed for Pain. 02/07/20 Active LEQVIO 284 mg/1.5 mL SubQ Syringe Inject 284 mg under the skin Every 6 Months. 01/08/20 Active testosterone cypionate (DEPOTESTOTERON E CYPIONATE) 200 mg/mL IM Oil Inject 200 mg into the muscle once a week. 02/26/20 Active DULoxetine (CYMBALTA) 20 mg Oral Capsule, Delayed Release(E.C.)In dications:Depre ssive disorder due to separate medical condition,Anxie ty disorder, unspecified type Take 1 Capsule by mouth daily for 7 days, THEN 1 Capsule 2 times daily for 21 days. 49 Capsule 03/08/20 Active inclisiran sodium (LEQVIO SUBQ) Inject under the skin Every 6 Months. Discontinu ed(DELETE- Therapy completed) b rcypoce-A-nldty acid (NEPHROCAP) 1 mg Oral Capsule Take 1 Capsule by mouth daily. Discontinu ed(DELETE- Therapy completed) acetylcysteine (NAC ORAL) Take by mouth daily. Discontinu ed(DELETE- Therapy completed) s-adenosylmethi onine sul tosyl (ZULAY-E ORAL) Take by mouth daily. Discontinu ed(DELETE- Therapy completed) B cmplx 4/vit D3/C/folic/zinc (VITAL-D RX ORAL) Take by mouth daily. Discontinu ed(DELETE- Therapy completed) dihydroberberin e (BERBERINE ES-5 ORAL) Take by mouth daily. Discontinu ed(DELETE- Therapy completed) TESTOSTERONE CYPIONATE IM Inject into the muscle once a week. Discontinu ed(DELETE- Therapy completed) meloxicam (MOBIC) 7.5 mg Oral Tablet Take 15 mg by mouth daily. Discontinu ed(DELETE- Therapy completed) ergocalciferol (DRISDOL) 1,250 mcg (50,000 unit) Oral Capsule Take 50,000 Units by mouth once a week. Discontinu ed(DELETE- Therapy completed) oxyCODONE 5 mg Oral Capsule Take 1 Capsule by mouth every 6 hours as needed for Acute Pain (R52) (Severe breakthrough pain not controlled by regular pain medication) for up to 3 days. 10 Capsule 02/16/20 25 Discontinu ed(Side effects) oxyCODONE (ROXICODONE) 5 mg Oral Tablet Take 1 Tablet by mouth every 6 hours as needed for Acute Pain (R52) for up to 3 days. 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 These symptoms have caused clinically significant distress and impairment most aspects of their life. He has experienced significant relief from anxiety attacks after taking BuSpar once. He was advised that he could take BuSpar preemptively before anticipated [...] for 21 days. Attention and concentration deficit 03/08/2025 Assessment & Plan (03/08/2025 3:44 PM EDT): Patient reports difficulty concentrating and focusing. He is interested in testing for ADHD. Discussed we can refer for testing though given current cannibas use, we cannot prescribe controlled substances if he meets criteria for ADHD. We have discussed effects cannabis can have on executive functioning. Plan: -Will refer to ADHD testing and provide additional community options. Orders: AMB REFERRAL TO BEH[facility]IORAL HEALTH Arthritis of foot, degenerative 03/04/2025 Autoimmune hepatitis 03/04/2025 Calcaneal spur of both feet 03/04/2025 Gout 03/04/2025 Hyperlipidemia 03/04/2025 Insomnia 03/04/2025 Keratosis 03/04/2025 Metabolic dysfunction-associ ated steatotic liver disease (MASLD) 03/04/2025 Metatarsalgia of both feet 03/04/2025 Spondylolisthesis 03/04/2025 Statin intolerance 03/04/2025 Abnormal ECG 03/04/2025 Testosterone deficiency 03/04/2025 Enlarged thyroid gland 03/04/2025 Thyroid nodule 03/04/2025 Vitamin D deficiency 03/04/2025 Assessment & Plan (03/04/2025 3:41 PM EDT): Orders: VITAMIN D 25 HYDROXY; Future Elevated LFTs 03/04/2025 Dyspnea 03/04/2025 Cirrhosis of liver 03/04/2025 Circadian rhythm sleep disorder 03/04/2025 Lumbar radiculopathy, chronic 03/04/2025 Cervical nerve root impingement 03/04/2025 Acquired hammer toe 03/04/2025 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 06/28/2022 Cervical spondylosis with radiculopathy 07/06/19 19 Postlaminectomy syndrome, lumbar region 05/25/19 18 Overview (03/04/2025): Added automatically from request for surgery [id number] Anxiety disorder 09/14/2016 Assessment & Plan (03/08/2025 3:44 PM EDT): Bang Cortes meets criteria for Generalized Anxiety [...] Capsule 2 times daily for 21 days. History of lumbar fusion 09/14/2016 Morbid obesity 09/14/2016 Obesity with sleep apnea 09/14/2016 Spondylosis of lumbar region without myelopathy or radiculopathy 09/14/2016 DDD (degenerative disc disease), lumbar 09/15/19 17 Encounters * This document contains information received from the source organization and may not represent a complete record from that organization. Date Type Department Care Team Description 03/09/2025 Travel 03/08/2025 3:00 PM EDT Office Visit [facility] [address] [place] [address] [address] [place] [address] Savage Wood MD Depressive disorder due to separate medical condition (Primary Dx); Anxiety disorder, unspecified type; Attention and concentration deficit 03/08/2025 Telephone [facility] [address] [place] [address] Vivian Frausto APRN Referral ([facility] [place] office ) 03/04/2025 2:30 PM EDT Office Visit [facility] [address] [place] [address] Vivian Frausto APRN Medicare annual wellness visit, subsequent (Primary Dx); Vitamin D deficiency; Tired; Elevation of levels of liver transaminase levels; Family history of autoimmune disorder 03/01/2025 Travel 02/15/2025 5:54 PM EDT - 02/15/2025 7:17 PM EDT Emergency [facility] [place] [address] Vladimir Pérez MD [place], Ceferino Tineo MD Acute exacerbation of chronic low back pain (Primary Dx); Cervical radiculopathy; Lumbosacral radiculopathy; Neck pain Discharge Disposition: Home or Self Care 02/15/2025 Nurse Triage [facility] [address] [place] [phone] Suzanne Jean RN 02/11/2025 Telephone [facility] [address], 3RD [place] [address] Bita Miner MD Other 02/08/2025 Orders Only [facility] [address] [facility] [address] [place] [address] Savage Wood MD Anxiety disorder, unspecified type (Primary Dx); Depressive disorder due to separate medical condition 02/07/2025 1:00 PM EDT Office Visit [facility] [address] [facility] [address] [place] [address] Savage Wood MD Depressive disorder due to separate medical condition (Primary Dx); Anxiety disorder, unspecified type; Cannabis use disorder 02/05/2025 Telephone [facility] [address] [place] [address] Rosa Luque MA Referral 02/04/2025 Telephone [facility] [address], [address] [place] [address] Bita Miner MD Other 02/04/2025 Travel 02/01/2025 Nurse Triage [facility] [place] [address] Beni Azevedo RN 01/25/2025 Telephone [facility] [address] [facility] [address] ENTRANCE, [address] [place] [phone] Bita Miner MD Other 01/21/2025 Telephone [facility] [address] [facility] [address]TR[address], [address] [place] [address] Bita Miner MD Medical Release 01/18/2025 8:29 PM EDT - 01/19/2025 12:11 AM EDT Emergency [facility] [place] [address] Brittany Álvarez MD Postoperative pain (Primary Dx) Discharge Disposition: Home or Self Care 01/18/2025 8:07 AM EDT - 01/18/2025 8:28 PM EDT Hospital Encounter [facility] [place] [address] Bita Miner MD Roebker, James A, MD Elevated LFTs; Fatty liver Discharge Disposition: Home or Self Care 01/18/2025 Nurse Triage [facility] [address] [place] [phone] Suzanne Jean RN 01/18/2025 Travel 01/15/2025 8:05 AM EDT - 01/15/2025 11:59 PM EDT Hospital Encounter [facility] [address] [place] [address] Elevated LFTs; Fatty liver; Thyroid nodule Discharge Disposition: Home or Self Care 01/15/2025 Results Follow-Up [facility] [place] [address] Nicho Toscano MD THYROID STIMULATING HORMONE 01/07/2025 1:00 PM EDT Office Visit [facility] [place] [address] Nicho Toscano MD Thyroid nodule (Primary Dx); Globus sensation 01/04/2025 Telephone [facility] [address] [place] [address] Louann Barnes RMA Procedure (CT liver biopsy) 01/04/2025 Orders Only [facility] [address] [place] [address] Louann Barnes RMA Elevated LFTs (Primary Dx); Fatty liver 01/03/2025 1:40 PM EDT Office Visit [facility] [address] [facility] [address] [place] [address] Bita Miner MD Elevated LFTs (Primary Dx); Fatty liver; Gastroesophageal reflux disease, unspecified whether esophagitis present 01/02/2025 Travel 01/01/2025 Telephone [facility] [address] [facility] [address]D ENTRANCE, 3RD [place] [address] Estiven Parkinson MD Cirrhosis (NEEDING APPT CEFERINO) 12/24/2024 10:12 AM EDT - 12/24/2024 11:59 PM EDT Hospital Encounter [facility] [place] [address] Estiven Riggs MD Radiculopathy of cervical region Discharge Disposition: Home or Self Care 12/24/2024 10:12 AM EDT - 12/24/2024 11:59 PM EDT Hospital Encounter [facility] [place] [address] Estiven Riggs MD Radiculopathy of cervical region; Radiculopathy, unspecified spinal region Discharge Disposition: Home or Self Care 12/10/2024 Orders Only [facility] [address] [place] [address] Bernie Ignacio RT Radiculopathy, unspecified spinal region (Primary Dx) 12/10/2024 Telephone [facility] [address] [place] [address] Carole Myrick, Clerical Staff Procedure (CT Cervical Myelogram ) from Last 3 Months Immunizations Immunization Administration Dates Next Due Td (Adult), Absorbed 12/27/1995 Surgical History Surgery Date Site/Laterality Comments APPENDECTOMY ARM SURGERY BACK SURGERY KNEE SURGERY CT NEEDLE BIOPSY LIVER 01/18/2025 CT NEEDLE BIOPSY LIVER 01/18/[address] EDG CT FRACTURE SURGERY 1986? Left arm SPINE SURGERY 2000 - 2017 L4-S1 fusion - Abbot spinal stimulator Medical History Medical History Date Comments Asthma Hyperlipidemia Liver disease Cirrhosis (HCC) Arthritis Depression Complication of anesthesia Anxiety Family History Medical History Relation Name Comments Arthritis Father Uche High Blood Pressure Father Uche Diabetes Maternal Aunt Cecilia Heart Disease Maternal Grandfather [place] Arthritis Maternal Grandmother Carrie Diabetes Maternal Grandmother Carrie Arthritis Mother [place] Diabetes Mother [place] Heart Disease Paternal Grandfather Bill Mental Illness Paternal Grandmother [place] Cancer Paternal Uncle William Colon Cancer Paternal Uncle William Substance Abuse Paternal Uncle William Depression Sister Nicole Diabetes Sister Nicole Relation Name Status Comments Father [place] Alive Maternal Aunt Cecilia Alive Maternal Grandfather [place] Alive Maternal Grandmother Carrie Alive Mother [place] Alive Paternal Grandfather Bill Alive Paternal Grandmother Binta Alive Paternal Uncle William Sister Nicole Alive Social History Tobacco Use Types Packs/Day Years [...] F) 03/04/2025 2:34 PM EDT Respiratory Rate 20 02/15/2025 3:26 PM EDT Oxygen Saturation 97% 03/04/2025 2:34 PM EDT Inhaled Oxygen Concentration - - Weight 202.3 kg (446 lb) 03/04/2025 2:34 PM EDT Height 193 cm (6' 4 ) 03/04/2025 2:34 PM EDT Body Mass Index 54.29 03/04/2025 2:34 PM EDT Plan of Treatment Upcoming Encounters Date Type Department Care Team (Late st Contact Info) Description 03/13/2025 11:00 AM EDT Office Visit [facility] [address], 3RD [place] [address] Bita Miner MD [address] [place], [place] [id number] 03/22/2025 3:30 PM EST Telemedicine [facility] [address] [facility] [address] [place] [address] Savage Wood MD [address] [place] [address] 06/04/2025 2:00 PM EST Office Visit [facility] [address] [place] [address] Vivian Frausto APRN [address] [place] [address] Health Maintenance Due Date Last Done Comments DTaP/TDaP/Td (2 - Tdap) 12/28/1995 12/27/1995 Hepatitis A Vaccine (1 of 2 - Risk 2-dose series) 11/23/1999 Hepatitis B Vaccine (1 of 3 - 19+ 3-dose series) 11/23/1999 Pneumococcal Vaccine 0-49 (1 of 2 - PCV) 11/23/1999 COVID-19 Vaccine ( - 2024-2 6 season) 2025 Influenza Vaccine (#1) 2025 Wellness Exam Medicare 03/05/2026 03/04/2025 Meningococcal B Vaccine Aged Out No l onger eligible based on patient's age to complete this topic Goals Goal Patient Goal Type Associated Problems Recent Progress Patient-Stated? Author Blood Pressure < 140/90 Blood Pressure 134/82(2024 2:34 PM EDT) No Geeta Jean RMA Maintain a healthy diet, exercise regularly and maintain an ideal body weight General No Vivian Frausto APRN BMI (Calculated) < 30 General 54.4(03/04/20 25 2:34 PM EDT) No Geeta Jean RMA HEMOGLOBIN A1C < 7.0 Result Component No Geeta Jean RMA Medical Devices Implanted Type Area Mold Shaker Device Identifier Shelf Expiration Date Model / Serial / Lot Spinal Cord Stimulator Spinal cord stimulator Procedures Procedure Name Priority Date/Time Associated Diagnosis Comments URINALYSIS REFLEX STAT 02/15/2025 3:0 2 PM EDT UA W/REFLEX TO CULTURE STAT 3:02 PM EDT EXTRA MARCH URINE CX STAT 02/15/2025 3 :[address] ABD PEL ED FAST W CONTRAST STAT 01/18/2025 10:23 PM EDT COMPREHENSIVE METABOLIC PANEL STAT 01/18/2025 9:44 PM EDT XR CHEST AP PORTABLE STAT 01/18/2025 9:34 PM EDT HEPATITIS B SURFACE ANTIGEN Routine 01/18/2025 9:01 PM EDT HCV ANTIBODY SCREEN W/ REFLEX Routine 01/18/2025 9:01 PM EDT HIV AG/AB Routine 01/18/2025 9:01 PM EDT GILEAD TESTING PANEL Routine 01/18/2025 9:01 PM EDT PT / INR STAT 01/18/2025 9:01 PM EDT LIPASE LEVEL STAT 01/18/2025 9:01 PM EDT CBC WITH DIFF STAT 01/18/2025 9:01 PM EDT EK EKG 12 LEAD STAT 01/18/2025 8:[address] NEEDLE BIOPSY LIVER Routine 9:43 AM EDT Elevated LFTs Fatty liver PATHOLOGY TISSUE REQUEST Routine 01/18/2025 9:07 AM EDT Elevated LFTs Fatty liver THYROID STIMULATING HORMONE Routine 01/15/2025 8:16 AM EDT Thyroid nodule PT / INR Routine 01/15/2025 8:16 AM EDT Elevated LFTs Fatty liver CBC Routine 01/15/2025 8:16 AM EDT Elevated LFTs Fatty liver CT CERVICAL SPINE W CONTRAST Routine 12/24/2024 12:45 PM EDT Radiculopathy of cervical region IR MYELOGRAM CERVICAL Routine 12/24/2024 12:35 PM EDT Radiculopathy of cervical region CBC WITH DIFF STAT 12/24/2024 10:26 AM EDT Radiculopathy, unspecified spinal region PT / INR STAT 12/24/2024 10:26 AM EDT Radiculopathy, unspecified spinal region from Last 3 Months Results * URINALYSIS REFLEX (02/15/2025 3:02 PM EDT) UA Color Light Yellow 02/15/2025 3:21 PM EDT [facility] UA Appear Clear Clear 02/15/2025 3:21 PM EDT [facility] UA Glucose Negative Negative mg/dL 02/15/2025 3:21 PM EDT [facility] UA Ketones Negative Negative mg/dL 02/15/2025 3:21 PM EDT [facility] UA Blood Negative Negative 02/15/2025 3:21 PM EDT [facility] UA pH 6.5 5.0 - 8.0 pH 02/15/2025 3:21 PM EDT [facility] UA Protein Negative Negative mg/dL 02/15/2025 3:21 PM EDT [facility] UA Urobilinogen Normal <=1 mg/dL 3:21 PM EDT [facility] UA Bili Negative Negative 02/15/2025 3:21 PM EDT [facility] UA Nitrite Negative Negative 02/15/2025 3:21 PM EDT [facility] UA Leuk Est Negative Negative 02/15/2025 3:21 PM EDT [facility] UA Spec Grav 1.008 1.001 - 1.035 no units 02/15/2025 3:21 PM EDT [facility] Comment:Reference range chantel d for random specimens only. UA WBC <1 0 - 4 /HPF 02/15/2025 3:21 PM EDT [facility] UA RBC 1 0 - 3 /HPF 02/15/2025 3:21 PM EDT [facility] Urine STRUCTURE OF URINARY TRACT PROPER / Unknown 02/15/2025 3:02 PM EDT 02/15/2025 3:11 PM EDT us Vladimir Pérez MD URINE ORDERABLES Final Resu lt [facility] [address] [facility] , [place] [address] * EXTRA MARCH URINE CX (02/15/2025 3:02 PM EDT) Urine STRUCTURE OF URINARY TRACT PROPER / Unknown 02/15/2025 3:02 PM EDT 02/15/2025 3:11 PM EDT us Vladimir Pérez MD MICROBIOLOGY - GENERAL ORDBailey [place] [address] * CT ABD PEL ED FAST W [...] The bony pelvis is unremarkable. Procedure Note Guluzian, Juancarlos Krikor, MD - 01/18/2025 CLINICAL HISTORY: -Liver biopsy [...] the ordering clinician. us Brittany Álvarez MD [facility] ORDERABLES Final Resul t * (ABNORMAL) COMPREHENSIVE METABOLIC PANEL (01/18/2025 9:44 PM EDT) Sodium 142 136 - 145 mmol/L 01/18/2025 10:04 PM EDT [facility] Potassium 4.3 3.5 - 5.0 mmol/L 01/18/2025 10:04 PM EDT [facility] Chloride 107 98 - 107 mmol/L 01/18/2025 10:04 PM EDT [facility] Total CO2 24 22 - 29 mmol/L 01/18/2025 10:04 PM EDT [facility] Anion Gap 11 7 - 16 mmol/L 01/18/2025 10:04 PM EDT [facility] Calcium 8.8 8.6 - 10.4 mg/dL 01/18/2025 10:04 PM EDT [facility] Glucose Lvl 126(H) 70 - 99 mg/dL 01/18/2025 10:04 PM EDT [facility] BUN 16 6 - 20 mg/dL 01/18/2025 10:04 PM EDT [facility] Creatinine 1.04 0.67 - 1.30 mg/dL 01/18/2025 10:04 PM EDT [facility] Albumin 3.9 3.5 - 5.2 gm/dL 01/18/2025 10:04 PM EDT [facility] Total Protein 7.3 6.4 - 8.3 gm/dL 01/18/2025 10:04 PM EDT [facility] Bili Total 1.4 0.2 - 1.4 mg/dL 01/18/2025 10:04 PM EDT [facility] ALT 68(H) <=41 U/L 01/18/2025 10:04 PM EDT [facility] AST 28 <=40 U/L 01/18/2025 10:04 PM EDT [facility] Alk Phos 62 40 - 129 U/L 01/18/2025 10:04 PM EDT [facility] eGFR (CKD-EPIcr 2020) 91 >=60 mL/min/1.7 3 m2 01/18/2025 10:04 PM EDT [facility] Comment:Estimated GFR was ca lculated using the CKD-EPIcr (2020) equation refit without race. The equation is recommended by the National Kidney Foundation - [place] [employer] of Nephrology Task Force. Blood VENOUS BLOOD / Unknown Venipuncture / Unknown 01/18/2025 9:44 PM EDT 01/18/2025 9:45 PM EDT us Brittany Álvarez MD CHEMISTRY ORDERABLES Final Re sult [facility] [address] [place] [address] * XR CHEST AP PORTABLE (01/18/2025 9:34 [...] please contactthe office of the ordering clinician. Brittany Álvarez MD IMG DIAGNOSTIC IMAGING ORDERA BLES Final Result * HIV AG/AB (01/18/2025 9:01 PM EDT) HIV Ag/AB Non-Reacti ve Non-Reacti ve 01/18/2025 10:00 PM EDT [place] Comment:Negative for HIV-1 a ntigen and anti-HIV-1/anti-HIV-2 antibodies. Blood VENOUS BLOOD / Unknown Venipuncture / Unknown 01/18/2025 9:01 PM EDT 01/18/2025 9:09 PM EDT Narrative [facility] - 01/18/2025 10:00 PM EDT Test performed using [employer] electrochemiluminescence immunassay (ECLIA). Brittany Álvarez MD IMMUNOLOGY ORDERABLES Final R esult Performing Organization Address [facility]/ZIP Co de Phone Number [facility] [address] [facility] , [place] [address] * HCV ANTIBODY SCREEN W/ REFLEX (01/18/2025 9:01 PM EDT) Hep C Ab Non-Reacti ve Non-React hua 01/18/2025 10:00 PM EDT [facility] Comment:No antibodies to HCV detected. Does not exclude possibility of exposure to HCV. Blood VENOUS BLOOD / Unknown Venipuncture / Unknown 01/18/2025 9:01 PM EDT 01/18/2025 9:09 PM EDT Narrative [place] - 01/18/2025 10:00 PM EDT Test performed using [employer] Ele[employer]ys electrochemiluminescence immunassay (ECLIA). Brittany Álvarez MD HEMATOLOGY ORDERABLES Final R esult Performing Organization Address [facility] Co de Phone Number [facility] [address] [facility] , [place] [address] * HEPATITIS B SURFACE ANTIGEN (01/18/2025 9:01 PM EDT) Hep Bs Ag Non-Reacti ve Non-React hua 01/18/2025 10:00 PM EDT [facility] Comment:HBsAg not detected. Does not exclude possibility of exposure to HBV. Blood VENOUS BLOOD / Unknown Venipuncture / Unknown 01/18/2025 9:01 PM EDT 01/18/2025 9:09 PM EDT Narrative [place] - 01/18/2025 10:00 PM EDT Test performed using Twin Ele[employer]ys electrochemiluminescence immunassay (ECLIA). Brittany Álvarez MD CHEMISTRY ORDERABLES Final Re sult Performing Organization Address City/[facility]/ZIP Co de Phone Number [employer] [address] , [place] [address] * PT / INR (01/18/2025 9:01 PM EDT) Only the most recent of3 resultswithin the time period is included. Pathologist [facility] PT 11.3 10.5 - 13.6 second(s) 01/18/2025 9:20 PM EDT [facility] INR 0.98 0.91 - 1.18 (ratio) 01/18/2025 9:20 PM EDT [facility] Comment: Level of Therapy Indications Target INR Range Standard Dose Treatment and prophylaxis of venous 2.0 - 3.0 thrombosis, pulmonary embolism High Dose High risk patients with mechanical 2.5 - 3.5 heart valves Blood VENOUS BLOOD / Unknown Venipuncture / Unknown 01/18/2025 9:01 PM EDT 01/18/2025 9:09 PM EDT us Brittany lÁvarez MD HEMATOLOGY ORDERABLES Final R esult [employer] [address] , [place] [address] * (ABNORMAL) CBC WITH DIFF (01/18/2025 9:01 PM EDT) Only the most recent of2 resultswithin the time period is included. WBC 10.5(H) 3.7 - 10.3 x10(3)/mcL 01/18/2025 9:09 PM EDT [facility] RBC 5.84 4.60 - 6.10 x10(6)/mcL 01/18/2025 9:09 PM EDT [facility] Hgb 16.9 13.7 - 17.5 g/dL 01/18/2025 9:09 PM EDT [facility] Hct 52.3(H) 40.0 - 51.0 % 01/18/2025 9:09 PM EDT [facility] MCV 89.6 80.0 - 100.0 fL 01/18/2025 9:09 PM EDT [facility] MCH 28.9 26.0 - 34.0 pg 01/18/2025 9:09 PM EDT [facility] MCHC 32.3 30.7 - 35.5 g/dL 01/18/2025 9:09 PM EDT [facility] RDW 15.8(H) <=14.9 % 01/18/2025 9:09 PM EDT [facility] Platelet 178 155 - 369 x10(3)/[facility] 01/18/2025 9:09 PM EDT [facility] MPV 9.4 8.8 - 12.5 fL 01/18/2025 9:09 PM EDT [facility] Neut Percent 64.6 % 01/18/2025 9:09 PM EDT [facility] Comment:Neutrophils equals s egs plus bands Imm Gran% 0.8 % 01/18/2025 9:09 PM T [facility] Comment:Automated count of m etamyelocytes, myelocytes and promyelocytes. Lymph Percent 24.5 % 01/18/2025 9:09 PM EDT [facility] [place] Percent 8.3 % 01/18/2025 9:09 PM EDT [facility] Eos Percent 1.5 % 01/18/2025 9:09 PM EDT [facility] Baso Percent 0.3 % 01/18/2025 9:09 PM EDT [facility] Neut # 6.8(H) 1.6 - 6.1 x10(3)/[facility] 01/18/2025 9:09 PM [facility] Comment:Neutrophils equals s egs plus bands IMMGRAN# 0.1 0.0 - 0.1 x10(3)/[facility] 01/18/2025 9:09 PM EDT [facility] Comment:Automated count of m etamyelocytes, myelocytes and promyelocytes. An absolute IG <0.1 is reported as 0.0. Lymph # 2.6 1.2 - 3.9 x10(3)/[facility] 01/18/2025 9:09 PM EDT [facility] [place] # 0.9 0.3 - 0.9 x10(3)/[facility] 01/18/2025 9:09 PM EDT [facility] Eos# 0.2 0.0 - 0.5 x10(3)/mcL 01/18/2025 9:09 PM EDT [facility] Baso # 0.0 0.0 - 0.1 x10(3)/mcL 01/18/2025 9:09 PM EDT [facility] Blood VENOUS BLOOD / Unknown Venipuncture / Unknown 01/18/2025 9:01 PM EDT 01/18/2025 9:06 PM EDT us Brittany Álvarez MD HEMATOLOGY [place] [address] * LIPASE LEVEL (01/18/2025 9:01 PM EDT) Lipase Lvl 36 13 - 60 U/L 01/18/2025 9:26 PM EDT [facility] Blood VENOUS BLOOD / Unknown Venipuncture / Unknown 01/18/2025 9:01 PM EDT 01/18/2025 9:06 PM EDT us Brittany Álvarez MD CHEMISTRY ORDERABLES [place] [address] * EK EKG 12 LEAD (01/18/2025 8:32 PM EDT) Anatomical Region Laterality Modality Electrocardiogra phy 01/18/2025 8:39 PM EDT Impressions 01/19/2025 4:11 PM EDT [facility] [place] Test Date: 2025-01-18 Pat Name: BANG CORTES Department: DEPID Room: 26 Gender: Male Bench Grinder: 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 us Bita Miner MD IMG CT ORDERABLES Final Res ult * PATHOLOGY TISSUE REQUEST (01/18/2025 9:07 AM EDT) CASE REPORT Surgical Pathology Case: [id number] Authorizing Provider: Murali Collazo MD Collected: 01/18/2025 0907 Ordering Location: [facility] Received: 01/18/2025 0947 Pathologist: Jena Giles MD Specimen: Liver 01/22/2025 11:38 AM EDT [facility] FINAL DIAGNOSIS Liver, needle biopsy: - Moderate [...] correlation is recommended. 01/22/2025 11:38 AM EDT [facility] at 1138 EDT GROSS DESCRIPTION A. Received in formalin in a container labeled with the patient's name, hospital number, and liver , are 2 crews needle core biopsies, 1.5-1.8 cm in length by 0.1 cm in diameter. Entirely submitted in A1. MARILOU Greco PA ([facility]) 01/18/2025 01/22/2025 11:38 AM EDT [facility] MICROSCOPIC DESCRIPTION The microscopic examination may have been rendered in whole, or in part, by analyzing high-resolution digital images (whole slide images) on the Signdat Digital Pathology platform validated at [facility]. 01/22/2025 11:38 AM EDT [facility] EMBEDDED IMAGES 01/22/2025 11:38 AM EDT [facility] Tissue LIVER STRUCTURE / Unknown 01/18/2025 9:07 AM EDT 01/18/2025 9:47 AM EDT us Murali Collazo MD PATHOLOGY ORDERABLES Final Re sult [facility] [address] [place] [address] [place], [place] [id number] * (ABNORMAL) CBC (01/15/2025 8:16 AM EDT) Pathologist [facility] WBC 11.4(H) 3.7 - 10.3 x10(3)/mcL 01/15/2025 4:05 PM EDT [facility] RBC 6.08 4.60 - 6.10 x10(6)/mcL 01/15/2025 4:05 PM EDT [facility] Hgb 17.4 13.7 - 17.5 g/dL 01/15/2025 4:05 PM EDT [facility] Hct 56.7(H) 40.0 - 51.0 % [...] [facility] Platelet 203 155 - 369 x10(3)/[facility] 01/15/2025 4:05 PM EDT [facility] MPV 9.9 8.8 - 12.5 fL 01/15/2025 4:05 PM EDT [facility] Blood VENOUS BLOOD / Unknown Venipuncture / Unknown 01/15/2025 8:16 AM EDT 01/15/2025 8:16 AM EDT us Murali Collazo MD HEMATOLOGY ORDERABLES Final R esult [facility] [address] [place] [address], [place] [address] * THYROID STIMULATING HORMONE (01/15/2025 8:16 AM EDT) TSH 1.730 0.270 - 4.200 mcIU/mL 01/15/2025 4:53 PM EDT [place] Blood VENOUS BLOOD / Unknown Venipuncture / Unknown 01/15/2025 8:16 AM EDT 01/15/2025 8:16 AM EDT Narrative [facility] - 01/15/2025 4:53 PM EDT Ingestion of pily doses of biotin (>5 mg/day) taken within 8 hours of drawing blood sample can interfere with this immunoassay test. us Nicho Toscano MD CHEMISTRY ORDERABLES Final Re sult [facility] [address] [facility] , [address] [place] [id number] * CT CERVICAL SPINE W CONTRAST (12/24/2024 [...] 12/24/2024 12:45 PM CLINICAL HISTORY: M54.12-Radiculopathy, cervical qujanv-RNG-26-CM. COMPARISON: None available. PROCEDURE COMMENTS: Multidetector CT [...] 12/24/2024 12:45 PM CLINICAL HISTORY: M54.12-Radiculopathy, cervical ewkyho-GIR-95-CM. COMPARISON: None available. PROCEDURE COMMENTS: Multidetector CT [...] PUNCTURE UNDER FLUOROSCOPY, 12/24/2024 HISTORY: M54.12-Radiculopathy, cervical tgzroc-[id number]-44-CM PROCEDURE: After explaining the risks, benefits, and [...] position he was then placed in the auvuo-plmo-gksw decubitus position on the IR table and [...] PUNCTURE UNDER FLUOROSCOPY, 12/24/2024 HISTORY: M54.12-Radiculopathy, cervical sdztla-DQY-05-CM PROCEDURE: After explaining the risks, benefits, and [...] left posterior paramidline approach under fluoroscopic guidance [id number], 5 inch spinal needle was advance into [...] position he was then placed in the vbguw-vmrf-aslrkktvrzroa position on the IR table and the [...] moderate spinal stenosis at lumbar level L3-4. Estiven Riggs MD [facility] IR ORDERABLES Final Result from Last 3 Months Insurance [facility] O D-SNP [facility] [address] [facility] [place] [address] [facility] O D-SNP [facility] HMO D-SNP [facility] [facility] [place] [facility] [place] [employer] [facility] [place] Care Teams Head Of Cytogenetics Relationship Specialty Start Date End Date No Pcp, Per Patient PCP - General 01/18/25
--- OUTSIDE RECORDS SUMMARY | 2025-03-12 09:08 | XMS_ITS | Encounter Summary ---
Author Organization [facility] Address [address] [place] [address] Care Team Providers Care Websphere Administrator Name Role Phone No Pcp, Per Patient Primary Care Provider Humberto langston Reason for Visit * Reason Onset Date Comments Procedure 12/10/2024 CT Cervical Myel ogram Encounter Details Date Type Department Care Team (Late st Contact Info) Description 12/10/2024 Telephone [facility] [place] [address] [place] [address] Carole Myrick, Clerical Staff Procedure (CT Cervical [...] 8:55 PM EDT Elli Mccurdy RN * Piatt Suicide Severity Rating Scale (Q shift for moderate and high) Question Answer Date of Assessment Author 1. In the past month, have y ou wished you were or wished you could go to sleep and not wake up? 0 01/18/2025 8:55 PM EDT Tawnya Mccurdy, ARNULFO 2. In the past month, have y ou actually had any thoughts of killing yourself? (If no, skip to question 6) 0 01/18/2025 8:55 PM EDT Tawnya Mccurdy, ARNULFO 6. Have you ever done anythi ng, started to do anything, or prepared to do anything to end your life? 0 01/18/2025 8:55 PM EDT Tawnya Mccurdy RN documented as of this encounter Miscellaneous [...] procedure. Patient is scheduled for 12/24/24 at [place], patient to arrive at the outpatient registration department at 10:30am for 11:30am procedure. 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 Patient instructed that they may [...] AM EDT Office Visit [facility] [address], 3RD [place] [address] Bita Miner MD [address] [place] [address] 03/22/2025 3:30 PM EST Telemedicine [facility] [address] [facility] [address] [place] [address] Savage Wood MD [address] [place] [address] 06/04/2025 2:00 PM EST Office Visit [facility] [address] [place] [address] Vivian Frausto, DIALS SUPERVISOR [address] [facility] [place] [address] documented as of this encounter Visit Diagnoses Not on filedocumented in this encounter Care Teams Websphere Administrator Relationship Specialty Start Date End Date No Pcp, Per Patient PCP - General 01/18/25 documented as of this encounter
--- OUTSIDE RECORDS SUMMARY | 2025-03-12 09:08 | XMS_ITS | Encounter Summary ---
Author Organization [place] [address] Care Team Providers Care Operating Room Specialist Name Role Phone No Pcp, Per Patient Primary Care Provider Humberto langston Reason for Visit * Reason Onset Date Comments Back Pain 02/15/2025 Encounter Details Date Type Department Care Team (Late st Contact Info) Description 02/15/2025 Nurse Triage [facility] Nurse Now [address] [place] [address] Suzanne Jean, ARNULFO Social History Tobacco Use Types Packs/Day Years [...] Telephone Encounter - Suzanne Jean RN - 02/15/2025 1:01 PM EDT Nurse Triage Call -Chief Complaint: severe pain lower back down right leg and some in left & at spinal injection site, 5wks ago spinal injection at [facility] & pending appt w/surgeon. -Reported by: Patient -Vitals: No vitals obtained on this call -Disposition per protocol: See today in office. -Not applicable based on clinical presentation -Follow up/Concerns: Pt called PCP & they suggested ED EDG. Advised to go to ED as recommended. Reason for Disposition SEVERE back pain (e.g., excruciating, unable to do any normal activities) and not improved after pain medicine and CARE ADVICE Protocols used: Back Pain-A-OH documented in this encounter Plan of Treatment Upcoming Encounters Date Type Department Care Team (Late st Contact Info) Description 03/13/2025 11:00 AM EDT Office Visit [facility] [address], [address] [place] [address] Bita Miner MD [address] [place], [place] [id number] 03/22/2025 3:30 PM EST Telemedicine [facility] [address] [facility] [address] [place] [address] Savage Wood MD [address] [place] [address] 06/04/2025 2:00 PM EST Office Visit [facility] [address] [facility] [place] [address] Vivian Frausto, COUNSELING PROGRAM LEADER [address] [place] [address] documented as of this encounter Visit Diagnoses Not on filedocumented in this encounter Care Teams Operating Room Specialist Relationship Specialty Start Date End Date No Pcp, Per Patient PCP - General 01/18/25 documented as of this encounter
--- OUTSIDE RECORDS SUMMARY | 2025-03-12 09:08 | XMS_ITS | Encounter Summary ---
Author Organization [facility] [address] Care Team Providers Care Senior Engineering Team Leader Name Role Phone No Pcp, Per Patient Primary Care Provider Humberto langston Reason for Referral * Consultation (Routine) - Pending Review Specialty Diagnoses / Procedures Referred By Senthil t Referred To Contact Diagnoses Obesity, morbid, BMI 50 or higher (HCC) Bita Miner MD [address] [place] [address] Phone: tel: fax: Pawel Suggs MD [address] [place] [address] Phone: tel: fax: Referral ID Status Reason Start Date Expiration Date V isits Requested Visits Authorized [id number] Pending Review 01/31/2025 01/31/2026 99 99 Reason for Visit * Reason Onset Date Comments Other 01/25/2025 Encounter Details Date Type Department Care Team (Late st Contact Info) Description 01/25/2025 Telephone [facility] [address], 3RD [place] [address] Bita Miner MD [address] [place] [address] Other Social History Tobacco Use Types Packs/Day [...] Telephone Encounter - Bita Miner MD - 02/01/2025 1:04 PM EDT Ok, I understand. He can work with PCP re: weight loss with zepbound and it should also help MASH if he does lose weight. * Telephone Encounter - David Turcios LPN - 01/31/2025 5:10 PM EDT Called pt back. States he cannot do weight management because of the costs of meals that insurance does not cover. States he and his son live on fixed income. * Telephone Encounter - Rhianna Vega - 01/31/2025 5:01 PM EDT Pt calling to speak with David. Please cb. * Addendum Note - David Turcios LPN - 01/31/2025 3:03 PM EDTAddended by: DAVID TURCIOS on: 01/31/2025 03:03 PM Modules accepted: Orders * Telephone Encounter - David Turcios LPN - 01/31/2025 2:59 PM EDT called pt and let him know he could start zepbound and I was placing referral * Telephone Encounter - Bita Miner MD - 01/31/2025 2:54 PM EDT Interesting because it was very recently approved. I am okay with zepbound then. I am not sending him to Weight management clinic for bariatric surgery, but would like him to meet with the medical team as I think it is very helpful - they can help with diet, etc too. * Telephone Encounter - David Turcios LPN - 01/30/2025 4:09 PM EDT please see msg from pt regarding wegovy. I called and spoke to him about new coverage for the liver. He states that the PCP did try to get it covered with the liver diagnosis from the previous GI andit was still denied. * Telephone Encounter - David Turcios LPN - 01/30/2025 3:53 PM EDT msg sent to pt * Telephone Encounter - Bita Miner MD - 01/30/2025 3:47 PM EDT Wegovy is actually the drug which is approved/ indicated for MASH/fatty liver. If his PCP wants to prescribe that instead, I would be agreeable. I would also like if he would meet with Weight Management as they can manage all that. * Telephone Encounter - David Turcios LPN - 01/30/2025 2:58 PM EDT called pt and went over results, he did go to ER the day he called in. Scheduled f/u. Pt would like to know if you want him to start zepbound. You had originally told him to hold off. * Telephone Encounter - Bita Miner MD - 01/30/2025 2:06 PM EDT When having pain after procedure, he is always meant to call the doctor who did it (IR) or go to ER. Is he feeling better now? In setting of liver disease I would be okay with low dose, occasional/short term tylenol. Liver biopsy results with fatty liver, mild fibrosis, no cirrhosis. He may be a candidate for several medicines that can help limit the progression of the fibrosis. As always, weight loss is the primary management of [facility]. Can you please have him follow up next available? * Telephone Encounter - Annabelle Talavera RN - 01/25/2025 2:23 PM EDT Pt states he is having some discomfort from his liver bx last week and also states the pain is better just not gone completely. States he can 't take ibuprofen d/t taking Meloxicam and Tylenol is notrecommended in liver disease. Advised pt if his pain begins to worsen or he dev a fever he should report to the ER. Pt wanting to go over results. Aware [facility] is out of the office until next week. FINAL DIAGNOSIS Liver, needle biopsy: - Moderate [...] non-alcoholoic steatohepatitis (GUADALUPE). Clinical correlation is recommended. * Telephone Encounter - Charles Euceda, Clerical Staff - 01/25/2025 1:20 PM EDT Pt calling. States that he received results of liver biopsy on [facility] and would like a cb to discuss results and if he needs to schedule follow up OV. Clinical team please call patient to discuss further documented in this encounter Plan of Treatment Upcoming Encounters Date Type Department Care Team (Late st Contact Info) Description 03/13/2025 11:00 AM EDT Office Visit [facility] [address], [address]RD [place] [address] Bita Miner MD [address] [place], [place] [id number] 03/22/2025 3:30 PM EST Telemedicine [facility] [address] [facility] [address] [place] [address] Savage Wood MD [address] [place] [address] 06/04/2025 2:00 PM EST Office Visit [facility] [address] [place] [address] Vivian Frausto APRN [address] [place] [address] Scheduled Referrals Name Type Priority Associated Diagnoses Order Schedule AMB REFERRAL FOR BARIATRICS Outpatient Referral Routine Obesity, morbid, BMI 50 or higher (HCC) Ordered: 01/31/2025 documented as of this encounter Visit Diagnoses Diagnosis Obesity, morbid, BMI 50 or higher (HCC)- Primary documented in this encounter Care Teams Senior Engineering Team Leader Relationship Specialty Start Date End Date No Pcp, Per Patient PCP - General 01/18/25 documented as of this encounter
--- OUTSIDE RECORDS SUMMARY | 2025-03-12 09:08 | XMS_ITS | Encounter Summary ---
Author Organization Healthcare Address [address] [place] [address] Care Team Providers Care Manufacturing Coordinator Name Role Phone Keturah Phoenix Primary Care Provider [phone] Annette Sorenson APRN, JAD Unavailable [phone] Reason for Visit * Reason Comments Med Refill Encounter Details Date Type Department Care Team (Late st Contact Info) Description 02/22/2025 Refill [facility] [address] [place] [address] Annette Sorenson, LAURA, DNP [address] [place] [address] Low testosterone Social History Tobacco [...] drink first t irvin in the morning (EYE-SOW FARM TECHNICIAN) to steady your nerves or to [...] Description 03/18/2025 2:30 PM EST Office Visit [facility] [address] [place] [address] Annette Sorenson P, PROPOSAL LEAD WRITER, DNP [address] [place] [address] 05/23/2025 10:40 AM EST Appointment [facility] [address] [place] [address] 05/23/2025 11:30 AM EST Office Visit [facility] [address] [facility], [address] [place] [address] Heaven Jones, PROPOSAL LEAD WRITER [address] [place] [address] documented as of this encounter [...] documented as of this encounter Care Teams Manufacturing Coordinator Relationship Specialty Start Date End Date Keturah Phoenix PA [address] [place] [address] PCP - General 04/26/23 Annette Sorenson, LAURA, DNP [address] [facility] [address] [place] [address] Nurse Practitioner Urology 11/25/23 documented as of this encounter
[2025-03-12 09:39] LABS: Hematocrit 54.7 % (42.0-52.0); Hemoglobin 18.0 g/dL (14.1-18.0); Immature Granulocytes % 0.2 %; Mean Corpuscular HGB Conc 32.9 g/dL (31.8-35.4); Mean Corpuscular Hemoglobin 29.0 pg (27.0-31.2); Mean Corpuscular Volume 88.2 fl (80-94); Nucleated Red Blood Cells % 0 %; Platelet Count 232 K/mm3 (142-424); Red Blood Count 6.20 M/mm3 (4.60-6.20); Red Cell Distribution Width-SD 47.1 fL; White Blood Count 5.3 K/mm3 (4.8-10.8)
[2025-03-12 09:45] LABS: Cholesterol 130 mg/dl (140-200); HDL Cholesterol 32 mg/dl (40-60); Iron 119 ug/dL (49-181); Triglycerides 102 mg/dl (30-150)
[2025-03-12 09:46] LABS: Alanine Aminotransferase 173 U/L (12-78); Albumin Level 3.5 g/dl (3.5-5.0); Albumin/Globulin Ratio 0.9 (1.1-1.8); Alkaline Phosphatase 71 U/L (38-126); Anion Gap 10.8 mEq/L (5-15); Aspartate Amino Transferase 121 U/L (17-59); Bilirubin,Total 2.2 mg/dl (0.2-1.3); Blood Urea Nitrogen 11 mg/dl (9-20); Calcium 8.8 mg/dl (8.4-10.2); Carbon Dioxide 28 mmol/L (22.0-30.0); Chloride 101 mmol/L (98-107); Creatinine Clearance Estimated 105 mL/min (50-200); Creatinine,Serum 1.10 mg/dl (0.66-1.25); Estimated Glomerular Filt Rate 73 ml/min (>60); GFR (African American) 88 ML/MIN (>60); Globulin 4.0 g/dL (1.3-3.2); Glucose 101 mg/dl (74-100); Potassium 3.8 mmoL/L (3.5-5.1); Sodium 136 mmol/L (136-145); Total Protein,Serum 7.5 g/dl (6.3-8.2)
[2025-03-12 09:54] LABS: Total Iron Binding Capacity 311 ug/dL (261-462)
[2025-03-12 10:15] LABS: Prostate Specific Ag, Diagnost 0.512 ng/ml (0.0-4.0)
[2025-03-12 10:20] LABS: 25-OH Vitamin D, Total 47.6 ng/mL (30-100); Ferritin 36.4 ng/ml (17.9-464)
[2025-03-12 10:22] VITALS: BP 144/82; PULSE 84; RESP 14; TEMP 36.6; O2SAT 96
[2025-03-12 10:37] LABS: Vitamin B12 713 pg/mL (239-931)
[2025-03-12 10:50] VITALS: BP 127/78; PULSE 86; RESP 14; O2SAT 96
[2025-03-12 11:20] LABS: Folate > 20.00 ng/mL
--- NOTE | 2025-03-12 15:51 | PC.NURSE ---
1050 therapeutic phlebotomy 500ml completed as ordered. patient tolerated well with no problems/denies complains.
[2025-03-13 08:32] LABS: Testosterone,Total 878 ng/dL (264-916)
[2025-03-13 12:12] LABS: Antinuclear Antibodies, IFA Negative (.)
== END 2025-03-12 23:59 | disposition home or self-care (01) ==
LOC: INF 08:55
PROVIDERS: PCP Nurse Practitioner; Visit Provider Nurse Practitioner Family
DX: Z00.00 Encounter for general adult medical examination without abnormal findings (principal); R79.89 Other specified abnormal findings of blood chemistry; Z79.890 Hormone replacement therapy; D75.1 Secondary polycythemia; R74.01 Elevation of levels of liver transaminase levels; E55.9 Vitamin D deficiency, unspecified; Z83.2 Family history of diseases of the blood and blood-forming organs and certain disorders involving the immune mechanism
CPT/HCPCS: 36415; 80053; 80061; 82306; 82607; 82670; 82728; 82746; 83540; 83550; 84153; 84403; 85025; 86038; 99195